=== PATIENT | female | born 1950 | race Caucasian/White ===

== ENCOUNTER → 2016-04-06 | Outpatient (CLI) | payer MEDICARE, OTHER ==
--- NOTE | 2016-04-06 11:31 | XR ---
EXAMINATION TYPE: XR chest 2V DATE OF EXAM: 04/06/2016 11:21 AM COMPARISON: NONE HISTORY: Shortness of breath TECHNIQUE: Frontal and lateral views of the chest are obtained. FINDINGS: Scattered senescent parenchymal changes noted. Hyperinflation compatible with COPD. There is a right suprahilar masslike density. CT of the chest is recommended. Right apical nodularity identified as well. Heart size is stable. Mediastinal structures are stable and grossly unremarkable. No evidence for hilar prominence. Degenerative changes dorsal spine. Probable bone infarct involving the left humerus. IMPRESSION: 1. There is a right suprahilar masslike density. CT of the chest is recommended. Right apical nodular ity identified as well.
== END | disposition home or self-care (01) ==
LOC: RADXRMAIN 10:52
PROVIDERS: ATTEND Family Medicine
DX: R91.8 Other nonspecific abnormal finding of lung field (principal); R91.1 Solitary pulmonary nodule
CPT/HCPCS: 71020

== ENCOUNTER → 2016-04-12 | Outpatient (CLI) | payer MEDICARE, OTHER ==
--- NOTE | 2016-04-12 11:03 | BD ---
EXAMINATION TYPE: MG DEXA axial skeleton. DATE OF EXAM: 04/12/2016 7:57 AM COMPARISON: NONE CLINICAL HISTORY: Height: 68 Weight: 137.4 FRAX RISK QUESTIONS: Alcohol (3 or more units per day): NO Family History (Parent hip fracture): YES Glucocorticoids (More than 3mos): NO (Ex: prednisone, prednisolone, methylprednisolone, dexamethasone, and hydrocortisone). History of Fracture in Adulthood: NO Secondary Osteoporosis: 1. Type 1 Diabetes: NO 2. Hyperthyroidism: NO 3. Menopause before 45: YES 4. Malnutrition: NO 5. Chronic liver disease: NO Rheumatoid Arthritis: NO Current Tobacco Use: YES RISK FACTORS HISTORY OF: Hip Fracture (Right/Left): NO Spine Fracture: NO History of Wrist Fracture: NO Surgery to Spine/Hip(right/left)/Wrist (right/left): NO Family History of Osteoporosis: NO Active: YES Diet low in dairy products/other sources of calcium: YES Postmenopausal woman: AROUND AGE 43 Lost more than 2 inches in height since high school: NO Frequent falls: NO Adrenal Insufficiency: NO MEDICATIONS: CHOLESTEROL MEDS, INHALER, GLAUCOMA MEDS Additional History: EXAM MEASUREMENTS: Bone mineral densitometry was performed using the [employer] System. Bone mineral density as measured about the Lumbar spine is: ----- L1-L4(G/cm2): 1.152 T Score Values are as follows: ----- L2: -0.3 ----- L3: 0.4 ----- L4: -0.5 ----- L1-L4: -0.2 Bone mineral density BASELINE Bone mineral density about the R hip (g/cm2): 0.794 Bone mineral density about the L hip (g/cm2): 0.804 T Score values are as follows: -----R Neck: -1.8 -----L Neck: -1.7 -----R Intertrochanter: -2.1 -----L Intertrochanter: -2.2 Bone mineral density BASELINE IMPRESSION: Osteopenia (T Score between -2.5 and -1 as noted by T score values There is slightly increased risk of fracture and the patient may be considered for treatment. Re-Screen 1-2 years. NOTE: T-SCORE=SD OF THE YOUNG ADULT MEAN.
--- NOTE | 2016-04-16 10:16 | MM ---
Reason for exam: screening (asymptomatic). Last mammogram was performed 3 years and 3 months ago. Physical Findings: A clinical breast exam by your physician is recommended on an annual basis and results should be correlated with mammographic findings. MG Screening Mammo w CAD Bilateral CC and MLO view(s) were taken. Prior study comparison: January 03, 2013, mammogram, performed at [facility]. The breast tissue is heterogeneously dense. This may lower the sensitivity of mammography. Technical repeat left CC view for motion. Focal asymmetry centrally in the left breast after repeat left CC view for motion. ASSESSMENT: Incomplete: need additional imaging evaluation, BI-RAD 0 RECOMMENDATION: Special view mammogram of the left breast. If lesion persists on supplemental views, image directed ultrasound is recommended. [facility] will attempt to contact patient to return for supplemental views and ultrasound if indicated.
== END | disposition home or self-care (01) ==
LOC: RADMAMWWP 07:16
PROVIDERS: ATTEND Family Medicine
DX: Z12.31 Encounter for screening mammogram for malignant neoplasm of breast (principal); M85.80 Other specified disorders of bone density and structure, unspecified site; Z78.0 Asymptomatic menopausal state
CPT/HCPCS: 77080; G0202

== ENCOUNTER → 2016-04-16 | Outpatient (CLI) | payer MEDICARE, OTHER ==
--- NOTE | 2016-04-16 10:09 | CT ---
EXAMINATION TYPE: CT chest wo con DATE OF EXAM: 04/16/2016 10:00 AM COMPARISON: Chest x-ray 04/06/2016 HISTORY: Abnormal finding in lung field CT DLP: 118.70 mGycm Automated exposure control for dose reduction was used. FINDINGS: There is a large bleb or bulla involving the right lung apex. There is a large area of consolidation extending from the right hilum with a large right hilar soft tissue mass measuring 5.2 cm. There is m ild anterior compression of the right mainstem bronchus. Within the left lower lobe there also is an area of consolidation. No pleural effusion or pneumothorax. Lack of IV contrast limits assessment for adenopathy shotty adenopathy in the axilla noted. Hypertrophic changes of the spine noted. Degenerative disc disease noted. IMPRESSION: 1. Large right hilar mass extending into the mediastinum measuring 5.2 cm with anterior compression o f the right mainstem bronchus. Right upper lobe area of consolidation noted may be postinflammatory o r related post infectious possibly related to anterior compression of the bronchus from the hilar mas s. 2. Apical cavitary lesion for which differential diagnosis includes a bulla or pneumatocele. 3. Left lower lobe area of consolidation may represent areas of infiltrate correlate clinically
--- NOTE | 2016-04-16 10:20 | MM ---
Reason for exam: additional evaluation requested from abnormal screening. Last mammogram was performed less than 1 month ago. History: Patient is postmenopausal. Family history of breast cancer in mother at age 50. Physical Findings: Nurse did not find any significant physical abnormalities on exam. MG Work Up Mamm w CAD LT CC and MLO view(s) were taken of the left breast. Prior study comparison: April 12, 2016, bilateral MG screening mammo w CAD. January 03, 2013, mammogram, performed at [facility]. The breast tissue is heterogeneously dense. This may lower the sensitivity of mammography. Questioned central asymmetry does not persist. No underlying mass or architectural distortion. These results were verbally communicated with the patient and result sheet given to the patient on 04/16/16. ASSESSMENT: Negative, BI-RAD 1 RECOMMENDATION: Return to routine screening mammogram schedule for both breasts.
== END | disposition home or self-care (01) ==
LOC: RADCTMAIN 08:38
PROVIDERS: ATTEND Family Medicine
DX: R92.8 Other abnormal and inconclusive findings on diagnostic imaging of breast (principal); R91.8 Other nonspecific abnormal finding of lung field
CPT/HCPCS: 71250; G0206

== ENCOUNTER → 2016-04-24 | Outpatient (CLI) | payer MEDICARE, OTHER ==
--- NOTE | 2016-04-26 16:09 | PE ---
EXAMINATION TYPE: PET CT fusion skull to thigh DATE OF EXAM: 04/24/2016 2:06 PM CLINICAL HISTORY: 65-year-old female initial staging lung cancer TECHNIQUE: Following the intravenous administration of 14.59 mCi of F-18 FDG, whole body images are performed from the skull base to the midthigh. Images are reviewed on the computer in the coronal, axial, and sagittal planes. Reconstructed rotating images are created on independent workstation and reviewed on the computer. A localization and attenuation correction CT is performed in conjunction with the PET scan. Glucose level: 101 mg/dL COMPARISON: CT chest 04/16/2016 FINDINGS: PET: Uptake at the larynx likely a product of phonation. Otherwise, physiologic FDG uptake within the neck . There is focal mild to moderate FDG uptake in the right supraclavicular region, maximal SUV 3.1 that seems to localize to a borderline-enlarged 8mm lymph node, axial image 60. Right paratracheal lymphadenopathy measures 1.2 cm and shows mild FDG uptake, maximum SUV 4.8, but is contiguous with additional right perihilar lymphadenopathy and right hilar mass which measures 4.8 c m wide by 2.9 cm AP and causes mild mass effect onto the anterior margin of the right mainstem bronch us. This has intense hypermetabolism, maximal SUV 10.7. However, there are additional foci of intense hypermetabolism interposed throughout the extensive hope undglass and consolidative opacity within the right upper lobe extending from the hilum, maximal SUV 6.6. There is also some mild to moderate increased hypermetabolism along the margins of the irregular 3.8 x 1.8 cm right apical cavity, maximal SUV 3.8. Scattered small nodules within the right upper lobe measure up to 9 mm and show no discrete FDG uptak e. There is a second area of consolidation along the left infrahilar region extending within the left lo wer lobe along the major fissure to the pleural surface. Portions of this opacity show moderate FDG u ptake, maximal SUV 4.1. There has been no significant change in this appearance from 04/16/2016. There are a couple focal areas of intense FDG uptake along the mid to distal sigmoid colon anterior t o the uterus, axial image 217 and 224, maximal SUV 7.6. Area of sclerosis within the intramedullary space of the proximal third left humerus shows only mild increased FDG uptake, maximal SUV 1.7 and probably represents a benign chondroid lesion. ATTENUATION CORRECTION CT: Visualized paranasal sinuses and mastoid air cells are well pneumatized. No cervical lymphadenopathy seen. Heart is normal size without pericardial effusion. Aorta is normal caliber with conventional arch ves seble branching anatomy. There is background of [id number] emphysema. No dilated small bowel, free fluid, or free air. Retroaortic left renal vein. Adrenal glands are shaheed r. No appreciable mesenteric or retroperitoneal lymphadenopathy. Bladder nondistended. Uterus and ovaries are visualized. No abnormal fluid collection in the pelvis o r pelvic lymphadenopathy seen. Bones: Osteitis pubis mild degenerative changes at the hips and lower lumbar spine. No osseous destru ctive process. IMPRESSION: 1. Intensely hypermetabolic right hilar neoplasm with mediastinal invasion. A 1.2 cm right paratrache al lymph node and 8 mm right supraclavicular node show moderate FDG uptake and may reflect metastatic disease. 2. There is extensive groundglass and consolidative opacity which extends from the right hilum throug hout the right upper lobe where a 3.8 cm irregular cavity is present. There are foci of intense hyper metabolism throughout this region and even some hypermetabolism along the cavity sterling. Uncertain if this relates to an infectious etiology such as fungal or mycobacterial infection or additional neopla sm. Consider bronchial washings to exclude infection. 3. Another area of consolidation in the left lower lobe along the major fissure shows moderate FDG up take and no change from 04/16/2016. Both infectious and neoplastic etiologies are in the differential such as a low-grade adenocarcinoma. This can be followed to assess for clearance. 4. 2 adjacent areas of intense hypermetabolism within the mid to distal sigmoid colon could represent physiologic muscular activity. However, given the isolated uptake, recommend direct visualization to exclude polyps or early neoplasm.
== END | disposition home or self-care (01) ==
LOC: RADPETMAIN 11:56
PROVIDERS: ATTEND Internal Medicine
DX: C34.90 Malignant neoplasm of unspecified part of unspecified bronchus or lung (principal)
CPT/HCPCS: 78815; A9552

== ENCOUNTER 2016-04-30 10:53 | Day surgery (SDC) | payer MEDICARE, OTHER ==
[2016-04-27 12:27] VITALS: BMI 21.2
[~2016-04-30 10:53] MED LIST: ALBUTEROL NEB (CONC) 2.5 MG/0.5 ML INHALATION ONE; LACTATED RINGERS 1,000 ML IV ONE; LACTATED RINGERS 1,000 ML IV SCH; LIDOCAINE 2% (PF) 20 MG/ML 10ML INHALATION ONE; Pre Op ABX Message 1 EACH MISC MISCELLANE ONE
[2016-04-30] MEDS ORDERED: LIDOCAINE 1% 20 ML VIAL (10MG/ML) FOR IV START INTRADERMA ONE (11:51)
[2016-04-30 12:02] VITALS: RESP 16; TEMP 97.5
[2016-04-30] MEDS ORDERED: PROPOFOL 10 MG/ML 20 ML VIAL IV ONE (12:13)
[2016-04-30] MEDS ORDERED: LIDOCAINE 1% INJ 10MG/ML (20 ML MDV) ONE (12:13)
[2016-04-30] MEDS ORDERED: fentaNYL (PF) 50 MCG/ML 2 ML AMP ONE (12:13)
[2016-04-30 13:22] VITALS: BP 112/66; PULSE 94
[2016-04-30 17:48] LABS: RBC, Body Fluid 20600 /uL
--- NOTE | 2016-04-30 19:42 | PCN ---
DATE OF PROCEDURE: OPERATIVE REPORT: Bronchoscopy with endobronchial biopsies of the right mainstem bronchus and right upper lobe bronchus, multiple brushings of the right upper lobe bronchus and lavage of the right upper lobe as well as lavage of the left lower lobe. PREOPERATIVE DIAGNOSIS: Right hilar mass consistent with bronchogenic carcinoma. POSTOPERATIVE DIAGNOSIS: Right hilar mass consistent with bronchogenic carcinoma. ANESTHESIA USED: Patient was given IV conscious sedation. DESCRIPTION OF PROCEDURE: Patient was prepared according to the bronchoscopy protocol. O2 was applied via a Ventimask, and patient was given IV conscious sedation. Prior to the procedure, patient was monitored, her O2 saturation was continuously monitored via pulse oximetry. Blood pressure was intermittently monitored. Cardiac rhythm was continuously monitored. After adequate IV conscious sedation, the bronchoscope was inserted through the left naris down to the area of the vocal cords. The vocal cords were patent. Pictures of the vocal cords were taken. Lidocaine was applied over the vocal cords, and the bronchoscope was advanced further down to the trachea. Thorough examination was done of the trachea, the tamica, right upper lobe, right middle lobe and left lower lobe, left upper lobe, lingula, and left lower lobe. The main findings noted where mostly obviously a hilar mass anterior to the right mainstem bronchus, narrowing of the right mainstem bronchus with compression from the anterior aspect. There is also narrowing of the right upper lobe bronchus mostly the anterior segment of the right upper lobe. The mucosa was noted to be quite fragile, swollen, edematous and significant inflammatory changes were noted in the area involving the anterior segment of the right upper lobe as well as anterior wall of the right mainstem bronchus. Multiple brushings, multiple endobronchial biopsies were done from these areas and bronchoalveolar lavage of the right upper lobe was done. These were sent for different diagnostic studies. Then in the left lower lobe, there was evidence of purulent secretions. Lavage and cleaning of the left lower lobe was performed, but no specimen was sent for any cytology from the left lower lobe. The specimen sent was mostly from the brushings and biopsies of the right upper lobe bronchus and right mainstem bronchus. There was also brushings and washings as well as biopsies from this area specifically. The procedure was well tolerated. There was no evidence of any immediate complications. Blood loss was minimal.
== END 2016-04-30 14:01 | disposition home or self-care (01) ==
LOC: ORWHC2ENDO 10:53
PROVIDERS: ATTEND Internal Medicine
DX: C34.11 Malignant neoplasm of upper lobe, right bronchus or lung (principal); J18.9 Pneumonia, unspecified organism; J44.9 Chronic obstructive pulmonary disease, unspecified; F17.200 Nicotine dependence, unspecified, uncomplicated; J30.2 Other seasonal allergic rhinitis; Z79.899 Other long term (current) drug therapy; Z88.2 Allergy status to sulfonamides
CPT/HCPCS: 94640; 88104; 88108; 88305; 89050; 88342; 88341; 87070; 87205; 87116; 87102; 87077; 87186; 87206; 31625; 31623; 31624; J2001 ×2; J3010; J2704; 99153

== ENCOUNTER → 2016-05-12 | Outpatient (CLI) | payer MEDICARE, OTHER ==
[2016-05-12 10:21] LABS: Non-African American GFR(MDRD) >60 (>60 ml/min/1.73 sqM)
[2016-05-12 11:55] LABS: Non-African American GFR(MDRD) >60 (>60 ml/min/1.73 sqM)
--- NOTE | 2016-05-12 11:55 | MR ---
MR brain with and without contrast HISTORY: Lung cancer Multiplanar multisequence and postcontrast images through the brain following 13 cc MultiHance IV, fa st brain protocol used for the exam due to patient's cough Correlation to nuclear medicine PET/CT 24 April 2016 There is no restricted diffusion. There is no hemorrhage or hydrocephalus. Pituitary, corpus callosum , cerebellopontine angles are normal. Cervical medullary junction is normal. There is no abnormal enh ancement to suggest metastatic disease. Periventricular and subcortical hyperintensities on inversion recovery and T2-weighted sequences are resident. There are approximately 20-30 lesions. The orbits s how symmetric appearance. Mild inflammatory change present within the maxillary sinus, ethmoid air ce lls. There is cortical atrophy. No mass effect or midline shift. IMPRESSION: Age-related atrophy and chronic small vessel ischemia. Follow-up as indicated.
[2016-05-12 12:32] LABS: ALT 52 U/L (9-52); AST 70 U/L (14-36); Alkaline Phosphatase 176 U/L (38-126); Anion Gap 14 mmol/L; Blood Urea Nitrogen 16 mg/dL (7-17); Calcium 9.8 mg/dL (8.4-10.2); Carbon Dioxide 22 mmol/L (22-30); Chloride 109 mmol/L (98-107); Glucose 197 mg/dL (74-99); Iron 59 ug/dL (37-170); Potassium 4.7 mmol/L (3.5-5.1); Sodium 145 mmol/L (137-145); Total Bilirubin 0.6 mg/dL (0.2-1.3); Total Protein 8.1 g/dL (6.3-8.2)
[2016-05-12 12:48] LABS: Total Iron Binding Capacity 311 ug/dL (265-497)
== END | disposition home or self-care (01) ==
LOC: RADMRIMAIN 09:51
PROVIDERS: ATTEND Internal Medicine Hematology & Oncology
DX: C34.90 Malignant neoplasm of unspecified part of unspecified bronchus or lung (principal); I67.82 Cerebral ischemia; G31.1 Senile degeneration of brain, not elsewhere classified
CPT/HCPCS: 80053; 82728; 82565; 83540; 83550; 70553; A9577

== ENCOUNTER 2016-07-12 17:46 | Inpatient (IN) | payer MEDICARE, OTHER ==
[2016-07-12] MEDS ORDERED: DILTIAZEM 5 MG/ML 5 ML VIAL IVP STA (17:58)
[2016-07-12] MEDS ORDERED: DILTIAZEM 125 MG in SODIUM CHLORIDE 0.9% 100 ML IV ONE (17:58)
[2016-07-12] MEDS ORDERED: SODIUM CHLORIDE 0.9% 1,000 ML IV ONE (18:06)
[2016-07-12] MEDS ORDERED: ACETAMINOPHEN TAB 325 MG TAB PO STA (18:06)
--- NOTE | 2016-07-12 18:17 | ED ---
Fever HPI - General Chief Complaint: Fever Stated Complaint: poss infection Time Seen by Provider: 07/12/16 17:58 Source: patient Mode of arrival: wheelchair Limitations: no limitations - History of Present Illness Initial Comments: Patient is 66-year-old woman who was sent here from her oncologist clinic. She had gone there to have a radiation therapy appointment. As they were checking the patient in the noted that she was having a fever and that she was tachycardic. The patient states that she did have some mild symptoms but was not feeling awful. She is denying chest pain. She has just mild shortness of breath. No cough. Patient denies other symptoms. MD Complaint: fever -: minutes(s) Context: on chemotherapy Associated Symptoms: denies other symptoms Treatments Prior to Arrival: none - Related Data Home Medications Medication Instructions Recorded Confirmed Latanoprost Ophth [Xalatan 0.005%] 1 drops LEFT EYE HS 04/27/16 07/12/16 Simvastatin [Zocor] 20 mg PO Q2D 04/27/16 07/12/16 Simvastatin [Zocor] 40 mg PO Q2D 04/27/16 07/12/16 Famotidine [Pepcid AC] 10 mg PO DAILY 07/12/16 07/12/16 HYDROcodone/APAP [Pawling Elixir 5 ml PO TID PRN 07/12/16 07/12/16 7.5-325Mg/15Ml] Loratadine-Pseudoeph 10-240 mg 1 tab PO DAILY 07/12/16 07/12/16 [Claritin-D 24 Hr] Allergies Allergy/AdvReac Type Severity Reaction Status Date / Time Sulfa (Sulfonamide Allergy Anaphylaxis Verified 07/12/16 19:04 Antibiotics) Review of Systems ROS Statement: Those systems with pertinent positive or pertinent negative responses have been documented in the HPI. ROS Other: All systems not noted in ROS Statement are negative. Constitutional: Reports: as per HPI, fever ENT: Reports: throat pain Respiratory: Reports: dyspnea. Denies: cough, wheezes Cardiovascular: Denies: chest pain, palpitations, edema, syncope Gastrointestinal: Denies: abdominal pain, vomiting, diarrhea Genitourinary: Denies: dysuria, frequency, hematuria Musculoskeletal: Denies: back pain Skin: Denies: rash Neurological: Denies: headache, weakness, numbness Past Medical History Past Medical History: Cancer, Eye Disorder Additional Past Medical History / Comment(s): cough pt states mass lt lower lung and other spots in the lung, lt eye glaucoma, ON CHEMO AND RADIATION FOR LUNG ca History of Any Multi-Drug Resistant Organisms: None Reported Past Surgical History: No Surgical Hx Reported Past Anesthesia/Blood Transfusion Reactions: No Reported Reaction Additional Past Anesthesia/Blood Transfusion Reaction / Comment(s): states has never received anesthesia Past Psychological History: No Psychological Hx Reported Smoking Status: Former smoker Past Alcohol Use History: None Reported Additional Past Alcohol Use History / Comment(s): smoker 40 years 1ppd Past Drug Use History: None Reported - Past Family History Mother Family Medical History: Cancer Additional Family Medical History / Comment(s): uterine,breast cancer Father Family Medical History: Cancer Additional Family Medical History / Comment(s): hodgkins Sister(s) Family Medical History: No Reported History General Exam Limitations: no limitations General appearance: alert, in no apparent distress Head exam: Present: atraumatic, normocephalic Eye exam: Present: normal appearance. Absent: scleral icterus, conjunctival injection ENT exam: Present: normal oropharynx Neck exam: Present: normal inspection Respiratory exam: Present: normal lung sounds bilaterally. Absent: respiratory distress, wheezes, rales, rhonchi, stridor Cardiovascular Exam: Present: tachycardia, irregular rhythm, normal heart sounds. Absent: systolic murmur, diastolic murmur, rubs, gallop GI/Abdominal exam: Present: soft. Absent: distended, tenderness, guarding, rebound, mass Extremities exam: Present: normal inspection, normal capillary refill. Absent: pedal edema, calf tenderness Back exam: Present: normal inspection. Absent: CVA tenderness (R), CVA tenderness (L) Neurological exam: Present: alert Skin exam: Present: warm, dry, intact, normal color. Absent: rash Course Vital Signs 07/12/16 07/12/16 07/12/16 17:46 18:35 19:41 Temperature 100.7 F H 99.3 F Pulse Rate 171 H 140 H 154 H Respiratory 16 16 16 Rate Blood Pressure 98/52 143/55 88/48 O2 Sat by Pulse 100 96 100 Oximetry 07/12/16 07/12/16 07/12/16 20:28 21:11 21:21 Temperature 100.2 F H 99.3 F Pulse Rate 138 H 133 H 93 Respiratory 18 18 16 Rate Blood Pressure 101/47 83/52 89/48 O2 Sat by Pulse 97 Oximetry Medical Decision Making - Medical Decision Making This patient is 66-year-old woman with lung cancer presenting from the radiation oncology clinic where she was found to have fever and tachycardia. The patient is in atrial fibrillation with rapid ventricular rate, fluids and Cardizem are started. Workup also reveals pancytopenia, patient will be transfused with red cells and as her platelets are below 10,000 have platelet transfusion. Patient also covered with antibiotics for febrile neutropenia. Case discussed with the oncologist, with the hydrometer tester, and with the admitting physicians. Cardiology also consulted area The patient's heart rate is responding to the fluids, medication, and the started a transfusion. - Lab Data Result diagrams: 07/13/16 11:56 07/13/16 06:23 Lab Results 07/12/16 07/12/16 07/12/16 Range/Units 18:15 18:15 18:15 WBC 0.4 L* (3.8-10.6) k/uL RBC 1.90 L (3.80-5.40) m/uL Hgb 5.6 L* (11.4-16.0) gm/dL Hct 15.9 L* (34.0-46.0) % MCV 83.8 (80.0-100.0) fL MCH 29.3 (25.0-35.0) pg MCHC 35.0 (31.0-37.0) g/dL RDW 23.6 H (11.5-15.5) % Plt Count 3 L* (150-450) k/uL Differential Comment Anisocytosis Moderate Microcytosis Slight PT (9.0-12.0) sec INR (<1.1) APTT (22.0-30.0) sec Sodium 133 L (137-145) mmol/L Potassium 4.0 (3.5-5.1) mmol/L Chloride 97 L (98-107) mmol/L Carbon Dioxide 24 (22-30) mmol/L Anion Gap 12 mmol/L BUN 40 H (7-17) mg/dL Creatinine 0.97 (0.52-1.04) mg/dL Est GFR (MDRD) Af Amer >60 (>60 ml/min/1.73 sqM) Est GFR (MDRD) Non-Af 57 (>60 ml/min/1.73 sqM) Glucose 233 H (74-99) mg/dL Calcium 9.2 (8.4-10.2) mg/dL Magnesium 1.4 L (1.6-2.3) mg/dL Total Bilirubin 1.0 (0.2-1.3) mg/dL AST 14 (14-36) U/L ALT 23 (9-52) U/L Alkaline Phosphatase 89 (38-126) U/L Total Creatine Kinase <20 L (30-135) U/L CK-MB (CK-2) <0.2 (0.0-2.4) ng/mL CK-MB (CK-2) Rel Index Troponin I 0.015 (0.000-0.034) ng/mL Total Protein 6.8 (6.3-8.2) g/dL Albumin 3.5 (3.5-5.0) g/dL TSH 1.200 (0.465-4.680) mIU/L Blood Type Blood Type Confirm Blood Type Recheck Antibody Screen Crossmatch Transfuse Platelets Spec Expiration Date 07/12/16 07/12/16 07/12/16 Range/Units 18:15 18:15 20:00 WBC (3.8-10.6) k/uL RBC (3.80-5.40) m/uL Hgb (11.4-16.0) gm/dL Hct (34.0-46.0) % MCV (80.0-100.0) fL MCH (25.0-35.0) pg MCHC (31.0-37.0) g/dL RDW (11.5-15.5) % Plt Count (150-450) k/uL Differential Comment Anisocytosis Microcytosis PT 11.5 (9.0-12.0) sec INR 1.2 (<1.1) APTT 25.6 (22.0-30.0) sec Sodium (137-145) mmol/L Potassium (3.5-5.1) mmol/L Chloride (98-107) mmol/L Carbon Dioxide (22-30) mmol/L Anion Gap mmol/L BUN (7-17) mg/dL Creatinine (0.52-1.04) mg/dL Est GFR (MDRD) Af Amer (>60 ml/min/1.73 sqM) Est GFR (MDRD) Non-Af (>60 ml/min/1.73 sqM) Glucose (74-99) mg/dL Calcium (8.4-10.2) mg/dL Magnesium (1.6-2.3) mg/dL Total Bilirubin (0.2-1.3) mg/dL AST (14-36) U/L ALT (9-52) U/L Alkaline Phosphatase (38-126) U/L Total Creatine Kinase (30-135) U/L CK-MB (CK-2) (0.0-2.4) ng/mL CK-MB (CK-2) Rel Index Troponin I (0.000-0.034) ng/mL Total Protein (6.3-8.2) g/dL Albumin (3.5-5.0) g/dL TSH (0.465-4.680) mIU/L Blood Type A Positive Blood Type Confirm Blood Type Recheck CABO Indicated Antibody Screen NEGATIVE Crossmatch See Detail Transfuse Platelets 07/12/2016 Spec Expiration Date 07/15/2016 - 231407/12/16 Range/Units 20:08 WBC (3.8-10.6) k/uL RBC (3.80-5.40) m/uL Hgb (11.4-16.0) gm/dL Hct (34.0-46.0) % MCV (80.0-100.0) fL MCH (25.0-35.0) pg MCHC (31.0-37.0) g/dL RDW (11.5-15.5) % Plt Count (150-450) k/uL Differential Comment Anisocytosis Microcytosis PT (9.0-12.0) sec INR (<1.1) APTT (22.0-30.0) sec Sodium (137-145) mmol/L Potassium (3.5-5.1) mmol/L Chloride (98-107) mmol/L Carbon Dioxide (22-30) mmol/L Anion Gap mmol/L BUN (7-17) mg/dL Creatinine (0.52-1.04) mg/dL Est GFR (MDRD) Af Amer (>60 ml/min/1.73 sqM) Est GFR (MDRD) Non-Af (>60 ml/min/1.73 sqM) Glucose (74-99) mg/dL Calcium (8.4-10.2) mg/dL Magnesium (1.6-2.3) mg/dL Total Bilirubin (0.2-1.3) mg/dL AST (14-36) U/L ALT (9-52) U/L Alkaline Phosphatase (38-126) U/L Total Creatine Kinase (30-135) U/L CK-MB (CK-2) (0.0-2.4) ng/mL CK-MB (CK-2) Rel Index Troponin I (0.000-0.034) ng/mL Total Protein (6.3-8.2) g/dL Albumin (3.5-5.0) g/dL TSH (0.465-4.680) mIU/L Blood Type Blood Type Confirm A Positive Blood Type Recheck Antibody Screen Crossmatch Transfuse Platelets Spec Expiration Date - EKG Data -: EKG Interpreted by [place] EKG shows normal: axis (Normal), intervals (Normal), QRS complexes (Right bundle -branch block) Rate: tachycardia Interpretation: other (The EKG shows atrial fibrillation with a rate approximately 189 bpm. There are lateral ST depressions.) Critical Care Time Critical Care Time: Yes (45 minutes) Disposition Clinical Impression: Febrile neutropenia, Pancytopenia, Atrial fibrillation with RVR, Hyperglycemia , Hypomagnesemia Disposition: ADMITTED IP TO THIS [facility] Condition: Critical
[2016-07-12] MEDS ORDERED: ACETAMINOPHEN ORAL SUSP 160 MG/5 ML CUP PO ONE (18:28)
--- NOTE | 2016-07-12 18:30 | XR ---
EXAMINATION TYPE: XR chest 1V portable DATE OF EXAM: 07/12/2016 6:24 PM COMPARISON: Chest CT April 16, 2016. Chest x-ray April 20, 2016. PET CT April 24, 2016. HISTORY: Fever and tachycardia. Dysrhythmia. TECHNIQUE: Single AP portable frontal upright view of the chest is obtained. FINDINGS: There is stable right internal jugular Mediport catheter. There is no new focal air space opacity, pleural effusion, or pneumothorax seen. Hypermetabolic right upper lung masslike infiltrate is redemonstrated. The cardiac silhouette size is within normal limits. The osseous structures are intact. IMPRESSION: No new acute infiltrate. Hypermetabolic right hilar mass or neoplasm with upper lobe ext ension redemonstrated.
[2016-07-12 18:34] LABS: Anisocytosis Moderate; Aty Lym Flag Slight; CH 29.4; CHCM 35.1; HDW 3.38; MCH 29.3 pg (25.0-35.0); MCV 83.8 fL (80.0-100.0); Mean Platelet Volume 7.2; Microcytosis Slight; RDW 23.6 % (11.5-15.5); WBC (Perox) 0.36
[2016-07-12 18:37] LABS: HCT 15.9 % (34.0-46.0); HGB 5.6 gm/dL (11.4-16.0); WBC 0.4 k/uL (3.8-10.6)
[2016-07-12 18:40] LABS: INR 1.2 (<1.1); Partial Thromboplastin Time 25.6 sec (22.0-30.0); Prothrombin Time 11.5 sec (9.0-12.0)
[2016-07-12 18:48] LABS: Add Differential Manual Differential
[2016-07-12 18:55] LABS: Creatine Kinase <20 U/L (30-135)
[2016-07-12] MEDS ORDERED: CEFEPIME 2 GM in SODIUM CHLORIDE 0.9% 50 ML IVPB STA (18:58)
[2016-07-12] MEDS ORDERED: IV VANCOMYCIN PER PHARMACY 1 EACH MISC MISCELLANE PRN (18:58)
[2016-07-12] MEDS ORDERED: VANCOMYCIN 1,250 MG in SODIUM CHLORIDE 0.9% 250 ML IVPB STA (19:06)
[2016-07-12 19:08] LABS: Creatine Kinase MB <0.2 ng/mL (0.0-2.4); Troponin I 0.015 ng/mL (0.000-0.034)
[2016-07-12 19:22] LABS: ALT 23 U/L (9-52); AST 14 U/L (14-36); Alkaline Phosphatase 89 U/L (38-126); Anion Gap 12 mmol/L; Blood Urea Nitrogen 40 mg/dL (7-17); Calcium 9.2 mg/dL (8.4-10.2); Carbon Dioxide 24 mmol/L (22-30); Chloride 97 mmol/L (98-107); Glucose 233 mg/dL (74-99); Magnesium 1.4 mg/dL (1.6-2.3); Non-African American GFR(MDRD) 57 (>60 ml/min/1.73 sqM); Sodium 133 mmol/L (137-145); Total Protein 6.8 g/dL (6.3-8.2)
[2016-07-12] MEDS ORDERED: ONDANSETRON 4 MG/2 ML VIAL IVP PRN (19:28)
[2016-07-12] MEDS ORDERED: NALOXONE 0.4 MG/ML 1 ML VIAL IV PRN (19:28)
[2016-07-12] MEDS ORDERED: ACETAMINOPHEN TAB 325 MG TAB PO PRN (19:28)
[2016-07-12] MEDS ORDERED: MAGNESIUM SULFATE-D5W PMX 1 GM in DEXTROSE/WATER 1 100ML.BAG IVPB ONE (19:46)
[2016-07-12] MEDS: SODIUM CHLORIDE 0.9% 1,000 ML IV SCH (20:17)
[2016-07-12 23:49] VITALS: BMI 20.9
[2016-07-13] MEDS: INSULIN LISPRO (humaLOG) 300 UNIT/3 ML VIAL SQ SCH ×5 (00:06→21:40)
[2016-07-13] MEDS: LATANOPROST 0.005% OPHTH DROPS 2.5 ML BTL LEFT EYE SCH ×2 (00:09→21:40)
[2016-07-13] MEDS: FAMOTIDINE 20 MG TAB PO SCH ×3 (00:10→21:42)
[2016-07-13 00:16] LABS: Glucose,Whole Blood 129 mg/dL (75-99)
[2016-07-13] MEDS: ATORVASTATIN 10 MG TAB PO SCH (00:24)
[2016-07-13 00:49] LABS: Appearance,Urine Clear (Clear); Bilirubin,Urine Negative (Negative); Glucose,Urine (UA) Negative (Negative); Ketones,Urine Trace (Negative); Leukocyte Esterase,Urine Negative (Negative); Nitrite,Urine Negative (Negative); PH, Urine 5.5 (5.0-8.0); Protein,Urine Trace (Negative); UA Billing (MACRO vs. MICRO) CHEM; Urobilinogen,Urine <2.0 mg/dL (<2.0)
[2016-07-13] MEDS: CEFEPIME 2 GM in SODIUM CHLORIDE 0.9% 50 ML IVPB SCH ×3 (03:11→17:03)
[2016-07-13 06:19] LABS: Glucose,Whole Blood 132 mg/dL (75-99)
[2016-07-13 06:59] LABS: Anisocytosis Moderate; CHCM 34.3; HDW 3.16; MCHC 35.5 g/dL (31.0-37.0); MCV 87.5 fL (80.0-100.0); Mean Platelet Volume 9.8; Microcytosis Slight; RBC 1.85 m/uL (3.80-5.40); RDW 21.9 % (11.5-15.5); WBC (Perox) 0.49
[2016-07-13 07:01] LABS: HCT 16.2 % (34.0-46.0); HGB 5.7 gm/dL (11.4-16.0); WBC 0.5 k/uL (3.8-10.6)
[2016-07-13 07:09] LABS: Anion Gap 9 mmol/L; Blood Urea Nitrogen 34 mg/dL (7-17); Calcium 8.3 mg/dL (8.4-10.2); Carbon Dioxide 22 mmol/L (22-30); Chloride 106 mmol/L (98-107); Glucose 124 mg/dL (74-99); Magnesium 1.6 mg/dL (1.6-2.3); Non-African American GFR(MDRD) >60 (>60 ml/min/1.73 sqM); Potassium 3.6 mmol/L (3.5-5.1); Sodium 137 mmol/L (137-145)
[2016-07-13 07:58] LABS: Add Differential Manual Differential
[2016-07-13] MEDS ORDERED: VANCOMYCIN 1,250 MG in SODIUM CHLORIDE 0.9% 250 ML IVPB SCH (08:00)
[2016-07-13] MEDS: HYDROcodone/APAP 15 ML SOLUTION PO PRN ×2 (08:57→12:22)
--- NOTE | 2016-07-13 10:12 | P.CRDCN ---
History of Present Illness Consult date: 07/13/16 Requesting physician: Richard Edwards Consult reason: atrial fibrillation Chief complaint: Weakness and shaking History of present illness: This is a pleasant 66-year-old female with history of hyperlipidemia, prior nicotine dependence, she quit smoking in April of this year at which time she was diagnosed with lung cancer and has been undergoing chemotherapy and radiation treatments. After receiving her radiation treatment yesterday, patient became extremely weak and felt shaky, she tried to walk to the bathroom and states that she felt her heart racing fast. For this reason she was referred to the emergency room for admission. EKG on admission here showed atrial fibrillation with a rapid ventricular response. Patient was given an IV Cardizem bolus and started on Cardizem drip. He converted to normal sinus rhythm and remains in normal sinus rhythm this morning. Laboratory data was reviewed, white blood cell count 0.5, hemoglobin 5.7, platelet count 3 on admission, 34 this morning. Potassium 3.6, magnesium level I.4 on admission, 1.6 this morning. TSH level I.2. Troponin 0.015. Blood pressure on admission 98/50 with a heart rate of 170. Patient also had a temperature of 100.7. Blood pressure went as high as 101 early this morning, blood pressure currently 104/80. At the time of my examination, patient feels well other than mildly weak. Much better than she did yesterday. Chest x-ray reveals no new acute infiltrate. Hypermetabolic right hilar mass or neoplasm within the upper lobe region demonstrated. Past Medical History Past Medical History: Cancer, Eye Disorder Additional Past Medical History / Comment(s): cough pt states mass lt lower lung and other spots in the lung, lt eye glaucoma, ON CHEMO AND RADIATION FOR LUNG ca History of Any Multi-Drug Resistant Organisms: None Reported Past Surgical History: No Surgical Hx Reported Past Anesthesia/Blood Transfusion Reactions: No Reported Reaction Additional Past Anesthesia/Blood Transfusion Reaction / Comment(s): states has never received anesthesia Past Psychological History: No Psychological Hx Reported Smoking Status: Former smoker Past Alcohol Use History: Occasional Additional Past Alcohol Use History / Comment(s): smoker 40 years 1ppd Past Drug Use History: None Reported - Past Family History Mother Family Medical History: Cancer Additional Family Medical History / Comment(s): uterine,breast cancer Father Family Medical History: Cancer Additional Family Medical History / Comment(s): hodgkins Sister(s) Family Medical History: No Reported History Medications and Allergies Home Medications Medication Instructions Recorded Confirmed Type Latanoprost Ophth [Xalatan 0.005%] 1 drops LEFT EYE HS 04/27/16 07/12/16 History Simvastatin [Zocor] 20 mg PO Q2D 04/27/16 07/12/16 History Simvastatin [Zocor] 40 mg PO Q2D 04/27/16 07/12/16 History Famotidine [Pepcid AC] 10 mg PO DAILY 07/12/16 07/12/16 History HYDROcodone/APAP [[place] Elixir 5 ml PO TID PRN 07/12/16 07/12/16 History 7.5-325Mg/15Ml] Loratadine-Pseudoeph 10-240 mg 1 tab PO DAILY 07/12/16 07/12/16 History [Claritin-D 24 Hr] Allergies Allergy/AdvReac Type Severity Reaction Status Date / Time Sulfa (Sulfonamide Allergy Anaphylaxis Verified 07/12/16 19:04 Antibiotics) Physical Exam Vitals: Vital Signs Temp Pulse Pulse Resp BP BP Pulse Ox 07/13/16 09:37 100 07/13/16 08:00 98.7 F 85 103/49 100 07/13/16 06:06 98.2 F 07/13/16 03:15 101.4 F H 93 16 99/49 100 07/13/16 01:02 97.1 F L 85 16 100/49 100 07/12/16 23:15 97.6 F 53 L 16 121/58 07/12/16 22:45 99 F 94 16 100/47 100 07/12/16 22:35 98.6 F 98 18 91/42 99 07/12/16 21:48 99.3 F 94 16 90/52 07/12/16 21:45 97 Intake and Output 07/12/16 07/13/16 07/13/16 22:59 06:59 14:59 Intake Total 312 760 120 Output Total 300 400 Balance 312 460 -280 Intake: IV 450 Diltiazem 125 mg In 45 Sodium Chloride 0.9% 100 ml @ 5 MG/HR 5 mls/hr IV .Q24H ONE Rx#:[id number] Magnesium Sulfate-D5w Pmx 100 1 gm In Dextrose/Water 1 100ml.bag @ 100 mls/hr IVPB ONCE ONE Rx#: [id number] Sodium Chloride 0.9% 1, 180 000 ml @ 20 mls/hr IV . Q24H [facility] Rx#:[id number] Vancomycin 1,250 mg In 125 Sodium Chloride 0.9% 250 ml @ 125 mls/hr IVPB ONCE STA Rx#:[id number] Oral 50 120 Blood Product 262 310 Platelet Pheresis Acda1 262 Unit [id number] Rc As-1 Unit 0 310 [id number] Output: Urine 300 400 Other: Voiding Method Toilet # Voids 1 Weight 62.5 kg PHYSICAL EXAMINATION: HEENT: [Head is atraumatic, normocephalic. Pupils equal, round. Neck is supple. There is no elevated jugular venous pressure.] HEART EXAMINATION: [Heart S1, S2 normal. No murmur or gallop heard.] CHEST EXAMINATION:[ Lungs are clear to auscultation and precussion. No chest wall tenderness is noted on palpation or with deep breathing.] ABDOMEN: [ Soft, nontender. Bowel sounds are heard. No organomegaly noted]. EXTREMITIES:[ 2+ peripheral pulses with no evidence of peripheral edema and no calf tenderness noted]. NEUROLOGIC [patient is awake, alert and oriented -3.] . Results 07/13/16 06:23 07/13/16 06:23 CBC 07/13/16 Range/Units 06:23 WBC 0.5 L* (3.8-10.6) k/uL RBC 1.85 L (3.80-5.40) m/uL Hgb 5.7 L* (11.4-16.0) gm/dL Hct 16.2 L* (34.0-46.0) % Plt Count 34 L* D (150-450) k/uL Comprehensive Metabolic Panel 07/13/16 Range/Units 06:23 Sodium 137 (137-145) mmol/L Potassium 3.6 (3.5-5.1) mmol/L Chloride 106 (98-107) mmol/L Carbon Dioxide 22 (22-30) mmol/L BUN 34 H (7-17) mg/dL Creatinine 0.69 (0.52-1.04) mg/dL Glucose 124 H (74-99) mg/dL Calcium 8.3 L (8.4-10.2) mg/dL Current Medications Generic Name Dose Route Start Last Admin Trade Name Freq PRN Reason Stop Dose Admin Acetaminophen 650 mg 07/12/16 19:28 07/13/16 03:11 Tylenol Tab PO 650 mg Q6HR PRN Administration Mild Pain or Fever > 100.5 Hydrocodone Bitart/Acetaminophen 5 ml 07/12/16 19:43 07/13/16 08:57 [place] Elixir 7.5-325mg/15ml PO 5 ml TID PRN Administration Pain Atorvastatin Calcium 20 mg 07/13/16 21:00 Lipitor PO Q2D ELO Atorvastatin Calcium 10 mg 07/12/16 21:00 07/13/16 00:24 Lipitor PO 10 mg Q2D ELO Administration Famotidine 20 mg 07/12/16 21:00 07/13/16 08:54 Pepcid PO 20 mg BID ELO Administration Filgrastim 300 mcg 07/13/16 09:00 Zarxio SQ DAILY [facility] Diltiazem HCl 125 mg/ Sodium 125 mls @ 5 mls/hr 07/12/16 17:58 07/12/16 18:18 Chloride IV 07/13/16 17:57 5 mg/hr .Q24H ONE 5 mls/hr 5 MG/HR Administration Sodium Chloride 1,000 mls @ 20 mls/hr 07/12/16 19:30 07/12/16 20:17 Saline 0.9% IV 20 mls/hr .Q24H ELO Administration Cefepime HCl 2 gm/ Sodium 50 mls @ 100 mls/hr 07/13/16 02:00 07/13/16 08:53 Chloride IVPB 100 mls/hr Q8HR ELO Administration Vancomycin HCl 1,250 mg/ 250 mls @ 125 mls/hr 07/13/16 21:00 Sodium Chloride IVPB Q12HR [facility] Insulin Human Lispro 0 unit 07/12/16 21:00 07/13/16 06:20 Humalog SQ Not Given ACHS [facility] Protocol Latanoprost 1 drops 07/12/16 21:00 07/13/16 00:09 Xalatan 0.005% LEFT EYE 1 drops HS ELO Administration Magnesium Oxide 400 mg 07/13/16 12:00 Mag-Ox PO 1200 ELO Naloxone HCl 0.2 mg 07/12/16 19:28 Narcan IV Q2M PRN Opioid Reversal Ondansetron HCl 4 mg 07/12/16 19:28 Zofran IVP Q8HR PRN Nausea And Vomiting Sucralfate 1 gm 07/13/16 12:30 Carafate PO ACHS ELO Intake and Output 07/12/16 07/13/16 07/13/16 22:59 06:59 14:59 Intake Total 312 760 120 Output Total 300 400 Balance 312 460 -280 Intake: IV 450 Diltiazem 125 mg In 45 Sodium Chloride 0.9% 100 ml @ 5 MG/HR 5 mls/hr IV .Q24H ONE Rx#:[id number] Magnesium Sulfate-D5w Pmx 100 1 gm In Dextrose/Water 1 100ml.bag @ 100 mls/hr IVPB ONCE ONE Rx#: [id number] Sodium Chloride 0.9% 1, 180 000 ml @ 20 mls/hr IV . Q24H ELO Rx#:[id number] Vancomycin 1,250 mg In 125 Sodium Chloride 0.9% 250 ml @ 125 mls/hr IVPB ONCE STA Rx#:[id number] Oral 50 120 Blood Product 262 310 Platelet Pheresis Acda1 262 Unit [id number] Rc As-1 Unit 0 310 [id number] Output: Urine 300 400 Other: Voiding Method Toilet # Voids 1 Weight 62.5 kg 07/13/16 06:23 07/13/16 06:23 EKG Interpretations (text) Initial EKG showed atrial fibrillation with rapid ventricular response. Assessment and Plan Plan: Assessment and plan #1 atrial fibrillation with rapid ventricular response, paroxysmal, new onset. Patient currently in normal sinus rhythm. #2 bronchiogenic carcinoma, currently undergoing chemotherapy and radiation. #3 prior history of smoking, she quit smoking in April of this year #4 hyperlipidemia #5 anemia, hemoglobin 5.7. #6 hypokalemia, hypomagnesemia, replaced. #7 low platelet count, 3 on admission, 34 this morning. #8 low white blood cell count, 0.4 yesterday, 0.5 this morning. Plan Discontinue the IV Cardizem drip. Obtain echocardiogram with Doppler study. Replace magnesium and potassium. Check thyroid level. Start low-dose beta lia. Further recommendations to follow. DNP note has been reviewed, I agree with a documented findings and plan of care. Patient was seen and examined.
[2016-07-13 12:12] LABS: Anisocytosis Moderate; CH 29.6; CHCM 33.7; HDW 3.25; MCHC 35.2 g/dL (31.0-37.0); MCV 88.1 fL (80.0-100.0); Mean Platelet Volume 9.8; Microcytosis Slight; RBC 1.87 m/uL (3.80-5.40); RDW 22.1 % (11.5-15.5); WBC (Perox) 0.57
[2016-07-13] MEDS: FILGRASTIM-SNDZ 300 MCG/0.5 ML SYRINGE SQ SCH (12:16)
[2016-07-13] MEDS: SUCRALFATE 1 GM TAB PO SCH ×3 (12:17→21:40)
[2016-07-13] MEDS: POTASSIUM CHLORIDE ER 20 MEQ TAB.ER PO SCH (12:17)
[2016-07-13] MEDS: MAGNESIUM OXIDE 400 MG TAB PO SCH (12:17)
[2016-07-13 12:25] LABS: HGB 5.8 gm/dL (11.4-16.0); WBC 0.6 k/uL (3.8-10.6)
[2016-07-13 12:26] LABS: HCT 16.5 % (34.0-46.0)
[2016-07-13 12:26] LABS: Glucose,Whole Blood 136 mg/dL (75-99)
--- NOTE | 2016-07-13 12:44 | P.CONS ---
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 Henrandez is a very pleasant female pt of Dr. Church who presented to her PCP Dr. Guerra in Mar 2016 with c/o of persistent dry cough for the last month or so. CXR revealed a large right hilar mass, confirmed by CT. Dr. Mcelroy performed transbronchial Bx on 04/30/16, pathology positive for small cell carcinoma. Staging PET showed no distant mets, LLL changes were felt to not likely be neoplastic. She is currently s/p 3 cycles of carboplatin and [employer] with concurrent radiation which she has tolerated well, mild to moderate odynophagia and some fatigue, her cough resolved. She has not required any transfusions to this point in treatment, she has modified her diet. Pt was set to have radiation when she was found to be febrile, she was sent to hospital and found to be profoundly pancytopenic, Hgb 5.6, WBC 0.5, platelets 3,000. She was transfused with 1 unit of PRBCs without anticipated improvement in her Hgb, she received platelets with increase to 34,000. Pt did not even know she had a fever, she denies oral irritation, mild SOB on exertion and tires easily, muscles feel weak with minimal exertion but no chest pain, palpitations, nausea or vomiting, dysuria, hematuria, diarrhea or constipation, she denied bleeding, appetite is decent. Review of Systems All systems: negative Constitutional: Reports as per HPI Past Medical History Past Medical History: Cancer, Eye Disorder Additional Past Medical History / Comment(s): cough pt states mass lt lower lung and other spots in the lung, lt eye glaucoma, ON CHEMO AND RADIATION FOR LUNG ca History of Any Multi-Drug Resistant Organisms: None Reported Past Surgical History: No Surgical Hx Reported Past Anesthesia/Blood Transfusion Reactions: No Reported Reaction Additional Past Anesthesia/Blood Transfusion Reaction / Comm: states has never received anesthesia Past Psychological History: No Psychological Hx Reported Smoking Status: Former smoker Past Alcohol Use History: Occasional Additional Past Alcohol Use History / Comment(s): smoker 40 years 1ppd Past Drug Use History: None Reported - Past Family History Mother Family Medical History: Cancer Additional Family Medical History / Comment(s): uterine,breast cancer Father Family Medical History: Cancer Additional Family Medical History / Comment(s): hodgkins Sister(s) Family Medical History: No Reported History Medications and Allergies Home Medications Medication Instructions Recorded Confirmed Type Latanoprost Ophth [Xalatan 0.005%] 1 drops LEFT EYE HS 04/27/16 07/12/16 History Simvastatin [Zocor] 20 mg PO Q2D 04/27/16 07/12/16 History Simvastatin [Zocor] 40 mg PO Q2D 04/27/16 07/12/16 History Famotidine [Pepcid AC] 10 mg PO DAILY 07/12/16 07/12/16 History HYDROcodone/APAP [[place] Elixir 5 ml PO TID PRN 07/12/16 07/12/16 History 7.5-325Mg/15Ml] Loratadine-Pseudoeph 10-240 mg 1 tab PO DAILY 07/12/16 07/12/16 History [Claritin-D 24 Hr] Allergies Allergy/AdvReac Type Severity Reaction Status Date / Time Sulfa (Sulfonamide Allergy Anaphylaxis Verified 07/12/16 19:04 Antibiotics) Physical Exam Vitals: Vital Signs Temp Pulse Pulse Resp BP BP Pulse Ox 07/13/16 09:37 100 07/13/16 08:00 98.7 F 85 103/49 100 07/13/16 06:06 98.2 F 07/13/16 03:15 101.4 F H 93 16 99/49 100 07/13/16 01:02 97.1 F L 85 16 100/49 100 07/12/16 23:15 97.6 F 53 L 16 121/58 07/12/16 22:45 99 F 94 16 100/47 100 07/12/16 22:35 98.6 F 98 18 91/42 99 07/12/16 21:48 99.3 F 94 16 90/52 07/12/16 21:45 97 Intake and Output 07/12/16 07/13/16 07/13/16 22:59 06:59 14:59 Intake Total 312 760 120 Output Total 300 400 Balance 312 460 -280 Intake: IV 450 Diltiazem 125 mg In 45 Sodium Chloride 0.9% 100 ml @ 5 MG/HR 5 mls/hr IV .Q24H ONE Rx#:[id number] Magnesium Sulfate-D5w Pmx 100 1 gm In Dextrose/Water 1 100ml.bag @ 100 mls/hr IVPB ONCE ONE Rx#: [id number] Sodium Chloride 0.9% 1, 180 000 ml @ 20 mls/hr IV . Q24H E[facility] Rx#:[id number] Vancomycin 1,250 mg In 125 Sodium Chloride 0.9% 250 ml @ 125 mls/hr IVPB ONCE STA Rx#:[id number] Oral 50 120 Blood Product 262 310 Platelet Pheresis Acda1 262 Unit [id number] Rc As-1 Unit 0 310 [id number] Output: Urine 300 400 Other: Voiding Method Toilet # Voids 1 Weight 62.5 kg - Constitutional General appearance: average body habitus, cooperative, no acute distress - EENT Eyes: anicteric sclerae, normal appearance ENT: normal oropharynx - Neck Neck: no lymphadenopathy - Respiratory Respiratory: bilateral: CTA - Cardiovascular Rhythm: regular Heart sounds: normal: S1, S2 leg Peripheral Edema: bilateral: None - Gastrointestinal General gastrointestinal: no absent bowel sounds, no decreased bowel sounds, no distended, no hepatomegaly, no hyperactive bowel sounds, normal bowel sounds, no organomegaly, no rigid, no scaphoid, soft, no splenomegaly, no tenderness, no umbilical hernia, no ventral hernia - Integumentary Integumentary: pale - Neurologic Neurologic: CNII-XII intact - Musculoskeletal Musculoskeletal: strength equal bilaterally - Psychiatric Psychiatric: A&O x's 3, appropriate affect, intact judgment & insight Results CBC & Chem 7: 07/13/16 11:56 07/13/16 06:23 Labs: Abnormal Lab Results - Last 24 Hours (Table) 07/13/16 07/13/16 07/13/16 Range/Units 00:05 00:20 06:18 WBC (3.8-10.6) k/uL RBC (3.80-5.40) m/uL Hgb (11.4-16.0) gm/dL Hct (34.0-46.0) % RDW (11.5-15.5) % Plt Count (150-450) k/uL BUN (7-17) mg/dL Glucose (74-99) mg/dL POC Glucose (mg/dL) 129 H 132 H (75-99) mg/dL Calcium (8.4-10.2) mg/dL Urine Protein Trace H (Negative) Urine Ketones Trace H (Negative) 07/13/16 07/13/16 07/13/16 Range/Units 06:23 06:23 11:56 WBC 0.5 L* 0.6 L* (3.8-10.6) k/uL RBC 1.85 L 1.87 L (3.80-5.40) m/uL Hgb 5.7 L* 5.8 L* (11.4-16.0) gm/dL Hct 16.2 L* 16.5 L* (34.0-46.0) % RDW 21.9 H 22.1 H (11.5-15.5) % Plt Count 34 L* D 27 L* (150-450) k/uL BUN 34 H (7-17) mg/dL Glucose 124 H (74-99) mg/dL POC Glucose (mg/dL) (75-99) mg/dL Calcium 8.3 L (8.4-10.2) mg/dL Urine Protein (Negative) Urine Ketones (Negative) 07/13/16 Range/Units 12:24 WBC (3.8-10.6) k/uL RBC (3.80-5.40) m/uL Hgb (11.4-16.0) gm/dL Hct (34.0-46.0) % RDW (11.5-15.5) % Plt Count (150-450) k/uL BUN (7-17) mg/dL Glucose (74-99) mg/dL POC Glucose (mg/dL) 136 H (75-99) mg/dL Calcium (8.4-10.2) mg/dL Urine Protein (Negative) Urine Ketones (Negative) Microbiology - Last 24 Hours (Table) 07/13/16 00:20 Urine Culture - Preliminary Urine,Voided Chest x-ray: report reviewed Assessment and Plan (1) Small cell lung carcinoma Narrative/Plan: Pt has subjectively been doing overall well with chemo and radiation. She has 1 more chemo sched and about 3 weeks of XRT left. Disease will be reevaluated post treatment. Status: Chronic (2) Febrile neutropenia Narrative/Plan: Pancultures ordered and pending. CXR report reviewed. Empiric antibiotics ordered. Pt did receive GCSF post chemo about 12 days ago so frank ordered for persistent neutropenia. 1 unit PRBCs ordered with CBC requested about 4 hours post transfusion. Platelet count 34,000 post transfusion, no acute intervention, no ASA,NSAIDs or anticoagulants. CBC daily Status: Acute Plan: Pancytopenia due to chemotherapy: CBC daily, conservative transfusions.
[2016-07-13 12:51] LABS: Add Differential Manual Differential
[2016-07-13 12:54] LABS: Rouleaux Present
--- NOTE | 2016-07-13 13:06 | P.CONS ---
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 Patient apparently had an appointment yesterday for radiation and because she was tachycardic and had fever she was sent to [facility] where she was found to have atrial fibrillation with rapid ventricular response, fever 101.4, white count of 0.4, platelet count of 3. Chest x-ray showed no new infiltrate. Hypermetabolic right hilar mass or neoplasm with a prolonged extension redemonstrated. Patient was diagnosed with febrile neutropenia and pancytopenia as well as atrial fibrillation with rapid ventricular response and admitted to the selective care unit. Consults are in place with cardiology, oncology and pulmonary medicine. Patient does state that when she had her port placed at that time her heart rate was racing and she was told to follow up and have it checked but she did not do this. She denies having any symptoms when she presented she states she was in a wheelchair and was not ambulating. The only thing that she has noted different is that she is sleeping more and possibly some increased weakness. She does have a cough with sputum production which is been chronic. She has been started on Cefepime and vancomycin. She is status post transfusion of blood and platelets. Review of Systems All systems: negative Constitutional: Reports weakness, Denies chills, Denies fever Eyes: denies blurred vision, denies pain Ears, nose, mouth and throat: Denies headache, Denies sore throat Cardiovascular: Denies chest pain, Denies shortness of breath Respiratory: Denies cough Gastrointestinal: Denies abdominal pain, Denies diarrhea, Denies nausea, Denies vomiting Genitourinary: Denies dysuria, Denies hematuria Musculoskeletal: Denies myalgias Integumentary: Denies pruritus, Denies rash Neurological: Denies numbness, Denies weakness Psychiatric: Reports change in sleep habits, Denies anxiety, Denies depression Endocrine: Denies fatigue, Denies weight change Past Medical History Past Medical History: Cancer, Eye Disorder Additional Past Medical History / Comment(s): cough pt states mass lt lower lung and other spots in the lung, lt eye glaucoma, ON CHEMO AND RADIATION FOR LUNG ca History of Any Multi-Drug Resistant Organisms: None Reported Past Surgical History: No Surgical Hx Reported Past Anesthesia/Blood Transfusion Reactions: No Reported Reaction Additional Past Anesthesia/Blood Transfusion Reaction / Comm: states has never received anesthesia Past Psychological History: No Psychological Hx Reported Smoking Status: Former smoker Past Alcohol Use History: Occasional Additional Past Alcohol Use History / Comment(s): smoker 40 years 1ppd and quit April 2016. She lives at home with her and 2 cats. She is a retired shipping team leader. Past Drug Use History: None Reported - Past Family History Mother Family Medical History: Cancer Additional Family Medical History / Comment(s): uterine,breast cancer Father Family Medical History: Cancer Additional Family Medical History / Comment(s): hodgkins Sister(s) Family Medical History: No Reported History Medications and Allergies Home Medications Medication Instructions Recorded Confirmed Type Latanoprost Ophth [Xalatan 0.005%] 1 drops LEFT EYE HS 04/27/16 07/12/16 History Simvastatin [Zocor] 20 mg PO Q2D 04/27/16 07/12/16 History Simvastatin [Zocor] 40 mg PO Q2D 04/27/16 07/12/16 History Famotidine [Pepcid AC] 10 mg PO DAILY 07/12/16 07/12/16 History HYDROcodone/APAP [[place] Elixir 5 ml PO TID PRN 07/12/16 07/12/16 History 7.5-325Mg/15Ml] Loratadine-Pseudoeph 10-240 mg 1 tab PO DAILY 07/12/16 07/12/16 History [Claritin-D 24 Hr] Allergies Allergy/AdvReac Type Severity Reaction Status Date / Time Sulfa (Sulfonamide Allergy Anaphylaxis Verified 07/12/16 19:04 Antibiotics) Physical Exam Vitals: Vital Signs Temp Pulse Pulse Resp BP BP Pulse Ox 07/13/16 06:06 98.2 F 07/13/16 03:15 101.4 F H 93 16 99/49 100 07/13/16 01:02 97.1 F L 85 16 100/49 100 07/12/16 23:15 97.6 F 53 L 16 121/58 07/12/16 22:45 99 F 94 16 100/47 100 07/12/16 22:35 98.6 F 98 18 91/42 99 07/12/16 21:48 99.3 F 94 16 90/52 07/12/16 21:45 97 Intake and Output 07/12/16 07/13/16 07/13/16 22:59 06:59 14:59 Intake Total 312 760 120 Output Total 300 400 Balance 312 460 -280 Intake: IV 450 Diltiazem 125 mg In 45 Sodium Chloride 0.9% 100 ml @ 5 MG/HR 5 mls/hr IV .Q24H ONE Rx#:[id number] Magnesium Sulfate-D5w Pmx 100 1 gm In Dextrose/Water 1 100ml.bag @ 100 mls/hr IVPB ONCE ONE Rx#: [id number] Sodium Chloride 0.9% 1, 180 000 ml @ 20 mls/hr IV . Q24H ELO Rx#:[id number] Vancomycin 1,250 mg In 125 Sodium Chloride 0.9% 250 ml @ 125 mls/hr IVPB ONCE STA Rx#:[id number] Oral 50 120 Blood Product 262 310 Platelet Pheresis Acda1 262 Unit [id number] Rc As-1 Unit 0 310 [id number] Output: Urine 300 400 Other: Voiding Method Toilet # Voids 1 Weight 62.5 kg Gen: This is a 66-year-old female. She is found in bed and appears to be comfortable and in no acute distress. HEENT: Head is atraumatic, normocephalic. Generalized alopecia. Pupils equal, round. Sclerae is anicteric. NECK: Supple. No JVD. No lymphadenopathy. No thyromegaly. LUNGS: Scattered rhonchi most pronounced on the left. No intercostal retractions. HEART: Regular rate and rhythm. No murmur. ABDOMEN: Soft. Bowel sounds are present. No masses. No tenderness. EXTREMITIES: No pedal edema. No calf tenderness. Dorsalis pedis +2 bilaterally NEUROLOGICAL: Patient is awake, alert and oriented x3. Cranial nerves 2 through 12 are grossly intact. Results Results: Laboratory Results WBC 0.6 k/uL (3.8-10.6) L* 07/13/16 11:56 RBC 1.87 m/uL (3.80-5.40) L 07/13/16 11:56 Hgb 5.8 gm/dL (11.4-16.0) L* 07/13/16 11:56 Hct 16.5 % (34.0-46.0) L* 07/13/16 11:56 MCV 88.1 fL (80.0-100.0) 07/13/16 11:56 MCH 31.0 pg (25.0-35.0) 07/13/16 11:56 MCHC 35.2 g/dL (31.0-37.0) 07/13/16 11:56 RDW 22.1 % (11.5-15.5) H 07/13/16 11:56 Plt Count 27 k/uL (150-450) L* 07/13/16 11:56 Differential Comment 07/13/16 11:56 Poikilocytosis (manual Present 07/13/16 11:56 Anisocytosis Moderate 07/13/16 11:56 Microcytosis Slight 07/13/16 11:56 Rouleaux Present 07/13/16 11:56 PT 11.5 sec (9.0-12.0) 07/12/16 18:15 INR 1.2 (<1.1) 07/12/16 18:15 APTT 25.6 sec (22.0-30.0) 07/12/16 18:15 Sodium 137 mmol/L (137-145) 07/13/16 06:23 Potassium 3.6 mmol/L (3.5-5.1) 07/13/16 06:23 Chloride 106 mmol/L (98-107) 07/13/16 06:23 Carbon Dioxide 22 mmol/L (22-30) 07/13/16 06:23 Anion Gap 9 mmol/L 07/13/16 06:23 BUN 34 mg/dL (7-17) H 07/13/16 06:23 Creatinine 0.69 mg/dL (0.52-1.04) 07/13/16 06:23 Est GFR (MDRD) Af Amer >60 (>60 ml/min/1.73 sqM) 07/13/16 06:23 Est GFR (MDRD) Non-Af >60 (>60 ml/min/1.73 sqM) 07/13/16 06:23 Glucose 124 mg/dL (74-99) H 07/13/16 06:23 POC Glucose (mg/dL) 136 mg/dL (75-99) H 07/13/16 12:24 POC Glu Aeronautical Design Engineer ID Susie Hess 07/13/16 12:24 Calcium 8.3 mg/dL (8.4-10.2) L 07/13/16 06:23 Magnesium 1.6 mg/dL (1.6-2.3) 07/13/16 06:23 Total Bilirubin 1.0 mg/dL (0.2-1.3) 07/12/16 18:15 AST 14 U/L (14-36) 07/12/16 18:15 ALT 23 U/L (9-52) 07/12/16 18:15 Alkaline Phosphatase 89 U/L (38-126) 07/12/16 18:15 Total Creatine Kinase <20 U/L (30-135) L 07/12/16 18:15 CK-MB (CK-2) <0.2 ng/mL (0.0-2.4) 07/12/16 18:15 CK-MB (CK-2) Rel Index 07/12/16 18:15 Troponin I 0.015 ng/mL (0.000-0.034) 07/12/16 18:15 Total Protein 6.8 g/dL (6.3-8.2) 07/12/16 18:15 Albumin 3.5 g/dL (3.5-5.0) 07/12/16 18:15 TSH 1.200 mIU/L (0.465-4.680) 07/12/16 18:15 Urine Color Yellow 07/13/16 00:20 Urine Appearance Clear (Clear) 07/13/16 00:20 Urine pH 5.5 (5.0-8.0) 07/13/16 00:20 Ur Specific [place] 1.020 (1.001-1.035) 07/13/16 00:20 Urine Protein Trace (Negative) H 07/13/16 00:20 Urine Glucose (UA) Negative (Negative) 07/13/16 00:20 Urine Ketones Trace (Negative) H 07/13/16 00:20 Urine Blood Negative (Negative) 07/13/16 00:20 Urine Nitrite Negative (Negative) 07/13/16 00:20 Urine Bilirubin Negative (Negative) 07/13/16 00:20 Urine Urobilinogen <2.0 mg/dL (<2.0) 07/13/16 00:20 Ur Leukocyte Esterase Negative (Negative) 07/13/16 00:20 Blood Type A Positive 07/12/16 18:15 Blood Type Confirm A Positive 07/12/16 20:08 Blood Type Recheck CABO Indicated 07/12/16 18:15 Antibody Screen NEGATIVE 07/12/16 18:15 Crossmatch See Detail 07/12/16 18:15 Transfuse Platelets 07/12/2016 07/12/16 20:00 Spec Expiration Date 07/15/2016 - 231407/12/16 18:15 CBC & Chem 7: 07/13/16 11:56 07/13/16 06:23 Labs: Abnormal Lab Results - Last 24 Hours (Table) 07/13/16 07/13/16 07/13/16 Range/Units 00:05 00:20 06:18 WBC (3.8-10.6) k/uL RBC (3.80-5.40) m/uL Hgb (11.4-16.0) gm/dL Hct (34.0-46.0) % RDW (11.5-15.5) % Plt Count (150-450) k/uL BUN (7-17) mg/dL Glucose (74-99) mg/dL POC Glucose (mg/dL) 129 H 132 H (75-99) mg/dL Calcium (8.4-10.2) mg/dL Urine Protein Trace H (Negative) Urine Ketones Trace H (Negative) 07/13/16 07/13/16 Range/Units 06:23 06:23 WBC 0.5 L* (3.8-10.6) k/uL RBC 1.85 L (3.80-5.40) m/uL Hgb 5.7 L* (11.4-16.0) gm/dL Hct 16.2 L* (34.0-46.0) % RDW 21.9 H (11.5-15.5) % Plt Count 34 L* D (150-450) k/uL BUN 34 H (7-17) mg/dL Glucose 124 H (74-99) mg/dL POC Glucose (mg/dL) (75-99) mg/dL Calcium 8.3 L (8.4-10.2) mg/dL Urine Protein (Negative) Urine Ketones (Negative) Assessment and Plan Plan: This is a 66-year-old female with small cell carcinoma of the lung under care of oncology for radiation and chemotherapy. Patient presented with febrile neutropenia, pancytopenia, atrial fibrillation with rapid ventricular response. She is currently on cefepime and vancomycin which will be continued. Continue supportive care. Further recommendations as patient progresses. The above dictated assessment and findings were discussed with Dr. Felipe. The impression and plan of care have been directed as dictated. Geraldine Izquierdo nurse practitioner acting as scribe for Dr. Felipe. Time with Patient: Greater than 30
--- NOTE | 2016-07-13 13:08 | P.CNPUL ---
History of Present Illness Consult date: 07/13/16 Chief complaint: Lung cancer History of present illness: This is a 66-year-old female patient, who was recently diagnosed having small cell lung cancer. The patient underwent a bronchoscopy for right hilar mass and she was found to have and the bronchial extension of the tumor and biopsies showed small cell lung cancer. The patient is currently under the care of Dr. Lynnette Montana regarding the small cell lung cancer. The patient was started on systemic chemotherapy and she has already completed 3 sessions of chemo and she is also receiving concurrent radiation therapy. Yesterday, after receiving her radiation treatment, the patient felt extremely weak and felt shaky. She was having difficulties walking and in same time her heart was racing and she was having palpitations. Anion having any chest pain. No focal neurological deficits. She came in to the burst department and she was found to have significant hematologic abnormalities were the patient's hemoglobin was at 5.7, white cell count was at 0.5 and her platelet count was at 3. At the same time, the patient was found to be in atrial fibrillation with rapid ventricular response and this was a new onset atrial fibrillation with a heart rate was in the 170-180 range. The patient was febrile with a temperature 11.1 and the patient was treated for febrile neutropenia. I discussed the case with emergency department. I advised administering IV fluids. The patient was also started on Cardizem drip for rate control and she still on Cardizem drip at 5 mg an hour. She got platelet transfusion has subsequent platelet count is up to 39,000. The patient also got 2 units of packed RBC and hemoglobin did not improve much and this needs to be repeated and further transfusion is to follow depending on her follow-up hemoglobin level. Clinically however she is doing much better. She got covered with broad-spectrum antibiotics and the patient is on a combination of cefepime and vancomycin. Her temperature is nonelevated at this point. No cough or sputum production. No chest pain. No nausea vomiting or diarrhea. The Mediport site is clean and intact. The chest x-ray had shown no acute abnormalities and she is responding nicely to the concurrent chemoradiation therapy. Review of Systems A full review of system was done. Positive findings are almost above history of present illness. A 12 point review of system was done. No known to have any previous history of cardiac disease. No congestion heart failure. No angina. No focal neurological deficit. No headache. No nausea or vomiting. No diarrhea. No abdominal pain. No seizure. No dysuria frequency or urgency. No fall. No open wounds or sores. No other complaints otherwise. Past Medical History Past Medical History: Cancer, Eye Disorder Additional Past Medical History / Comment(s): Small cell lung cancer currently receiving concurrent chemoradiation therapy, left eye glucoma, hyperlipidemia History of Any Multi-Drug Resistant Organisms: None Reported Past Surgical History: No Surgical Hx Reported Additional Past Surgical History / Comment(s): Bronchoscopy, insertion of a Mediport Past Anesthesia/Blood Transfusion Reactions: No Reported Reaction Additional Past Anesthesia/Blood Transfusion Reaction / Comment(s): states has never received anesthesia Past Psychological History: No Psychological Hx Reported Smoking Status: Former smoker Past Alcohol Use History: Occasional Additional Past Alcohol Use History / Comment(s): smoker 40 years 1ppd Past Drug Use History: None Reported - Past Family History Mother Family Medical History: Cancer Additional Family Medical History / Comment(s): uterine,breast cancer Father Family Medical History: Cancer Additional Family Medical History / Comment(s): hodgkins Sister(s) Family Medical History: No Reported History Medications and Allergies Home Medications Medication Instructions Recorded Confirmed Type Latanoprost Ophth [Xalatan 0.005%] 1 drops LEFT EYE HS 04/27/16 07/12/16 History Simvastatin [Zocor] 20 mg PO Q2D 04/27/16 07/12/16 History Simvastatin [Zocor] 40 mg PO Q2D 04/27/16 07/12/16 History Famotidine [Pepcid AC] 10 mg PO DAILY 07/12/16 07/12/16 History HYDROcodone/APAP [[place] Elixir 5 ml PO TID PRN 07/12/16 07/12/16 History 7.5-325Mg/15Ml] Loratadine-Pseudoeph 10-240 mg 1 tab PO DAILY 07/12/16 07/12/16 History [Claritin-D 24 Hr] Allergies Allergy/AdvReac Type Severity Reaction Status Date / Time Sulfa (Sulfonamide Allergy Anaphylaxis Verified 07/12/16 19:04 Antibiotics) Physical Exam Vitals: Vital Signs Temp Pulse Pulse Resp BP BP Pulse Ox 07/13/16 09:37 100 07/13/16 08:00 98.7 F 85 103/49 100 07/13/16 06:06 98.2 F 07/13/16 03:15 101.4 F H 93 16 99/49 100 07/13/16 01:02 97.1 F L 85 16 100/49 100 07/12/16 23:15 97.6 F 53 L 16 121/58 07/12/16 22:45 99 F 94 16 100/47 100 07/12/16 22:35 98.6 F 98 18 91/42 99 07/12/16 21:48 99.3 F 94 16 90/52 07/12/16 21:45 97 Intake and Output 07/12/16 07/13/16 07/13/16 22:59 06:59 14:59 Intake Total 312 760 360 Output Total 300 700 Balance 312 460 -340 Intake: IV 450 Diltiazem 125 mg In 45 Sodium Chloride 0.9% 100 ml @ 5 MG/HR 5 mls/hr IV .Q24H ONE Rx#:[id number] Magnesium Sulfate-D5w Pmx 100 1 gm In Dextrose/Water 1 100ml.bag @ 100 mls/hr IVPB ONCE ONE Rx#: [id number] Sodium Chloride 0.9% 1, 180 000 ml @ 20 mls/hr IV . Q24H ELO Rx#:[id number] Vancomycin 1,250 mg In 125 Sodium Chloride 0.9% 250 ml @ 125 mls/hr IVPB ONCE STA Rx#:[id number] Oral 50 360 Blood Product 262 310 Platelet Pheresis Acda1 262 Unit [id number] Rc As-1 Unit 0 310 [id number] Output: Urine 300 700 Other: Voiding Method Toilet # Voids 1 Weight 62.5 kg Examination of the head shows that the patient has lost her hair secondary to systemic chemotherapy.Head exam was generally normal. There was no scleral icterus or corneal arcus. Mucous membranes were moist.Neck was supple and without jugular venous distension, thyromegaly, or carotid bruits. Carotids were easily palpable bilaterally. There was no adenopathy.Lungs were clear to auscultation and percussion, and with normal diaphragmatic excursion. No wheezes or rales were noted. Heart sounds are irregular, possible sinus to and there is no significant murmurs appreciated the patient's cardiac rhythm is back to sinus.Abdominal exam revealed normal bowel sounds. The abdomen was soft , non-tender, and without masses, organomegaly, or appreciable enlargement of the abdominal aorta. Examination of the extremities revealed easily palpable radial, femoral and pedal pulses. There was no cyanosis, clubbing or edema. Results - Laboratory Findings CBC and BMP: 07/13/16 11:56 07/13/16 06:23 PT/INR, D-dimer PT 11.5 sec (9.0-12.0) 07/12/16 18:15 INR 1.2 (<1.1) 07/12/16 18:15 Abnormal lab findings: Abnormal Labs 07/13/16 07/13/16 07/13/16 00:05 00:20 06:18 WBC RBC Hgb Hct RDW Plt Count BUN Glucose POC Glucose (mg/dL) 129 H 132 H Calcium Urine Protein Trace H Urine Ketones Trace H 07/13/16 07/13/16 07/13/16 06:23 06:23 11:56 WBC 0.5 L* 0.6 L* RBC 1.85 L 1.87 L Hgb 5.7 L* 5.8 L* Hct 16.2 L* 16.5 L* RDW 21.9 H 22.1 H Plt Count 34 L* D 27 L* BUN 34 H Glucose 124 H POC Glucose (mg/dL) Calcium 8.3 L Urine Protein Urine Ketones 07/13/16 12:24 WBC RBC Hgb Hct RDW Plt Count BUN Glucose POC Glucose (mg/dL) 136 H Calcium Urine Protein Urine Ketones - Diagnostic Findings Chest x-ray: image reviewed Assessment and Plan Plan: Assessment 1 small cell lung cancer, currently on concurrent chemoradiation therapy. 2 new onset atrial fibrillation with rapid ventricular response, treated with a Cardizem drip and currently her rhythm is back to sinus 3 chemotherapy-induced pancytopenia 4 febrile neutropenia, no obvious source of infection at this point and cultures of been sent and the patient was covered with a combination of cefepime and vancomycin 5 profound anemia status post transfusion with 2 units of packed RBC and follow- up hemoglobin is pending. Will need another 2 units if the hemoglobin comes back under 7 6 thrombocytopenia status post platelet transfusion 7 neutropenia treated 8 hyperlipidemia 9 fever, under investigation Plan Echocardiogram. IV fluids. IV antibiotics utilizing a combination of cefepime and vancomycin until the patient's white cell count improved and order blood cultures of been confirmed to be negative. Chest x-ray was reviewed and is essentially within normal limits. Cardiology evaluation. Blood products as needed as mentioned above. Zarxio for neutropenia. Oncology evaluation. We' ll follow.
[2016-07-13 16:29] LABS: Glucose,Whole Blood 125 mg/dL (75-99)
--- NOTE | 2016-07-13 17:14 | P.HPIM ---
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 Pulmonary consultation, cardiology consultation and oncology consultation were initiated Blood culture and urine culture and sputum culture were ordered Past Medical History Past Medical History: Cancer, Eye Disorder Additional Past Medical History / Comment(s): cough pt states mass lt lower lung and other spots in the lung, lt eye glaucoma, ON CHEMO AND RADIATION FOR LUNG ca History of Any Multi-Drug Resistant Organisms: None Reported Past Surgical History: No Surgical Hx Reported Additional Past Surgical History / Comment(s): Bronchoscopy, insertion of a Mediport Past Anesthesia/Blood Transfusion Reactions: No Reported Reaction Additional Past Anesthesia/Blood Transfusion Reaction / Comment(s): states has never received anesthesia Past Psychological History: No Psychological Hx Reported Smoking Status: Former smoker Past Alcohol Use History: None Reported Additional Past Alcohol Use History / Comment(s): smoker 40 years 1ppd Past Drug Use History: None Reported - Past Family History Mother Family Medical History: Cancer Additional Family Medical History / Comment(s): uterine,breast cancer Father Family Medical History: Cancer Additional Family Medical History / Comment(s): hodgkins Sister(s) Family Medical History: No Reported History Medications and Allergies Home Medications Medication Instructions Recorded Confirmed Type Latanoprost Ophth [Xalatan 0.005%] 1 drops LEFT EYE HS 04/27/16 07/12/16 History Simvastatin [Zocor] 20 mg PO Q2D 04/27/16 07/12/16 History Simvastatin [Zocor] 40 mg PO Q2D 04/27/16 07/12/16 History Famotidine [Pepcid AC] 10 mg PO DAILY 07/12/16 07/12/16 History HYDROcodone/APAP [[place] Elixir 5 ml PO TID PRN 07/12/16 07/12/16 History 7.5-325Mg/15Ml] Loratadine-Pseudoeph 10-240 mg 1 tab PO DAILY 07/12/16 07/12/16 History [Claritin-D 24 Hr] Allergies Allergy/AdvReac Type Severity Reaction Status Date / Time Sulfa (Sulfonamide Allergy Anaphylaxis Verified 07/12/16 19:04 Antibiotics) Physical Exam Vitals: Vital Signs Temp Pulse Pulse Resp BP BP Pulse Ox 07/13/16 16:54 98.2 F 83 16 116/56 99 07/13/16 14:41 98.6 F 81 108/53 97 07/13/16 14:11 98.1 F 81 107/51 99 07/13/16 14:01 98.4 F 83 98/51 99 07/13/16 12:00 82 103/53 99 07/13/16 09:37 100 07/13/16 08:00 98.7 F 85 103/49 100 07/13/16 06:06 98.2 F 07/13/16 03:15 101.4 F H 93 16 99/49 100 07/13/16 01:02 97.1 F L 85 16 100/49 100 07/12/16 23:15 97.6 F 53 L 16 121/58 07/12/16 22:45 99 F 94 16 100/47 100 07/12/16 22:35 98.6 F 98 18 91/42 99 07/12/16 21:48 99.3 F 94 16 90/52 07/12/16 21:45 97 Intake and Output 07/13/16 07/13/16 07/13/16 06:59 14:59 22:59 Intake Total 760 890 310 Output Total 300 700 Balance 460 190 310 Intake: IV 450 180 Diltiazem 125 mg In 45 20 Sodium Chloride 0.9% 100 ml @ 5 MG/HR 5 mls/hr IV .Q24H [facility] Rx#:[id number] Magnesium Sulfate-D5w Pmx 100 1 gm In Dextrose/Water 1 100ml.bag @ 100 mls/hr IVPB ONCE ONE Rx#: [id number] Sodium Chloride 0.9% 1, 180 160 000 ml @ 20 mls/hr IV . Q24H [facility] Rx#:[id number] Vancomycin 1,250 mg In 125 Sodium Chloride 0.9% 250 ml @ 125 mls/hr IVPB ONCE [facility] Rx#:[id number] Intake, IV Titration 350 Amount Cefepime 2 gm In Sodium 100 Chloride 0.9% 50 ml @ 100 mls/hr IVPB Q8HR [facility] Rx# :[id number] Vancomycin 1,250 mg In 250 Sodium Chloride 0.9% 250 ml @ 125 mls/hr IVPB Q12HR [facility] Rx#:[id number] Oral 360 Blood Product 310 0 310 Rc As-1 Unit 310 [id number] Rc As-1 Unit 0 310 [id number] Output: Urine 300 700 Other: Voiding Method Toilet Toilet # Voids 1 Weight 62.5 kg In general patient is alert and oriented 3 in no apparent distress HEENT head normocephalic and atraumatic Neck is supple no JVD no goiter no lymphadenopathy Chest exam reveals a few scattered rhonchi no wheezing Cardiac exam reveals irregular heart sounds no gallops no murmurs Abdomen is soft nontender no organomegaly with normal bowel sounds Extremity exam reveals no edema no cyanosis or clubbing Results CBC & Chem 7: 07/13/16 11:56 07/13/16 06:23 Labs: Abnormal Lab Results - Last 24 Hours (Table) 07/13/16 07/13/16 07/13/16 Range/Units 00:05 00:20 06:18 WBC (3.8-10.6) k/uL RBC (3.80-5.40) m/uL Hgb (11.4-16.0) gm/dL Hct (34.0-46.0) % RDW (11.5-15.5) % Plt Count (150-450) k/uL BUN (7-17) mg/dL Glucose (74-99) mg/dL POC Glucose (mg/dL) 129 H 132 H (75-99) mg/dL Calcium (8.4-10.2) mg/dL Urine Protein Trace H (Negative) Urine Ketones Trace H (Negative) 07/13/16 07/13/16 07/13/16 Range/Units 06:23 06:23 11:56 WBC 0.5 L* 0.6 L* (3.8-10.6) k/uL RBC 1.85 L 1.87 L (3.80-5.40) m/uL Hgb 5.7 L* 5.8 L* (11.4-16.0) gm/dL Hct 16.2 L* 16.5 L* (34.0-46.0) % RDW 21.9 H 22.1 H (11.5-15.5) % Plt Count 34 L* D 27 L* (150-450) k/uL BUN 34 H (7-17) mg/dL Glucose 124 H (74-99) mg/dL POC Glucose (mg/dL) (75-99) mg/dL Calcium 8.3 L (8.4-10.2) mg/dL Urine Protein (Negative) Urine Ketones (Negative) 07/13/16 07/13/16 Range/Units 12:24 16:27 WBC (3.8-10.6) k/uL RBC (3.80-5.40) m/uL Hgb (11.4-16.0) gm/dL Hct (34.0-46.0) % RDW (11.5-15.5) % Plt Count (150-450) k/uL BUN (7-17) mg/dL Glucose (74-99) mg/dL POC Glucose (mg/dL) 136 H 125 H (75-99) mg/dL Calcium (8.4-10.2) mg/dL Urine Protein (Negative) Urine Ketones (Negative) Microbiology - Last 24 Hours (Table) 07/13/16 00:20 Urine Culture - Preliminary Urine,Voided Thrombosis Risk Factor Assmnt - Choose All That Apply Any of the Below Risk Factors Present?: No Other Risk Factors: Yes Each Risk Factor Represents 2 Points: Age 61-74 years Thrombosis Risk Factor Assessment Total Risk Factor Score: 2 Thrombosis Risk Factor Assessment Level: Low Risk Assessment and Plan Plan: 1 small cell lung cancer, currently on concurrent chemoradiation therapy. 2 new onset atrial fibrillation with rapid ventricular response, treated with a Cardizem drip and currently her rhythm is back to sinus 3 chemotherapy-induced pancytopenia 4 febrile neutropenia, no obvious source of infection at this point and cultures of been sent and the patient was covered with a combination of cefepime and vancomycin 5 profound anemia status post transfusion with 2 units of packed RBC and follow- up hemoglobin is pending. Will need another 2 units if the hemoglobin comes back under 7 6 thrombocytopenia status post platelet transfusion Continue with current antibiotic patient is maintained on cefepime 2 g IV every 8 hours, and IV vancomycin Continue with Cardizem drip for rate control Patient received 3 units of red blood cells so far will recheck CBC and ordered transfusions as necessary
[2016-07-13 17:57] LABS: Anisocytosis Moderate; CH 29.9; CHCM 34.1; HCT 21.4 % (34.0-46.0); HDW 3.24; HGB 7.2 gm/dL (11.4-16.0); MCH 29.7 pg (25.0-35.0); MCHC 33.8 g/dL (31.0-37.0); MCV 88.1 fL (80.0-100.0); Mean Platelet Volume 9.7; RBC 2.43 m/uL (3.80-5.40); RDW 20.5 % (11.5-15.5); WBC (Perox) 0.95
[2016-07-13 18:08] LABS: WBC 0.9 k/uL (3.8-10.6)
[2016-07-13 18:31] LABS: Add Differential Manual Differential
[2016-07-13 18:35] LABS: Rouleaux Present
[2016-07-13 20:57] LABS: Glucose,Whole Blood 133 mg/dL (75-99)
[2016-07-13] MEDS: SODIUM CHLORIDE 0.9% 1,000 ML IV SCH (21:40)
[2016-07-13] MEDS: ATORVASTATIN 20 MG TAB PO SCH (21:40)
[2016-07-13] MEDS: VANCOMYCIN 1,250 MG in SODIUM CHLORIDE 0.9% 250 ML IVPB SCH (21:42)
--- NOTE | 2016-07-13 22:00 | P.CON ---
Consult Note - . Consult date: 07/13/16 Assessment/Plan:: This is a 66-year-old female with past medical history significant for small cell carcinoma on chemotherapy and radiation therapy since April of this year. Patient apparently had an appointment yesterday for radiation and because she was tachycardic and had fever she was sent to [facility] where she was found to have atrial fibrillation with rapid ventricular response, fever 101.4, white count of 0.4, platelet count of 3. Chest x-ray showed no new infiltrate. Hypermetabolic right hilar mass or neoplasm with a prolonged extension redemonstrated. Patient was diagnosed with febrile neutropenia and pancytopenia as well as atrial fibrillation with rapid ventricular response and admitted to the selective care unit. Consults are in place with cardiology, oncology and pulmonary medicine. Patient does state that when she had her port placed at that time her heart rate was racing and she was told to follow up and have it checked but she did not do this. She denies having any symptoms when she presented she states she was in a wheelchair and was not ambulating. The only thing that she has noted different is that she is sleeping more and possibly some increased weakness. She does have a cough with sputum production which is been chronic. She has been started on Cefepime and vancomycin. She is status post transfusion of blood and platelets. Please see the consult note is dictated by nurse practitioner Mrs. Geraldine Izquierdo Exam reveals evidence of this pleasant 66-year-old woman who has alopecia from her chemotherapy. She is tearful but relates that she's feeling better the last several hours. Continues to have cough without hemoptysis minimal sputum production. The patient has been found evidence of new onset atrial fibrillation with rapid ventricular response if no improvement with Cardizem Febrile neutropenia is noted and she is being treated with cefepime and vancomycin, with vancomycin being added because her history of Streptococcus pneumoniae and concern for other gram-positive sepsis. Cultures are process and will help further direct antibiotic therapy if she starts to recover her neutropenia. I agree with evaluation, assessment and plan is dictated by nurse practitioner Mrs. Geraldine Izquierdo.
[2016-07-14] MEDS: CEFEPIME 2 GM in SODIUM CHLORIDE 0.9% 50 ML IVPB SCH ×5 (00:55→23:14)
[2016-07-14 06:13] LABS: Glucose,Whole Blood 124 mg/dL (75-99)
[2016-07-14] MEDS: INSULIN LISPRO (humaLOG) 300 UNIT/3 ML VIAL SQ SCH ×4 (06:14→20:53)
[2016-07-14] MEDS: HYDROcodone/APAP 15 ML SOLUTION PO PRN ×3 (06:54→17:04)
[2016-07-14] MEDS: SUCRALFATE 1 GM TAB PO SCH ×4 (06:54→20:41)
[2016-07-14 07:30] LABS: Anisocytosis Slight; Basophils % (A) 0 %; CH 30.5; CHCM 35.7; Eosinophils % (A) 2 %; HCT 26.4 % (34.0-46.0); HDW 3.42; Luc # (Auto) 0.04; Luc % (Auto) 3; Lymphocytes # (A) 0.2 k/uL (1.0-4.8); Lymphocytes % (A) 15 %; MCH 29.1 pg (25.0-35.0); MCV 85.7 fL (80.0-100.0); Mean Platelet Volume 7.8; Monocytes % (A) 3 %; Neutrophils # (A) 1.1 k/uL (1.3-7.7); Neutrophils % (A) 77 %; Poikilocytosis Slight; RBC 3.08 m/uL (3.80-5.40); RDW 18.8 % (11.5-15.5)
[2016-07-14 07:35] LABS: WBC 1.5 k/uL (3.8-10.6)
[2016-07-14 07:46] LABS: ALT 25 U/L (9-52); AST 14 U/L (14-36); Alkaline Phosphatase 80 U/L (38-126); Anion Gap 7 mmol/L; Blood Urea Nitrogen 20 mg/dL (7-17); Calcium 8.4 mg/dL (8.4-10.2); Carbon Dioxide 24 mmol/L (22-30); Chloride 107 mmol/L (98-107); Glucose 104 mg/dL (74-99); Non-African American GFR(MDRD) >60 (>60 ml/min/1.73 sqM); Potassium 3.8 mmol/L (3.5-5.1); Sodium 138 mmol/L (137-145); Total Bilirubin 2.4 mg/dL (0.2-1.3); Total Protein 5.7 g/dL (6.3-8.2)
[2016-07-14] MEDS: FAMOTIDINE 20 MG TAB PO SCH ×2 (08:43→20:41)
[2016-07-14] MEDS: POTASSIUM CHLORIDE ER 20 MEQ TAB.ER PO SCH (08:43)
[2016-07-14] MEDS: FILGRASTIM-SNDZ 300 MCG/0.5 ML SYRINGE SQ SCH (09:27)
--- NOTE | 2016-07-14 10:05 | ECHOF ---
Referral Reason:afib MEASUREMENTS -------- HEIGHT: 172.7 cm WEIGHT: 62.1 kg BP: 140/40 IVSd: 0.8 cm (0.6 - 1.1) LVIDd: 4.3 cm (3.9 - 5.3) LVPWd: 1.1 cm (0.6 - 1.1) IVSs: 1.3 cm LVIDs: 2.9 cm LVPWs: 1.1 cm LA Diam: 3.0 cm (2.7 - 3.8) Ao Diam: 2.8 cm (2.0 - 3.7) AV Cusp: 1.7 cm (1.5 - 2.6) LA Diam: 2.7 cm (2.7 - 3.8) MV EXCURSION: 20.824 mm (> 18.000) MV EF SLOPE: 94 mm/s (70 - 150) EPSS: 0.7 cm MV E Rajiv: 0.95 m/s MV A Rajiv: 0.90 m/s MV E/A Ratio: 1.05 RAP: 5.00 mmHg RVSP: 16.22 mmHg FINDINGS -------- Sinus rhythm. This was a technically good study. LV size, wall thickness and systolic function are normal, with an EF greater than 55%. The right ventricle is normal in size. The left atrial size is normal. The right atrial size is normal. There is mild aortic valve sclerosis. There is no evidence of aortic regurgitation. Mild mitral annular calcification present. Mild mitral regurgitation is present. Mild tricuspid regurgitation present. There is no evidence of pulmonary hypertension. The right ventricular systolic pressure, as measured by Doppler, is 16.22mmHg. There is no pulmonic regurgitation present. The aortic root size is normal. Echo free space may represent effusion or a pericardial fat pad. CONCLUSIONS -------- 1. LV size, wall thickness and systolic function are normal, with an EF greater than 55%. 2. There is mild aortic valve sclerosis. 3. Mild mitral annular calcification present. 4. Mild mitral regurgitation is present. 5. Mild tricuspid regurgitation present. 6. There is no evidence of pulmonary hypertension. 7. The right ventricular systolic pressure, as measured by Doppler, is 16.22mmHg. 8. Echo free space may represent effusion or a pericardial fat pad. PASTEURIZING SUPERVISOR: Maggie Hassan RD
[2016-07-14] MEDS: VANCOMYCIN 1,250 MG in SODIUM CHLORIDE 0.9% 250 ML IVPB SCH ×2 (10:45→20:52)
[2016-07-14 11:36] LABS: Glucose,Whole Blood 111 mg/dL (75-99)
[2016-07-14] MEDS: MAGNESIUM OXIDE 400 MG TAB PO SCH (12:11)
[2016-07-14 13:44] LABS: Hemoglobin A1C 6.2 % (4.2-6.1)
--- NOTE | 2016-07-14 14:03 | P.PN ---
Subjective Principal diagnosis: pancytopenia and sepsis Patient is a 66-year-old female who was recently diagnosed with small cell lung cancer he is receiving combination of chemotherapy and radiation therapy she started having elevated temperature and feeling sick she came to emergency room she had evidence of neutropenia and fever, she also had severe anemia was hemoglobin down to 5.7, she also had evidence of atrial fibrillation was rapid ventricular response, she was started on IV fluid, IV antibiotics, and on IV Cardizem drip she was admitted to telemetry floor for further evaluation and treatment chest x-ray did not reveal any acute abnormality. Pulmonary consultation, cardiology consultation and oncology consultation were initiated Blood culture and urine culture and sputum culture were ordered today patient is feeling better she denies any fever or chills she has occasional cough She denies any pain or discomfort at this time Objective - Vital Signs Vital signs: Vital Signs Temp 98.1 F 07/14/16 11:38 Pulse 91 07/14/16 11:38 Resp 20 07/14/16 11:38 BP 144/65 07/14/16 11:38 Pulse Ox 98 07/14/16 11:38 Intake & Output 07/13/16 07/14/16 07/14/16 18:59 06:59 18:59 Intake Total 1440 1230 530 Output Total 700 300 Balance 740 1230 230 Weight 63.8 kg Intake: IV 180 370 170 Cefepime 2 gm In Sodium 50 Chloride 0.9% 50 ml @ 100 mls/hr IVPB Q8HR [facility] Rx# :[id number] Diltiazem 125 mg In 20 Sodium Chloride 0.9% 100 ml @ 5 MG/HR 5 mls/hr IV .Q24H [facility] Rx#:[id number] Sodium Chloride 0.9% 1, 160 120 120 000 ml @ 20 mls/hr IV . Q24H [facility] Rx#:[id number] Vancomycin 1,250 mg In 250 Sodium Chloride 0.9% 250 ml @ 125 mls/hr IVPB ONCE STA Rx#:[id number] Intake, IV Titration 350 Amount Cefepime 2 gm In Sodium 100 Chloride 0.9% 50 ml @ 100 mls/hr IVPB Q8HR [facility] Rx# :[id number] Vancomycin 1,250 mg In 250 Sodium Chloride 0.9% 250 ml @ 125 mls/hr IVPB Q12HR [facility] Rx#:[id number] Oral 600 240 360 Blood Product 310 620 Rc As-1 Unit 310 [id number] Rc As-1 Unit 310 [id number] Rc As-1 Unit 310 [id number] Output: Urine 700 300 Other: Voiding Method Toilet Toilet # Voids 1 1 - Exam In general patient is alert and oriented 3 in no apparent distress HEENT head normocephalic and atraumatic Neck is supple no JVD no goiter no lymphadenopathy Chest exam reveals a few scattered rhonchi no wheezing Cardiac exam reveals irregular heart sounds no gallops no murmurs Abdomen is soft nontender no organomegaly with normal bowel sounds Extremity exam reveals no edema no cyanosis or clubbing - Labs CBC & Chem 7: 07/14/16 06:44 07/14/16 06:44 Labs: Abnormal Lab Results - Last 24 Hours (Table) 07/13/16 07/13/16 07/13/16 Range/Units 16:27 17:46 20:47 WBC 0.9 L* (3.8-10.6) k/uL RBC 2.43 L (3.80-5.40) m/uL Hgb 7.2 L (11.4-16.0) gm/dL Hct 21.4 L (34.0-46.0) % RDW 20.5 H (11.5-15.5) % Plt Count 25 L* (150-450) k/uL Neutrophils # (1.3-7.7) k/uL Lymphocytes # (1.0-4.8) k/uL BUN (7-17) mg/dL Glucose (74-99) mg/dL POC Glucose (mg/dL) 125 H 133 H (75-99) mg/dL Total Bilirubin (0.2-1.3) mg/dL Total Protein (6.3-8.2) g/dL Albumin (3.5-5.0) g/dL 07/14/16 07/14/16 07/14/16 Range/Units 06:11 06:44 06:44 WBC 1.5 L* (3.8-10.6) k/uL RBC 3.08 L (3.80-5.40) m/uL Hgb 9.0 L D (11.4-16.0) gm/dL Hct 26.4 L (34.0-46.0) % RDW 18.8 H (11.5-15.5) % Plt Count 20 L* (150-450) k/uL Neutrophils # 1.1 L (1.3-7.7) k/uL Lymphocytes # 0.2 L (1.0-4.8) k/uL BUN 20 H (7-17) mg/dL Glucose 104 H (74-99) mg/dL POC Glucose (mg/dL) 124 H (75-99) mg/dL Total Bilirubin 2.4 H (0.2-1.3) mg/dL Total Protein 5.7 L (6.3-8.2) g/dL Albumin 2.7 L (3.5-5.0) g/dL 07/14/16 Range/Units 11:21 WBC (3.8-10.6) k/uL RBC (3.80-5.40) m/uL Hgb (11.4-16.0) gm/dL Hct (34.0-46.0) % RDW (11.5-15.5) % Plt Count (150-450) k/uL Neutrophils # (1.3-7.7) k/uL Lymphocytes # (1.0-4.8) k/uL BUN (7-17) mg/dL Glucose (74-99) mg/dL POC Glucose (mg/dL) 111 H (75-99) mg/dL Total Bilirubin (0.2-1.3) mg/dL Total Protein (6.3-8.2) g/dL Albumin (3.5-5.0) g/dL Microbiology - Last 24 Hours (Table) 07/13/16 00:20 Urine Culture - Final Urine,Voided Assessment and Plan Plan: 1 small cell lung cancer, currently on concurrent chemoradiation therapy. 2 new onset atrial fibrillation with rapid ventricular response, treated with a Cardizem drip and currently her rhythm is back to sinus 3 chemotherapy-induced pancytopenia 4 febrile neutropenia, no obvious source of infection at this point and cultures of been sent and the patient was covered with a combination of cefepime and vancomycin 5 profound anemia status post transfusion with 2 units of packed RBC and follow- up hemoglobin is pending. Will need another 2 units if the hemoglobin comes back under 7 6 thrombocytopenia status post platelet transfusion Continue with current antibiotic patient is maintained on cefepime 2 g IV every 8 hours, and IV vancomycin Patient received 3 units of red blood cells so far will recheck CBC and ordered transfusions as necessary
[2016-07-14] MEDS: VERAPAMIL 40 MG TAB PO SCH ×2 (15:38→20:41)
--- NOTE | 2016-07-14 15:46 | P.PN ---
Subjective History of present illness: This is a pleasant 66-year-old female with history of hyperlipidemia, prior nicotine dependence, she quit smoking in April of this year at which time she was diagnosed with lung cancer and has been undergoing chemotherapy and radiation treatments. After receiving her radiation treatment yesterday, patient became extremely weak and felt shaky, she tried to walk to the bathroom and states that she felt her heart racing fast. For this reason she was referred to the emergency room for admission. EKG on admission here showed atrial fibrillation with a rapid ventricular response. Patient was given an IV Cardizem bolus and started on Cardizem drip. She converted to normal sinus rhythm and remained in normal sinus rhythm this morning. At the time of our rounds, patient was still in normal sinus rhythm, however around 345 converted back to atrial fibrillation. She had not yet been given a dose of verapamil. Objective - Vital Signs Vital signs: Vital Signs Temp 97.6 F 07/14/16 15:30 Pulse 124 H 07/14/16 15:30 Resp 20 07/14/16 15:30 BP 118/77 07/14/16 15:30 Pulse Ox 98 07/14/16 15:30 Intake & Output 07/13/16 07/14/16 07/14/16 18:59 06:59 18:59 Intake Total 1440 1230 1120 Output Total 700 300 Balance 740 1230 820 Weight 63.8 kg Intake: IV 180 370 510 Cefepime 2 gm In Sodium 150 Chloride 0.9% 50 ml @ 100 mls/hr IVPB Q8HR [facility] Rx# :[id number] Diltiazem 125 mg In 20 Sodium Chloride 0.9% 100 ml @ 5 MG/HR 5 mls/hr IV .Q24H [facility] Rx#:[id number] Sodium Chloride 0.9% 1, 160 120 360 000 ml @ 20 mls/hr IV . Q24H [facility] Rx#:[id number] Vancomycin 1,250 mg In 250 Sodium Chloride 0.9% 250 ml @ 125 mls/hr IVPB ONCE ST[facility] Rx#:[id number] Intake, IV Titration 350 250 Amount Cefepime 2 gm In Sodium 100 Chloride 0.9% 50 ml @ 100 mls/hr IVPB Q8HR [facility] Rx# :[id number] Vancomycin 1,250 mg In 250 250 Sodium Chloride 0.9% 250 ml @ 125 mls/hr IVPB Q12HR [facility] Rx#:[id number] Oral 600 240 360 Blood Product 310 620 Rc As-1 Unit 310 [id number] Rc As-1 Unit 310 [id number] Rc As-1 Unit 310 [id number] Output: Urine 700 300 Other: Voiding Method Toilet Toilet # Voids 1 1 - Exam PHYSICAL EXAMINATION: HEENT: [Head is atraumatic, normocephalic. Pupils equal, round. Neck is supple. There is no elevated jugular venous pressure.] HEART EXAMINATION: [Heart S1, S2 irregularly irregular . No murmur or gallop heard.] CHEST EXAMINATION:[ Lungs are clear to auscultation and precussion. No chest wall tenderness is noted on palpation or with deep breathing.] ABDOMEN: [ Soft, nontender. Bowel sounds are heard. No organomegaly noted]. EXTREMITIES:[ 2+ peripheral pulses with no evidence of peripheral edema and no calf tenderness noted]. NEUROLOGIC [patient is awake, alert and oriented -3.] . - Labs CBC & Chem 7: 07/14/16 06:44 07/14/16 06:44 Labs: Abnormal Lab Results - Last 24 Hours (Table) 07/13/16 07/13/16 07/13/16 Range/Units 16:27 17:46 20:47 WBC 0.9 L* (3.8-10.6) k/uL RBC 2.43 L (3.80-5.40) m/uL Hgb 7.2 L (11.4-16.0) gm/dL Hct 21.4 L (34.0-46.0) % RDW 20.5 H (11.5-15.5) % Plt Count 25 L* (150-450) k/uL Neutrophils # (1.3-7.7) k/uL Lymphocytes # (1.0-4.8) k/uL BUN (7-17) mg/dL Glucose (74-99) mg/dL POC Glucose (mg/dL) 125 H 133 H (75-99) mg/dL Total Bilirubin (0.2-1.3) mg/dL Total Protein (6.3-8.2) g/dL Albumin (3.5-5.0) g/dL 04/07/14/16 07/14/16 Range/Units 06:11 06:44 06:44 WBC 1.5 L* (3.8-10.6) k/uL RBC 3.08 L (3.80-5.40) m/uL Hgb 9.0 L D (11.4-16.0) gm/dL Hct 26.4 L (34.0-46.0) % RDW 18.8 H (11.5-15.5) % Plt Count 20 L* (150-450) k/uL Neutrophils # 1.1 L (1.3-7.7) k/uL Lymphocytes # 0.2 L (1.0-4.8) k/uL BUN 20 H (7-17) mg/dL Glucose 104 H (74-99) mg/dL POC Glucose (mg/dL) 124 H (75-99) mg/dL Total Bilirubin 2.4 H (0.2-1.3) mg/dL Total Protein 5.7 L (6.3-8.2) g/dL Albumin 2.7 L (3.5-5.0) g/dL 07/14/16 Range/Units 11:21 WBC (3.8-10.6) k/uL RBC (3.80-5.40) m/uL Hgb (11.4-16.0) gm/dL Hct (34.0-46.0) % RDW (11.5-15.5) % Plt Count (150-450) k/uL Neutrophils # (1.3-7.7) k/uL Lymphocytes # (1.0-4.8) k/uL BUN (7-17) mg/dL Glucose (74-99) mg/dL POC Glucose (mg/dL) 111 H (75-99) mg/dL Total Bilirubin (0.2-1.3) mg/dL Total Protein (6.3-8.2) g/dL Albumin (3.5-5.0) g/dL Microbiology - Last 24 Hours (Table) 07/13/16 00:20 Urine Culture - Final Urine,Voided Assessment and Plan Plan: Assessment and plan #1 atrial fibrillation with rapid ventricular response, paroxysmal, new onset. #2 bronchiogenic carcinoma, currently undergoing chemotherapy and radiation. #3 prior history of smoking, she quit smoking in February of this year #4 hyperlipidemia #5 anemia, . #6 hypokalemia, hypomagnesemia, replaced. #7 low platelet count, #8 low white blood cell count, Plan Will give the patient verapamil, we will also give a one time dose of IV Lopressor. Patient is not a candidate for anticoagulation we will optimize rate control For the patient to spontaneously again convert to normal sinus. DNP note has been reviewed, I agree with a documented findings and plan of care. Patient was seen and examined.
[2016-07-14] MEDS ORDERED: METOPROLOL TARTRATE 5 MG/5 ML VIAL IVP ONE (15:47)
[2016-07-14 16:31] LABS: Glucose,Whole Blood 107 mg/dL (75-99)
--- NOTE | 2016-07-14 18:12 | P.PN ---
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 The patient underwent a bronchoscopy for right hilar mass and she was found to have and the bronchial extension of the tumor and biopsies showed small cell lung cancer. The patient is currently under the care of Dr. Lynnette Montana regarding the small cell lung cancer. The patient was started on systemic chemotherapy and she has already completed 3 sessions of chemo and she is also receiving concurrent radiation therapy. Yesterday, after receiving her radiation treatment, the patient felt extremely weak and felt shaky. She was having difficulties walking and in same time her heart was racing and she was having palpitations. Anion having any chest pain. No focal neurological deficits. She came in to the burst department and she was found to have significant hematologic abnormalities were the patient's hemoglobin was at 5.7, white cell count was at 0.5 and her platelet count was at 3. At the same time, the patient was found to be in atrial fibrillation with rapid ventricular response and this was a new onset atrial fibrillation with a heart rate was in the 170-180 range. The patient was febrile with a temperature 11.1 and the patient was treated for febrile neutropenia. I discussed the case with emergency department. I advised administering IV fluids. The patient was also started on Cardizem drip for rate control and she still on Cardizem drip at 5 mg an hour. She got platelet transfusion has subsequent platelet count is up to 39,000. The patient also got 2 units of packed RBC and hemoglobin did not improve much and this needs to be repeated and further transfusion is to follow depending on her follow-up hemoglobin level. Clinically however she is doing much better. She got covered with broad-spectrum antibiotics and the patient is on a combination of cefepime and vancomycin. Her temperature is nonelevated at this point. No cough or sputum production. No chest pain. No nausea vomiting or diarrhea. The Mediport site is clean and intact. The chest x-ray had shown no acute abnormalities and she is responding nicely to the concurrent chemoradiation therapy. The patient is seen again today 07/14/2016 in follow-up on the selective care unit. She is awake and alert in no acute distress. She is doing quite a bit better today as compared to yesterday. Feeling stronger. He did receive a total of 4 units of packed red blood cells and 1 unit of platelets. Her current hemoglobin is 9.0. Platelet count 20,000 and white count 1.5. She is being treated with Zarxio. Blood and urine cultures revealed no growth. Echocardiogram revealed preserved left ventricular systolic function with estimated ejection fraction greater than 55%. There is no evidence of pulmonary hypertension. Objective - Vital Signs Vital signs: Vital Signs Temp 97.6 F 07/14/16 15:30 Pulse 124 H 07/14/16 15:30 Resp 20 07/14/16 15:30 BP 118/77 07/14/16 15:30 Pulse Ox 98 07/14/16 15:30 Intake & Output 07/13/16 07/14/16 07/14/16 18:59 06:59 18:59 Intake Total 1440 1230 1120 Output Total 700 300 Balance 740 1230 820 Weight 63.8 kg Intake: IV 180 370 510 Cefepime 2 gm In Sodium 150 Chloride 0.9% 50 ml @ 100 mls/hr IVPB Q8HR [facility] Rx# :[id number] Diltiazem 125 mg In 20 Sodium Chloride 0.9% 100 ml @ 5 MG/HR 5 mls/hr IV .Q24H [facility] Rx#:[id number] Sodium Chloride 0.9% 1, 160 120 360 000 ml @ 20 mls/hr IV . Q24H [facility] Rx#:[id number] Vancomycin 1,250 mg In 250 Sodium Chloride 0.9% 250 ml @ 125 mls/hr IVPB ONCE [facility] Rx#:[id number] Intake, IV Titration 350 250 Amount Cefepime 2 gm In Sodium 100 Chloride 0.9% 50 ml @ 100 mls/hr IVPB Q8HR [facility] Rx# :[id number] Vancomycin 1,250 mg In 250 250 Sodium Chloride 0.9% 250 ml @ 125 mls/hr IVPB Q12HR [facility] Rx#:[id number] Oral 600 240 360 Blood Product 310 620 Rc As-1 Unit 310 [id number] Rc As-1 Unit 310 [id number] Rc As-1 Unit 310 [id number] Output: Urine 700 300 Other: Voiding Method Toilet Toilet # Voids 1 1 - Exam Examination of the head shows that the patient has lost her hair secondary to systemic chemotherapy.Head exam was generally normal. There was no scleral icterus or corneal arcus. Mucous membranes were moist.Neck was supple and without jugular venous distension, thyromegaly, or carotid bruits. Carotids were easily palpable bilaterally. There was no adenopathy.Lungs were clear to auscultation and percussion, and with normal diaphragmatic excursion. No wheezes or rales were noted. Heart sounds are irregular, possible sinus to and there is no significant murmurs appreciated the patient's cardiac rhythm is back to sinus.Abdominal exam revealed normal bowel sounds. The abdomen was soft , non-tender, and without masses, organomegaly, or appreciable enlargement of the abdominal aorta. Examination of the extremities revealed easily palpable radial, femoral and pedal pulses. There was no cyanosis, clubbing or edema. - Labs CBC & Chem 7: 07/14/16 06:44 07/14/16 06:44 Labs: Abnormal Lab Results - Last 24 Hours (Table) 07/13/16 07/13/16 07/14/16 Range/Units 17:46 20:47 06:11 WBC 0.9 L* (3.8-10.6) k/uL RBC 2.43 L (3.80-5.40) m/uL Hgb 7.2 L (11.4-16.0) gm/dL Hct 21.4 L (34.0-46.0) % RDW 20.5 H (11.5-15.5) % Plt Count 25 L* (150-450) k/uL Neutrophils # (1.3-7.7) k/uL Lymphocytes # (1.0-4.8) k/uL BUN (7-17) mg/dL Glucose (74-99) mg/dL POC Glucose (mg/dL) 133 H 124 H (75-99) mg/dL Total Bilirubin (0.2-1.3) mg/dL Total Protein (6.3-8.2) g/dL Albumin (3.5-5.0) g/dL 07/14/16 07/14/16 07/14/16 Range/Units 06:44 06:44 11:21 WBC 1.5 L* (3.8-10.6) k/uL RBC 3.08 L (3.80-5.40) m/uL Hgb 9.0 L D (11.4-16.0) gm/dL Hct 26.4 L (34.0-46.0) % RDW 18.8 H (11.5-15.5) % Plt Count 20 L* (150-450) k/uL Neutrophils # 1.1 L (1.3-7.7) k/uL Lymphocytes # 0.2 L (1.0-4.8) k/uL BUN 20 H (7-17) mg/dL Glucose 104 H (74-99) mg/dL POC Glucose (mg/dL) 111 H (75-99) mg/dL Total Bilirubin 2.4 H (0.2-1.3) mg/dL Total Protein 5.7 L (6.3-8.2) g/dL Albumin 2.7 L (3.5-5.0) g/dL 07/14/16 Range/Units 16:26 WBC (3.8-10.6) k/uL RBC (3.80-5.40) m/uL Hgb (11.4-16.0) gm/dL Hct (34.0-46.0) % RDW (11.5-15.5) % Plt Count (150-450) k/uL Neutrophils # (1.3-7.7) k/uL Lymphocytes # (1.0-4.8) k/uL BUN (7-17) mg/dL Glucose (74-99) mg/dL POC Glucose (mg/dL) 107 H (75-99) mg/dL Total Bilirubin (0.2-1.3) mg/dL Total Protein (6.3-8.2) g/dL Albumin (3.5-5.0) g/dL Microbiology - Last 24 Hours (Table) 07/13/16 00:20 Urine Culture - Final Urine,Voided Assessment and Plan Plan: Assessment 1 small cell lung cancer, currently on concurrent chemoradiation therapy. 2 new onset atrial fibrillation with rapid ventricular response, treated with a Cardizem drip and currently her rhythm is back to sinus 3 chemotherapy-induced pancytopenia 4 febrile neutropenia, no obvious source of infection at this point and cultures of been sent and the patient was covered with a combination of cefepime and vancomycin 5 profound anemia status post transfusion with 4 units of packed RBC. 6 thrombocytopenia status post platelet transfusion 7 neutropenia treated 8 hyperlipidemia 9 fever, resolved. Blood and urine cultures negative. Plan The patient was seen and evaluated by Dr. Leahy. She is doing quite a bit better today as compared to yesterday. She remains hemodynamically stable. Her numbers have improved. She remains on cefepime and vancomycin. She's been up ambulating in the room. We will repeat her labs in the a.m. Possible discharge in the next 24-48 hours.
[2016-07-14] MEDS ORDERED: VANCOMYCIN TROUGH DUE 1 EACH MISC MISCELLANE ONE (20:00)
[2016-07-14] MEDS: SODIUM CHLORIDE 0.9% 1,000 ML IV SCH (20:36)
[2016-07-14] MEDS: LATANOPROST 0.005% OPHTH DROPS 2.5 ML BTL LEFT EYE SCH (20:41)
[2016-07-14] MEDS: ATORVASTATIN 10 MG TAB PO SCH (20:41)
[2016-07-14 21:12] LABS: Glucose,Whole Blood 153 mg/dL (75-99)
--- NOTE | 2016-07-14 22:22 | P.PN ---
Subjective Principal diagnosis: Febrile neutropenia This is a 66-year-old female with past medical history significant for small cell carcinoma on chemotherapy and radiation therapy since April of this year. Patient apparently had an appointment yesterday for radiation and because she was tachycardic and had fever she was sent to [facility] where she was found to have atrial fibrillation with rapid ventricular response, fever 101.4, white count of 0.4, platelet count of 3. Chest x-ray showed no new infiltrate. Hypermetabolic right hilar mass or neoplasm with a prolonged extension redemonstrated. Patient was diagnosed with febrile neutropenia and pancytopenia as well as atrial fibrillation with rapid ventricular response and admitted to the selective care unit. Consults are in place with cardiology, oncology and pulmonary medicine. Patient does state that when she had her port placed at that time her heart rate was racing and she was told to follow up and have it checked but she did not do this. She denies having any symptoms when she presented she states she was in a wheelchair and was not ambulating. The only thing that she has noted different is that she is sleeping more and possibly some increased weakness. She does have a cough with sputum production which is been chronic. She has been started on Cefepime and vancomycin. She is status post transfusion of blood and platelets. Feeling considerably better today after blood no further fever Objective - Vital Signs Vital signs: Vital Signs Temp 98.7 F 07/14/16 20:00 Pulse 84 07/14/16 20:00 Resp 20 07/14/16 20:00 BP 107/56 07/14/16 20:00 Pulse Ox 98 07/14/16 20:00 Intake & Output 07/14/16 07/14/16 07/15/16 06:59 18:59 06:59 Intake Total 1230 1120 360 Output Total 300 Balance 1230 820 360 Weight 63.8 kg Intake: IV 370 510 Cefepime 2 gm In Sodium 150 Chloride 0.9% 50 ml @ 100 mls/hr IVPB Q8HR [facility] Rx# :[id number] Sodium Chloride 0.9% 1, 120 360 000 ml @ 20 mls/hr IV . Q24H [facility] Rx#:[id number] Vancomycin 1,250 mg In 250 Sodium Chloride 0.9% 250 ml @ 125 mls/hr IVPB ONCE [facility] Rx#:[id number] Intake, IV Titration 250 Amount Vancomycin 1,250 mg In 250 Sodium Chloride 0.9% 250 ml @ 125 mls/hr IVPB Q12HR [facility] Rx#:[id number] Oral 240 360 360 Blood Product 620 Rc As-1 Unit 310 [id number] Rc As-1 Unit 310 [id number] Output: Urine 300 Other: Voiding Method Toilet Toilet # Voids 1 - Exam Gen: This is a 66-year-old female. She is found in bed and appears to be comfortable and in no acute distress. HEENT: Head is atraumatic, normocephalic. Generalized alopecia. Pupils equal, round. Sclerae is anicteric. NECK: Supple. No JVD. No lymphadenopathy. No thyromegaly. LUNGS: Scattered rhonchi most pronounced on the left. No intercostal retractions. HEART: Regular rate and rhythm. No murmur. ABDOMEN: Soft. Bowel sounds are present. No masses. No tenderness. EXTREMITIES: No pedal edema. No calf tenderness. Dorsalis pedis +2 bilaterally NEUROLOGICAL: Patient is awake, alert and oriented x3. - Labs CBC & Chem 7: 07/14/16 06:44 07/14/16 06:44 Labs: Abnormal Lab Results - Last 24 Hours (Table) 07/14/16 07/14/16 07/14/16 Range/Units 06:11 06:44 06:44 WBC 1.5 L* (3.8-10.6) k/uL RBC 3.08 L (3.80-5.40) m/uL Hgb 9.0 L D (11.4-16.0) gm/dL Hct 26.4 L (34.0-46.0) % RDW 18.8 H (11.5-15.5) % Plt Count 20 L* (150-450) k/uL Neutrophils # 1.1 L (1.3-7.7) k/uL Lymphocytes # 0.2 L (1.0-4.8) k/uL BUN 20 H (7-17) mg/dL Glucose 104 H (74-99) mg/dL POC Glucose (mg/dL) 124 H (75-99) mg/dL Total Bilirubin 2.4 H (0.2-1.3) mg/dL Total Protein 5.7 L (6.3-8.2) g/dL Albumin 2.7 L (3.5-5.0) g/dL 07/14/16 07/14/16 07/14/16 Range/Units 11:21 16:26 20:51 WBC (3.8-10.6) k/uL RBC (3.80-5.40) m/uL Hgb (11.4-16.0) gm/dL Hct (34.0-46.0) % RDW (11.5-15.5) % Plt Count (150-450) k/uL Neutrophils # (1.3-7.7) k/uL Lymphocytes # (1.0-4.8) k/uL BUN (7-17) mg/dL Glucose (74-99) mg/dL POC Glucose (mg/dL) 111 H 107 H 153 H (75-99) mg/dL Total Bilirubin (0.2-1.3) mg/dL Total Protein (6.3-8.2) g/dL Albumin (3.5-5.0) g/dL Microbiology - Last 24 Hours (Table) 07/13/16 00:20 Urine Culture - Final Urine,Voided Laboratory Results WBC 1.5 k/uL (3.8-10.6) L* 07/14/16 06:44 RBC 3.08 m/uL (3.80-5.40) L 07/14/16 06:44 Hgb 9.0 gm/dL (11.4-16.0) L D 07/14/16 06:44 Hct 26.4 % (34.0-46.0) L 07/14/16 06:44 MCV 85.7 fL (80.0-100.0) 07/14/16 06:44 MCH 29.1 pg (25.0-35.0) 07/14/16 06:44 MCHC 34.0 g/dL (31.0-37.0) 07/14/16 06:44 RDW 18.8 % (11.5-15.5) H 07/14/16 06:44 Plt Count 20 k/uL (150-450) L* 07/14/16 06:44 Neutrophils % 77 % 07/14/16 06:44 Lymphocytes % 15 % 07/14/16 06:44 Monocytes % 3 % 07/14/16 06:44 Eosinophils % 2 % 07/14/16 06:44 Basophils % 0 % 07/14/16 06:44 Neutrophils # 1.1 k/uL (1.3-7.7) L 07/14/16 06:44 Lymphocytes # 0.2 k/uL (1.0-4.8) L 07/14/16 06:44 Monocytes # 0.0 k/uL (0-1.0) 07/14/16 06:44 Eosinophils # 0.0 k/uL (0-0.7) 07/14/16 06:44 Basophils # 0.0 k/uL (0-0.2) 07/14/16 06:44 Differential Comment 07/13/16 17:46 Poikilocytosis Slight 07/14/16 06:44 Poikilocytosis (manual Present 07/13/16 11:56 Anisocytosis Slight 07/14/16 06:44 Microcytosis Slight 07/13/16 11:56 Rouleaux Present 07/13/16 17:46 PT 11.5 sec (9.0-12.0) 07/12/16 18:15 INR 1.2 (<1.1) 07/12/16 18:15 APTT 25.6 sec (22.0-30.0) 07/12/16 18:15 Sodium 138 mmol/L (137-145) 07/14/16 06:44 Potassium 3.8 mmol/L (3.5-5.1) 07/14/16 06:44 Chloride 107 mmol/L (98-107) 07/14/16 06:44 Carbon Dioxide 24 mmol/L (22-30) 07/14/16 06:44 Anion Gap 7 mmol/L 07/14/16 06:44 BUN 20 mg/dL (7-17) H 07/14/16 06:44 Creatinine 0.60 mg/dL (0.52-1.04) 07/14/16 06:44 Est GFR (MDRD) Af Amer >60 (>60 ml/min/1.73 sqM) 07/14/16 06:44 Est GFR (MDRD) Non-Af >60 (>60 ml/min/1.73 sqM) 07/14/16 06:44 Glucose 104 mg/dL (74-99) H 07/14/16 06:44 POC Glucose (mg/dL) 153 mg/dL (75-99) H 07/14/16 20:51 POC Glu Fire Safety Manager ID Cesilia Haynes 07/14/16 20:[address] Glu mg/dL 131 mg/dL 07/12/16 18:15 Hemoglobin A1c 6.2 % (4.2-6.1) H 07/12/16 18:15 Calcium 8.4 mg/dL (8.4-10.2) 07/14/16 06:44 Magnesium 1.6 mg/dL (1.6-2.3) 07/13/16 06:23 Total Bilirubin 2.4 mg/dL (0.2-1.3) H 07/14/16 06:44 AST 14 U/L (14-36) 07/14/16 06:44 ALT 25 U/L (9-52) 07/14/16 06:44 Alkaline Phosphatase 80 U/L (38-126) 07/14/16 06:44 Total Creatine Kinase <20 U/L (30-135) L 07/12/16 18:15 CK-MB (CK-2) <0.2 ng/mL (0.0-2.4) 07/12/16 18:15 CK-MB (CK-2) Rel Index 07/12/16 18:15 Troponin I 0.015 ng/mL (0.000-0.034) 07/12/16 18:15 Total Protein 5.7 g/dL (6.3-8.2) L 07/14/16 06:44 Albumin 2.7 g/dL (3.5-5.0) L 07/14/16 06:44 TSH 1.200 mIU/L (0.465-4.680) 07/12/16 18:15 Urine Color Yellow 07/13/16 00:20 Urine Appearance Clear (Clear) 07/13/16 00:20 Urine pH 5.5 (5.0-8.0) 07/13/16 00:20 Ur Specific [place] 1.020 (1.001-1.035) 07/13/16 00:20 Urine Protein Trace (Negative) H 07/13/16 00:20 Urine Glucose (UA) Negative (Negative) 07/13/16 00:20 Urine Ketones Trace (Negative) H 07/13/16 00:20 Urine Blood Negative (Negative) 07/13/16 00:20 Urine Nitrite Negative (Negative) 07/13/16 00:20 Urine Bilirubin Negative (Negative) 07/13/16 00:20 Urine Urobilinogen <2.0 mg/dL (<2.0) 07/13/16 00:20 Ur Leukocyte Esterase Negative (Negative) 07/13/16 00:20 Vancomycin Trough 14.8 ug/mL 07/14/16 19:52 Blood Type A Positive 07/12/16 18:15 Blood Type Confirm A Positive 07/12/16 20:08 Blood Type Recheck CABO Indicated 07/12/16 18:15 Antibody Screen NEGATIVE 07/12/16 18:15 Crossmatch See Detail 07/12/16 18:15 Transfuse Platelets 07/12/2016 07/12/16 20:00 Spec Expiration Date 07/15/2016 - 2315 07/12/16 18:15 Microbiology 07/13/16 00:20 Urine,Voided Urine Culture - Final 07/12/16 20:08 Blood Blood Culture - Preliminary No Growth after 24 hours Assessment and Plan (1) Febrile neutropenia Narrative/Plan: 66-year-old woman who has a history of small cell lung carcinoma with concurrent chemoradiation therapy since April 2016. Presented to Hospital febrile neutropenia and new onset atrial fibrillation with a rapid ventricular response. Feeling considerably better today. Her significant fatigue and malaise resolved. Her breathing is better. She is not having much cough. No hemoptysis. She minimal bleeding from the nose which is improved. Her white count is increased today. In his own is feeling somewhat better. If she resolves her neutropenia symptoms would then be a candidate to complete a seven-day course of levofloxacin at home since her cultures are negative at this point in time. Status: Acute
[2016-07-15] MEDS: SUCRALFATE 1 GM TAB PO SCH ×4 (06:21→21:56)
[2016-07-15] MEDS: HYDROcodone/APAP 15 ML SOLUTION PO PRN ×3 (06:24→17:04)
[2016-07-15 06:34] LABS: ALT 28 U/L (9-52); AST 15 U/L (14-36); Alkaline Phosphatase 81 U/L (38-126); Anion Gap 8 mmol/L; Blood Urea Nitrogen 20 mg/dL (7-17); Calcium 8.8 mg/dL (8.4-10.2); Carbon Dioxide 24 mmol/L (22-30); Chloride 109 mmol/L (98-107); Glucose 90 mg/dL (74-99); Non-African American GFR(MDRD) >60 (>60 ml/min/1.73 sqM); Sodium 141 mmol/L (137-145); Total Bilirubin 1.1 mg/dL (0.2-1.3); Total Protein 5.6 g/dL (6.3-8.2)
[2016-07-15 06:35] LABS: Glucose,Whole Blood 83 mg/dL (75-99)
[2016-07-15] MEDS: INSULIN LISPRO (humaLOG) 300 UNIT/3 ML VIAL SQ SCH ×4 (06:35→21:49)
[2016-07-15 07:16] LABS: Anisocytosis Slight; Basophils % (A) 0 %; CH 30.6; CHCM 35.2; Eosinophils # (A) 0.1 k/uL (0-0.7); Eosinophils % (A) 3 %; HCT 25.9 % (34.0-46.0); HDW 3.32; HGB 9.1 gm/dL (11.4-16.0); Large Platelets Flag Marked; Luc # (Auto) 0.08; Luc % (Auto) 3; Lymphocytes # (A) 0.4 k/uL (1.0-4.8); Lymphocytes % (A) 15 %; MCH 30.8 pg (25.0-35.0); MCHC 35.3 g/dL (31.0-37.0); MCV 87.4 fL (80.0-100.0); Mean Platelet Volume 10.7; Monocytes # (A) 0.1 k/uL (0-1.0); Monocytes % (A) 5 %; Neutrophils # (A) 1.8 k/uL (1.3-7.7); Neutrophils % (A) 74 %; RBC 2.96 m/uL (3.80-5.40); WBC 2.4 k/uL (3.8-10.6); WBC (Perox) 2.48
[2016-07-15] MEDS: FAMOTIDINE 20 MG TAB PO SCH ×2 (08:32→21:56)
[2016-07-15] MEDS: VERAPAMIL 40 MG TAB PO SCH ×3 (08:32→21:57)
[2016-07-15] MEDS: POTASSIUM CHLORIDE ER 20 MEQ TAB.ER PO SCH (08:32)
[2016-07-15] MEDS: CEFEPIME 2 GM in SODIUM CHLORIDE 0.9% 50 ML IVPB SCH ×2 (08:33→16:02)
[2016-07-15] MEDS: VANCOMYCIN 1,250 MG in SODIUM CHLORIDE 0.9% 250 ML IVPB SCH ×2 (09:48→21:56)
[2016-07-15] MEDS: FILGRASTIM-SNDZ 300 MCG/0.5 ML SYRINGE SQ SCH (09:48)
--- NOTE | 2016-07-15 11:25 | P.PN ---
Subjective Patient is a 66-year-old female who was recently diagnosed with small cell lung cancer he is receiving combination of chemotherapy and radiation therapy she started having elevated temperature and feeling sick she came to emergency room she had evidence of neutropenia and fever, she also had severe anemia was hemoglobin down to 5.7, she also had evidence of atrial fibrillation was rapid ventricular response, she was started on IV fluid, IV antibiotics, and on IV Cardizem drip she was admitted to telemetry floor for further evaluation and treatment chest x-ray did not reveal any acute abnormality. Patient is feeling better. She's currently normal sinus rhythm. Patient reports feeling palpitations last night and was told she had elevated heart rate. Cardiology did adjust medications. She is given 1 dose of metoprolol IV and placed on verapamil 40 mg 3 times a day. Patient denies any chest pain or shortness of breath. Denies any nausea or vomiting. Denies any bowel movement changes or urinary symptoms. Objective - Vital Signs Vital signs: Vital Signs Temp 98.5 F 07/15/16 08:00 Pulse 73 07/15/16 08:00 Resp 18 07/15/16 08:00 BP 139/65 07/15/16 08:00 Pulse Ox 98 07/15/16 08:00 Intake & Output 07/14/16 07/15/16 07/15/16 18:59 06:59 18:59 Intake Total 1120 840 180 Output Total 300 Balance 820 840 180 Weight 63.1 kg Intake: IV 510 230 Cefepime 2 gm In Sodium 150 50 Chloride 0.9% 50 ml @ 100 mls/hr IVPB Q8HR [facility] Rx# :[id number] Sodium Chloride 0.9% 1, 360 180 000 ml @ 20 mls/hr IV . Q24H [facility] Rx#:[id number] Intake, IV Titration 250 250 Amount Vancomycin 1,250 mg In 250 250 Sodium Chloride 0.9% 250 ml @ 125 mls/hr IVPB Q12HR [facility] Rx#:[id number] Oral 360 360 180 Output: Urine 300 Other: Voiding Method Toilet # Voids 1 1 - Exam Head normocephalic Neck supple Lungs clear to auscultation bilaterally no wheezing or crackles Heart regular rate and rhythm S1-S2, no rub or gallop Abdomen is soft nontender nondistended positive bowel sounds no hepatosplenomegaly Extremities no edema Neuro alert and orientated to 3 - Labs CBC & Chem 7: 07/15/16 06:03 07/15/16 06:03 Labs: Abnormal Lab Results - Last 24 Hours (Table) 07/14/16 07/14/16 07/14/16 Range/Units 11:21 16:26 20:51 WBC (3.8-10.6) k/uL RBC (3.80-5.40) m/uL Hgb (11.4-16.0) gm/dL Hct (34.0-46.0) % RDW (11.5-15.5) % Plt Count (150-450) k/uL Lymphocytes # (1.0-4.8) k/uL Chloride (98-107) mmol/L BUN (7-17) mg/dL POC Glucose (mg/dL) 111 H 107 H 153 H (75-99) mg/dL Total Protein (6.3-8.2) g/dL Albumin (3.5-5.0) g/dL 07/15/16 07/15/16 Range/Units 06:03 06:03 WBC 2.4 L (3.8-10.6) k/uL RBC 2.96 L (3.80-5.40) m/uL Hgb 9.1 L (11.4-16.0) gm/dL Hct 25.9 L (34.0-46.0) % RDW 19.0 H (11.5-15.5) % Plt Count 14 L* (150-450) k/uL Lymphocytes # 0.4 L (1.0-4.8) k/uL Chloride 109 H (98-107) mmol/L BUN 20 H (7-17) mg/dL POC Glucose (mg/dL) (75-99) mg/dL Total Protein 5.6 L (6.3-8.2) g/dL Albumin 2.7 L (3.5-5.0) g/dL Microbiology - Last 24 Hours (Table) 07/13/16 00:20 Urine Culture - Final Urine,Voided Assessment and Plan Plan: 1 small cell lung cancer: She is scheduled to restart treatment on Tuesday. She has received both chemo and radiation 2 new onset atrial fibrillation with rapid ventricular response: Currently normal sinus rhythm. Did require 1 dose of IV metoprolol yesterday. And is currently on verapamil 40 mg 3 times a day. Cardiology following. Not candidate for anticoagulation 3 chemotherapy-induced pancytopenia 4 febrile neutropenia, no obvious source of infection at this point and cultures of been sent and the patient was covered with a combination of cefepime and vancomycin. Blood culture, urine culture negative. Chest x-ray negative. Evaluated by infectious disease. The recommending Levaquin for 7 more days. White count has shown improvement up to 2.7 5 acute on chronic anemia secondary to chemo treatment and her cancer. Patient received 4 units of blood during this admission. Hemoglobin today is 9.1 6 thrombocytopenia status post platelet transfusion. Platelets are 14 continue to monitor Anticipate discharge possibly tomorrow Consult physical therapy I performed an examination of the patient and discussed their management with the physician Retail Sales Associate. I have reviewed the Physician Retail Sales Associate's notes and agree with the documented findings and plan of care
[2016-07-15 11:38] LABS: Glucose,Whole Blood 102 mg/dL (75-99)
[2016-07-15] MEDS: MAGNESIUM OXIDE 400 MG TAB PO SCH (11:50)
[2016-07-15] MEDS: BENZOCAINE/MENTHOL LOZENG 1 EACH LOZENGE MUCOUS MEM PRN (12:07)
--- NOTE | 2016-07-15 13:51 | P.PN ---
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 The patient underwent a bronchoscopy for right hilar mass and she was found to have and the bronchial extension of the tumor and biopsies showed small cell lung cancer. The patient is currently under the care of Dr. Lynnette Montana regarding the small cell lung cancer. The patient was started on systemic chemotherapy and she has already completed 3 sessions of chemo and she is also receiving concurrent radiation therapy. Yesterday, after receiving her radiation treatment, the patient felt extremely weak and felt shaky. She was having difficulties walking and in same time her heart was racing and she was having palpitations. Anion having any chest pain. No focal neurological deficits. She came in to the burst department and she was found to have significant hematologic abnormalities were the patient's hemoglobin was at 5.7, white cell count was at 0.5 and her platelet count was at 3. At the same time, the patient was found to be in atrial fibrillation with rapid ventricular response and this was a new onset atrial fibrillation with a heart rate was in the 170-180 range. The patient was febrile with a temperature 11.1 and the patient was treated for febrile neutropenia. I discussed the case with emergency department. I advised administering IV fluids. The patient was also started on Cardizem drip for rate control and she still on Cardizem drip at 5 mg an hour. She got platelet transfusion has subsequent platelet count is up to 39,000. The patient also got 2 units of packed RBC and hemoglobin did not improve much and this needs to be repeated and further transfusion is to follow depending on her follow-up hemoglobin level. Clinically however she is doing much better. She got covered with broad-spectrum antibiotics and the patient is on a combination of cefepime and vancomycin. Her temperature is nonelevated at this point. No cough or sputum production. No chest pain. No nausea vomiting or diarrhea. The Mediport site is clean and intact. The chest x-ray had shown no acute abnormalities and she is responding nicely to the concurrent chemoradiation therapy. The patient is seen again today 07/14/2016 in follow-up on the selective care unit. She is awake and alert in no acute distress. She is doing quite a bit better today as compared to yesterday. Feeling stronger. He did receive a total of 4 units of packed red blood cells and 1 unit of platelets. Her current hemoglobin is 9.0. Platelet count 20,000 and white count 1.5. She is being treated with Zarxio. Blood and urine cultures revealed no growth. Echocardiogram revealed preserved left ventricular systolic function with estimated ejection fraction greater than 55%. There is no evidence of pulmonary hypertension. Patient is seen again today 07/15/2016 in follow-up. She is awake and alert in no acute distress. She is feeling a bit stronger today as compared to yesterday. Urine and blood cultures revealed no growth. He count is up to 2.4. Hemoglobin 9.1 platelets at 14,000. She is receiving Zarxio. She remains on cefepime and vancomycin. Objective - Vital Signs Vital signs: Vital Signs Temp 98.5 F 07/15/16 08:00 Pulse 83 07/15/16 11:39 Resp 18 07/15/16 11:39 BP 141/65 07/15/16 11:39 Pulse Ox 98 07/15/16 11:39 Intake & Output 07/14/16 07/15/16 07/15/16 18:59 06:59 18:59 Intake Total 1120 840 576 Output Total 300 Balance 820 840 576 Weight 63.1 kg Intake: IV 510 230 Cefepime 2 gm In Sodium 150 50 Chloride 0.9% 50 ml @ 100 mls/hr IVPB Q8HR ELO Rx# :[id number] Sodium Chloride 0.9% 1, 360 180 000 ml @ 20 mls/hr IV . Q24H ELO Rx#:[id number] Intake, IV Titration 250 250 160 Amount Sodium Chloride 0.9% 1, 160 000 ml @ 20 mls/hr IV . Q24H ELO Rx#:[id number] Vancomycin 1,250 mg In 250 250 Sodium Chloride 0.9% 250 ml @ 125 mls/hr IVPB Q12HR ELO Rx#:[id number] Oral 360 360 416 Output: Urine 300 Other: Voiding Method Toilet # Voids 1 1 1 - Exam Examination of the head shows that the patient has lost her hair secondary to systemic chemotherapy.Head exam was generally normal. There was no scleral icterus or corneal arcus. Mucous membranes were moist.Neck was supple and without jugular venous distension, thyromegaly, or carotid bruits. Carotids were easily palpable bilaterally. There was no adenopathy.Lungs were clear to auscultation and percussion, and with normal diaphragmatic excursion. No wheezes or rales were noted. Heart sounds are irregular, possible sinus to and there is no significant murmurs appreciated the patient's cardiac rhythm is back to sinus.Abdominal exam revealed normal bowel sounds. The abdomen was soft , non-tender, and without masses, organomegaly, or appreciable enlargement of the abdominal aorta. Examination of the extremities revealed easily palpable radial, femoral and pedal pulses. There was no cyanosis, clubbing or edema. - Labs CBC & Chem 7: 07/15/16 06:03 07/15/16 06:03 Labs: Abnormal Lab Results - Last 24 Hours (Table) 07/14/16 07/14/16 07/15/16 Range/Units 16:26 20:51 06:03 WBC 2.4 L (3.8-10.6) k/uL RBC 2.96 L (3.80-5.40) m/uL Hgb 9.1 L (11.4-16.0) gm/dL Hct 25.9 L (34.0-46.0) % RDW 19.0 H (11.5-15.5) % Plt Count 14 L* (150-450) k/uL Lymphocytes # 0.4 L (1.0-4.8) k/uL Chloride (98-107) mmol/L BUN (7-17) mg/dL POC Glucose (mg/dL) 107 H 153 H (75-99) mg/dL Total Protein (6.3-8.2) g/dL Albumin (3.5-5.0) g/dL 07/15/16 07/15/16 Range/Units 06:03 11:36 WBC (3.8-10.6) k/uL RBC (3.80-5.40) m/uL Hgb (11.4-16.0) gm/dL Hct (34.0-46.0) % RDW (11.5-15.5) % Plt Count (150-450) k/uL Lymphocytes # (1.0-4.8) k/uL Chloride 109 H (98-107) mmol/L BUN 20 H (7-17) mg/dL POC Glucose (mg/dL) 102 H (75-99) mg/dL Total Protein 5.6 L (6.3-8.2) g/dL Albumin 2.7 L (3.5-5.0) g/dL Microbiology - Last 24 Hours (Table) 07/13/16 00:20 Urine Culture - Final Urine,Voided Assessment and Plan Plan: Assessment 1 small cell lung cancer, currently on concurrent chemoradiation therapy. 2 new onset atrial fibrillation with rapid ventricular response, treated with a Cardizem drip and currently her rhythm is back to sinus 3 chemotherapy-induced pancytopenia 4 febrile neutropenia, no obvious source of infection at this point and cultures of been sent and the patient was covered with a combination of cefepime and vancomycin 5 profound anemia status post transfusion with 4 units of packed RBC. 6 thrombocytopenia status post platelet transfusion 7 neutropenia treated 8 hyperlipidemia 9 fever, resolved. Blood and urine cultures negative. Plan The patient was seen and evaluated by Dr. Leahy. She is doing quite a bit better today as compared to yesterday. She remains hemodynamically stable. Her numbers have improved. She remains on cefepime and vancomycin. She's been up ambulating in the room. We'll continue to follow.
[2016-07-15 16:30] LABS: Glucose,Whole Blood 97 mg/dL (75-99)
[2016-07-15 20:50] LABS: Glucose,Whole Blood 146 mg/dL (75-99)
[2016-07-15] MEDS: SODIUM CHLORIDE 0.9% 1,000 ML IV SCH (21:55)
[2016-07-15] MEDS: LATANOPROST 0.005% OPHTH DROPS 2.5 ML BTL LEFT EYE SCH (21:56)
[2016-07-15] MEDS: ATORVASTATIN 20 MG TAB PO SCH (21:56)
--- NOTE | 2016-07-15 23:07 | P.PN ---
Subjective Principal diagnosis: Febrile neutropenia This is a 66-year-old female with past medical history significant for small cell carcinoma on chemotherapy and radiation therapy since April of this year. Patient apparently had an appointment yesterday for radiation and because she was tachycardic and had fever she was sent to [facility] where she was found to have atrial fibrillation with rapid ventricular response, fever 101.4, white count of 0.4, platelet count of 3. Chest x-ray showed no new infiltrate. Hypermetabolic right hilar mass or neoplasm with a prolonged extension redemonstrated. Patient was diagnosed with febrile neutropenia and pancytopenia as well as atrial fibrillation with rapid ventricular response and admitted to the selective care unit. Consults are in place with cardiology, oncology and pulmonary medicine. Patient does state that when she had her port placed at that time her heart rate was racing and she was told to follow up and have it checked but she did not do this. She denies having any symptoms when she presented she states she was in a wheelchair and was not ambulating. The only thing that she has noted different is that she is sleeping more and possibly some increased weakness. She does have a cough with sputum production which is been chronic. She has been started on Cefepime and vancomycin. She is status post transfusion of blood and platelets. Feeling considerably better today no further fevers or chills. Eating well. White count is increased to 2.4 No further cardiac symptoms Objective - Vital Signs Vital signs: Vital Signs Temp 98.5 F 07/15/16 08:00 Pulse 82 07/15/16 16:00 Resp 18 07/15/16 16:00 BP 114/55 07/15/16 16:00 Pulse Ox 98 07/15/16 16:00 Intake & Output 07/15/16 07/15/16 07/16/16 06:59 18:59 06:59 Intake Total 840 676 Balance 840 676 Weight 63.1 kg Intake: IV 230 Cefepime 2 gm In Sodium 50 Chloride 0.9% 50 ml @ 100 mls/hr IVPB Q8HR ELO Rx# :[id number] Sodium Chloride 0.9% 1, 180 000 ml @ 20 mls/hr IV . Q24H ELO Rx#:[id number] Intake, IV Titration 250 160 Amount Sodium Chloride 0.9% 1, 160 000 ml @ 20 mls/hr IV . Q24H ELO Rx#:[id number] Vancomycin 1,250 mg In 250 Sodium Chloride 0.9% 250 ml @ 125 mls/hr IVPB Q12HR ELO Rx#:[id number] Oral 360 516 Other: Voiding Method Toilet # Voids 1 1 - Exam Gen: This is a 66-year-old female. She is found in bed and appears to be comfortable and in no acute distress. HEENT: Head is atraumatic, normocephalic. Generalized alopecia. Pupils equal, round. Sclerae is anicteric. NECK: Supple. No JVD. No lymphadenopathy. No thyromegaly. LUNGS: Scattered rhonchi most pronounced on the left. No intercostal retractions. HEART: Regular rate and rhythm. No murmur. ABDOMEN: Soft. Bowel sounds are present. No masses. No tenderness. EXTREMITIES: No pedal edema. No calf tenderness. Dorsalis pedis +2 bilaterally NEUROLOGICAL: Patient is awake, alert and oriented x3. - Labs CBC & Chem 7: 07/15/16 06:03 07/15/16 06:03 Labs: Abnormal Lab Results - Last 24 Hours (Table) 07/15/16 07/15/16 07/15/16 Range/Units 06:03 06:03 11:36 WBC 2.4 L (3.8-10.6) k/uL RBC 2.96 L (3.80-5.40) m/uL Hgb 9.1 L (11.4-16.0) gm/dL Hct 25.9 L (34.0-46.0) % RDW 19.0 H (11.5-15.5) % Plt Count 14 L* (150-450) k/uL Lymphocytes # 0.4 L (1.0-4.8) k/uL Chloride 109 H (98-107) mmol/L BUN 20 H (7-17) mg/dL POC Glucose (mg/dL) 102 H (75-99) mg/dL Total Protein 5.6 L (6.3-8.2) g/dL Albumin 2.7 L (3.5-5.0) g/dL 07/15/16 Range/Units 20:48 WBC (3.8-10.6) k/uL RBC (3.80-5.40) m/uL Hgb (11.4-16.0) gm/dL Hct (34.0-46.0) % RDW (11.5-15.5) % Plt Count (150-450) k/uL Lymphocytes # (1.0-4.8) k/uL Chloride (98-107) mmol/L BUN (7-17) mg/dL POC Glucose (mg/dL) 146 H (75-99) mg/dL Total Protein (6.3-8.2) g/dL Albumin (3.5-5.0) g/dL Laboratory Results WBC 2.4 k/uL (3.8-10.6) L 07/15/16 06:03 RBC 2.96 m/uL (3.80-5.40) L 07/15/16 06:03 Hgb 9.1 gm/dL (11.4-16.0) L 07/15/16 06:03 Hct 25.9 % (34.0-46.0) L 07/15/16 06:03 MCV 87.4 fL (80.0-100.0) 07/15/16 06:03 MCH 30.8 pg (25.0-35.0) 07/15/16 06:03 MCHC 35.3 g/dL (31.0-37.0) 07/15/16 06:03 RDW 19.0 % (11.5-15.5) H 07/15/16 06:03 Plt Count 14 k/uL (150-450) L* 07/15/16 06:03 Neutrophils % 74 % 07/15/16 06:03 Lymphocytes % 15 % 07/15/16 06:03 Monocytes % 5 % 07/15/16 06:03 Eosinophils % 3 % 07/15/16 06:03 Basophils % 0 % 07/15/16 06:03 Neutrophils # 1.8 k/uL (1.3-7.7) 07/15/16 06:03 Lymphocytes # 0.4 k/uL (1.0-4.8) L 07/15/16 06:03 Monocytes # 0.1 k/uL (0-1.0) 07/15/16 06:03 Eosinophils # 0.1 k/uL (0-0.7) 07/15/16 06:03 Basophils # 0.0 k/uL (0-0.2) 07/15/16 06:03 Differential Comment 07/13/16 17:46 Poikilocytosis Slight 07/14/16 06:44 Poikilocytosis (manual Present 07/13/16 11:56 Anisocytosis Slight 07/15/16 06:03 Microcytosis Slight 07/13/16 11:56 Rouleaux Present 07/13/16 17:46 PT 11.5 sec (9.0-12.0) 07/12/16 18:15 INR 1.2 (<1.1) 07/12/16 18:15 APTT 25.6 sec (22.0-30.0) 07/12/16 18:15 Sodium 141 mmol/L (137-145) 07/15/16 06:03 Potassium 4.0 mmol/L (3.5-5.1) 07/15/16 06:03 Chloride 109 mmol/L (98-107) H 07/15/16 06:03 Carbon Dioxide 24 mmol/L (22-30) 07/15/16 06:03 Anion Gap 8 mmol/L 07/15/16 06:03 BUN 20 mg/dL (7-17) H 07/15/16 06:03 Creatinine 0.64 mg/dL (0.52-1.04) 07/15/16 06:03 Est GFR (MDRD) Af Amer >60 (>60 ml/min/1.73 sqM) 07/15/16 06:03 Est GFR (MDRD) Non-Af >60 (>60 ml/min/1.73 sqM) 07/15/16 06:03 Glucose 90 mg/dL (74-99) 07/15/16 06:03 POC Glucose (mg/dL) 146 mg/dL (75-99) H 07/15/16 20:48 POC Glu [employer] FRANCESCO Kaylee Gaspar 07/15/16 20:[address] Glu mg/dL 131 mg/dL 07/12/16 18:15 Hemoglobin A1c 6.2 % (4.2-6.1) H 07/12/16 18:15 Calcium 8.8 mg/dL (8.4-10.2) 07/15/16 06:03 Magnesium 1.6 mg/dL (1.6-2.3) 07/13/16 06:23 Total Bilirubin 1.1 mg/dL (0.2-1.3) 07/15/16 06:03 AST 15 U/L (14-36) 07/15/16 06:03 ALT 28 U/L (9-52) 07/15/16 06:03 Alkaline Phosphatase 81 U/L (38-126) 07/15/16 06:03 Total Creatine Kinase <20 U/L (30-135) L 07/12/16 18:15 CK-MB (CK-2) <0.2 ng/mL (0.0-2.4) 07/12/16 18:15 CK-MB (CK-2) Rel Index 07/12/16 18:15 Troponin I 0.015 ng/mL (0.000-0.034) 07/12/16 18:15 Total Protein 5.6 g/dL (6.3-8.2) L 07/15/16 06:03 Albumin 2.7 g/dL (3.5-5.0) L 07/15/16 06:03 TSH 1.200 mIU/L (0.465-4.680) 07/12/16 18:15 Urine Color Yellow 07/13/16 00:20 Urine Appearance Clear (Clear) 07/13/16 00:20 Urine pH 5.5 (5.0-8.0) 07/13/16 00:20 Ur Specific [facility] 1.020 (1.001-1.035) 07/13/16 00:20 Urine Protein Trace (Negative) H 07/13/16 00:20 Urine Glucose (UA) Negative (Negative) 07/13/16 00:20 Urine Ketones Trace (Negative) H 07/13/16 00:20 Urine Blood Negative (Negative) 07/13/16 00:20 Urine Nitrite Negative (Negative) 07/13/16 00:20 Urine Bilirubin Negative (Negative) 07/13/16 00:20 Urine Urobilinogen <2.0 mg/dL (<2.0) 07/13/16 00:20 Ur Leukocyte Esterase Negative (Negative) 07/13/16 00:20 Vancomycin Trough 14.8 ug/mL 07/14/16 19:52 Blood Type A Positive 04/24/17 18:15 Blood Type Confirm A Positive 07/12/16 20:08 Blood Type Recheck CABO Indicated 07/12/16 18:15 Antibody Screen NEGATIVE 07/12/16 18:15 Crossmatch See Detail 07/12/16 18:15 Transfuse Platelets 07/12/2016 07/12/16 20:00 Spec Expiration Date 07/15/2016 - 2315 07/12/16 18:15 Microbiology 07/12/16 20:08 Blood Blood Culture - Preliminary No Growth after 72 hours 07/13/16 00:20 Urine,Voided Urine Culture - Final Assessment and Plan (1) Febrile neutropenia Narrative/Plan: 66-year-old woman who has a history of small cell lung carcinoma with concurrent chemoradiation therapy since April 2016. Presented to Hospital febrile neutropenia and new onset atrial fibrillation with a rapid ventricular response. Feeling considerably better today. Her significant fatigue and malaise resolved. Her breathing is better. She is not having much cough. No hemoptysis. She minimal bleeding from the nose which is improved. Her white count is increased today. Is own is feeling somewhat better. If she resolves her neutropenia symptoms would then be a candidate to complete a seven-day course of levofloxacin at home since her cultures are negative at this point in time. Status: Acute
[2016-07-16] MEDS: CEFEPIME 2 GM in SODIUM CHLORIDE 0.9% 50 ML IVPB SCH ×3 (00:21→16:49)
[2016-07-16] MEDS ORDERED: ATENOLOL 25 MG TAB PO STA (03:42)
[2016-07-16 05:54] LABS: Glucose,Whole Blood 98 mg/dL (75-99)
[2016-07-16] MEDS: INSULIN LISPRO (humaLOG) 300 UNIT/3 ML VIAL SQ SCH ×4 (06:01→21:14)
[2016-07-16 06:34] LABS: ALT 31 U/L (9-52); AST 13 U/L (14-36); Alkaline Phosphatase 83 U/L (38-126); Anion Gap 5 mmol/L; Blood Urea Nitrogen 15 mg/dL (7-17); Calcium 9.1 mg/dL (8.4-10.2); Carbon Dioxide 29 mmol/L (22-30); Chloride 106 mmol/L (98-107); Glucose 104 mg/dL (74-99); Non-African American GFR(MDRD) >60 (>60 ml/min/1.73 sqM); Potassium 3.5 mmol/L (3.5-5.1); Sodium 140 mmol/L (137-145)
[2016-07-16 06:39] LABS: Anisocytosis Slight; Basophils % (A) 0 %; CH 30.7; CHCM 35.2; Eosinophils % (A) 1 %; HCT 27.1 % (34.0-46.0); HDW 3.14; HGB 9.5 gm/dL (11.4-16.0); Luc # (Auto) 0.12; Luc % (Auto) 4; Lymphocytes # (A) 0.3 k/uL (1.0-4.8); Lymphocytes % (A) 12 %; MCH 30.8 pg (25.0-35.0); MCHC 35.2 g/dL (31.0-37.0); MCV 87.6 fL (80.0-100.0); Monocytes # (A) 0.1 k/uL (0-1.0); Monocytes % (A) 4 %; Neutrophils # (A) 2.1 k/uL (1.3-7.7); Neutrophils % (A) 78 %; RBC 3.09 m/uL (3.80-5.40); RDW 18.8 % (11.5-15.5); WBC 2.7 k/uL (3.8-10.6); WBC (Perox) 2.93
[2016-07-16] MEDS: SUCRALFATE 1 GM TAB PO SCH ×4 (06:55→21:17)
[2016-07-16] MEDS: HYDROcodone/APAP 15 ML SOLUTION PO PRN (06:56)
[2016-07-16] MEDS ORDERED: POTASSIUM CHLORIDE ER 20 MEQ TAB.ER PO STA (08:16)
[2016-07-16] MEDS: POTASSIUM CHLORIDE ER 20 MEQ TAB.ER PO SCH (09:23)
[2016-07-16] MEDS: FAMOTIDINE 20 MG TAB PO SCH ×2 (09:23→21:17)
[2016-07-16] MEDS: VERAPAMIL 40 MG TAB PO SCH ×3 (09:23→21:17)
[2016-07-16] MEDS: FILGRASTIM-SNDZ 300 MCG/0.5 ML SYRINGE SQ SCH (09:24)
[2016-07-16] MEDS: BENZOCAINE/MENTHOL LOZENG 1 EACH LOZENGE MUCOUS MEM PRN (09:34)
--- NOTE | 2016-07-16 11:03 | P.PN ---
Subjective Patient is a 66-year-old female who was recently diagnosed with small cell lung cancer he is receiving combination of chemotherapy and radiation therapy she started having elevated temperature and feeling sick she came to emergency room she had evidence of neutropenia and fever, she also had severe anemia was hemoglobin down to 5.7, she also had evidence of atrial fibrillation was rapid ventricular response, she was started on IV fluid, IV antibiotics, and on IV Cardizem drip she was admitted to telemetry floor for further evaluation and treatment chest x-ray did not reveal any acute abnormality. 07/15/2016 Patient is feeling better. She's currently normal sinus rhythm. Patient reports feeling palpitations last night and was told she had elevated heart rate. Cardiology did adjust medications. She is given 1 dose of metoprolol IV and placed on verapamil 40 mg 3 times a day. Patient denies any chest pain or shortness of breath. Denies any nausea or vomiting. Denies any bowel movement changes or urinary symptoms. 07/16/2016 Patient had an episode of atrial fibrillation with rapid ventricular response last night required a dose of atenolol 25 mg by mouth 1. Converted back to sinus rhythm. Patient denies any chest pain shortness of breath or heart palpitations at the time. Denies any nausea or vomiting. Has been having regular bowel movements. Denies any difficulty urinating. Objective - Vital Signs Vital signs: Vital Signs Temp 97.1 F L 07/16/16 08:00 Pulse 68 07/16/16 08:00 Resp 18 07/16/16 08:00 BP 116/57 07/16/16 08:00 Pulse Ox 98 07/16/16 08:00 Intake & Output 07/15/16 07/16/16 07/16/16 18:59 06:59 18:59 Intake Total 676 370 240 Balance 676 370 240 Weight 62.4 kg Intake: IV 320 Sodium Chloride 0.9% 1, 320 000 ml @ 20 mls/hr IV . Q24H ELO Rx#:[id number] Intake, IV Titration 160 50 Amount Cefepime 2 gm In Sodium 50 Chloride 0.9% 50 ml @ 100 mls/hr IVPB Q8HR ELO Rx# :[id number] Sodium Chloride 0.9% 1, 160 000 ml @ 20 mls/hr IV . Q24H ELO Rx#:[id number] Oral 516 240 Other: Voiding Method Toilet # Voids 1 - Exam Head normocephalic Neck supple Lungs clear to auscultation bilaterally no wheezing or crackles Heart regular rate and rhythm S1-S2, no rub or gallop Abdomen is soft nontender nondistended positive bowel sounds no hepatosplenomegaly Extremities no edema Neuro alert and orientated to 3 - Labs CBC & Chem 7: 07/16/16 06:11 07/16/16 06:11 Labs: Abnormal Lab Results - Last 24 Hours (Table) 07/15/16 07/15/16 07/16/16 Range/Units 11:36 20:48 06:11 WBC 2.7 L (3.8-10.6) k/uL RBC 3.09 L (3.80-5.40) m/uL Hgb 9.5 L (11.4-16.0) gm/dL Hct 27.1 L (34.0-46.0) % RDW 18.8 H (11.5-15.5) % Plt Count 10 L* (150-450) k/uL Lymphocytes # 0.3 L (1.0-4.8) k/uL Glucose (74-99) mg/dL POC Glucose (mg/dL) 102 H 146 H (75-99) mg/dL AST (14-36) U/L Total Protein (6.3-8.2) g/dL Albumin (3.5-5.0) g/dL 07/16/16 Range/Units 06:11 WBC (3.8-10.6) k/uL RBC (3.80-5.40) m/uL Hgb (11.4-16.0) gm/dL Hct (34.0-46.0) % RDW (11.5-15.5) % Plt Count (150-450) k/uL Lymphocytes # (1.0-4.8) k/uL Glucose 104 H (74-99) mg/dL POC Glucose (mg/dL) (75-99) mg/dL AST 13 L (14-36) U/L Total Protein 6.0 L (6.3-8.2) g/dL Albumin 2.9 L (3.5-5.0) g/dL Assessment and Plan Plan: 1 new onset atrial fibrillation with rapid ventricular response: Currently normal sinus rhythm. She had another episode of atrial fibrillation with rapid ventricular response last night requiring atenolol. Converted to sinus rhythm. She is currently on verapamil 40 mg 3 times a day. Cardiology following. Not a candidate for anticoagulation due to her anemia. TSH within normal range 2. small cell lung cancer: She is scheduled to restart treatment on Tuesday. She has received both chemo and radiation 3 chemotherapy-induced pancytopenia 4 febrile neutropenia, no obvious source of infection at this point and cultures of been sent and the patient was covered with a combination of cefepime and vancomycin. Blood culture, urine culture negative. Chest x-ray negative. Evaluated by infectious disease. The recommending Levaquin for 7 more days. White count has shown improvement up to 2.7 5 acute on chronic anemia secondary to chemo treatment and her cancer. Patient received 4 units of blood during this admission. Hemoglobin today is 9.5 6 thrombocytopenia status post platelet transfusion. Platelet count of 10 this morning. Patient received 1 unit of platelets. Repeat CBC in a.m. 7. Hypokalemia. Patient will be given K-Dur 20 milliequivalents by mouth 1 I performed an examination of the patient and discussed their management with the physician Dean Of Instruction. I have reviewed the Physician Dean Of Instruction's notes and agree with the documented findings and plan of care
[2016-07-16 12:13] LABS: Glucose,Whole Blood 107 mg/dL (75-99)
[2016-07-16] MEDS: MAGNESIUM OXIDE 400 MG TAB PO SCH (12:22)
--- NOTE | 2016-07-16 16:23 | P.PN ---
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 The patient underwent a bronchoscopy for right hilar mass and she was found to have and the bronchial extension of the tumor and biopsies showed small cell lung cancer. The patient is currently under the care of Dr. Lynnette Montana regarding the small cell lung cancer. The patient was started on systemic chemotherapy and she has already completed 3 sessions of chemo and she is also receiving concurrent radiation therapy. Yesterday, after receiving her radiation treatment, the patient felt extremely weak and felt shaky. She was having difficulties walking and in same time her heart was racing and she was having palpitations. Anion having any chest pain. No focal neurological deficits. She came in to the burst department and she was found to have significant hematologic abnormalities were the patient's hemoglobin was at 5.7, white cell count was at 0.5 and her platelet count was at 3. At the same time, the patient was found to be in atrial fibrillation with rapid ventricular response and this was a new onset atrial fibrillation with a heart rate was in the 170-180 range. The patient was febrile with a temperature 11.1 and the patient was treated for febrile neutropenia. I discussed the case with emergency department. I advised administering IV fluids. The patient was also started on Cardizem drip for rate control and she still on Cardizem drip at 5 mg an hour. She got platelet transfusion has subsequent platelet count is up to 39,000. The patient also got 2 units of packed RBC and hemoglobin did not improve much and this needs to be repeated and further transfusion is to follow depending on her follow-up hemoglobin level. Clinically however she is doing much better. She got covered with broad-spectrum antibiotics and the patient is on a combination of cefepime and vancomycin. Her temperature is nonelevated at this point. No cough or sputum production. No chest pain. No nausea vomiting or diarrhea. The Mediport site is clean and intact. The chest x-ray had shown no acute abnormalities and she is responding nicely to the concurrent chemoradiation therapy. The patient is seen again today 07/14/2016 in follow-up on the selective care unit. She is awake and alert in no acute distress. She is doing quite a bit better today as compared to yesterday. Feeling stronger. He did receive a total of 4 units of packed red blood cells and 1 unit of platelets. Her current hemoglobin is 9.0. Platelet count 20,000 and white count 1.5. She is being treated with Zarxio. Blood and urine cultures revealed no growth. Echocardiogram revealed preserved left ventricular systolic function with estimated ejection fraction greater than 55%. There is no evidence of pulmonary hypertension. Patient is seen again today 07/15/2016 in follow-up. She is awake and alert in no acute distress. She is feeling a bit stronger today as compared to yesterday. Urine and blood cultures revealed no growth. He count is up to 2.4. Hemoglobin 9.1 platelets at 14,000. She is receiving Zarxio. She remains on cefepime and vancomycin. On 07/16/2016, the patient is being seen in follow-up. White cell count is improving gradually and it's up to 2.7. All of the blood cultures of been negative. The patient is afebrile and the patient is hemodynamically stable at this point. The platelet count is down to 10,000. No evidence of any bleeding. The patient remains on a combination of cefepime and vancomycin. She did have a run of 80 fibrillation with rapid ventricular response for which the patient was given atenolol and currently she'll verapamil 50 mg 3 times a day. No shortness of breath. Minimal congested cough. No significant sputum production. No change in mental status. Echo cardiac exam showed a preserved LV function. Status is within normal limits. Objective - Vital Signs Vital signs: Vital Signs Temp 97.1 F L 07/16/16 08:00 Pulse 68 07/16/16 08:00 Resp 18 07/16/16 08:00 BP 116/57 07/16/16 08:00 Pulse Ox 98 07/16/16 08:00 Intake & Output 07/15/16 07/16/16 07/16/16 18:59 06:59 18:59 Intake Total 676 370 600 Output Total 600 Balance 676 370 0 Weight 62.4 kg Intake: IV 320 Sodium Chloride 0.9% 1, 320 000 ml @ 20 mls/hr IV . Q24H [facility] Rx#:[id number] Intake, IV Titration 160 50 Amount Cefepime 2 gm In Sodium 50 Chloride 0.9% 50 ml @ 100 mls/hr IVPB Q8HR [facility] Rx# :[id number] Sodium Chloride 0.9% 1, 160 000 ml @ 20 mls/hr IV . Q24H [facility] Rx#:[id number] Oral 516 600 Output: Urine 600 Other: Voiding Method Toilet # Voids 1 1 - Exam Examination of the head shows that the patient has lost her hair secondary to systemic chemotherapy.Head exam was generally normal. There was no scleral icterus or corneal arcus. Mucous membranes were moist.Neck was supple and without jugular venous distension, thyromegaly, or carotid bruits. Carotids were easily palpable bilaterally. There was no adenopathy.Lungs were clear to auscultation and percussion, and with normal diaphragmatic excursion. No wheezes or rales were noted. Heart sounds are irregular, possible sinus to and there is no significant murmurs appreciated the patient's cardiac rhythm is back to sinus.Abdominal exam revealed normal bowel sounds. The abdomen was soft , non-tender, and without masses, organomegaly, or appreciable enlargement of the abdominal aorta. Examination of the extremities revealed easily palpable radial, femoral and pedal pulses. There was no cyanosis, clubbing or edema. - Labs CBC & Chem 7: 07/16/16 06:11 07/16/16 06:11 Labs: Abnormal Lab Results - Last 24 Hours (Table) 07/15/16 07/16/16 07/16/16 Range/Units 20:48 06:11 06:11 WBC 2.7 L (3.8-10.6) k/uL RBC 3.09 L (3.80-5.40) m/uL Hgb 9.5 L (11.4-16.0) gm/dL Hct 27.1 L (34.0-46.0) % RDW 18.8 H (11.5-15.5) % Plt Count 10 L* (150-450) k/uL Lymphocytes # 0.3 L (1.0-4.8) k/uL Glucose 104 H (74-99) mg/dL POC Glucose (mg/dL) 146 H (75-99) mg/dL AST 13 L (14-36) U/L Total Protein 6.0 L (6.3-8.2) g/dL Albumin 2.9 L (3.5-5.0) g/dL 07/16/16 Range/Units 12:00 WBC (3.8-10.6) k/uL RBC (3.80-5.40) m/uL Hgb (11.4-16.0) gm/dL Hct (34.0-46.0) % RDW (11.5-15.5) % Plt Count (150-450) k/uL Lymphocytes # (1.0-4.8) k/uL Glucose (74-99) mg/dL POC Glucose (mg/dL) 107 H (75-99) mg/dL AST (14-36) U/L Total Protein (6.3-8.2) g/dL Albumin (3.5-5.0) g/dL Assessment and Plan Plan: Assessment 1 small cell lung cancer, currently on concurrent chemoradiation therapy. 2 new onset atrial fibrillation with rapid ventricular response, treated and the patient is still having paroxysmal atrial fibrillation. Currently on oral verapamil and the rate is controlled and back to sinus. She is on a candidate for long-term and to coagulation. 3 chemotherapy-induced pancytopenia. The leukopenia is improving and the white cell count is up to 2.7. Still having thrombocytopenia. 4 febrile neutropenia, no obvious source of infection at this point and cultures of been sent and the patient was covered with a combination of cefepime and vancomycin, all of the cultures of been negative. 5 profound anemia status post transfusion and hemoglobin is up to 9.5 6 thrombocytopenia status post platelet transfusion, most recent platelet count is at 10,000 7 neutropenia treated my improving 8 hyperlipidemia 9 fever, under investigation all of the cultures of been negative. Plan Monitor the hematologic profile. Monitor the cardiac rhythm. No signs of septicemia. Keep IV cefepime and discontinue the vancomycin. Verapamil for rate control. Patient is not a candidate for anticoagulation. We'll continue to follow.
[2016-07-16 16:25] LABS: Glucose,Whole Blood 100 mg/dL (75-99)
--- NOTE | 2016-07-16 18:35 | P.PN ---
Subjective Principal diagnosis: Febrile neutropenia Patient seen today in follow-up. Patient is sitting at the bedside, she has increased her oral intake, no nausea or vomiting, oral irritation and sore throat are significantly improved, no chest pain, cough, shortness of breath, patient has been ambulatory to the bathroom independently. Objective - Vital Signs Vital signs: Vital Signs Temp 97.1 F L 07/16/16 08:00 Pulse 80 07/16/16 16:00 Resp 18 07/16/16 16:00 BP 131/59 07/16/16 16:00 Pulse Ox 100 07/16/16 16:00 Intake & Output 07/15/16 07/16/16 07/16/16 18:59 06:59 18:59 Intake Total 392 581 2114 Output Total 600 Balance 676 370 450 Weight 62.4 kg Intake: IV 320 Sodium Chloride 0.9% 1, 320 000 ml @ 20 mls/hr IV . Q24H [facility] Rx#:[id number] Intake, IV Titration 160 50 210 Amount Cefepime 2 gm In Sodium 50 50 Chloride 0.9% 50 ml @ 100 mls/hr IVPB Q8HR [facility] Rx# :[id number] Sodium Chloride 0.9% 1, 160 160 000 ml @ 20 mls/hr IV . Q24H [facility] Rx#:[id number] Oral 516 840 Output: Urine 600 Other: Voiding Method Toilet # Voids 1 2 - Constitutional General appearance: Present: average body habitus, cooperative, no acute distress - EENT Eyes: Present: normal appearance ENT: Present: normal oropharynx - Respiratory Respiratory: bilateral: CTA - Cardiovascular Heart sounds: normal: S1, S2 - Gastrointestinal General gastrointestinal: Present: normal bowel sounds - Neurologic Neurologic: Present: CNII-XII intact - Musculoskeletal Musculoskeletal: Present: strength equal bilaterally - Psychiatric Psychiatric: Present: A&O x's 3, appropriate affect, intact judgment & insight - Labs CBC & Chem 7: 07/16/16 06:11 07/16/16 06:11 Labs: Abnormal Lab Results - Last 24 Hours (Table) 07/15/16 07/16/16 07/16/16 Range/Units 20:48 06:11 06:11 WBC 2.7 L (3.8-10.6) k/uL RBC 3.09 L (3.80-5.40) m/uL Hgb 9.5 L (11.4-16.0) gm/dL Hct 27.1 L (34.0-46.0) % RDW 18.8 H (11.5-15.5) % Plt Count 10 L* (150-450) k/uL Lymphocytes # 0.3 L (1.0-4.8) k/uL Glucose 104 H (74-99) mg/dL POC Glucose (mg/dL) 146 H (75-99) mg/dL AST 13 L (14-36) U/L Total Protein 6.0 L (6.3-8.2) g/dL Albumin 2.9 L (3.5-5.0) g/dL 07/16/16 07/16/16 Range/Units 12:00 16:23 WBC (3.8-10.6) k/uL RBC (3.80-5.40) m/uL Hgb (11.4-16.0) gm/dL Hct (34.0-46.0) % RDW (11.5-15.5) % Plt Count (150-450) k/uL Lymphocytes # (1.0-4.8) k/uL Glucose (74-99) mg/dL POC Glucose (mg/dL) 107 H 100 H (75-99) mg/dL AST (14-36) U/L Total Protein (6.3-8.2) g/dL Albumin (3.5-5.0) g/dL Assessment and Plan (1) Small cell lung carcinoma Narrative/Plan: Patient is due for chemotherapy next week and she is receiving radiation. Both held at this time. Recommendation is for patient to continue to hold chemotherapy for the next week until she finishes her CBC has recovered, patient will likely also be discharged on antibiotics. Her labs will be reported to radiation oncology on Tuesday to see if they want to continue radiation or postpone that as well. Status: Chronic (2) Febrile neutropenia Narrative/Plan: Patient's absolute neutrophil count today is 2.1. We will continue zarxio until discharge. No fevers for greater than 24 hours. Cultures are negative Status: Acute Plan: Pancytopenia due to chemotherapy: Patient's hemoglobin is stable at this time, no need for transfusion. Patient's platelet counts were noted at 10,000, platelets were ordered for her this a.m. If patient's hemoglobin is stable and platelet count greater than 10,000 patient is okay from a hematology/oncology standpoint to be discharged in the a.m. E-prescribed to [facility] for Carafate done Patient will be contacted Tuesday in regards to chemo/follow-up appointments.
[2016-07-16 20:44] LABS: Glucose,Whole Blood 111 mg/dL (75-99)
--- NOTE | 2016-07-16 20:44 | P.PN ---
Subjective Principal diagnosis: Febrile neutropenia This is a 66-year-old female with past medical history significant for small cell carcinoma on chemotherapy and radiation therapy since April of this year. Patient apparently had an appointment yesterday for radiation and because she was tachycardic and had fever she was sent to [facility] where she was found to have atrial fibrillation with rapid ventricular response, fever 101.4, white count of 0.4, platelet count of 3. Chest x-ray showed no new infiltrate. Hypermetabolic right hilar mass or neoplasm with a prolonged extension redemonstrated. Patient was diagnosed with febrile neutropenia and pancytopenia as well as atrial fibrillation with rapid ventricular response and admitted to the selective care unit. Consults are in place with cardiology, oncology and pulmonary medicine. Patient does state that when she had her port placed at that time her heart rate was racing and she was told to follow up and have it checked but she did not do this. She denies having any symptoms when she presented she states she was in a wheelchair and was not ambulating. The only thing that she has noted different is that she is sleeping more and possibly some increased weakness. She does have a cough with sputum production which is been chronic. She has been started on Cefepime and vancomycin. She is status post transfusion of blood and platelets. Feeling considerably better today no further fevers or chills. Eating well. White count is increased to 2.7 No further cardiac symptoms Objective - Vital Signs Vital signs: Vital Signs Temp 97.1 F L 07/16/16 08:00 Pulse 80 07/16/16 16:00 Resp 18 07/16/16 16:00 BP 131/59 07/16/16 16:00 Pulse Ox 100 07/16/16 16:00 Intake & Output 07/16/16 07/16/16 07/17/16 06:59 18:59 06:59 Intake Total 370 1050 Output Total 600 Balance 370 450 Weight 62.4 kg Intake: IV 320 Sodium Chloride 0.9% 1, 320 000 ml @ 20 mls/hr IV . Q24H [facility] Rx#:[id number] Intake, IV Titration 50 210 Amount Cefepime 2 gm In Sodium 50 50 Chloride 0.9% 50 ml @ 100 mls/hr IVPB Q8HR [facility] Rx# :[id number] Sodium Chloride 0.9% 1, 160 000 ml @ 20 mls/hr IV . Q24H [facility] Rx#:[id number] Oral 840 Output: Urine 600 Other: Voiding Method Toilet # Voids 2 - Exam Gen: This is a 66-year-old female. She is found in bed and appears to be comfortable and in no acute distress. HEENT: Head is atraumatic, normocephalic. Generalized alopecia. Pupils equal, round. Sclerae is anicteric. NECK: Supple. No JVD. No lymphadenopathy. No thyromegaly. LUNGS: Scattered rhonchi most pronounced on the left. No intercostal retractions. HEART: Regular rate and rhythm. No murmur. ABDOMEN: Soft. Bowel sounds are present. No masses. No tenderness. EXTREMITIES: No pedal edema. No calf tenderness. Dorsalis pedis +2 bilaterally NEUROLOGICAL: Patient is awake, alert and oriented x3. - Labs CBC & Chem 7: 07/16/16 06:11 07/16/16 06:11 Labs: Abnormal Lab Results - Last 24 Hours (Table) 07/15/16 07/16/16 07/16/16 Range/Units 20:48 06:11 06:11 WBC 2.7 L (3.8-10.6) k/uL RBC 3.09 L (3.80-5.40) m/uL Hgb 9.5 L (11.4-16.0) gm/dL Hct 27.1 L (34.0-46.0) % RDW 18.8 H (11.5-15.5) % Plt Count 10 L* (150-450) k/uL Lymphocytes # 0.3 L (1.0-4.8) k/uL Glucose 104 H (74-99) mg/dL POC Glucose (mg/dL) 146 H (75-99) mg/dL AST 13 L (14-36) U/L Total Protein 6.0 L (6.3-8.2) g/dL Albumin 2.9 L (3.5-5.0) g/dL 07/16/16 07/16/16 Range/Units 12:00 16:23 WBC (3.8-10.6) k/uL RBC (3.80-5.40) m/uL Hgb (11.4-16.0) gm/dL Hct (34.0-46.0) % RDW (11.5-15.5) % Plt Count (150-450) k/uL Lymphocytes # (1.0-4.8) k/uL Glucose (74-99) mg/dL POC Glucose (mg/dL) 107 H 100 H (75-99) mg/dL AST (14-36) U/L Total Protein (6.3-8.2) g/dL Albumin (3.5-5.0) g/dL Laboratory Results WBC 2.7 k/uL (3.8-10.6) L 07/16/16 06:11 RBC 3.09 m/uL (3.80-5.40) L 07/16/16 06:11 Hgb 9.5 gm/dL (11.4-16.0) L 07/16/16 06:11 Hct 27.1 % (34.0-46.0) L 07/16/16 06:11 MCV 87.6 fL (80.0-100.0) 07/16/16 06:11 MCH 30.8 pg (25.0-35.0) 07/16/16 06:11 MCHC 35.2 g/dL (31.0-37.0) 07/16/16 06:11 RDW 18.8 % (11.5-15.5) H 07/16/16 06:11 Plt Count 10 k/uL (150-450) L* 07/16/16 06:11 Neutrophils % 78 % 07/16/16 06:11 Lymphocytes % 12 % 07/16/16 06:11 Monocytes % 4 % 07/16/16 06:11 Eosinophils % 1 % 07/16/16 06:11 Basophils % 0 % 07/16/16 06:11 Neutrophils # 2.1 k/uL (1.3-7.7) 07/16/16 06:11 Lymphocytes # 0.3 k/uL (1.0-4.8) L 07/16/16 06:11 Monocytes # 0.1 k/uL (0-1.0) 07/16/16 06:11 Eosinophils # 0.0 k/uL (0-0.7) 07/16/16 06:11 Basophils # 0.0 k/uL (0-0.2) 07/16/16 06:11 Differential Comment 07/13/16 17:46 Poikilocytosis Slight 07/14/16 06:44 Poikilocytosis (manual Present 07/13/16 11:56 Anisocytosis Slight 07/16/16 06:11 Microcytosis Slight 07/13/16 11:56 Rouleaux Present 07/13/16 17:46 PT 11.5 sec (9.0-12.0) 07/12/16 18:15 INR 1.2 (<1.1) 07/12/16 18:15 APTT 25.6 sec (22.0-30.0) 07/12/16 18:15 Sodium 140 mmol/L (137-145) 07/16/16 06:11 Potassium 3.5 mmol/L (3.5-5.1) 07/16/16 06:11 Chloride 106 mmol/L (98-107) 07/16/16 06:11 Carbon Dioxide 29 mmol/L (22-30) 07/16/16 06:11 Anion Gap 5 mmol/L 07/16/16 06:11 BUN 15 mg/dL (7-17) 07/16/16 06:11 Creatinine 0.62 mg/dL (0.52-1.04) 07/16/16 06:11 Est GFR (MDRD) Af Amer >60 (>60 ml/min/1.73 sqM) 07/16/16 06:11 Est GFR (MDRD) Non-Af >60 (>60 ml/min/1.73 sqM) 07/16/16 06:11 Glucose 104 mg/dL (74-99) H 07/16/16 06:11 POC Glucose (mg/dL) 100 mg/dL (75-99) H 07/16/16 16:23 POC Glu [employer] Support Specialist ID Susie Hess 07/16/16 16:[address] Glu mg/dL 131 mg/dL 07/12/16 18:15 Hemoglobin A1c 6.2 % (4.2-6.1) H 07/12/16 18:15 Calcium 9.1 mg/dL (8.4-10.2) 07/16/16 06:11 Magnesium 1.6 mg/dL (1.6-2.3) 07/13/16 06:23 Total Bilirubin 1.0 mg/dL (0.2-1.3) 07/16/16 06:11 AST 13 U/L (14-36) L 07/16/16 06:11 ALT 31 U/L (9-52) 07/16/16 06:11 Alkaline Phosphatase 83 U/L (38-126) 07/16/16 06:11 Total Creatine Kinase <20 U/L (30-135) L 07/12/16 18:15 CK-MB (CK-2) <0.2 ng/mL (0.0-2.4) 07/12/16 18:15 CK-MB (CK-2) Rel Index 07/12/16 18:15 Troponin I 0.015 ng/mL (0.000-0.034) 07/12/16 18:15 Total Protein 6.0 g/dL (6.3-8.2) L 07/16/16 06:11 Albumin 2.9 g/dL (3.5-5.0) L 07/16/16 06:11 TSH 1.200 mIU/L (0.465-4.680) 07/12/16 18:15 Urine Color Yellow 07/13/16 00:20 Urine Appearance Clear (Clear) 07/13/16 00:20 Urine pH 5.5 (5.0-8.0) 07/13/16 00:20 Ur Specific [place] 1.020 (1.001-1.035) 07/13/16 00:20 Urine Protein Trace (Negative) H 07/13/16 00:20 Urine Glucose (UA) Negative (Negative) 07/13/16 00:20 Urine Ketones Trace (Negative) H 07/13/16 00:20 Urine Blood Negative (Negative) 07/13/16 00:20 Urine Nitrite Negative (Negative) 07/13/16 00:20 Urine Bilirubin Negative (Negative) 07/13/16 00:20 Urine Urobilinogen <2.0 mg/dL (<2.0) 07/13/16 00:20 Ur Leukocyte Esterase Negative (Negative) 07/13/16 00:20 Vancomycin Trough 14.8 ug/mL 07/14/16 19:52 Blood Type A Positive 07/16/16 11:25 Blood Type Confirm A Positive 07/12/16 20:08 Blood Type Recheck No 07/16/16 11:25 Antibody Screen NEGATIVE 07/16/16 11:25 Crossmatch See Detail 07/12/16 18:15 Transfuse Platelets 07/16/2016 07/16/16 11:25 Spec Expiration Date 07/19/2016 - 2325 07/16/16 11:25 Microbiology 07/12/16 20:08 Blood Blood Culture - Preliminary No Growth after 72 hours 07/13/16 00:20 Urine,Voided Urine Culture - Final Assessment and Plan (1) Febrile neutropenia Narrative/Plan: 66-year-old woman who has a history of small cell lung carcinoma with concurrent chemoradiation therapy since April 2016. Presented to Hospital febrile neutropenia and new onset atrial fibrillation with a rapid ventricular response. Feeling considerably better today. Her significant fatigue and malaise resolved. Her breathing is better. She is not having much cough. No hemoptysis. She minimal bleeding from the nose which is improved. Her white count is increased today. Is own is feeling somewhat better. If she resolves her neutropenia symptoms would then be a candidate to complete a seven-day course of levofloxacin at home since her cultures are negative at this point in time. Receiving blood products as per hematology ready for discharge when they believe she is ready. Status: Acute
[2016-07-16] MEDS: ATORVASTATIN 10 MG TAB PO SCH (21:16)
[2016-07-16] MEDS: SODIUM CHLORIDE 0.9% 1,000 ML IV SCH (21:17)
[2016-07-16] MEDS: LATANOPROST 0.005% OPHTH DROPS 2.5 ML BTL LEFT EYE SCH (21:17)
[2016-07-16 22:27] VITALS: RESP 16
[2016-07-17] MEDS: CEFEPIME 2 GM in SODIUM CHLORIDE 0.9% 50 ML IVPB SCH ×2 (01:26→08:57)
[2016-07-17 06:02] LABS: Glucose,Whole Blood 92 mg/dL (75-99)
[2016-07-17] MEDS: INSULIN LISPRO (humaLOG) 300 UNIT/3 ML VIAL SQ SCH ×2 (06:10→14:23)
[2016-07-17] MEDS: SUCRALFATE 1 GM TAB PO SCH ×2 (06:32→14:23)
[2016-07-17 06:53] LABS: ALT 32 U/L (9-52); AST 11 U/L (14-36); Alkaline Phosphatase 84 U/L (38-126); Anion Gap 7 mmol/L; Blood Urea Nitrogen 12 mg/dL (7-17); Calcium 9.3 mg/dL (8.4-10.2); Carbon Dioxide 30 mmol/L (22-30); Chloride 105 mmol/L (98-107); Glucose 95 mg/dL (74-99); Non-African American GFR(MDRD) >60 (>60 ml/min/1.73 sqM); Potassium 3.4 mmol/L (3.5-5.1); Sodium 142 mmol/L (137-145); Total Bilirubin 0.8 mg/dL (0.2-1.3); Total Protein 6.1 g/dL (6.3-8.2)
[2016-07-17 06:57] LABS: Anisocytosis Slight; Aty Lym Flag Slight; CH 30.6; CHCM 34.7; HCT 27.3 % (34.0-46.0); HDW 3.03; HGB 9.5 gm/dL (11.4-16.0); MCH 30.7 pg (25.0-35.0); MCHC 34.7 g/dL (31.0-37.0); MCV 88.5 fL (80.0-100.0); Mean Platelet Volume 8.1; RBC 3.08 m/uL (3.80-5.40); RDW 18.8 % (11.5-15.5); WBC 3.9 k/uL (3.8-10.6); WBC (Perox) 3.79
[2016-07-17 07:22] LABS: Add Differential Manual Differential
[2016-07-17 07:25] LABS: Nucleated Red Blood Cells 0 /100 WBC (0-0); Total Cells Counted 100
[2016-07-17 08:13] VITALS: BP 137/64; PULSE 75; TEMP 97.4
--- NOTE | 2016-07-17 08:52 | P.PN ---
Progress Note - Text Labs reviewed. Ok to d/c from Heme standpoint
[2016-07-17] MEDS: POTASSIUM CHLORIDE ER 20 MEQ TAB.ER PO SCH (08:57)
[2016-07-17] MEDS: FAMOTIDINE 20 MG TAB PO SCH (08:57)
[2016-07-17] MEDS: VERAPAMIL 40 MG TAB PO SCH (08:57)
[2016-07-17] MEDS: FILGRASTIM-SNDZ 300 MCG/0.5 ML SYRINGE SQ SCH (10:53)
[2016-07-17 11:47] LABS: Glucose,Whole Blood 99 mg/dL (75-99)
--- NOTE | 2016-07-17 12:19 | P.DS ---
Providers Date of admission: 07/12/16 21:22 Expected date of discharge: 07/17/16 Attending physician: Richard Edwards Primary care physician: Hermila Guerra [facility] Course: Patient is being seen by me today on weekend coverage. Please refer to the electronic chart for further details about her hospital stay. She was cleared by multiple specialists for discharge home. We will revisit his of her medical problems addressed during this hospitalization. 1 new onset atrial fibrillation with rapid ventricular response: Currently normal sinus rhythm. Converted to sinus rhythm. She is currently on verapamil 40 mg 3 times a day. Not a candidate for anticoagulation due to her anemia. TSH within normal range 2. small cell lung cancer: She is scheduled to restart treatment on Tuesday. She has received both chemo and radiation in the past 3 chemotherapy-induced pancytopenia 4 febrile neutropenia, no obvious source of infection at this point and cultures of been sent and the patient was covered with a combination of cefepime and vancomycin. Blood culture, urine culture negative. Chest x-ray negative. Evaluated by infectious disease. The recommending Levaquin for 7 more days. White count has shown improvement 5 acute on chronic anemia secondary to chemo treatment and her cancer. Patient received 4 units of blood during this admission. 6 thrombocytopenia status post platelet transfusion. Patient Condition at Discharge: Critical Plan - Discharge Summary New Discharge Prescriptions: Levofloxacin [Levaquin] 500 mg PO DAILY #5 tab Sucralfate [Carafate] 1 gm PO ACHS #600 ml Verapamil [Isoptin] 40 mg PO TID #60 tab Discharge Medication List Latanoprost Ophth [Xalatan 0.005%] 1 drops LEFT EYE HS 04/27/16 [History] Simvastatin [Zocor] 20 mg PO Q2D 04/27/16 [History] Famotidine [Pepcid AC] 10 mg PO DAILY 07/12/16 [History] HYDROcodone/APAP [[place] Elixir 7.5-325Mg/15Ml] 5 ml PO TID PRN 07/12/16 [History ] Loratadine-Pseudoeph 10-240 mg [Claritin-D 24 Hour] 1 tab PO DAILY 07/12/16 [ History] Sucralfate [Carafate] 1 gm PO ACHS #600 ml 07/16/16 [Rx] Levofloxacin [Levaquin] 500 mg PO DAILY #5 tab 07/17/16 [Rx] Verapamil [Isoptin] 40 mg PO TID #60 tab 07/17/16 [Rx] Follow up Appointment(s)/Referral(s): Jean Church MD [STAFF PHYSICIAN] - 1 Week Hermila Guerra MD [Primary Care Provider] - 1-2 days Discharge Disposition: HOME SELF-CARE
--- NOTE | 2016-07-17 12:37 | P.PN ---
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 The patient underwent a bronchoscopy for right hilar mass and she was found to have and the bronchial extension of the tumor and biopsies showed small cell lung cancer. The patient is currently under the care of Dr. Lynnette Montana regarding the small cell lung cancer. The patient was started on systemic chemotherapy and she has already completed 3 sessions of chemo and she is also receiving concurrent radiation therapy. Yesterday, after receiving her radiation treatment, the patient felt extremely weak and felt shaky. She was having difficulties walking and in same time her heart was racing and she was having palpitations. Anion having any chest pain. No focal neurological deficits. She came in to the burst department and she was found to have significant hematologic abnormalities were the patient's hemoglobin was at 5.7, white cell count was at 0.5 and her platelet count was at 3. At the same time, the patient was found to be in atrial fibrillation with rapid ventricular response and this was a new onset atrial fibrillation with a heart rate was in the 170-180 range. The patient was febrile with a temperature 11.1 and the patient was treated for febrile neutropenia. I discussed the case with emergency department. I advised administering IV fluids. The patient was also started on Cardizem drip for rate control and she still on Cardizem drip at 5 mg an hour. She got platelet transfusion has subsequent platelet count is up to 39,000. The patient also got 2 units of packed RBC and hemoglobin did not improve much and this needs to be repeated and further transfusion is to follow depending on her follow-up hemoglobin level. Clinically however she is doing much better. She got covered with broad-spectrum antibiotics and the patient is on a combination of cefepime and vancomycin. Her temperature is nonelevated at this point. No cough or sputum production. No chest pain. No nausea vomiting or diarrhea. The Mediport site is clean and intact. The chest x-ray had shown no acute abnormalities and she is responding nicely to the concurrent chemoradiation therapy. The patient is seen again today 07/14/2016 in follow-up on the selective care unit. She is awake and alert in no acute distress. She is doing quite a bit better today as compared to yesterday. Feeling stronger. He did receive a total of 4 units of packed red blood cells and 1 unit of platelets. Her current hemoglobin is 9.0. Platelet count 20,000 and white count 1.5. She is being treated with Zarxio. Blood and urine cultures revealed no growth. Echocardiogram revealed preserved left ventricular systolic function with estimated ejection fraction greater than 55%. There is no evidence of pulmonary hypertension. Patient is seen again today 07/15/2016 in follow-up. She is awake and alert in no acute distress. She is feeling a bit stronger today as compared to yesterday. Urine and blood cultures revealed no growth. He count is up to 2.4. Hemoglobin 9.1 platelets at 14,000. She is receiving Zarxio. She remains on cefepime and vancomycin. On 07/16/2016, the patient is being seen in follow-up. White cell count is improving gradually and it's up to 2.7. All of the blood cultures of been negative. The patient is afebrile and the patient is hemodynamically stable at this point. The platelet count is down to 10,000. No evidence of any bleeding. The patient remains on a combination of cefepime and vancomycin. She did have a run of 80 fibrillation with rapid ventricular response for which the patient was given atenolol and currently she'll verapamil 50 mg 3 times a day. No shortness of breath. Minimal congested cough. No significant sputum production. No change in mental status. Echo cardiac exam showed a preserved LV function. Status is within normal limits. On 07/17/2016 the patient remains stable. White blood count is up to 3.7. The patient is afebrile. The patient is hemodynamically stable. The patient has no respiratory difficulties. The patient has no cardiac arrhythmias noted. She was having paroxysmal atrial fibrillation. She has a controlled rate and she is not a candidate for anticoagulation. Echocardiogram is within normal. Discharge planning is in progress. Objective - Vital Signs Vital signs: Vital Signs Temp 97.4 F L 07/17/16 08:00 Pulse 75 07/17/16 08:00 Resp 16 07/17/16 08:00 BP 137/64 07/17/16 08:00 Pulse Ox 98 07/17/16 08:00 Intake & Output 07/16/16 07/17/16 07/17/16 18:59 06:59 18:59 Intake Total 1050 1422 240 Output Total 600 Balance 450 1422 240 Weight 61.5 kg Intake: IV 210 Cefepime 2 gm In Sodium 50 Chloride 0.9% 50 ml @ 100 mls/hr IVPB Q8HR ELO Rx# :[id number] Sodium Chloride 0.9% 1, 160 000 ml @ 20 mls/hr IV . Q24H ELO Rx#:[id number] Intake, IV Titration 210 Amount Cefepime 2 gm In Sodium 50 Chloride 0.9% 50 ml @ 100 mls/hr IVPB Q8HR ELO Rx# :[id number] Sodium Chloride 0.9% 1, 160 000 ml @ 20 mls/hr IV . Q24H ELO Rx#:[id number] Oral 840 600 240 Blood Product 612 Platelet Pheresis Acda2 306 Unit [id number] Output: Urine 600 Other: Voiding Method Toilet Toilet # Voids 2 1 1 - Exam Examination of the head shows that the patient has lost her hair secondary to systemic chemotherapy.Head exam was generally normal. There was no scleral icterus or corneal arcus. Mucous membranes were moist.Neck was supple and without jugular venous distension, thyromegaly, or carotid bruits. Carotids were easily palpable bilaterally. There was no adenopathy.Lungs were clear to auscultation and percussion, and with normal diaphragmatic excursion. No wheezes or rales were noted. Heart sounds are irregular, possible sinus to and there is no significant murmurs appreciated the patient's cardiac rhythm is back to sinus.Abdominal exam revealed normal bowel sounds. The abdomen was soft , non-tender, and without masses, organomegaly, or appreciable enlargement of the abdominal aorta. Examination of the extremities revealed easily palpable radial, femoral and pedal pulses. There was no cyanosis, clubbing or edema. - Labs CBC & Chem 7: 07/17/16 06:19 07/17/16 06:19 Labs: Abnormal Lab Results - Last 24 Hours (Table) 07/16/16 07/16/16 07/17/16 Range/Units 16:23 20:43 06:19 RBC 3.08 L (3.80-5.40) m/uL Hgb 9.5 L (11.4-16.0) gm/dL Hct 27.3 L (34.0-46.0) % RDW 18.8 H (11.5-15.5) % Plt Count 53 L D (150-450) k/uL Lymphocytes # (Manual) 0.5 L (1.0-4.8) k/uL Potassium (3.5-5.1) mmol/L POC Glucose (mg/dL) 100 H 111 H (75-99) mg/dL AST (14-36) U/L Total Protein (6.3-8.2) g/dL Albumin (3.5-5.0) g/dL 07/17/16 Range/Units 06:19 RBC (3.80-5.40) m/uL Hgb (11.4-16.0) gm/dL Hct (34.0-46.0) % RDW (11.5-15.5) % Plt Count (150-450) k/uL Lymphocytes # (Manual) (1.0-4.8) k/uL Potassium 3.4 L (3.5-5.1) mmol/L POC Glucose (mg/dL) (75-99) mg/dL AST 11 L (14-36) U/L Total Protein 6.1 L (6.3-8.2) g/dL Albumin 3.1 L (3.5-5.0) g/dL Assessment and Plan Plan: Assessment 1 small cell lung cancer, currently on concurrent chemoradiation therapy. 2 new onset atrial fibrillation with rapid ventricular response, treated and the patient is still having paroxysmal atrial fibrillation. Currently on oral verapamil and the rate is controlled and back to sinus. She is not a candidate for long-term anticoagulation 3 chemotherapy-induced pancytopenia. Improvement in the right-sided count is up to 3.9 4 febrile neutropenia, no obvious source of infection at this point and cultures of been sent and the patient was covered with a combination of cefepime and vancomycin, all of the cultures of been negative. 5 profound anemia status post transfusion and hemoglobin is up to 9.5 6 thrombocytopenia status post platelet transfusion, and the platelet counts improved and it's up to 53,000 7 neutropenia treated my improving 8 hyperlipidemia 9 fever, under investigation all of the cultures of been negative. Plan The patient can be discharged home on a seven-day course of Levaquin. Follow- up with pulmonary. Follow-up with oncology.
[2016-07-17] MEDS: MAGNESIUM OXIDE 400 MG TAB PO SCH (14:23)
== END 2016-07-17 14:48 | disposition home or self-care (01) | DRG 809 ==
LOC: EC 17:46 → 6SEL 21:22
PROVIDERS: ADMIT Internal Medicine; ATTEND Internal Medicine
PROC: 30233R1 Transfusion of Nonautologous Platelets into Peripheral Vein, Percutaneous Approach (ICD-10-PCS; principal; 2016-07-12)
PROC: 30233N1 Transfusion of Nonautologous Red Blood Cells into Peripheral Vein, Percutaneous Approach (ICD-10-PCS; 2016-07-12)
DX: D70.9 Neutropenia, unspecified (principal); C34.90 Malignant neoplasm of unspecified part of unspecified bronchus or lung; E83.42 Hypomagnesemia; I48.0 Paroxysmal atrial fibrillation; E78.5 Hyperlipidemia, unspecified; R50.81 Fever presenting with conditions classified elsewhere; D61.810 Antineoplastic chemotherapy induced pancytopenia; E87.6 Hypokalemia; H40.9 Unspecified glaucoma; T45.1X5A Adverse effect of antineoplastic and immunosuppressive drugs, initial encounter; R73.9 Hyperglycemia, unspecified; R05 Cough; Z79.899 Other long term (current) drug therapy; Z87.891 Personal history of nicotine dependence; Z88.2 Allergy status to sulfonamides; Z80.3 Family history of malignant neoplasm of breast; Z80.7 Family history of other malignant neoplasms of lymphoid, hematopoietic and related tissues; Z80.49 Family history of malignant neoplasm of other genital organs
CPT/HCPCS: 36415; 71010; 80048; 80053; 80202; 81003; 82550; 82553; 83036; 83735; 84443; 84484; 85025; 85610; 85730; 86850; 86900; 86901; 86920; 87040; 87086; 93005; 93306; 94760; 96365; 96366; 96368; 96376; 99285

== ENCOUNTER → 2016-08-19 | Outpatient (CLI) | payer MEDICARE, OTHER ==
[2016-08-19 18:02] LABS: Blood Urea Nitrogen 19 mg/dL (7-17); Non-African American GFR(MDRD) >60 (>60 ml/min/1.73 sqM)
--- NOTE | 2016-08-19 19:44 | CT ---
EXAMINATION TYPE: CT chest w con DATE OF EXAM: 08/19/2016 COMPARISON: NONE HISTORY: History of lung cancer. Observe for suspected mets. CT DLP: 157.40 mGycm Automated exposure control for dose reduction was used. CONTRAST: CT scan of the chest is performed with IV Contrast, patient injected with 100 mL of Omnipaque 300. FINDINGS: LUNGS: Thick-walled bulla within the right lung apex persists although slightly smaller in size. Ther e is associated apical pleural thickening. There is persistent but much improved adjacent coarse infi ltrate. There is also marked improvement in right hilar mass with small residual soft tissue remainin g at 1.8 cm. There is also resolution of left lower lobe infiltrate. There is a mucus plugging of the multiple right lower lobe bronchi. No new masses are identified. MEDIASTINUM: Significant improvement in the paratracheal and precarinal adenopathy with several subce ntimeter lymph nodes remaining. There is thickening of the esophagus. No pericardial effusion is seen . Thoracic aorta is of normal caliber. The heart is not enlarged. UPPER ABDOMEN: No significant abnormality appreciated. OTHER: No additional significant abnormality is seen. IMPRESSION: 1. Significant diminution in size of right hilar mass small area of soft tissue remaining. Significan t improvement in right upper lobe infiltrate as well as resolution of left lower lobe interval trait. 2. Thick walled bulla right lung apex with right apical pleural thickening persists although is somew hat smaller in size. 3 improvement in mediastinal adenopathy. 4. Esophageal wall thickening.
== END | disposition home or self-care (01) ==
LOC: RADPROMAIN 17:19
PROVIDERS: ATTEND Internal Medicine Hematology & Oncology
DX: C34.90 Malignant neoplasm of unspecified part of unspecified bronchus or lung (principal); J94.8 Other specified pleural conditions; R59.0 Localized enlarged lymph nodes
CPT/HCPCS: 82565; 84520; 71260; 36415; Q9967

== ENCOUNTER 2016-09-09 14:42 | Inpatient (IN) | payer MEDICARE, OTHER ==
[2016-09-09] MEDS ORDERED: ACETAMINOPHEN TAB 500 MG TAB PO STA (15:37)
[2016-09-09] MEDS ORDERED: IV VANCOMYCIN PER PHARMACY 1 EACH MISC MISCELLANE PRN (15:37)
[2016-09-09] MEDS ORDERED: IBUPROFEN 800 MG TAB PO STA (15:37)
[2016-09-09] MEDS ORDERED: PIPERACILLIN-TAZOBACTAM 3.375 GM in DEXTROSE/WATER 1 50ML.BAG IVPB STA (15:37)
--- NOTE | 2016-09-09 15:37 | ED ---
General Adult HPI - General Chief complaint: Fever Stated complaint: Sent by Dr Barrios Time Seen by Provider: 09/09/16 14:59 Source: patient, RN notes reviewed, old records reviewed Mode of arrival: wheelchair Limitations: no limitations - History of Present Illness Initial comments: This is a 66-year-old female to the ER for evaluation. This patient presents for evaluation of fever. Patient is an by Dr. barrios or evaluation. Patient has history of CAD with chemotherapy, patient with left eye abrasion. 2 days ago significant redness and swelling around left eye for the last 2 days getting worse. Left eye drainage. Also admits to fever. Patient sent in by Dr. barrios for further evaluation and management. - Related Data Home Medications Medication Instructions Recorded Confirmed Simvastatin [Zocor] 20 mg PO Q48H 04/27/16 09/09/16 Loratadine-Pseudoeph 10-240 mg 1 tab PO DAILY PRN 07/12/16 09/09/16 [Claritin-D 24 Hour] Omeprazole [Omeprazole] 20 mg PO DAILY 09/09/16 09/09/16 Simvastatin [Zocor] 40 mg PO Q48H 09/09/16 09/09/16 predniSONE [predniSONE] See Taper PO DIRECTED 09/09/16 09/09/16 Allergies Allergy/AdvReac Type Severity Reaction Status Date / Time Sulfa (Sulfonamide Allergy Anaphylaxis Verified 09/09/16 15:09 Antibiotics) Review of Systems ROS Statement: Those systems with pertinent positive or pertinent negative responses have been documented in the HPI. ROS Other: All systems not noted in ROS Statement are negative. Past Medical History Past Medical History: Cancer, Eye Disorder Additional Past Medical History / Comment(s): cough pt states mass lt lower lung and other spots in the lung, lt eye glaucoma, ON CHEMO AND RADIATION FOR LUNG ca History of Any Multi-Drug Resistant Organisms: None Reported Past Surgical History: No Surgical Hx Reported Additional Past Surgical History / Comment(s): Bronchoscopy, insertion of a Mediport Past Anesthesia/Blood Transfusion Reactions: No Reported Reaction Additional Past Anesthesia/Blood Transfusion Reaction / Comment(s): states has never received anesthesia Past Psychological History: No Psychological Hx Reported Smoking Status: Former smoker Past Alcohol Use History: None Reported Past Drug Use History: None Reported - Past Family History Mother Family Medical History: Cancer Additional Family Medical History / Comment(s): uterine,breast cancer Father Family Medical History: Cancer Additional Family Medical History / Comment(s): hodgkins Sister(s) Family Medical History: No Reported History General Exam Limitations: no limitations General appearance: alert, in no apparent distress Head exam: Present: atraumatic, normocephalic, normal inspection Eye exam: Present: normal appearance, PERRL, EOMI, other (Left eye clear drainage, cellulitis around left eye, no proptosis, no chemosis). Absent: scleral icterus, conjunctival injection, periorbital swelling ENT exam: Present: normal exam, mucous membranes moist Neck exam: Present: normal inspection. Absent: tenderness, meningismus, lymphadenopathy Respiratory exam: Present: normal lung sounds bilaterally. Absent: respiratory distress, wheezes, rales, rhonchi, stridor Cardiovascular Exam: Present: normal rhythm, tachycardia, normal heart sounds. Absent: systolic murmur, diastolic murmur, rubs, gallop, clicks GI/Abdominal exam: Present: soft, normal bowel sounds. Absent: distended, tenderness, guarding, rebound, rigid Extremities exam: Present: normal inspection, full ROM, normal capillary refill. Absent: tenderness, pedal edema, joint swelling, calf tenderness Back exam: Present: normal inspection Neurological exam: Present: alert, oriented X3, CN II-XII intact Psychiatric exam: Present: normal affect, normal mood Skin exam: Present: warm, dry, intact, normal color. Absent: rash Course Vital Signs 09/09/16 09/09/16 15:06 15:32 Temperature 100.3 F H Pulse Rate 138 H Pulse Rate [ 125 H Pulse Oximetery ] Respiratory 22 18 Rate Blood Pressure 106/58 Blood Pressure 114/57 [Right Arm] O2 Sat by Pulse 97 98 Oximetry - Reevaluation(s) Reevaluation #1: 09/09/16 15:57 Patient does have some dramatic improvement with fever control, IV hydration, denies pain EKG Findings - EKG Comments: EKG Findings:: EKG shows sinus tachycardia rate 1:30, [place] 118, QRS 90, QTC 438 Medical Decision Making - Medical Decision Making 66 female in the ER for evaluation of fever patient to the ER today for evaluation of periorbital cellulitis. Patient admits to fever. Symptoms 3 days, originally a cut on her nose which has now spread to redness around her eye and tearing from her left eye. - Lab Data Lab Results 09/09/16 09/09/16 Range/Units 15:15 15:15 PT 12.3 H (9.0-12.0) sec INR 1.2 (<1.1) APTT 41.4 H (22.0-30.0) sec Plasma Lactic Acid Kel 2.8 H* (0.7-2.0) mmol/L Disposition Clinical Impression: Febrile neutropenia, Pancytopenia, Small cell lung carcinoma, Orbital cellulitis, left Disposition: ADMITTED IP TO THIS HOSP Condition: Fair Referrals: Hermila Guerra MD [Primary Care Provider] - 1-2 days
[2016-09-09] MEDS ORDERED: VANCOMYCIN 1,500 MG in SODIUM CHLORIDE 0.9% 250 ML IVPB STA (15:42)
[2016-09-09 15:43] LABS: INR 1.2 (<1.1); Partial Thromboplastin Time 41.4 sec (22.0-30.0); Prothrombin Time 12.3 sec (9.0-12.0)
[2016-09-09] MEDS: SODIUM CHLORIDE 0.9% 500 ML IV SCH ×3 (15:50→17:42)
--- NOTE | 2016-09-09 15:50 | XR ---
EXAMINATION TYPE: XR chest 2V DATE OF EXAM: 09/09/2016 HISTORY: Weakness. REFERENCE: Previous study dated 07/12/2016. FINDINGS: There is a MediPort in place on the right. Its tip is in the superior vena cava. Multiple rounded densities project over the right upper lobe. These are presumed to be outside the pa tient. The lungs are overinflated. The heart is not enlarged. There is some airspace disease in the right up per lobe. This is less well-defined than on the previous study. 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 IMPRESSION: 1. COPD. 2. HYPERMETABOLIC, RIGHT UPPER LOBE MASSLIKE INFILTRATE IS LESS WELL-DEFINED ON THIS EXAMINATION.
[2016-09-09 15:54] LABS: Creatine Kinase <20 U/L (30-135)
[2016-09-09 16:05] LABS: ALT 17 U/L (9-52); AST 13 U/L (14-36); Alkaline Phosphatase 89 U/L (38-126); Anisocytosis Slight; Aty Lym Flag Slight; Blood Urea Nitrogen 34 mg/dL (7-17); CH 33.9; CHCM 32.6; Calcium 9.2 mg/dL (8.4-10.2); Carbon Dioxide 23 mmol/L (22-30); Glucose 219 mg/dL (74-99); HCT 30.6 % (34.0-46.0); HGB 9.4 gm/dL (11.4-16.0); MCH 32.1 pg (25.0-35.0); MCHC 30.8 g/dL (31.0-37.0); Macrocytosis Moderate; Magnesium 1.4 mg/dL (1.6-2.3); Mean Platelet Volume 8.3; Non-African American GFR(MDRD) 55 (>60 ml/min/1.73 sqM); Phosphorous 3.3 mg/dL (2.5-4.5); Potassium 4.3 mmol/L (3.5-5.1); RBC 2.93 m/uL (3.80-5.40); RDW 17.6 % (11.5-15.5); Sodium 128 mmol/L (137-145); Total Bilirubin 1.4 mg/dL (0.2-1.3); Total Protein 7.1 g/dL (6.3-8.2)
[2016-09-09 16:06] LABS: Anion Gap 11 mmol/L; Chloride 94 mmol/L (98-107)
[2016-09-09 16:07] LABS: Creatine Kinase MB <0.2 ng/mL (0.0-2.4); Troponin I 0.017 ng/mL (0.000-0.034)
[2016-09-09 16:13] LABS: WBC 0.1 k/uL (3.8-10.6)
[2016-09-09 16:14] LABS: MCV 104.4 fL (80.0-100.0)
[2016-09-09 16:21] LABS: Add Differential Manual Differential; Manual Review Performed
--- NOTE | 2016-09-09 17:02 | CT ---
EXAMINATION TYPE: CT orbits wo con DATE OF EXAM: 09/09/2016 COMPARISON: NONE HISTORY: Left eye redness and swelling x 4 days with fever. Ended chemo [address] DLP: 333.00 mGycm Automated exposure control for dose reduction was used. FINDINGS: There is some mucosal thickening in the left maxillary sinus. There is mucosal thickening in the left side of the ethmoid sinus and to a small extent the left side of the sphenoid sinus. There is no dong dence of a blowout fracture. Orbital margins are intact. There is no sign of orbital mass. The zygoma tic arches appear normal. Nasal bone is intact. The maxilla is intact. There is mild soft tissue swel ling anterior to the left globe. There is occlusion of the left side ostiomeatal complex. IMPRESSION: LEFT-SIDED PRESEPTAL SOFT TISSUE SWELLING. THERE IS EVIDENCE OF LEFT-SIDED SINUSITIS ABOVE. NO DONG DENCE OF AN ABSCESS.
[2016-09-09] MEDS ORDERED: SODIUM CHLORIDE 0.9% 2,000 ML IV ONE (17:24)
[2016-09-09] MEDS ORDERED: SODIUM CHLORIDE 0.9% 500 ML IV ONE (17:24)
[2016-09-09 20:26] LABS: Glucose,Whole Blood 172 mg/dL (75-99)
[2016-09-09] MEDS: SODIUM CHLORIDE 0.9% 1,000 ML IV SCH ×2 (20:40→23:29)
[2016-09-09] MEDS ORDERED: NALOXONE 0.4 MG/ML 1 ML VIAL IV PRN (21:02)
[2016-09-09] MEDS ORDERED: DOPamine DRIP 250 ML IV SCH (21:02)
[2016-09-09] MEDS ORDERED: Magnesium Replacement Protocol 1 EACH MISC MISCELLANE PRN (21:14)
[2016-09-09] MEDS ORDERED: Potassium Replacement Protocol 1 EACH MISC MISCELLANE PRN (21:14)
[2016-09-09] MEDS: MAGNESIUM SULFATE-D5W PMX 1 GM in DEXTROSE/WATER 1 100ML.BAG IVPB SCH ×2 (21:39→22:45)
[2016-09-09] MEDS ORDERED: DOPamine DRIP 800 MG in DEXTROSE/WATER 1 500ML.BAG IV SCH (21:45)
[2016-09-09] MEDS: FILGRASTIM-SNDZ 480 MCG/0.8 ML SYRINGE SQ SCH (22:26)
[2016-09-09] MEDS ORDERED: LORATADINE-PSEUDOEPH 5-120 MG 1 EACH TAB.ER.12H PO PRN (22:28)
[2016-09-09] MEDS: ATORVASTATIN 40 MG TAB PO SCH (23:29)
[2016-09-09] MEDS: predniSONE 20 MG TAB PO SCH (23:29)
[2016-09-09] MEDS: LATANOPROST 0.005% OPHTH DROPS 2.5 ML BTL LEFT EYE SCH (23:29)
[2016-09-10] MEDS: MAGNESIUM SULFATE-D5W PMX 1 GM in DEXTROSE/WATER 1 100ML.BAG IVPB SCH (00:06)
[2016-09-10] MEDS: PIPERACILLIN-TAZOBACTAM 3.375 GM in DEXTROSE/WATER 1 50ML.BAG IVPB SCH ×4 (01:16→23:14)
[2016-09-10] MEDS: SODIUM CHLORIDE 0.9% 1,000 ML IV SCH ×2 (01:34→06:34)
[2016-09-10] MEDS ORDERED: NOREPINEPHRIN 16 MG-0.9%NS PMX 16 MG/250 ML ML IV SCH (02:30)
[2016-09-10 05:20] LABS: Appearance,Urine Clear (Clear); Bilirubin,Urine Negative (Negative); Glucose,Urine (UA) 1+ (Negative); Ketones,Urine Negative (Negative); Leukocyte Esterase,Urine Negative (Negative); Nitrite,Urine Negative (Negative); Protein,Urine Negative (Negative); Specific Gravity,Urine 1.002 (1.001-1.035); UA Billing (MACRO vs. MICRO) CHEM; Urobilinogen,Urine <2.0 mg/dL (<2.0)
[2016-09-10 05:20] LABS: Anisocytosis Slight; Aty Lym Flag Marked; CH 32.2; HCT 25.8 % (34.0-46.0); HDW 2.79; HGB 8.7 gm/dL (11.4-16.0); Hypochromasia Slight; MCH 34.1 pg (25.0-35.0); MCHC 33.8 g/dL (31.0-37.0); MCV 101.1 fL (80.0-100.0); Macrocytosis Slight; Mean Platelet Volume 8.5; RBC 2.55 m/uL (3.80-5.40); RDW 16.9 % (11.5-15.5); WBC (Perox) 0.06
[2016-09-10 05:21] LABS: Anion Gap 9 mmol/L; Blood Urea Nitrogen 24 mg/dL (7-17); Calcium 7.8 mg/dL (8.4-10.2); Carbon Dioxide 18 mmol/L (22-30); Chloride 110 mmol/L (98-107); Glucose 151 mg/dL (74-99); Magnesium 2.3 mg/dL (1.6-2.3); Non-African American GFR(MDRD) >60 (>60 ml/min/1.73 sqM); Phosphorous 3.1 mg/dL (2.5-4.5); Potassium 3.8 mmol/L (3.5-5.1); Sodium 137 mmol/L (137-145); WBC 0.1 k/uL (3.8-10.6)
[2016-09-10 05:55] LABS: Add Differential Manual Differential; Manual Review Performed
[2016-09-10] MEDS ORDERED: POTASSIUM CHLORIDE ER 20 MEQ TAB.ER PO SCH (06:00)
--- NOTE | 2016-09-10 07:10 | XR ---
EXAMINATION TYPE: XR chest 1V DATE OF EXAM: 09/10/2016 CLINICAL HISTORY: Difficulty breathing progress study. Cough. TECHNIQUE: Single AP portable upright view of the chest is obtained. COMPARISON: Chest x-ray from one day earlier. CT chest August 19, 2016 FINDINGS: There is stable right internal jugular Mediport catheter. There is underlying emphysematous change with right apical scarring with developing left lateral basilar opacity now present. Right feli ng remains clear. Cardiac silhouette size is stable and within normal limits. Sclerotic foci left hum erus favor bone infarcts. IMPRESSION: Chronic emphysematous change with developing left lateral basilar infiltrate and/or atele ctasis noted.
[2016-09-10 07:23] LABS: Glucose,Whole Blood 153 mg/dL (75-99)
[2016-09-10] MEDS: INSULIN LISPRO (humaLOG) 300 UNIT/3 ML VIAL SQ SCH ×5 (07:45→20:47)
[2016-09-10] MEDS ORDERED: VANCOMYCIN 1,000 MG in SODIUM CHLORIDE 0.9% 250 ML IVPB SCH (08:00)
[2016-09-10] MEDS ORDERED: PANTOPRAZOLE 40 MG/10 ML VIAL IV SCH (09:00)
[2016-09-10] MEDS ORDERED: ENOXAPARIN 40 MG/0.4 ML SYRINGE SQ SCH (09:00)
[2016-09-10] MEDS ORDERED: METOPROLOL TARTRATE 25 MG TAB PO SCH (09:45)
[2016-09-10] MEDS: DIGOXIN 125 MCG TAB PO SCH (09:56)
[2016-09-10] MEDS: FILGRASTIM-SNDZ 480 MCG/0.8 ML SYRINGE SQ SCH (09:56)
[2016-09-10] MEDS: predniSONE 20 MG TAB PO SCH (09:56)
[2016-09-10 12:11] LABS: Glucose,Whole Blood 230 mg/dL (75-99)
[2016-09-10] MEDS: NYSTATIN 100,000 UNIT/ML SUSP 500,000 UNIT/5 ML CUP PO SCH ×3 (12:59→21:22)
--- NOTE | 2016-09-10 13:27 | P.HPIM ---
History of Present Illness H&P Date: 09/10/16 Chief Complaint: Left orbital eye swelling and pain This is a 66-year-old female with a known past medical history of small cell lung cancer who has completed radiation treatment at the end of August. Her last chemotherapy was about a week ago. And she has 1 more round of chemo treatments in September. Patient also has a known history of atrial fibrillation, anemia, pancytopenia and history of a former smoker. Patient reports about a week ago she was having sinus infection symptoms with sinus congestion and runny nose. However symptoms began to worsen she started to notice swelling around the left eye. She's having tears draining from both eyes. She also has been feverish with sweats. She went to Dr. Barrios's office for follow-up visit and they recommended that she comes to the emergency room due to the periorbital cellulitis and fevers. Temp on admission was 102.7 she was tachycardic with a heart rate of 133. White count 0.1 hemoglobin 8.7 and platelets are 17. Patient was admitted to the ICU. Consults were placed for pulmonary for critical care, oncology, infectious disease and cardiology. Patient did go into atrial fibrillation with rapid ventricular response. Patient reports that she has not been taking the verapamil that she was discharged home with the last admission. She also was found to be hypotensive and required vasopressor support. She is currently off of the vasopressors she is awake and alert answering questions. Dr. Singh has started her on zarxio for her neutropenia. Also she was started on Zosyn and vancomycin for the periorbital cellulitis and bacteremia. She does have one positive blood culture with gram-positive cocci in chains. CT of the orbits showed no evidence of abscess did show soft tissue swelling and left sinusitis. Chest x- ray had shown possible developing left basilar infiltrate versus atelectasis. Patient does admit to a cough but reports it is a chronic cough especially after her chemotherapy treatments. Patient also having episodes of atrial fibrillation with rapid ventricular response cardiology started her on digoxin and metoprolol. Review of Systems Please refer to HPI otherwise unremarkable Past Medical History Past Medical History: Atrial Fibrillation, Cancer, Eye Disorder Additional Past Medical History / Comment(s): cough pt states mass lt lower lung and other spots in the lung, left eye glaucoma, ON CHEMO AND RADIATION FOR LUNG ca History of Any Multi-Drug Resistant Organisms: None Reported Past Surgical History: No Surgical Hx Reported Additional Past Surgical History / Comment(s): Bronchoscopy, insertion of a Mediport Past Anesthesia/Blood Transfusion Reactions: No Reported Reaction Additional Past Anesthesia/Blood Transfusion Reaction / Comment(s): states has never received anesthesia Past Psychological History: No Psychological Hx Reported Smoking Status: Former smoker Past Alcohol Use History: Occasional Past Drug Use History: None Reported - Past Family History Mother Family Medical History: Cancer Additional Family Medical History / Comment(s): uterine,breast cancer Father Family Medical History: Cancer Additional Family Medical History / Comment(s): hodgkins Sister(s) Family Medical History: No Reported History Medications and Allergies Home Medications Medication Instructions Recorded Confirmed Type Simvastatin [Zocor] 20 mg PO Q48H 04/27/16 09/09/16 History Loratadine-Pseudoeph 10-240 mg 1 tab PO DAILY PRN 07/12/16 09/09/16 History [Claritin-D 24 Hour] Latanoprost Ophth [Xalatan 0.005%] 1 drops LEFT EYE HS 09/09/16 09/09/16 History Omeprazole [Omeprazole] 20 mg PO DAILY 09/09/16 09/09/16 History Simvastatin [Zocor] 40 mg PO Q48H 09/09/16 09/09/16 History predniSONE [predniSONE] See Taper PO DIRECTED 09/09/16 09/09/16 History Allergies Allergy/AdvReac Type Severity Reaction Status Date / Time Sulfa (Sulfonamide Allergy Anaphylaxis Verified 09/09/16 15:09 Antibiotics) Physical Exam Vitals: Vital Signs Temp Pulse Pulse Resp BP BP Pulse Ox 09/10/16 11:00 119 H 22 96/45 97 09/10/16 10:00 130 H 21 101/57 99 09/10/16 09:00 129 H 18 95/62 99 09/10/16 08:00 97.6 F 124 H 10 L 116/58 99 09/10/16 07:00 133 H 22 105/68 96 09/10/16 06:30 102 H 22 92/58 99 09/10/16 06:00 126 H 18 100/63 98 09/10/16 05:30 122 H 19 108/75 98 09/10/16 05:00 123 H 20 119/70 99 09/10/16 04:30 110 H 17 105/70 100 09/10/16 04:00 97.4 F L 113 H 19 79/54 93 L 09/10/16 03:30 121 H 18 90/61 95 09/10/16 03:00 123 H 20 94/61 96 09/10/16 02:30 138 H 20 83/62 95 09/10/16 02:00 81 19 113/52 95 09/10/16 01:30 82 16 99/56 96 09/10/16 01:00 82 17 111/49 100 09/10/16 00:30 94 41 H 92/48 100 09/10/16 00:00 97.2 F L 85 19 102/45 96 09/09/16 23:40 92 42 H 91/48 89 L 09/09/16 23:20 98 18 99 09/09/16 23:00 87 20 101/50 91 L 09/09/16 22:40 85 17 111/48 96 09/09/16 22:20 88 14 109/48 96 09/09/16 22:00 80 18 76/44 96 09/09/16 21:40 97 12 82/49 100 09/09/16 21:20 89 13 72/51 98 09/09/16 21:00 80 16 84/48 97 09/09/16 20:40 84 14 81/45 99 09/09/16 20:20 98.3 F 85 12 90/47 99 09/09/16 20:14 61 09/09/16 20:03 97.3 F L 92 20 87/53 96 09/09/16 19:59 92 16 84/53 96 09/09/16 19:45 90 20 84/53 96 09/09/16 19:30 92 20 82/51 96 09/09/16 19:15 91 20 79/45 97 09/09/16 19:00 92 20 80/45 97 09/09/16 18:15 100 20 92/51 97 09/09/16 18:00 100 20 89/50 98 09/09/16 17:45 100.1 F H 101 H 20 88/51 97 09/09/16 17:30 102 H 20 86/49 98 09/09/16 17:15 99.3 F 102 H 20 79/47 98 09/09/16 17:00 99.3 F 113 H 20 91/55 98 09/09/16 16:45 117 H 18 91/52 98 09/09/16 16:30 116 H 20 90/55 98 09/09/16 16:15 120 H 20 105/52 99 09/09/16 16:00 102.7 F H 122 H 20 111/54 99 09/09/16 15:45 126 H 20 114/54 99 09/09/16 15:32 125 H 18 114/57 98 09/09/16 15:06 100.3 F H 138 H 22 106/58 97 Intake and Output 09/09/16 09/10/16 09/10/16 22:59 06:59 14:59 Intake Total 770.794 7152.204 1436.0 Output Total 400 1550 475 Balance 341.768 334.204 961.0 Intake: IV 500 1850.0 862.5 Magnesium Sulfate-D5w Pmx 100 200 1 gm In Dextrose/Water 1 100ml.bag @ 100 mls/hr IVPB Q1H ELO Rx#: [id number] Piperacillin-Tazobactam 3 0 50.0 62.5 .375 gm In Dextrose/Water 1 50ml.bag @ 12.5 mls/hr IVPB Q8HR ELO Rx#: [id number] Sodium Chloride 0.9% 1, 400 1600 800 000 ml @ 100 mls/hr IV . Q10H ELO Rx#:[id number] Intake, IV Titration 1.768 34.204 253.5 Amount DOPamine DRIP 800 mg In 1.768 29.172 Dextrose/Water 1 500ml. bag @ 2 MCG/KG/MIN 4.42 mls/hr IV .Q24H ELO Rx#: [id number] Norepinephrin 16 mg-0.9% 5.032 3.5 Ns Pmx 16 mg In 250 ml @ Titrate IV .Q0M ELO Rx#: [id number] Vancomycin 1,000 mg In 250 Sodium Chloride 0.9% 250 ml @ 125 mls/hr IVPB Q12HR@0800,2000 ELO Rx#: [id number] Oral 240 320 Output: Urine 400 1550 475 Other: Voiding Method Bedside Commode Bedside Commode Bedside Commode # Voids 1 Weight 62.5 kg 64.5 kg HEENT left eye periorbital swelling. Eyelid is swollen shut. Patient is able to open eye. There are clear tears draining from both eyes. Left eye lid near the bridge of the nose there is a scratch. Red no drainage Head normocephalic Neck supple Lungs coarse breath sounds bilaterally Heart irregular rhythm. A. fib with RVR on monitor Abdomen is soft nontender nondistended positive bowel sounds no hepatosplenomegaly Extremities no edema SCDs present Neuro alert and orientated to 3 Results CBC & Chem 7: 09/10/16 04:40 09/10/16 04:40 Labs: Abnormal Lab Results - Last 24 Hours (Table) 09/09/16 09/09/16 09/09/16 Range/Units 15:15 15:15 15:15 WBC 0.1 L* (3.8-10.6) k/uL RBC 2.93 L (3.80-5.40) m/uL Hgb 9.4 L (11.4-16.0) gm/dL Hct 30.6 L (34.0-46.0) % MCV 104.4 H D (80.0-100.0) fL MCHC 30.8 L (31.0-37.0) g/dL RDW 17.6 H (11.5-15.5) % Plt Count 32 L* D (150-450) k/uL PT (9.0-12.0) sec APTT (22.0-30.0) sec Sodium 128 L (137-145) mmol/L Chloride 94 L (98-107) mmol/L Carbon Dioxide (22-30) mmol/L BUN 34 H (7-17) mg/dL Glucose 219 H (74-99) mg/dL POC Glucose (mg/dL) (75-99) mg/dL Plasma Lactic Acid Kel (0.7-2.0) mmol/L Calcium (8.4-10.2) mg/dL Magnesium 1.4 L (1.6-2.3) mg/dL Total Bilirubin 1.4 H (0.2-1.3) mg/dL AST 13 L (14-36) U/L Total Creatine Kinase <20 L (30-135) U/L Urine Glucose (UA) (Negative) 09/09/16 09/09/16 09/09/16 Range/Units 15:15 15:15 20:22 WBC (3.8-10.6) k/uL RBC (3.80-5.40) m/uL Hgb (11.4-16.0) gm/dL Hct (34.0-46.0) % MCV (80.0-100.0) fL MCHC (31.0-37.0) g/dL RDW (11.5-15.5) % Plt Count (150-450) k/uL PT 12.3 H (9.0-12.0) sec APTT 41.4 H (22.0-30.0) sec Sodium (137-145) mmol/L Chloride (98-107) mmol/L Carbon Dioxide (22-30) mmol/L BUN (7-17) mg/dL Glucose (74-99) mg/dL POC Glucose (mg/dL) 172 H (75-99) mg/dL Plasma Lactic Acid Kel 2.8 H* (0.7-2.0) mmol/L Calcium (8.4-10.2) mg/dL Magnesium (1.6-2.3) mg/dL Total Bilirubin (0.2-1.3) mg/dL AST (14-36) U/L Total Creatine Kinase (30-135) U/L Urine Glucose (UA) (Negative) 09/09/16 09/10/16 09/10/16 Range/Units 23:20 04:40 04:40 WBC 0.1 L* (3.8-10.6) k/uL RBC 2.55 L (3.80-5.40) m/uL Hgb 8.7 L (11.4-16.0) gm/dL Hct 25.8 L (34.0-46.0) % MCV 101.1 H (80.0-100.0) fL MCHC (31.0-37.0) g/dL RDW 16.9 H (11.5-15.5) % Plt Count 17 L* (150-450) k/uL PT (9.0-12.0) sec APTT (22.0-30.0) sec Sodium (137-145) mmol/L Chloride 110 H (98-107) mmol/L Carbon Dioxide 18 L (22-30) mmol/L BUN 24 H (7-17) mg/dL Glucose 151 H (74-99) mg/dL POC Glucose (mg/dL) (75-99) mg/dL Plasma Lactic Acid Kel (0.7-2.0) mmol/L Calcium 7.8 L (8.4-10.2) mg/dL Magnesium (1.6-2.3) mg/dL Total Bilirubin (0.2-1.3) mg/dL AST (14-36) U/L Total Creatine Kinase (30-135) U/L Urine Glucose (UA) 1+ H (Negative) 09/10/16 Range/Units 07:22 WBC (3.8-10.6) k/uL RBC (3.80-5.40) m/uL Hgb (11.4-16.0) gm/dL Hct (34.0-46.0) % MCV (80.0-100.0) fL MCHC (31.0-37.0) g/dL RDW (11.5-15.5) % Plt Count (150-450) k/uL PT (9.0-12.0) sec APTT (22.0-30.0) sec Sodium (137-145) mmol/L Chloride (98-107) mmol/L Carbon Dioxide (22-30) mmol/L BUN (7-17) mg/dL Glucose (74-99) mg/dL POC Glucose (mg/dL) 153 H (75-99) mg/dL Plasma Lactic Acid Kel (0.7-2.0) mmol/L Calcium (8.4-10.2) mg/dL Magnesium (1.6-2.3) mg/dL Total Bilirubin (0.2-1.3) mg/dL AST (14-36) U/L Total Creatine Kinase (30-135) U/L Urine Glucose (UA) (Negative) Microbiology - Last 24 Hours (Table) 09/09/16 15:15 Blood Culture Gram Stain - Preliminary Blood 09/09/16 15:15 Blood Culture - Final Blood Thrombosis Risk Factor Assmnt - Choose All That Apply Each Factor Represents 1 point: Sepsis (< 1month), Serious lung disease incl. pneumonia (< 1month) Other Risk Factors: Yes Each Risk Factor Represents 2 Points: Age 61-74 years Thrombosis Risk Factor Assessment Total Risk Factor Score: 4 Thrombosis Risk Factor Assessment Level: Moderate Risk Assessment and Plan Plan: 1. Left periorbital cellulitis: Computed tomography scan of the orbits showed no evidence of abscess did reveal soft tissue swelling and a left sinusitis. Continue with the IV Zosyn and vancomycin. Infectious disease has been consulted 2. Sepsis present on admission secondary to periorbital cellulitis: Continue IV fluids and antibiotics infectious diseases been consulted 3. Bacteremia with one positive blood culture growing gram-positive cocci in chains. Patient was started on IV vancomycin 4. Febrile neutropenia: Patient started on Zarxio. Hematology consulted 5. Pancytopenia: Hematology consulted. Continue to monitor CBC 6. Atrial fibrillation with rapid ventricular response: Cardiology has started patient on digoxin and metoprolol 7. Small cell lung cancer: Patient has completed radiation treatment. Has 1 more round of chemotherapy. Last chemotherapy a week ago 8. Hypomagnesemia and patient receiving supplement repeat magnesium level in a.m. 9. Hyperglycemia with a blood sugar of 230. Patient ate a slurpy this afternoon. Patient educated to avoid sugary foods. She has no history of diabetes. She did refuse the sliding scale coverage of insulin GI prophylaxis Protonix and DVT prophylaxis SCDs Time with Patient: Greater than 30 (Greater than 50% of the total time spent in counseling and coordination of care.I performed an examination of the patient and discussed their management with the physician Clay Grinder. I have reviewed the Physician Clay Grinder's notes and agree with the documented findings and plan of care)
--- NOTE | 2016-09-10 13:50 | CONS ---
DATE OF CONSULTATION: This is a 66-year-old female. She is very pleasant. She was apparently diagnosed as having small cell lung cancer back in April of this year by my partner. She apparently had bronchoscopy. Anyway, the patient subsequently had been referred to oncology and radiation therapy. In medical oncology sees Dr. Church and in radiation therapy Jean Montana. She is done with radiation therapy, but still has one more round of chemotherapy to go. She had a round of chemotherapy earlier this past week. She presented to the emergency room with complaints of swelling around the left eye. She had fever. She has signs and symptoms of the sinus infection. She was admitted with a diagnosis of sinusitis and periorbital cellulitis and possible sepsis. She was hypotensive. She received lots of fluids in the emergency room. The patient needed to be started on pressor. We initially started on some dopamine but it caused tachycardia and A. fib and subsequently we put her on Levophed. We will have cardiology see her for the atrial fibrillation. She apparently was previously treated for the atrial fibrillation, but apparently was not taking any medications for it. She is feeling better today. Her primary complaints were swelling and congestion, nasal congestion and drainage as well as fever, weakness, chills, et cetera. Her home medications include Zocor, Claritin-D, omeprazole, simvastatin and prednisone. ALLERGIES INCLUDE SULFA ANTIBIOTICS. Medical history includes lung cancer small cell type as well as sinus disease. She also has a history of glaucoma and also history gastroesophageal reflux disease and hyperlipidemia for which she is treated. She also apparently carries with her a diagnosis of atrial fibrillation, although she apparently was placed on medication for this and has not been taking it. She did not remember who the associate professor of english was. The surgical history includes, among other things, bronchoscopy for the diagnosis back in April of this year and Mediport insertion. Social history is positive for previous heavy tobacco use. Does not smoke currently. No significant alcohol or illicit drug use. Family history is positive for Hodgkin's lymphoma, uterine and breast cancer in another family member. REVIEW OF SYSTEMS: CONSTITUTIONAL: Weakness. Fever. NEUROLOGICAL: Negative. HEENT: Sinusitis, left eye swelling. CARDIOVASCULAR: Negative. PULMONARY: Negative. GI/: Negative. RHEUMATOLOGICAL/IMMUNOLOGIC: Negative. ENDOCRINOLOGIC: Negative. DERMATOLOGIC: Negative. Current vital signs include a temperature which is 97.4, heart rate about 113, respiratory rate 22, blood pressure 105/68, mean 80, room air saturation 96%. Appears in no acute distress. HEENT examination is grossly unremarkable. Mucous membranes are moist. No oral lesions. Neck is supple. Full range of motion. No adenopathy. Cardiovascular examination reveals a regular rhythm and rate. She is tachycardic. Heart rate 115 to 120. Irregular. Lungs reveal relatively clear breath sounds. A few scattered mild rhonchi. No wheezes or crackles. Abdomen is soft. Extremities are intact. No cyanosis, clubbing, or edema. Skin without rash. There is a small sore on the dorsum of the right hand. Neurological examination is nonfocal. Left eye shows significant swelling and edema. It is closed shut. There is minimal redness. Lab data is reviewed. White count is 1.1, hemoglobin 8.7, hematocrit 25.8, platelet count 17,000. Sodium, potassium normal. Chloride is 110, CO2 of 18. Anion gap is 9, BUN and creatinine 24 and 0.77. UA is negative. The patient had a chest x-ray yesterday which shows changes of COPD and some infiltrative changes in the right upper lobe. A subsequent chest x-ray showed some emphysematous changes and some possible atelectasis or infiltrates developing in the left lateral basilar area. A head CT showed evidence of left-sided preseptal soft tissue swelling, left-sided sinusitis. No evidence of abscess. Sinusitis seems to involve the left maxillary sinus, ethmoid sinus and sphenoid sinus on the left. Medications include Tylenol, Lipitor, filgrastim, ibuprofen, eye drops, loratadine, magnesium replacement, Narcan , a small dose of Levophed at 1 mcg, Protonix, Zosyn, potassium replacement, prednisone at her usual dose, vancomycin and her IV. She is not getting any supplemental oxygen. She is on Levophed at 1 mcg/min. She is getting a 0.9 IV at 200 mL an hour, which was dropped down to 100 mL/h. Microbiology thus far is negative and that includes primarily blood cultures. ASSESSMENT: 1. Periorbital cellulitis presumably secondary to chemotherapy induced leukopenia/neutropenia with neutropenic sepsis and septic shock. 2. Small cell lung cancer, currently completed radiation therapy and one more cycle of chemotherapy anticipated with the most recent chemotherapy occurring earlier this week. 3. History of hyperlipidemia, currently on Zocor. 4. Gastroesophageal reflux disease. 5. Vague history of chronic atrial fibrillation. The patient apparently was started on medication in the past but never really took it. She does not remember which associate professor of english she saw. 6. Previous heavy tobacco use. 7. Probable chronic obstructive pulmonary disease as evidenced by her chest x-ray. 8. Profound thrombocytopenia secondary to chemotherapy. PLAN: Will dropped the down to 100 mL an hour. I think the Levophed can be turned off. It is only running at 1 mcg. Will have Cardiology see the patient because of atrial fibrillation. He is already on good antibiotics in the form of both Zosyn and vancomycin. I believe Infectious Disease was consulted. CT scan and the chest x-ray are reviewed. The other medications will be reviewed. Last night when I was called I added the Neupogen 480 mcg subcu daily for the profound leukopenia/neutropenia. I will also order a cortisol level given the fact that she is hypotensive. It has been blamed on sepsis but could relate to adrenal insufficiency given the fact that she is on chronic prednisone therapy. Additional recommendations and suggestions are forthcoming. Prognosis is guarded.
[2016-09-10 14:03] LABS: Hemoglobin A1C 6.3 % (4.2-6.1)
--- NOTE | 2016-09-10 14:18 | CONS ---
Ms. Hernandez is a 66-year-old female with a known history of lung CA, recent chemotherapy and radiation who presented with cellulitis around her left eye. She was noted to be in atrial fibrillation with rapid ventricular response. After admission on presentation, she was in sinus tachycardia. She was in the hospital in June of this year and had paroxysmal atrial fibrillation and was started on medication, but she has been not been taking it. At that time, her left ventricular systolic function was normal. Patient is not aware of her arrhythmia, although at times she feels fluttering in the chest. She has dyspnea on exertion, but no chest pain. She has no significant dizziness or syncope. No significant peripheral edema. No PND or orthopnea. Her coronary risk factors are positive for prior history of smoking. She is nondiabetic. She has history of hyperlipidemia. Her medications at home include: 1. Simvastatin. 2. Prednisone. 3. Omeprazole. REVIEW OF SYSTEMS: RESPIRATORY: She had dyspnea on exertion, history of lung CA, cough, prior history of smoking. GI: She has some nausea related to chemotherapy. She has lost weight. No recent bleeding. : No dysuria or hematuria. NERVOUS: No stroke or seizure. PHYSICAL EXAMINATION: A 66-year-old female; alert, oriented, no apparent distress. Blood pressure 105/60 with a heart rate in the 130s. HEAD: Normocephalic. Left eye with erythema surrounding the eye. NECK: No bruit. LUNGS: With decreased air exchange. No wheezes. HEART: Tachycardic. Irregularly irregular. S1, S2. No S3. No rub. ABDOMEN: Soft, nontender. Positive bowel sounds. No organomegaly. EXTREMITIES: No edema. Intact distal pulses. Lab data revealed hemoglobin of 8.7, white blood cells 0.1 and platelet count of 17,000. BUN and creatinine 24 and 0.77, potassium 3.8. Chest x-ray is consistent with emphysema changes and questionable infiltrate. EKG: Initial EKG, sinus tachycardia with a rate of 130, nonspecific ST-T wave changes. Subsequently she is in atrial fibrillation. IMPRESSION: 1. Lung carcinoma. 2. Cellulitis of the left eye. 3. Paroxysmal atrial fibrillation with rapid ventricular response. 4. Prior history of smoking. RECOMMENDATION: From the cardiac standpoint, I will start her on oral beta lia as well as digoxin. Patient is not a candidate for anticoagulation in view of her severe anemia. Depending on her progress, further recommendation will be made. Thank you for this consult. Will follow with you.
[2016-09-10] MEDS: METOPROLOL TARTRATE 25 MG TAB PO SCH ×2 (15:14→21:22)
--- NOTE | 2016-09-10 17:08 | P.CONS ---
History of Present Illness - Reason for Consult Consult date: 09/10/16 Febrile neutropenia with sepsis. Lung cancer, chemo - History of Present Illness Mrs. Hernandez is a very pleasant female pt of Dr. Church who presented to her PCP Dr. Guerra in Mar 2016 with c/o of persistent dry cough for the last month or so. CXR revealed a large right hilar mass, confirmed by CT. Dr. Mcelroy performed transbronchial Bx on 04/30/16, pathology positive for small cell carcinoma. Staging PET showed no distant mets, LLL changes were felt to not likely be neoplastic. It was thus felt that the patient had limited stage disease, and she was started on concurrent chemoradiation. BANK ACCOUNTANT-16 and carboplatin was used as the chemo arm. The patient was admitted after cycle 3 for severe pancytopenia and weakness, and improved with supportive care. She did complete the concurrent phase of chemoradiation, and is receiving additional chemotherapy with a planned offered total of 6 cycles. She completed cycle 5 on 09/03/16. Neulasta was administered on 09/04/16. The patient was seen in the office yesterday for routine nurse practitioner visit. She was noted to have significant swelling around the left eye, which she was unable to open. She was feeling quite weak and reported fever at home. She was also complaining of nasal congestion, and sore throat. Temperature was 100.9 in the office. White count was 0.1. The patient was also noted to have a higher heart rate with low blood pressure. She was sent in to the emergency room. She was started on antibiotics and transferred to the ICU where she is currently on IV antibiotics and pressors. Consult was placed for further evaluation and recommendations. Review of Systems Constitutional: Reports fever, Reports poor appetite, Reports weakness Eyes: left as per HPI (Marked swelling and redness around the left eye, causing difficulty in opening) Ears, nose, mouth and throat: Reports nasal congestion, Reports post-nasal drip , Reports sore throat Cardiovascular: Reports irregular heart beat, Reports lightheadedness, Reports rapid heart beat Respiratory: Denies cough Gastrointestinal: Denies abdominal pain, Denies diarrhea, Denies nausea, Denies vomiting Genitourinary: Denies dysuria, Denies hematuria Menstruation: Reports postmenopausal Musculoskeletal: Reports muscle weakness Integumentary: Reports as per HPI Neurological: Reports weakness Psychiatric: Denies anxiety, Denies depression Endocrine: Denies fatigue, Denies weight change Hematologic/Lymphatic: Reports as per HPI Past Medical History Past Medical History: Atrial Fibrillation, Cancer, Eye Disorder Additional Past Medical History / Comment(s): cough pt states mass lt lower lung and other spots in the lung, left eye glaucoma, ON CHEMO AND RADIATION FOR LUNG ca History of Any Multi-Drug Resistant Organisms: None Reported Past Surgical History: No Surgical Hx Reported Additional Past Surgical History / Comment(s): Bronchoscopy, insertion of a Mediport Past Anesthesia/Blood Transfusion Reactions: No Reported Reaction Additional Past Anesthesia/Blood Transfusion Reaction / Comm: states has never received anesthesia Past Psychological History: No Psychological Hx Reported Smoking Status: Former smoker Past Alcohol Use History: Occasional Past Drug Use History: None Reported - Past Family History Mother Family Medical History: Cancer Additional Family Medical History / Comment(s): uterine,breast cancer Father Family Medical History: Cancer Additional Family Medical History / Comment(s): hodgkins Sister(s) Family Medical History: No Reported History Medications and Allergies Home Medications Medication Instructions Recorded Confirmed Type Simvastatin [Zocor] 20 mg PO Q48H 04/27/16 09/09/16 History Loratadine-Pseudoeph 10-240 mg 1 tab PO DAILY PRN 07/12/16 09/09/16 History [Claritin-D 24 Hour] Latanoprost Ophth [Xalatan 0.005%] 1 drops LEFT EYE HS 09/09/16 09/09/16 History Omeprazole [Omeprazole] 20 mg PO DAILY 09/09/16 09/09/16 History Simvastatin [Zocor] 40 mg PO Q48H 09/09/16 09/09/16 History predniSONE [predniSONE] See Taper PO DIRECTED 09/09/16 09/09/16 History Allergies Allergy/AdvReac Type Severity Reaction Status Date / Time Sulfa (Sulfonamide Allergy Anaphylaxis Verified 09/09/16 15:09 Antibiotics) Physical Exam Vitals: Vital Signs Temp Pulse Pulse Resp BP BP Pulse Ox 09/10/16 16:00 98 F 113 H 15 104/57 98 09/10/16 15:00 162 H 20 92/59 100 09/10/16 14:00 96 29 H 70/52 98 09/10/16 13:00 131 H 21 98/63 99 09/10/16 12:00 120 H 26 H 92/58 99 09/10/16 11:00 119 H 22 96/45 97 09/10/16 10:00 130 H 21 101/57 99 09/10/16 09:00 129 H 18 95/62 99 09/10/16 08:00 97.6 F 124 H 10 L 116/58 99 09/10/16 07:00 133 H 22 105/68 96 09/10/16 06:30 102 H 22 92/58 99 09/10/16 06:00 126 H 18 100/63 98 09/10/16 05:30 122 H 19 108/75 98 09/10/16 05:00 123 H 20 119/70 99 09/10/16 04:30 110 H 17 105/70 100 09/10/16 04:00 97.4 F L 113 H 19 79/54 93 L 09/10/16 03:30 121 H 18 90/61 95 09/10/16 03:00 123 H 20 94/61 96 09/10/16 02:30 138 H 20 83/62 95 09/10/16 02:00 81 19 113/52 95 09/10/16 01:30 82 16 99/56 96 09/10/16 01:00 82 17 111/49 100 09/10/16 00:30 94 41 H 92/48 100 09/10/16 00:00 97.2 F L 85 19 102/45 96 09/09/16 23:40 92 42 H 91/48 89 L 09/09/16 23:20 98 18 99 09/09/16 23:00 87 20 101/50 91 L 09/09/16 22:40 85 17 111/48 96 09/09/16 22:20 88 14 109/48 96 09/09/16 22:00 80 18 76/44 96 09/09/16 21:40 97 12 82/49 100 09/09/16 21:20 89 13 72/51 98 09/09/16 21:00 80 16 84/48 97 09/09/16 20:40 84 14 81/45 99 09/09/16 20:20 98.3 F 85 12 90/47 99 09/09/16 20:14 61 09/09/16 20:03 97.3 F L 92 20 87/53 96 09/09/16 19:59 92 16 84/53 96 09/09/16 19:45 90 20 84/53 96 09/09/16 19:30 92 20 82/51 96 09/09/16 19:15 91 20 79/45 97 09/09/16 19:00 92 20 80/45 97 09/09/16 18:15 100 20 92/51 97 09/09/16 18:00 100 20 89/50 98 09/09/16 17:45 100.1 F H 101 H 20 88/51 97 09/09/16 17:30 102 H 20 86/49 98 09/09/16 17:15 99.3 F 102 H 20 79/47 98 09/09/16 17:00 99.3 F 113 H 20 91/55 98 Intake and Output 09/10/16 09/10/16 09/10/16 06:59 14:59 22:59 Intake Total 3164.123 6079.0 250 Output Total 1550 475 Balance 477.672 0109.0 250 Intake: IV 1850.0 1162.5 250 Magnesium Sulfate-D5w Pmx 200 1 gm In Dextrose/Water 1 100ml.bag @ 100 mls/hr IVPB Q1H [facility] Rx#: [id number] Piperacillin-Tazobactam 3 50.0 62.5 50 .375 gm In Dextrose/Water 1 50ml.bag @ 12.5 mls/hr IVPB Q8HR [facility] Rx#: [id number] Sodium Chloride 0.9% 1, 1600 1100 200 000 ml @ 100 mls/hr IV . Q10H [facility] Rx#:[id number] Intake, IV Titration 34.204 253.5 Amount DOPamine DRIP 800 mg In 29.172 Dextrose/Water 1 500ml. bag @ 2 MCG/KG/MIN 4.42 mls/hr IV .Q24H [facility] Rx#: [id number] Norepinephrin 16 mg-0.9% 5.032 3.5 Ns Pmx 16 mg In 250 ml @ Titrate IV .Q0M [facility] Rx#: [id number] Vancomycin 1,000 mg In 250 Sodium Chloride 0.9% 250 ml @ 125 mls/hr IVPB Q12HR@0800,2000 [facility] Rx#: [id number] Oral 320 Output: Urine 1550 475 Other: Voiding Method Bedside Commode Bedside Commode Bedside Commode # Voids 1 # Bowel Movements 1 Weight 64.5 kg - Constitutional General appearance: no acute distress - EENT Marked swelling and redness in the left periorbital area. Patient can open left eye only minimally. No obvious fluctuation. Area of scabbing medial canthus ENT: hearing grossly normal, normal oropharynx - Neck Neck: no lymphadenopathy Thyroid: bilateral: normal size - Respiratory Respiratory: bilateral: CTA - Cardiovascular Rhythm: irregularly irregular Heart sounds: normal: S1, S2 - Gastrointestinal General gastrointestinal: normal bowel sounds, soft - Integumentary Integumentary: cellulitis (Left periorbital area) - Neurologic Neurologic: CNII-XII intact - Musculoskeletal Musculoskeletal: generalized weakness, strength equal bilaterally Results CBC & Chem 7: 09/10/16 04:40 09/10/16 04:40 Labs: Abnormal Lab Results - Last 24 Hours (Table) 09/09/16 09/09/16 09/10/16 Range/Units 20:22 23:20 04:40 WBC 0.1 L* (3.8-10.6) k/uL RBC 2.55 L (3.80-5.40) m/uL Hgb 8.7 L (11.4-16.0) gm/dL Hct 25.8 L (34.0-46.0) % MCV 101.1 H (80.0-100.0) fL RDW 16.9 H (11.5-15.5) % Plt Count 17 L* (150-450) k/uL Chloride (98-107) mmol/L Carbon Dioxide (22-30) mmol/L BUN (7-17) mg/dL Glucose (74-99) mg/dL POC Glucose (mg/dL) 172 H (75-99) mg/dL Hemoglobin A1c (4.2-6.1) % Calcium (8.4-10.2) mg/dL Urine Glucose (UA) 1+ H (Negative) 09/10/16 09/10/16 09/10/16 Range/Units 04:40 04:40 07:22 WBC (3.8-10.6) k/uL RBC (3.80-5.40) m/uL Hgb (11.4-16.0) gm/dL Hct (34.0-46.0) % MCV (80.0-100.0) fL RDW (11.5-15.5) % Plt Count (150-450) k/uL Chloride 110 H (98-107) mmol/L Carbon Dioxide 18 L (22-30) mmol/L BUN 24 H (7-17) mg/dL Glucose 151 H (74-99) mg/dL POC Glucose (mg/dL) 153 H (75-99) mg/dL Hemoglobin A1c 6.3 H (4.2-6.1) % Calcium 7.8 L (8.4-10.2) mg/dL Urine Glucose (UA) (Negative) 09/10/16 Range/Units 12:08 WBC (3.8-10.6) k/uL RBC (3.80-5.40) m/uL Hgb (11.4-16.0) gm/dL Hct (34.0-46.0) % MCV (80.0-100.0) fL RDW (11.5-15.5) % Plt Count (150-450) k/uL Chloride (98-107) mmol/L Carbon Dioxide (22-30) mmol/L BUN (7-17) mg/dL Glucose (74-99) mg/dL POC Glucose (mg/dL) 230 H (75-99) mg/dL Hemoglobin A1c (4.2-6.1) % Calcium (8.4-10.2) mg/dL Urine Glucose (UA) (Negative) Microbiology - Last 24 Hours (Table) 09/09/16 23:20 Urine Culture - Preliminary Urine,Clean Catch 09/09/16 15:15 Blood Culture Gram Stain - Preliminary Blood 09/09/16 15:15 Blood Culture - Final Blood Comments: Computed tomography scan of the face and orbits- report reviewed Chest x-ray: report reviewed Assessment and Plan (1) Febrile neutropenia Narrative/Plan: The patient is presented with febrile neutropenia and severe sepsis. White count is only 0.1, with heart rate in the 120-1:30 range, and systolic blood pressure in the 80 range. T-max was 102+. Surprisingly the patient looks fairly comfortable . Blood cultures are growing gram-positive cocci. Findings on the CT of the face and orbits were reviewed. It appears that the patient likely develop an upper respiratory tract infection, involving the left paranasal sinuses, which progressed to her current situation, including bacteremia and sepsis. The patient is currently in the ICU, on aggressive care with the pressors as well as broad-spectrum antibiotics including vancomycin and Zosyn. ID is on consult. Patient has already received Neulasta on 09/04/16. Therefore there is NO benefit of any additional growth factors for 10 days from that date. Therefore filgrastim will be discontinued. Status: Acute (2) Pancytopenia Narrative/Plan: Due to antineoplastic chemotherapy. Hemoglobin is in a safe range. Platelets are 17, with no obvious bleeding. Continue to monitor, and transfuse to keep hemoglobin greater than 7 and platelets greater than 10, unless there is evidence of bleeding in which case more aggressive transfusion support would be needed. Status: Acute (3) Small cell lung carcinoma Narrative/Plan: The patient has completed 5 cycles. She had one more cycle to go. Additional chemotherapy will obviously be on hold until she is fully recovered from her acute condition. Dose modification for the next cycle will need to be considered Status: Chronic Plan: PTT was noted to be somewhat elevated yesterday. This is of unclear etiology. A repeat coags and be done today along with fibrinogen.
[2016-09-10 17:25] LABS: Glucose,Whole Blood 196 mg/dL (75-99)
[2016-09-10 19:32] LABS: INR 1.1 (<1.1); Partial Thromboplastin Time 30.7 sec (22.0-30.0); Prothrombin Time 11.3 sec (9.0-12.0)
[2016-09-10] MEDS: ATORVASTATIN 40 MG TAB PO SCH (20:27)
[2016-09-10] MEDS: LATANOPROST 0.005% OPHTH DROPS 2.5 ML BTL LEFT EYE SCH (20:28)
[2016-09-10 20:43] LABS: Glucose,Whole Blood 282 mg/dL (75-99)
[2016-09-10] MEDS: ACETAMINOPHEN TAB 325 MG TAB PO PRN (20:43)
[2016-09-10] MEDS: VANCOMYCIN 1,000 MG in SODIUM CHLORIDE 0.9% 250 ML IVPB SCH (20:43)
[2016-09-11] MEDS: SODIUM CHLORIDE 0.9% 1,000 ML IV SCH ×3 (03:48→12:06)
[2016-09-11 05:06] LABS: Anion Gap 4 mmol/L; Blood Urea Nitrogen 19 mg/dL (7-17); Calcium 7.9 mg/dL (8.4-10.2); Carbon Dioxide 22 mmol/L (22-30); Chloride 108 mmol/L (98-107); Glucose 120 mg/dL (74-99); Magnesium 1.6 mg/dL (1.6-2.3); Non-African American GFR(MDRD) >60 (>60 ml/min/1.73 sqM); Phosphorous 2.1 mg/dL (2.5-4.5); Potassium 3.1 mmol/L (3.5-5.1); Sodium 134 mmol/L (137-145)
[2016-09-11 05:09] LABS: Anisocytosis Slight; Aty Lym Flag Marked; CH 32.2; CHCM 31.7; HDW 2.85; Hypochromasia Slight; MCH 34.1 pg (25.0-35.0); MCHC 33.5 g/dL (31.0-37.0); MCV 101.7 fL (80.0-100.0); Macrocytosis Moderate; Mean Platelet Volume 7.7; RBC 2.06 m/uL (3.80-5.40); RDW 16.9 % (11.5-15.5); WBC (Perox) 0.33
[2016-09-11 05:15] LABS: WBC 0.3 k/uL (3.8-10.6)
[2016-09-11] MEDS ORDERED: Phosphorus Replacement Protoco 1 EACH MISC MISCELLANE PRN (05:36)
[2016-09-11 06:01] LABS: Add Differential Manual Differential
[2016-09-11 06:03] LABS: Manual Review Performed
[2016-09-11] MEDS ORDERED: SODIUM PHOSPHATE 10 MMOL in SODIUM CHLORIDE 0.9% 100 ML IVPB ONE (06:30)
[2016-09-11] MEDS: MAGNESIUM SULFATE-D5W PMX 1 GM in DEXTROSE/WATER 1 100ML.BAG IVPB SCH ×2 (06:40→08:37)
[2016-09-11] MEDS: POTASSIUM CHLORIDE ER 20 MEQ TAB.ER PO SCH ×3 (06:41→11:36)
--- NOTE | 2016-09-11 06:47 | XR ---
EXAMINATION TYPE: XR chest 1V portable DATE OF EXAM: 09/11/2016 HISTORY: Follow up. REFERENCE: Previous study dated 09/10/2016. FINDINGS: There is a MediPort in place via a right internal jugular approach. The tip is in the super ior vena cava. The lungs are overinflated. The lungs appear clear. Pleural spaces are clear. Heart size is normal. IMPRESSION: NEAR COMPLETE RESOLUTION OF THE PATIENT'S LEFT BASILAR INFILTRATE.
[2016-09-11 07:40] LABS: Glucose,Whole Blood 127 mg/dL (75-99)
[2016-09-11] MEDS: INSULIN LISPRO (humaLOG) 300 UNIT/3 ML VIAL SQ SCH ×4 (08:37→21:00)
[2016-09-11] MEDS: DIGOXIN 125 MCG TAB PO SCH (08:38)
[2016-09-11] MEDS: METOPROLOL TARTRATE 25 MG TAB PO SCH ×3 (08:38→21:00)
[2016-09-11] MEDS: PANTOPRAZOLE 40 MG TABLET PO SCH (08:38)
[2016-09-11] MEDS: NYSTATIN 100,000 UNIT/ML SUSP 500,000 UNIT/5 ML CUP PO SCH ×4 (08:38→21:00)
[2016-09-11] MEDS: predniSONE 20 MG TAB PO SCH (08:39)
[2016-09-11] MEDS: VANCOMYCIN 1,000 MG in SODIUM CHLORIDE 0.9% 250 ML IVPB SCH (08:43)
[2016-09-11] MEDS: PIPERACILLIN-TAZOBACTAM 3.375 GM in DEXTROSE/WATER 1 50ML.BAG IVPB SCH (08:43)
[2016-09-11] MEDS: ACETAMINOPHEN TAB 325 MG TAB PO PRN (08:52)
--- NOTE | 2016-09-11 10:47 | P.PN ---
Subjective Principal diagnosis: This is a very pleasant 66-year-old female patient who was diagnosed with small cell lung cancer in April [address] Mcelroy via transbronchial biopsy. Since that time she had received chemoradiation therapy. The chemotherapy with CVP16 and carboplatin. She had recently completed her fifth cycle on 2016 and initiated on Neulasta 09/04/2016. She was seen in the oncology office on 09/09/2016 for follow-up. She was noted to have significant swelling of the left eye and reported fevers at home. Her white count was 0.1 and a temperature of 100.9. She was referred here to the intensive care unit for further evaluation and treatment. She was seen yesterday in consultation by Dr. Singh. She is seen today 09/11/2016 in follow-up in the intensive care unit. She is awake and alert in no acute distress. She is maintaining good O2 saturations in the 90s on room air. Today's chest x-ray reveals near complete resolution of the left basilar infiltrate. She does have continued swelling and discomfort in the left eye. She is currently on vancomycin and Zosyn. Her blood cultures were positive for strep pyogenes group A. She does continue to have temps could today at 100.6 Current white count 0.3. Hemoglobin 7.0, platelet count 6000. She is currently receiving 2 units of packed red blood cells and 1 unit of platelets. She is receiving a 0.9 normal saline at 100 MLS per hour.she has been hemodynamically stable. Objective - Vital Signs Vital signs: Vital Signs Temp 98.9 F 09/11/16 09:47 Pulse 88 09/11/16 09:47 Resp 15 09/11/16 09:47 BP 111/58 09/11/16 09:47 Pulse Ox 97 09/11/16 09:47 Intake & Output 09/10/16 09/11/16 09/11/16 18:59 06:59 18:59 Intake Total 2187.313 1580.0 390 Output Total 475 Balance 7735.052 2730.0 390 Weight 67.5 kg 67.5 kg Intake: IV 1612.5 1460.0 150 Magnesium Sulfate-D5w Pmx 100 1 gm In Dextrose/Water 1 100ml.bag @ 100 mls/hr IVPB Q1H [facility] Rx#: [id number] Piperacillin-Tazobactam 3 112.5 50.0 .375 gm In Dextrose/Water 1 50ml.bag @ 12.5 mls/hr IVPB Q8HR [facility] Rx#: [id number] Sodium Chloride 0.9% 1, 1500 1060 100 000 ml @ 100 mls/hr IV . Q10H [facility] Rx#:[id number] Sodium Phosphate 10 mmol 50 In Sodium Chloride 0.9% 100 ml @ 50 mls/hr IVPB ONCE ONE Rx#:[id number] Vancomycin 1,000 mg In 250 Sodium Chloride 0.9% 250 ml @ 125 mls/hr IVPB Q16H [facility] Rx#:[id number] Intake, IV Titration 254.813 Amount Norepinephrin 16 mg-0.9% 4.813 Ns Pmx 16 mg In 250 ml @ Titrate IV .Q0M [facility] Rx#: [id number] Vancomycin 1,000 mg In 250 Sodium Chloride 0.9% 250 ml @ 125 mls/hr IVPB Q12HR@0800,2000 [facility] Rx#: [id number] Oral 320 120 240 Blood Product 0 Rc As-1 Unit 0 [id number] Output: Urine 475 Other: Voiding Method Bedside Commode Bedside Commode # Voids 1 1 # Bowel Movements 1 - Exam GENERAL EXAM: Alert, comfortable in no apparent distress. HEAD: Normocephalic. EYES: Soft tissue swelling around the left eye. NOSE: Clear with pink turbinates. THROAT: No erythema or exudates. NECK: No masses, no JVD. CHEST: No chest wall deformity. LUNGS: Equal air entry with no crackles, wheeze, rhonchi or dullness. CVS: S1 and S2 normal with no audible murmurs, regular rhythm. ABDOMEN: No hepatosplenomegaly, normal bowel sounds, no guarding or rigidity. SPINE: No scoliosis or deformity SKIN: No rashes CENTRAL NERVOUS SYSTEM: No focal deficits, tone is normal in all 4 extremities. Extremities: There is trace peripheral edema. No clubbing, no cyanosis. Peripheral pulses are intact. - Labs CBC & Chem 7: 09/11/16 04:30 09/11/16 04:30 Labs: Abnormal Lab Results - Last 24 Hours (Table) 09/10/16 09/10/16 09/10/16 Range/Units 04:40 12:08 17:24 WBC (3.8-10.6) k/uL RBC (3.80-5.40) m/uL Hgb (11.4-16.0) gm/dL Hct (34.0-46.0) % MCV (80.0-100.0) fL RDW (11.5-15.5) % Plt Count (150-450) k/uL APTT (22.0-30.0) sec Fibrinogen (200-500) mg/dL Sodium (137-145) mmol/L Potassium (3.5-5.1) mmol/L Chloride (98-107) mmol/L BUN (7-17) mg/dL Glucose (74-99) mg/dL POC Glucose (mg/dL) 230 H 196 H (75-99) mg/dL Hemoglobin A1c 6.3 H (4.2-6.1) % Calcium (8.4-10.2) mg/dL Phosphorus (2.5-4.5) mg/dL Crossmatch 09/10/16 09/10/16 09/11/16 Range/Units 18:27 20:41 04:30 WBC 0.3 L* (3.8-10.6) k/uL RBC 2.06 L (3.80-5.40) m/uL Hgb 7.0 L* D (11.4-16.0) gm/dL Hct 21.0 L (34.0-46.0) % MCV 101.7 H (80.0-100.0) fL RDW 16.9 H (11.5-15.5) % Plt Count 6 L* D (150-450) k/uL APTT 30.7 H (22.0-30.0) sec Fibrinogen 733 H (200-500) mg/dL Sodium (137-145) mmol/L Potassium (3.5-5.1) mmol/L Chloride (98-107) mmol/L BUN (7-17) mg/dL Glucose (74-99) mg/dL POC Glucose (mg/dL) 282 H (75-99) mg/dL Hemoglobin A1c (4.2-6.1) % Calcium (8.4-10.2) mg/dL Phosphorus (2.5-4.5) mg/dL Crossmatch 06/09/11/16 09/11/16 Range/Units 04:30 06:40 07:20 WBC (3.8-10.6) k/uL RBC (3.80-5.40) m/uL Hgb (11.4-16.0) gm/dL Hct (34.0-46.0) % MCV (80.0-100.0) fL RDW (11.5-15.5) % Plt Count (150-450) k/uL APTT (22.0-30.0) sec Fibrinogen (200-500) mg/dL Sodium 134 L (137-145) mmol/L Potassium 3.1 L (3.5-5.1) mmol/L Chloride 108 H (98-107) mmol/L BUN 19 H (7-17) mg/dL Glucose 120 H (74-99) mg/dL POC Glucose (mg/dL) 127 H (75-99) mg/dL Hemoglobin A1c (4.2-6.1) % Calcium 7.9 L (8.4-10.2) mg/dL Phosphorus 2.1 L (2.5-4.5) mg/dL Crossmatch See Detail Microbiology - Last 24 Hours (Table) 09/09/16 15:15 Blood Culture Gram Stain - Preliminary Blood Blood Culture - Preliminary Strep pyogenes (grp a) 09/09/16 23:20 Urine Culture - Preliminary Urine,Clean Catch Assessment and Plan Plan: Impression: #1 Acute febrile neutropenia secondary to chemotherapy. #2 Pancytopenia current hemoglobin 7.0 platelets 6,000 receiving 2 units of packed red blood cells and 1 unit of platelets today. #3 Left lower lobe infiltrate, improved. #4 Small cell lung cancer status post 5 cycles of chemotherapy utilizing SHIPWRIGHT HELPER-16 and carboplatin. #5 Paroxysmal atrial fibrillation with rapid ventricular response, currently in normal sinus rhythm. #6 Previous history of chronic tobacco dependence. #7 Hyperlipidemia. Plan: The patient was seen and evaluated by Dr. Singh. Her chest x-ray and labs were reviewed. She has been stable from the critical care standpoint and could be transferred to the oncology unit later today once she receives her blood transfusions and platelets. We'll continue to monitor her labs closely. We'll continue with her current antibiotics including vancomycin and Zosyn. We will continue to follow and make further recommendations based on her clinical status.
--- NOTE | 2016-09-11 12:27 | P.PN ---
Subjective Patient is doing fairly well. She denies dizziness or lightheadedness. Left eye continued to be significantly swollen both upper and lower lid. Patient is only opening her left eye partially. She is not having any vision problems though. Objective - Vital Signs Vital signs: Vital Signs Temp 99.0 F 09/11/16 12:04 Pulse 78 09/11/16 12:04 Resp 16 09/11/16 12:04 BP 125/66 09/11/16 12:04 Pulse Ox 93 L 09/11/16 12:04 Intake & Output 09/10/16 09/11/16 09/11/16 18:59 06:59 18:59 Intake Total 2187.313 1580.0 1677.5 Output Total 475 600 Balance 9216.112 4601.0 1077.5 Weight 67.5 kg 67.5 kg Intake: IV 1612.5 1460.0 887.5 Magnesium Sulfate-D5w Pmx 100 1 gm In Dextrose/Water 1 100ml.bag @ 100 mls/hr IVPB Q1H [facility] Rx#: [id number] Piperacillin-Tazobactam 3 112.5 50.0 37.5 .375 gm In Dextrose/Water 1 50ml.bag @ 12.5 mls/hr IVPB Q8HR [facility] Rx#: [id number] Sodium Chloride 0.9% 1, 1500 1060 500 000 ml @ 100 mls/hr IV . Q10H [facility] Rx#:[id number] Sodium Phosphate 10 mmol 100 In Sodium Chloride 0.9% 100 ml @ 50 mls/hr IVPB ONCE ONE Rx#:[id number] Vancomycin 1,000 mg In 250 250 Sodium Chloride 0.9% 250 ml @ 125 mls/hr IVPB Q16H [facility] Rx#:[id number] Intake, IV Titration 254.813 Amount Norepinephrin 16 mg-0.9% 4.813 Ns Pmx 16 mg In 250 ml @ Titrate IV .Q0M [facility] Rx#: [id number] Vancomycin 1,000 mg In 250 Sodium Chloride 0.9% 250 ml @ 125 mls/hr IVPB Q12HR@0800,2000 [facility] Rx#: [id number] Oral 320 120 480 Blood Product 310 Rc As-1 Unit 310 [id number] Rc As-1 Unit 0 [id number] Output: Urine 475 600 Other: Voiding Method Bedside Commode Bedside Commode Bedside Commode # Voids 1 1 1 # Bowel Movements 1 - Exam General: The patient is awake and alert, in no distress Neck: The neck is supple, there is no JVD. Cardiovascular: Normal S1-S2, no S3-S4, no murmurs. Respiratory: Lungs clear to auscultation bilaterally Gastrointestinal: Abdomen is soft, nontender Musculoskeletal: There is no pedal edema. Neurological:. Speech is normal. Skin: Skin is warm and dry - Labs CBC & Chem 7: 09/11/16 04:30 09/11/16 04:30 Labs: Abnormal Lab Results - Last 24 Hours (Table) 09/10/16 09/10/16 09/10/16 Range/Units 04:40 17:24 18:27 WBC (3.8-10.6) k/uL RBC (3.80-5.40) m/uL Hgb (11.4-16.0) gm/dL Hct (34.0-46.0) % MCV (80.0-100.0) fL RDW (11.5-15.5) % Plt Count (150-450) k/uL APTT 30.7 H (22.0-30.0) sec Fibrinogen 733 H (200-500) mg/dL Sodium (137-145) mmol/L Potassium (3.5-5.1) mmol/L Chloride (98-107) mmol/L BUN (7-17) mg/dL Glucose (74-99) mg/dL POC Glucose (mg/dL) 196 H (75-99) mg/dL Hemoglobin A1c 6.3 H (4.2-6.1) % Calcium (8.4-10.2) mg/dL Phosphorus (2.5-4.5) mg/dL Crossmatch 09/10/16 09/11/16 09/11/16 Range/Units 20:41 04:30 04:30 WBC 0.3 L* (3.8-10.6) k/uL RBC 2.06 L (3.80-5.40) m/uL Hgb 7.0 L* D (11.4-16.0) gm/dL Hct 21.0 L (34.0-46.0) % MCV 101.7 H (80.0-100.0) fL RDW 16.9 H (11.5-15.5) % Plt Count 6 L* D (150-450) k/uL APTT (22.0-30.0) sec Fibrinogen (200-500) mg/dL Sodium 134 L (137-145) mmol/L Potassium 3.1 L (3.5-5.1) mmol/L Chloride 108 H (98-107) mmol/L BUN 19 H (7-17) mg/dL Glucose 120 H (74-99) mg/dL POC Glucose (mg/dL) 282 H (75-99) mg/dL Hemoglobin A1c (4.2-6.1) % Calcium 7.9 L (8.4-10.2) mg/dL Phosphorus 2.1 L (2.5-4.5) mg/dL Crossmatch 09/11/16 09/11/16 Range/Units 06:40 07:20 WBC (3.8-10.6) k/uL RBC (3.80-5.40) m/uL Hgb (11.4-16.0) gm/dL Hct (34.0-46.0) % MCV (80.0-100.0) fL RDW (11.5-15.5) % Plt Count (150-450) k/uL APTT (22.0-30.0) sec Fibrinogen (200-500) mg/dL Sodium (137-145) mmol/L Potassium (3.5-5.1) mmol/L Chloride (98-107) mmol/L BUN (7-17) mg/dL Glucose (74-99) mg/dL POC Glucose (mg/dL) 127 H (75-99) mg/dL Hemoglobin A1c (4.2-6.1) % Calcium (8.4-10.2) mg/dL Phosphorus (2.5-4.5) mg/dL Crossmatch See Detail Microbiology - Last 24 Hours (Table) 09/09/16 23:20 Urine Culture - Final Urine,Clean Catch 09/09/16 15:15 Blood Culture Gram Stain - Preliminary Blood Blood Culture - Preliminary Strep pyogenes (grp a) Assessment and Plan Plan: 1. Left periorbital cellulitis: Computed tomography scan of the orbits showed no evidence of abscess did reveal soft tissue swelling and a left sinusitis. Continue with the IV Zosyn and vancomycin. Infectious disease has been consulted 2. Sepsis present on admission secondary to periorbital cellulitis: Continue IV fluids and antibiotics infectious diseases been consulted 3. Bacteremia with one positive blood culture growing gram-positive cocci in chains. 4. Febrile neutropenia: 5. Chemo-induced Pancytopenia 6. Atrial fibrillation with rapid ventricular response: Now heart rate better controlled 7. Small cell lung cancer: Patient has completed radiation treatment. Has 1 more round of chemotherapy. Last chemotherapy a week ago Plan to transfuse PRBC and platelets today
[2016-09-11 12:39] LABS: Glucose,Whole Blood 171 mg/dL (75-99)
--- NOTE | 2016-09-11 13:36 | PN ---
DATE OF SERVICE: 09/11/2016 This patient is admitted with cellulitis in the periorbital. Patient is currently being treated for small cell cancer of the lung with chemotherapy. Patient had an episode of paroxysmal atrial fibrillation. Currently patient is being maintained in the normal sinus rhythm and she remains hemodynamically stable. Patient's blood cultures are positive. Blood pressure is 125/66 mmHg, heart rate is 80 per minute. First and second heart sounds are normal. Lungs are clinically clear to auscultation and percussion. We will continue the patient on Lopressor twice a day.
[2016-09-11] MEDS: CLINDAMYCIN 600 MG in DEXTROSE 5% IN WATER 50 ML IVPB SCH ×4 (13:49→21:12)
--- NOTE | 2016-09-11 16:46 | P.PN ---
Subjective Principal diagnosis: Feels much better No fever/chills Objective - Vital Signs Vital signs: Vital Signs Temp 98.2 F 09/11/16 16:00 Pulse 84 09/11/16 16:00 Resp 23 09/11/16 16:00 BP 115/60 09/11/16 16:00 Pulse Ox 95 09/11/16 16:00 Intake & Output 09/10/16 09/11/16 09/11/16 18:59 06:59 18:59 Intake Total 2187.313 1580.0 2537.5 Output Total 475 650 Balance 3053.461 7095.0 1887.5 Weight 67.5 kg 67.5 kg Intake: IV 1612.5 1460.0 1437.5 Magnesium Sulfate-D5w Pmx 100 1 gm In Dextrose/Water 1 100ml.bag @ 100 mls/hr IVPB Q1H [facility] Rx#: [id number] Piperacillin-Tazobactam 3 112.5 50.0 37.5 .375 gm In Dextrose/Water 1 50ml.bag @ 12.5 mls/hr IVPB Q8HR [facility] Rx#: [id number] Sodium Chloride 0.9% 1, 1500 1060 800 000 ml @ 100 mls/hr IV . Q10H [facility] Rx#:[id number] Sodium Phosphate 10 mmol 100 In Sodium Chloride 0.9% 100 ml @ 50 mls/hr IVPB ONCE ONE Rx#:[id number] Vancomycin 1,000 mg In 250 250 Sodium Chloride 0.9% 250 ml @ 125 mls/hr IVPB Q16H [facility] Rx#:[id number] platelets at 125 ml/hr 250 Intake, IV Titration 254.813 Amount Norepinephrin 16 mg-0.9% 4.813 Ns Pmx 16 mg In 250 ml @ Titrate IV .Q0M [facility] Rx#: [id number] Vancomycin 1,000 mg In 250 Sodium Chloride 0.9% 250 ml @ 125 mls/hr IVPB Q12HR@0800,2000 [facility] Rx#: [id number] Oral 320 120 480 Blood Product 620 Platelet Pheresis Acda1 0 Unit [id number] Rc As-1 Unit 310 [id number] Rc As-1 Unit 310 [id number] Output: Urine 475 650 Other: Voiding Method Bedside Commode Bedside Commode Bedside Commode # Voids 1 1 1 # Bowel Movements 1 - Constitutional General appearance: Present: no acute distress - EENT EENT Comment(s): L eye cellulitis improved Ears: bilateral: normal - Neck Neck: Present: normal ROM - Cardiovascular Rhythm: regular Heart sounds: normal: S1, S2 - Gastrointestinal General gastrointestinal: Present: soft - Neurologic Neurologic: Present: CNII-XII intact - Psychiatric Psychiatric: Present: A&O x's 3, appropriate affect - Labs CBC & Chem 7: 09/11/16 04:30 09/11/16 04:30 Labs: Abnormal Lab Results - Last 24 Hours (Table) 09/10/16 09/10/16 09/10/16 Range/Units 17:24 18:27 20:41 WBC (3.8-10.6) k/uL RBC (3.80-5.40) m/uL Hgb (11.4-16.0) gm/dL Hct (34.0-46.0) % MCV (80.0-100.0) fL RDW (11.5-15.5) % Plt Count (150-450) k/uL APTT 30.7 H (22.0-30.0) sec Fibrinogen 733 H (200-500) mg/dL Sodium (137-145) mmol/L Potassium (3.5-5.1) mmol/L Chloride (98-107) mmol/L BUN (7-17) mg/dL Glucose (74-99) mg/dL POC Glucose (mg/dL) 196 H 282 H (75-99) mg/dL Calcium (8.4-10.2) mg/dL Phosphorus (2.5-4.5) mg/dL Crossmatch 09/11/16 09/11/16 09/11/16 Range/Units 04:30 04:30 06:40 WBC 0.3 L* (3.8-10.6) k/uL RBC 2.06 L (3.80-5.40) m/uL Hgb 7.0 L* D (11.4-16.0) gm/dL Hct 21.0 L (34.0-46.0) % MCV 101.7 H (80.0-100.0) fL RDW 16.9 H (11.5-15.5) % Plt Count 6 L* D (150-450) k/uL APTT (22.0-30.0) sec Fibrinogen (200-500) mg/dL Sodium 134 L (137-145) mmol/L Potassium 3.1 L (3.5-5.1) mmol/L Chloride 108 H (98-107) mmol/L BUN 19 H (7-17) mg/dL Glucose 120 H (74-99) mg/dL POC Glucose (mg/dL) (75-99) mg/dL Calcium 7.9 L (8.4-10.2) mg/dL Phosphorus 2.1 L (2.5-4.5) mg/dL Crossmatch See Detail 09/11/16 09/11/16 Range/Units 07:20 12:37 WBC (3.8-10.6) k/uL RBC (3.80-5.40) m/uL Hgb (11.4-16.0) gm/dL Hct (34.0-46.0) % MCV (80.0-100.0) fL RDW (11.5-15.5) % Plt Count (150-450) k/uL APTT (22.0-30.0) sec Fibrinogen (200-500) mg/dL Sodium (137-145) mmol/L Potassium (3.5-5.1) mmol/L Chloride (98-107) mmol/L BUN (7-17) mg/dL Glucose (74-99) mg/dL POC Glucose (mg/dL) 127 H 171 H (75-99) mg/dL Calcium (8.4-10.2) mg/dL Phosphorus (2.5-4.5) mg/dL Crossmatch Microbiology - Last 24 Hours (Table) 09/09/16 23:20 Urine Culture - Final Urine,Clean Catch 09/09/16 15:15 Blood Culture Gram Stain - Preliminary Blood Blood Culture - Preliminary Strep pyogenes (grp a) - Imaging and Cardiology Chest x-ray: report reviewed Assessment and Plan (1) Febrile neutropenia Narrative/Plan: Grade IV Status: Acute (2) Orbital cellulitis, left Narrative/Plan: Improving Status: Acute (3) Pancytopenia Narrative/Plan: Chemotherapy-induced Status: Acute (4) Small cell lung carcinoma Narrative/Plan: S/P 5 cycles of Carboplatinum+Etoposide Chemotherapy Status: Chronic Plan: 1- Transfusion support as needed > Given PLT & PRBC today 2- Continue IV Antibiotics 3- G-CSF 4- Likely to discontinue further systemic Chemotherapy Answered all questions/concerns D/W nursing staff
[2016-09-11] MEDS: ceFAZolin 2 GM in SODIUM CHLORIDE 0.9% 100 ML IVPB SCH (16:47)
[2016-09-11 17:34] LABS: Glucose,Whole Blood 210 mg/dL (75-99)
[2016-09-11] MEDS: FILGRASTIM-SNDZ 480 MCG/0.8 ML SYRINGE SQ SCH (18:18)
[2016-09-11] MEDS ORDERED: VANCOMYCIN TROUGH DUE 1 EACH MISC MISCELLANE ONE (19:00)
[2016-09-11 20:54] LABS: Glucose,Whole Blood 195 mg/dL (75-99)
[2016-09-11] MEDS: ATORVASTATIN 40 MG TAB PO SCH (20:59)
[2016-09-11] MEDS: LATANOPROST 0.005% OPHTH DROPS 2.5 ML BTL LEFT EYE SCH (21:00)
[2016-09-12] MEDS: ceFAZolin 2 GM in SODIUM CHLORIDE 0.9% 100 ML IVPB SCH ×3 (00:11→15:19)
[2016-09-12] MEDS: SODIUM CHLORIDE 0.9% 1,000 ML IV SCH ×3 (05:14→14:35)
[2016-09-12] MEDS: CLINDAMYCIN 600 MG in DEXTROSE 5% IN WATER 50 ML IVPB SCH ×6 (05:14→21:56)
[2016-09-12 07:17] LABS: Glucose,Whole Blood 90 mg/dL (75-99)
[2016-09-12 07:31] LABS: Anisocytosis Slight; Aty Lym Flag Marked; CH 31.8; CHCM 33.2; HCT 24.4 % (34.0-46.0); HDW 3.32; HGB 8.3 gm/dL (11.4-16.0); Immature Gran Flag Marked; MCHC 34.2 g/dL (31.0-37.0); Macrocytosis Slight; Mean Platelet Volume 6.6; RBC 2.52 m/uL (3.80-5.40); RDW 17.6 % (11.5-15.5); WBC (Perox) 0.56
[2016-09-12 07:41] LABS: WBC 0.5 k/uL (3.8-10.6)
[2016-09-12 07:42] LABS: Anion Gap 6 mmol/L; Blood Urea Nitrogen 15 mg/dL (7-17); Calcium 8.1 mg/dL (8.4-10.2); Carbon Dioxide 23 mmol/L (22-30); Chloride 106 mmol/L (98-107); Glucose 88 mg/dL (74-99); Magnesium 1.3 mg/dL (1.6-2.3); Non-African American GFR(MDRD) >60 (>60 ml/min/1.73 sqM); Phosphorous 2.3 mg/dL (2.5-4.5); Sodium 135 mmol/L (137-145)
[2016-09-12 07:52] LABS: Potassium 2.9 mmol/L (3.5-5.1)
[2016-09-12] MEDS: FILGRASTIM-SNDZ 480 MCG/0.8 ML SYRINGE SQ SCH (08:45)
[2016-09-12] MEDS: INSULIN LISPRO (humaLOG) 300 UNIT/3 ML VIAL SQ SCH ×4 (08:47→20:20)
[2016-09-12] MEDS: METOPROLOL TARTRATE 25 MG TAB PO SCH ×3 (08:48→21:55)
[2016-09-12] MEDS: PANTOPRAZOLE 40 MG TABLET PO SCH (08:48)
[2016-09-12] MEDS: DIGOXIN 125 MCG TAB PO SCH (08:48)
[2016-09-12] MEDS: NYSTATIN 100,000 UNIT/ML SUSP 500,000 UNIT/5 ML CUP PO SCH ×4 (08:48→21:56)
[2016-09-12] MEDS: predniSONE 20 MG TAB PO SCH (08:49)
[2016-09-12] MEDS: POTASSIUM CHLORIDE 20 MEQ, LIDOCAINE 2% INJ 20 MG in SODIUM CHLORIDE 0.9% 100 ML IVPB SCH ×3 (08:58→13:00)
--- NOTE | 2016-09-12 09:51 | CONS ---
DATE OF CONSULTATION: 09/11/2016 REASON FOR CONSULTATION: Bacteremia and left periorbital cellulitis. HISTORY OF PRESENT ILLNESS: The patient is a 66-year-old female with past medical history significant for a small cell carcinoma for which the patient is currently getting chemotherapy. The patient was evaluated for routine follow-up visit in the office on 09/09 in the oncology services. Patient noted to have significant swelling around the left eye and patient unable to open the eye. The patient said that since her symptoms started on Tuesday the August, the patient did not recall if she had any injury to the area or any scratch in the eye. Patient complaining of pain and swelling around the eyeball. ( ) no significant radiation, no significant drainage. Patient did have fever or 100.9. With these symptoms, the patient was evaluated and has been started on broad-spectrum antibiotics in the form of Vanco and Zosyn. Blood culture has been obtained growing a streptococcal pyogenes. ID was consulted for further recommendations regarding antibiotic therapy. REVIEW OF SYSTEMS: CONSTITUTIONAL: Positive for weakness along with fever. EYES: As per HPI. No pain on movement of eyeball though. ENT: No complaint. RESPIRATORY: Occasional cough. CARDIOVASCULAR: No complaint. GENITOURINARY: No complaint. GASTROINTESTINAL: No complaint. MUSCULOSKELETAL: No complaint. INTEGUMENTARY: No complaint. PSYCHOLOGICAL: No complaint. ENDOCRINAL: No complaint. NEUROLOGICAL: No complaint. 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 PAST SURGICAL HISTORY: Bronchoscopy with biopsy and insertion of the Mediport. SOCIAL HISTORY: Remote history of smoking. No drinking or drug use. FAMILY HISTORY: Mother with history of cancer, uterine and breast. Father with history of Hodgkin lymphoma. ALLERGIES TO SULFA ANTIBIOTICS. Medications include the patient is currently on Tylenol, Lipitor, Lanoxin, filgrastim, Humalog, Claritin-D, Lopressor, magnesium, vancomycin. On examination, blood pressure is 115/60 with a pulse of 83, temperature 98.2. She is 94% on 2 liters nasal cannula. General description is an elderly female lying in bed in no distress. No tachypnea or accessory muscle of respiration use. HEENT examination shows no slight pallor. Patient did have left periorbital swelling with crusting lesion at the nasolabial fold. No significant drainage. Oral mucous membranes moist. NECK: Trachea central. There is no thyromegaly. LUNGS: Unlabored breathing. Coarse breath sounds bilaterally. HEART: S1, S2. Regular rate and rhythm. ABDOMEN: Soft. No tenderness. No guarding, no rigidity. EXTREMITIES: No edema feet. SKIN EXAMINATION: No rash or mass palpable. NEUROLOGICAL: The patient is awake, alert, oriented x3. Mood and affect normal. LABS: Hemoglobin is 7, white count 0.3. BUN of 19, creatinine 0.7. Blood cultures showed a Streptococcus pyogenes. Patient did have abdominal CT that did show evidence of preseptal cellulitis. DIAGNOSTIC IMPRESSION AND PLAN: Patient admitted to the hospital febrile with temperature of 100.9 with ( ) count less than 500 in a patient with significant swelling and redness of the left periorbital area likely the preseptal cellulitis in a patient with Streptococcus pyogenes bacteremia likely the source of the cellulitis. PLAN: 1. Culture repeated to make sure no evidence of any persistent bacteremia. 2. Discontinue Vanco and Zosyn. 3. Will start the patient on cefazolin, clindamycin for better coverage of the Streptococcal pyogenes. 4. Will follow the clinical condition and cultures to further adjust the medication if needed. Thank you for this consultation. We will follow this patient along with you.
[2016-09-12 11:29] LABS: Add Differential Manual Differential
[2016-09-12 11:30] LABS: Tear Drop Cells Present
[2016-09-12 12:24] LABS: Glucose,Whole Blood 119 mg/dL (75-99)
--- NOTE | 2016-09-12 13:57 | P.PN ---
Subjective Patient is doing fairly well. She denies dizziness or lightheadedness. Left eye continued to be significantly swollen both upper and lower lid. Patient is only opening her left eye partially. She is not having any vision problems though. Objective - Vital Signs Vital signs: Vital Signs Temp 100.4 F H 09/12/16 07:00 Pulse 106 H 09/12/16 08:00 Resp 16 09/12/16 08:00 BP 120/65 09/12/16 07:00 Pulse Ox 91 L 09/12/16 07:00 Intake & Output 09/11/16 09/12/16 09/12/16 18:59 06:59 18:59 Intake Total 3334.5 890 Output Total 700 Balance 2634.5 890 Weight 67.5 kg 67.5 kg Intake: IV 1837.5 300 Piperacillin-Tazobactam 3 37.5 .375 gm In Dextrose/Water 1 50ml.bag @ 12.5 mls/hr IVPB Q8HR [facility] Rx#: [id number] Sodium Chloride 0.9% 1, 1200 300 000 ml @ 100 mls/hr IV . Q10H [facility] Rx#:[id number] Sodium Phosphate 10 mmol 100 In Sodium Chloride 0.9% 100 ml @ 50 mls/hr IVPB ONCE ONE Rx#:[id number] Vancomycin 1,000 mg In 250 Sodium Chloride 0.9% 250 ml @ 125 mls/hr IVPB Q16H [facility] Rx#:[id number] platelets at 125 ml/hr 250 Intake, IV Titration 100 Amount ceFAZolin 2 gm In Sodium 100 Chloride 0.9% 100 ml @ 100 mls/hr IVPB Q8HR [facility] Rx#:[id number] Oral 480 590 Blood Product 917 Platelet Pheresis Acda1 297 Unit [id number] As-1 Unit 310 [id number] As-1 Unit 310 [id number] Output: Urine 700 Other: Voiding Method Bedside Commode Toilet Toilet # Voids 1 2 2 - Exam General: The patient is awake and alert, in no distress Neck: The neck is supple, there is no JVD. Cardiovascular: Normal S1-S2, no S3-S4, no murmurs. Respiratory: Lungs clear to auscultation bilaterally Gastrointestinal: Abdomen is soft, nontender Musculoskeletal: There is no pedal edema. Neurological:. Speech is normal. Skin: Skin is warm and dry - Labs CBC & Chem 7: 09/12/16 06:15 09/12/16 06:15 Labs: Abnormal Lab Results - Last 24 Hours (Table) 09/11/16 09/11/16 09/12/16 Range/Units 17:31 20:53 06:15 WBC 0.5 L* (3.8-10.6) k/uL RBC 2.52 L (3.80-5.40) m/uL Hgb 8.3 L (11.4-16.0) gm/dL Hct 24.4 L (34.0-46.0) % RDW 17.6 H (11.5-15.5) % Plt Count 22 L* D (150-450) k/uL Sodium (137-145) mmol/L Potassium (3.5-5.1) mmol/L POC Glucose (mg/dL) 210 H 195 H (75-99) mg/dL Calcium (8.4-10.2) mg/dL Phosphorus (2.5-4.5) mg/dL Magnesium (1.6-2.3) mg/dL 09/12/16 09/12/16 Range/Units 06:15 12:06 WBC (3.8-10.6) k/uL RBC (3.80-5.40) m/uL Hgb (11.4-16.0) gm/dL Hct (34.0-46.0) % RDW (11.5-15.5) % Plt Count (150-450) k/uL Sodium 135 L (137-145) mmol/L Potassium 2.9 L* (3.5-5.1) mmol/L POC Glucose (mg/dL) 119 H (75-99) mg/dL Calcium 8.1 L (8.4-10.2) mg/dL Phosphorus 2.3 L (2.5-4.5) mg/dL Magnesium 1.3 L (1.6-2.3) mg/dL Microbiology - Last 24 Hours (Table) 09/09/16 15:15 Blood Culture Gram Stain - Final Blood Blood Culture - Final Strep pyogenes (grp a) 09/09/16 23:20 Urine Culture - Final Urine,Clean Catch Assessment and Plan Plan: 1. Left periorbital cellulitis: Computed tomography scan of the orbits showed no evidence of abscess did reveal soft tissue swelling and a left sinusitis. Antibiotic as ordered by infectious disease. I would also consult ophthalmology for evaluation in the morning. 2. Sepsis present on admission secondary to periorbital cellulitis: Continue IV fluids and antibiotics infectious diseases been consulted 3. Bacteremia with one positive blood culture growing gram-positive cocci in chains. 4. Febrile neutropenia: 5. Chemo-induced Pancytopenia 6. Atrial fibrillation with rapid ventricular response: Now heart rate better controlled 7. Small cell lung cancer: Patient has completed radiation treatment. Has 1 more round of chemotherapy. Last chemotherapy a week ago Plan to transfuse PRBC and platelets today
--- NOTE | 2016-09-12 14:17 | PN ---
A very pleasant 66-year-old female who presented to the hospital with acute febrile neutropenic sepsis. She had pancytopenia. She also had what appeared to be a left periorbital cellulitis. She also had sinusitis. The patient is doing about the same. Not much improved in the left eye, which is completely closed shut. Does not look like it had any improvement. She does have some erythema about the left eye. ID is on the case. Anyway from the pulmonary standpoint, she is doing relatively well. She does have a history of small cell lung cancer, status post 5 cycles of chemotherapy using GENERAL ENGINEER-16 and carboplatin. She also has a history of atrial fibrillation, although she is currently in normal sinus rhythm. She also suffers from hyperlipidemia. Today, she is febrile. Temperature 100.4, heart rate about 100, respiratory rate 16, blood pressure 120/65, mean 83, room air saturation is hovering in the low 90s. Appears in no acute distress. Really upset about her left eye. HEENT examination is grossly unremarkable. Mucous membranes are moist. No oral lesions. Left eye is closed shut. There is some periorbital erythema and hyperemia. The left eye is tearing quite a bit. It is tender to touch. Neck is supple. Full range of motion. No adenopathy, thyromegaly, and no evidence of any neck vein distention. Cardiovascular reveals regular rhythm and rate. S1, S2 normal. There is no murmur. Lungs reveal clear breath sounds. No wheezes or rhonchi. No crackles. Breath sounds are equal bilaterally. Abdomen is soft. Bowel sounds are heard. Extremities are intact. No cyanosis, clubbing, or edema. Skin is without rash. Neurologic examination is nonfocal. Labs are reviewed. White count 0.5, hemoglobin 8.3, hematocrit 24.4, platelet count 22,000. Sodium 135, potassium 2.9, chloride 106, CO2 of 23, BUN and creatinine were 15 and 0.66. Microbiology is showing evidence of strep pyogenes positivity in the blood cultures. It is sensitive to everything. Medication-blanco she is on Ancef and clindamycin. ASSESSMENT: 1. Febrile neutropenia secondary to chemotherapy with evidence of both sinusitis and periorbital cellulitis as well as strep pyogenes bacteremia. 2. Pancytopenia. 3. Possible left lower lobe infiltrate, improved. 4. Small cell lung cancer, status post 5 cycles of GENERAL ENGINEER-16 and carboplatin. 5. History of paroxysmal atrial fibrillation. 6. Previous history of chronic tobacco dependence. 7. Hyperlipidemia. PLAN: The patient is on good antibiotics. Group A strep pyogenes infection is susceptible to everything. She has blood cultures, which are positive for that. In addition, she has a periorbital cellulitis on the left as well as an acute sinusitis. Will continue to follow. Prognosis is guarded. Hopefully her counts will recover. Additional recommendations and suggestions are forthcoming. Pulmonary status is currently stable.
[2016-09-12 17:25] LABS: Glucose,Whole Blood 201 mg/dL (75-99)
[2016-09-12 20:30] LABS: Glucose,Whole Blood 229 mg/dL (75-99)
[2016-09-12] MEDS: LATANOPROST 0.005% OPHTH DROPS 2.5 ML BTL LEFT EYE SCH (21:55)
[2016-09-12] MEDS: ATORVASTATIN 40 MG TAB PO SCH (21:56)
[2016-09-13] MEDS: ceFAZolin 2 GM in SODIUM CHLORIDE 0.9% 100 ML IVPB SCH ×3 (00:18→16:53)
[2016-09-13 03:25] LABS: Anisocytosis Slight; Aty Lym Flag Marked; CH 32.4; CHCM 32.6; HCT 27.5 % (34.0-46.0); HDW 3.01; HGB 8.8 gm/dL (11.4-16.0); Immature Gran Flag Marked; MCH 32.2 pg (25.0-35.0); MCHC 32.2 g/dL (31.0-37.0); Macrocytosis Slight; Mean Platelet Volume 6.8; RBC 2.74 m/uL (3.80-5.40); RDW 17.6 % (11.5-15.5); WBC (Perox) 1.88
[2016-09-13 03:27] LABS: WBC 1.6 k/uL (3.8-10.6)
[2016-09-13 03:40] LABS: Anion Gap 7 mmol/L; Blood Urea Nitrogen 12 mg/dL (7-17); Calcium 8.1 mg/dL (8.4-10.2); Carbon Dioxide 23 mmol/L (22-30); Chloride 107 mmol/L (98-107); Glucose 96 mg/dL (74-99); Magnesium 1.1 mg/dL (1.6-2.3); Non-African American GFR(MDRD) >60 (>60 ml/min/1.73 sqM); Phosphorous 2.5 mg/dL (2.5-4.5); Potassium 3.2 mmol/L (3.5-5.1); Sodium 137 mmol/L (137-145)
[2016-09-13] MEDS ORDERED: DILTIAZEM 125 MG in SODIUM CHLORIDE 0.9% 100 ML IV SCH (03:45)
[2016-09-13] MEDS: SODIUM CHLORIDE 0.9% 1,000 ML IV SCH ×3 (04:19→20:34)
[2016-09-13] MEDS ORDERED: POTASSIUM CHLORIDE 20 MEQ in WATER FOR INJECTION 1 100ML.BAG IVPB ONE ×2 (04:36→17:47)
[2016-09-13] MEDS: CLINDAMYCIN 600 MG in DEXTROSE 5% IN WATER 50 ML IVPB SCH ×6 (05:11→22:14)
[2016-09-13 05:49] LABS: Add Differential Manual Differential
[2016-09-13 05:54] LABS: Nucleated Red Blood Cells 0 /100 WBC (0-0); Total Cells Counted 100
[2016-09-13 05:55] LABS: Manual Review Performed
[2016-09-13] MEDS: MAGNESIUM SULFATE-D5W PMX 1 GM in DEXTROSE/WATER 1 100ML.BAG IVPB SCH ×3 (05:59→10:49)
[2016-09-13 06:16] LABS: Glucose,Whole Blood 109 mg/dL (75-99)
[2016-09-13] MEDS: INSULIN LISPRO (humaLOG) 300 UNIT/3 ML VIAL SQ SCH ×4 (06:57→22:14)
[2016-09-13 07:29] LABS: MCV 96.5 fL (80.0-100.0)
[2016-09-13] MEDS: predniSONE 20 MG TAB PO SCH (09:29)
[2016-09-13] MEDS: METOPROLOL TARTRATE 25 MG TAB PO SCH ×3 (09:29→20:30)
[2016-09-13] MEDS: DIGOXIN 125 MCG TAB PO SCH (09:29)
[2016-09-13] MEDS: PANTOPRAZOLE 40 MG TABLET PO SCH (09:29)
[2016-09-13] MEDS: NYSTATIN 100,000 UNIT/ML SUSP 500,000 UNIT/5 ML CUP PO SCH ×4 (09:30→20:30)
--- NOTE | 2016-09-13 09:45 | PN ---
DATE OF SERVICE: 09/12/2016 REASON FOR FOLLOW-UP: Left periorbital cellulitis with Strep bacteremia. INTERVAL HISTORY: The patient is afebrile. The left periorbital redness has improved. However, the swelling persists. The patient denies significant chest pain, or shortness of breath or cough or any pain with movement of ( ). No abdominal pain. On examination, blood pressure 118/52 with a pulse of 103. Temperature 98.4. She is 94% on room air. General description is an elderly female lying in bed in no distress. HEENT: Periorbital swelling persists but redness has improved. LUNGS: Unlabored breathing. Clear to auscultation anteriorly. HEART: S1, S2. Regular rate and rhythm. ABDOMEN: Soft. No tenderness. LABS: White count ( ) 0.5 with a BUN of 15, creatinine 0.66. ( ). DIAGNOSTIC IMPRESSION AND PLAN: Patient ( ) bacteremia with left periorbital cellulitis slowly responding to cefazolin and Clindamycin therapy that will be continued. Continue supportive care.
[2016-09-13 11:32] LABS: Glucose,Whole Blood 189 mg/dL (75-99)
--- NOTE | 2016-09-13 12:01 | P.PN ---
Subjective Left periorbital cellulitis This is a 66-year-old female with a known past medical history of small cell lung cancer who has completed radiation treatment at the end of August. Her last chemotherapy was about a week ago. And she has 1 more round of chemo treatments in September. Patient also has a known history of atrial fibrillation, anemia, pancytopenia and history of a former smoker. Patient reports about a week ago she was having sinus infection symptoms with sinus congestion and runny nose. However symptoms began to worsen she started to notice swelling around the left eye. She's having tears draining from both eyes. She also has been feverish with sweats. She went to Dr. Barrios's office for follow-up visit and they recommended that she comes to the emergency room due to the periorbital cellulitis and fevers. Temp on admission was 102.7 she was tachycardic with a heart rate of 133. White count 0.1 hemoglobin 8.7 and platelets are 17. Patient was admitted to the ICU. Consults were placed for pulmonary for critical care, oncology, infectious disease and cardiology. Patient did go into atrial fibrillation with rapid ventricular response. Patient reports that she has not been taking the verapamil that she was discharged home with the last admission. She also was found to be hypotensive and required vasopressor support. She is currently off of the vasopressors she is awake and alert answering questions. Dr. Singh has started her on zarxio for her neutropenia. Also she was started on Zosyn and vancomycin for the periorbital cellulitis and bacteremia. She does have one positive blood culture with gram-positive cocci in chains. CT of the orbits showed no evidence of abscess did show soft tissue swelling and left sinusitis. Chest x- ray had shown possible developing left basilar infiltrate versus atelectasis. Patient also having episodes of atrial fibrillation with rapid ventricular response cardiology started her on digoxin and metoprolol. 09/13/2016 Patient transferred out of the ICU over the weekend. She had a temp of 100.4 yesterday. She still having episodes of paroxysmal atrial fibrillation with rapid ventricular response. Awaiting ophthalmology consult. Patient still having a lot of swelling more redness around that left eye. She is able to open the eyelids. Then the vision is intact. She denies any chest pain or shortness of breath. Denies any nausea or vomiting. She is having regular bowel movements. Denies any burning with urination Objective - Vital Signs Vital signs: Vital Signs Temp 98.8 F 09/13/16 10:30 Pulse 129 H 09/13/16 10:30 Resp 20 09/13/16 10:30 BP 143/74 09/13/16 10:30 Pulse Ox 95 09/13/16 10:30 Intake & Output 09/12/16 09/13/16 09/13/16 18:59 06:59 18:59 Intake Total 1490 1680 120 Output Total 4 404 Balance 1486 1276 120 Weight 67.5 kg 67.9 kg Intake: IV 750 900 Sodium Chloride 0.9% 1, 750 900 000 ml @ 100 mls/hr IV . Q10H [facility] Rx#:[id number] Intake, IV Titration 500 100 Amount Clindamycin 600 mg In 100 100 Dextrose 5% in Water 50 ml @ 100 mls/hr IVPB Q8H [facility] Rx#:[id number] Potassium Chloride 20 meq 300 Lidocaine 2% Inj 20 mg In Sodium Chloride 0.9% 100 ml @ 55.5 mls/hr IVPB Q2HR [facility] Rx#:[id number] ceFAZolin 2 gm In Sodium 100 Chloride 0.9% 100 ml @ 100 mls/hr IVPB Q8HR [facility] Rx#:[id number] Oral 240 680 120 Blood Product 0 Platelet Pheresis Acda2 0 Unit [id number] Output: Urine 4 404 Other: Voiding Method Toilet Toilet Toilet # Voids 2 1 - Exam HEENT left eye periorbital swelling. Eyelid is swollen shut. Patient is able to open eye. There are clear tears draining from both eyes. Left eye lid near the bridge of the nose there is a scratch. No drainage. There is evidence of cellulitis and redness around the left periorbital area Head normocephalic Neck supple Lungs coarse breath sounds bilaterally Heart irregular rhythm. A. fib with RVR on monitor Abdomen is soft nontender nondistended positive bowel sounds no hepatosplenomegaly Extremities no edema SCDs present Neuro alert and orientated to 3 - Labs CBC & Chem 7: 09/13/16 03:15 09/13/16 03:15 Labs: Abnormal Lab Results - Last 24 Hours (Table) 09/12/16 09/12/16 09/12/16 Range/Units 06:15 12:06 17:05 WBC (3.8-10.6) k/uL RBC (3.80-5.40) m/uL Hgb (11.4-16.0) gm/dL Hct (34.0-46.0) % RDW (11.5-15.5) % Plt Count 22 L* D (150-450) k/uL Neutrophils # (Manual) (1.3-7.7) k/uL Lymphocytes # (Manual) (1.0-4.8) k/uL Potassium (3.5-5.1) mmol/L POC Glucose (mg/dL) 119 H 201 H (75-99) mg/dL Calcium (8.4-10.2) mg/dL Magnesium (1.6-2.3) mg/dL 09/12/16 09/13/16 09/13/16 Range/Units 20:19 03:15 03:15 WBC 1.6 L* (3.8-10.6) k/uL RBC 2.74 L (3.80-5.40) m/uL Hgb 8.8 L (11.4-16.0) gm/dL Hct 27.5 L (34.0-46.0) % RDW 17.6 H (11.5-15.5) % Plt Count 8 L* D (150-450) k/uL Neutrophils # (Manual) 1.0 L (1.3-7.7) k/uL Lymphocytes # (Manual) 0.5 L (1.0-4.8) k/uL Potassium 3.2 L (3.5-5.1) mmol/L POC Glucose (mg/dL) 229 H (75-99) mg/dL Calcium 8.1 L (8.4-10.2) mg/dL Magnesium 1.1 L (1.6-2.3) mg/dL 09/13/16 09/13/16 Range/Units 06:15 11:31 WBC (3.8-10.6) k/uL RBC (3.80-5.40) m/uL Hgb (11.4-16.0) gm/dL Hct (34.0-46.0) % RDW (11.5-15.5) % Plt Count (150-450) k/uL Neutrophils # (Manual) (1.3-7.7) k/uL Lymphocytes # (Manual) (1.0-4.8) k/uL Potassium (3.5-5.1) mmol/L POC Glucose (mg/dL) 109 H 189 H (75-99) mg/dL Calcium (8.4-10.2) mg/dL Magnesium (1.6-2.3) mg/dL Microbiology - Last 24 Hours (Table) 09/11/16 13:38 Blood Culture - Preliminary Blood No Growth after 24 hours Assessment and Plan Plan: 1. Left periorbital cellulitis: Computed tomography scan of the orbits showed no evidence of abscess did reveal soft tissue swelling and a left sinusitis. Antibiotics adjusted per infectious disease. Patient currently on an clindamycin. Awaiting ophthalmology consult 2. Sepsis present on admission secondary to periorbital cellulitis: Continue IV fluids and antibiotics infectious diseases been consulted 3. Bacteremia with strep pyogenes grp A. repeat blood cultures are negative. Continue with the clindamycin. Infectious disease is following 4. Febrile neutropenia: Secondary to chemotherapy and infection with sinusitis , periorbital cellulitis and bacteremia and possible pneumonia. Patient started on Zarxio. White count up to 1.6. 5. Chemo-induced pancytopenia. Platelet count of 8. Patient receiving transfusion of platelets. Repeat labs in a.m. 6. Paroxysmal Atrial fibrillation with rapid ventricular response: Cardiology following. Patient's heart rate has been fluctuating up into the 150s. 7. Small cell lung cancer: Patient has completed radiation treatment. Has 1 more round of chemotherapy. Last chemotherapy a week ago 8. Hypomagnesemia and hypokalemia. Patient receiving supplements. Repeat labs in a.m. 9. Hyperglycemia. Patient educated to avoid sugary foods. She has no history of diabetes. She has been refusing the sliding scale coverage of insulin. Hemoglobin A1c 6.3. Plus patient is on prednisone 10. Possible pneumonia: repeat chest x-ray shows improvement GI prophylaxis Protonix and DVT prophylaxis SCDs I performed an examination of the patient and discussed their management with the physician Stained Glass Installer. I have reviewed the Physician Stained Glass Installer's notes and agree with the documented findings and plan of care
[2016-09-13] MEDS: FILGRASTIM-SNDZ 480 MCG/0.8 ML SYRINGE SQ SCH (12:27)
[2016-09-13 16:30] LABS: Glucose,Whole Blood 195 mg/dL (75-99)
--- NOTE | 2016-09-13 17:13 | P.PN ---
Subjective This is a very pleasant 66-year-old female patient who was diagnosed with small cell lung cancer in April [address] Mcelroy via transbronchial biopsy. Since that time she had received chemoradiation therapy. The chemotherapy with CVP16 and carboplatin. She had recently completed her fifth cycle on 2016 and initiated on Neulasta 09/04/2016. She was seen in the oncology office on 09/09/2016 for follow-up. She was noted to have significant swelling of the left eye and reported fevers at home. Her white count was 0.1 and a temperature of 100.9. She was referred here to the intensive care unit for further evaluation and treatment. She was seen yesterday in consultation by Dr. Singh. She is seen today 09/11/2016 in follow-up in the intensive care unit. She is awake and alert in no acute distress. She is maintaining good O2 saturations in the 90s on room air. Today's chest x-ray reveals near complete resolution of the left basilar infiltrate. She does have continued swelling and discomfort in the left eye. She is currently on vancomycin and Zosyn. Her blood cultures were positive for strep pyogenes group A. She does continue to have temps could today at 100.6 Current white count 0.3. Hemoglobin 7.0, platelet count 6000. She is currently receiving 2 units of packed red blood cells and 1 unit of platelets. She is receiving a 0.9 normal saline at 100 MLS per hour.she has been hemodynamically stable. On 09/13/2016 I'm seeing this patient in follow-up. The patient is still being treated for a left eye cellulitis. No headaches. No change in her vision. Hemodynamically stable. His platelet count has dropped down to 8000 and the patient will receive platelet transfusion. She remains on a combination of IV cefazolin and clindamycin regarding strep a pyogenous bacteremia. She remains neutropenic. No significant drop in hemoglobin. No other new complaints for now. Objective - Vital Signs Vital signs: Vital Signs Temp 98.5 F 09/13/16 16:00 Pulse 117 H 09/13/16 16:00 Resp 20 09/13/16 16:00 BP 118/63 09/13/16 16:00 Pulse Ox 95 09/13/16 16:00 Intake & Output 09/12/16 09/13/16 09/13/16 18:59 06:59 18:59 Intake Total 1490 1680 958 Output Total 4 404 Balance 1486 1276 958 Weight 67.5 kg 67.9 kg Intake: IV 750 900 300 Magnesium Sulfate-D5w Pmx 100 1 gm In Dextrose/Water 1 100ml.bag @ 100 mls/hr IVPB Q1H [facility] Rx#: [id number] Potassium Chloride 20 meq 100 In Water For Injection 1 100ml.bag @ 50 mls/hr IVPB ONCE ONE Rx#: [id number] Sodium Chloride 0.9% 1, 750 900 000 ml @ 100 mls/hr IV . Q10H [facility] Rx#:[id number] ceFAZolin 2 gm In Sodium 100 Chloride 0.9% 100 ml @ 100 mls/hr IVPB Q8HR [facility] Rx#:[id number] Intake, IV Titration 500 100 Amount Clindamycin 600 mg In 100 100 Dextrose 5% in Water 50 ml @ 100 mls/hr IVPB Q8H [facility] Rx#:[id number] Potassium Chloride 20 meq 300 Lidocaine 2% Inj 20 mg In Sodium Chloride 0.9% 100 ml @ 55.5 mls/hr IVPB Q2HR [facility] Rx#:[id number] ceFAZolin 2 gm In Sodium 100 Chloride 0.9% 100 ml @ 100 mls/hr IVPB Q8HR [facility] Rx#:[id number] Oral 240 680 360 Blood Product 298 Platelet Pheresis Acda2 298 Unit [id number] Output: Urine 4 404 Other: Voiding Method Toilet Toilet Toilet # Voids 2 1 - Exam GENERAL EXAM: Alert, comfortable in no apparent distress. HEAD: Normocephalic. EYES: Soft tissue swelling around the left eye. NOSE: Clear with pink turbinates. THROAT: No erythema or exudates. NECK: No masses, no JVD. CHEST: No chest wall deformity. LUNGS: Equal air entry with no crackles, wheeze, rhonchi or dullness. CVS: S1 and S2 normal with no audible murmurs, regular rhythm. ABDOMEN: No hepatosplenomegaly, normal bowel sounds, no guarding or rigidity. SPINE: No scoliosis or deformity SKIN: No rashes CENTRAL NERVOUS SYSTEM: No focal deficits, tone is normal in all 4 extremities. Extremities: There is trace peripheral edema. No clubbing, no cyanosis. Peripheral pulses are intact. - Labs CBC & Chem 7: 09/13/16 03:15 09/13/16 03:15 Labs: Abnormal Lab Results - Last 24 Hours (Table) 09/12/16 09/12/16 09/12/16 Range/Units 06:15 17:05 20:19 WBC (3.8-10.6) k/uL RBC (3.80-5.40) m/uL Hgb (11.4-16.0) gm/dL Hct (34.0-46.0) % RDW (11.5-15.5) % Plt Count 22 L* D (150-450) k/uL Neutrophils # (Manual) (1.3-7.7) k/uL Lymphocytes # (Manual) (1.0-4.8) k/uL Potassium (3.5-5.1) mmol/L POC Glucose (mg/dL) 201 H 229 H (75-99) mg/dL Calcium (8.4-10.2) mg/dL Magnesium (1.6-2.3) mg/dL 09/13/16 09/13/16 09/13/16 Range/Units 03:15 03:15 06:15 WBC 1.6 L* (3.8-10.6) k/uL RBC 2.74 L (3.80-5.40) m/uL Hgb 8.8 L (11.4-16.0) gm/dL Hct 27.5 L (34.0-46.0) % RDW 17.6 H (11.5-15.5) % Plt Count 8 L* D (150-450) k/uL Neutrophils # (Manual) 1.0 L (1.3-7.7) k/uL Lymphocytes # (Manual) 0.5 L (1.0-4.8) k/uL Potassium 3.2 L (3.5-5.1) mmol/L POC Glucose (mg/dL) 109 H (75-99) mg/dL Calcium 8.1 L (8.4-10.2) mg/dL Magnesium 1.1 L (1.6-2.3) mg/dL 09/13/16 09/13/16 Range/Units 11:31 16:28 WBC (3.8-10.6) k/uL RBC (3.80-5.40) m/uL Hgb (11.4-16.0) gm/dL Hct (34.0-46.0) % RDW (11.5-15.5) % Plt Count (150-450) k/uL Neutrophils # (Manual) (1.3-7.7) k/uL Lymphocytes # (Manual) (1.0-4.8) k/uL Potassium (3.5-5.1) mmol/L POC Glucose (mg/dL) 189 H 195 H (75-99) mg/dL Calcium (8.4-10.2) mg/dL Magnesium (1.6-2.3) mg/dL Microbiology - Last 24 Hours (Table) 09/11/16 13:38 Blood Culture - Preliminary Blood No Growth after 48 hours Assessment and Plan Plan: Impression: #1 neutropenic sepsis, improving. The patient has a strep A pyogenous bacteremia, hemodynamically stable and covered with broad-spectrum antibiotics. #2 Pancytopenia , improving. The white cell count is improved and is up to 1.6. That his counts are low at 8000 and patient will be receiving platelet transfusion. #3 left eye cellulitis , currently on broad-spectrum antibiotics. Likely a streptococcal cellulitis. #4 Small cell lung cancer status post 5 cycles of chemotherapy utilizing [employer]-16 and carboplatin. #5 Paroxysmal atrial fibrillation with rapid ventricular response, currently in normal sinus rhythm. #6 Previous history of chronic tobacco dependence. #7 Hyperlipidemia. Plan Continue same antibiotic coverage. Continue the IV cefazolin and clindamycin. Monitor the hematologic profile. White cell count is at 1.6 and then anticipate further improvement. Renal function is stable. Complete platelet transfusion. Monitor platelet counts. Not a candidate for anticoagulation. We 'll follow.
[2016-09-13] MEDS: LATANOPROST 0.005% OPHTH DROPS 2.5 ML BTL LEFT EYE SCH (20:30)
[2016-09-13] MEDS: ATORVASTATIN 40 MG TAB PO SCH (20:30)
[2016-09-13 20:53] LABS: Glucose,Whole Blood 165 mg/dL (75-99)
[2016-09-14] MEDS: ceFAZolin 2 GM in SODIUM CHLORIDE 0.9% 100 ML IVPB SCH ×4 (00:06→23:11)
[2016-09-14 00:42] LABS: Magnesium 1.4 mg/dL (1.6-2.3); Potassium 3.3 mmol/L (3.5-5.1)
[2016-09-14] MEDS: MAGNESIUM SULFATE-D5W PMX 1 GM in DEXTROSE/WATER 1 100ML.BAG IVPB SCH ×3 (01:29→05:57)
[2016-09-14] MEDS ORDERED: POTASSIUM CHLORIDE 20 MEQ in WATER FOR INJECTION 1 100ML.BAG IVPB ONE (02:00)
[2016-09-14 05:51] LABS: Glucose,Whole Blood 122 mg/dL (75-99)
[2016-09-14] MEDS: CLINDAMYCIN 600 MG in DEXTROSE 5% IN WATER 50 ML IVPB SCH ×6 (06:23→19:53)
[2016-09-14] MEDS: INSULIN LISPRO (humaLOG) 300 UNIT/3 ML VIAL SQ SCH ×4 (06:25→21:46)
[2016-09-14 06:35] LABS: Anisocytosis Slight; Basophils % (A) 0 %; CH 32.1; CHCM 32.4; Eosinophils % (A) 0 %; HCT 24.3 % (34.0-46.0); HDW 2.78; Luc # (Auto) 0.27; Luc % (Auto) 4; Lymphocytes # (A) 0.6 k/uL (1.0-4.8); Lymphocytes % (A) 9 %; MCHC 33.1 g/dL (31.0-37.0); MCV 99.7 fL (80.0-100.0); Macrocytosis Slight; Mean Platelet Volume 7.3; Monocytes # (A) 0.3 k/uL (0-1.0); Monocytes % (A) 4 %; Neutrophils # (A) 5.1 k/uL (1.3-7.7); Neutrophils % (A) 82 %; RBC 2.44 m/uL (3.80-5.40); RDW 17.5 % (11.5-15.5); WBC 6.3 k/uL (3.8-10.6); WBC (Perox) 6.68
[2016-09-14 06:51] LABS: Anion Gap 6 mmol/L; Blood Urea Nitrogen 9 mg/dL (7-17); Calcium 8.1 mg/dL (8.4-10.2); Carbon Dioxide 25 mmol/L (22-30); Chloride 104 mmol/L (98-107); Glucose 116 mg/dL (74-99); Non-African American GFR(MDRD) >60 (>60 ml/min/1.73 sqM); Phosphorous 2.7 mg/dL (2.5-4.5); Potassium 3.2 mmol/L (3.5-5.1); Sodium 135 mmol/L (137-145)
--- NOTE | 2016-09-14 07:31 | PN ---
DATE OF SERVICE: 09/13/2016 Reason for followup is left periorbital cellulitis with Streptococcus pyogenes bacteremia. INTERVAL HISTORY: The patient is afebrile. The periorbital swelling and redness has slightly improved. Denies significant chest pain, shortness of breath or cough. No abdominal pain, no diarrhea. On examination, blood pressure is 133/59 with the pulse of 70, temperature 97.8. She is 95% on room air. General description is an elderly female up in bed in no distress. HEENT: Left periorbital swelling persists, ( ) improved. LUNGS: Unlabored breathing. Clear to auscultation anteriorly. HEART: S1, S2 with regular rate and rhythm. ABDOMEN: Soft, no tenderness. LABS: Hemoglobin is 8.8, white count 1.6 with a BUN of 12, creatinine 0.70. Follow up blood cultures will be negative. DIAGNOSTIC IMPRESSION AND PLAN: Patient with left periorbital cellulitis with Streptococcus pyogenes bacteremia. Patient at this time will continue with cefazolin and clindamycin. Has shown slight clinical improvement. Continue supportive care.
[2016-09-14] MEDS: SODIUM CHLORIDE 0.9% 1,000 ML IV SCH ×2 (08:05→18:40)
[2016-09-14] MEDS: DIGOXIN 125 MCG TAB PO SCH (08:06)
[2016-09-14] MEDS: METOPROLOL TARTRATE 25 MG TAB PO SCH ×3 (08:06→19:50)
[2016-09-14] MEDS: predniSONE 20 MG TAB PO SCH (08:06)
[2016-09-14] MEDS: NYSTATIN 100,000 UNIT/ML SUSP 500,000 UNIT/5 ML CUP PO SCH ×4 (08:06→19:50)
[2016-09-14] MEDS: PANTOPRAZOLE 40 MG TABLET PO SCH (08:06)
--- NOTE | 2016-09-14 08:47 | P.PN ---
Subjective Principal diagnosis: Left periorbital cellulitis Patient is stable, Left eye continued to be significantly swollen both upper and lower lid. Patient is only opening her left eye partially. She is not having any vision problems, there is more erythema coming down her left side of her face today. On review of systems Today patient is complaining of watery diarrhea Otherwise she denies any new complaints there is no fever or chills no headache or dizziness No chest pain no shortness of breath no cough No nausea or vomiting no abdominal pain and no urinary symptoms Objective - Vital Signs Vital signs: Vital Signs Temp 98.2 F 09/14/16 07:50 Pulse 84 09/14/16 07:50 Resp 16 09/14/16 07:50 BP 135/82 09/14/16 07:50 Pulse Ox 94 L 09/14/16 07:50 Intake & Output 09/13/16 09/14/16 09/14/16 18:59 06:59 18:59 Intake Total 1180 1200 Balance 1180 1200 Weight 68.5 kg Intake: IV 300 1200 Magnesium Sulfate-D5w Pmx 100 100 1 gm In Dextrose/Water 1 100ml.bag @ 100 mls/hr IVPB Q1H [facility] Rx#: [id number] Potassium Chloride 20 meq 100 200 In Water For Injection 1 100ml.bag @ 50 mls/hr IVPB ONCE ONE Rx#: [id number] Sodium Chloride 0.9% 1, 800 000 ml @ 100 mls/hr IV . Q10H [facility] Rx#:[id number] ceFAZolin 2 gm In Sodium 100 100 Chloride 0.9% 100 ml @ 100 mls/hr IVPB Q8HR [facility] Rx#:[id number] Oral 582 Blood Product 298 Platelet Pheresis Acda2 298 Unit [id number] Other: Voiding Method Toilet Toilet Toilet # Voids 2 1 - Exam In general patient is alert and oriented 3 in no apparent distress HEENT significant for erythema and swelling around the left eye going down her face more today Neck is supple no JVD no goiter no lymphadenopathy Chest exam reveals a few scattered rhonchi no wheezing Cardiac exam reveals regular heart sounds S1 and S2 no gallops no murmurs Abdomen is soft nontender no organomegaly with normal bowel sounds Extremity exam reveals no edema no cyanosis or clubbing - Labs CBC & Chem 7: 09/14/16 06:02 09/14/16 06:02 Labs: Abnormal Lab Results - Last 24 Hours (Table) 09/13/16 09/13/16 09/13/16 Range/Units 11:31 16:24 16:28 RBC (3.80-5.40) m/uL Hgb (11.4-16.0) gm/dL Hct (34.0-46.0) % RDW (11.5-15.5) % Plt Count (150-450) k/uL Lymphocytes # (1.0-4.8) k/uL Sodium (137-145) mmol/L Potassium 3.3 L (3.5-5.1) mmol/L Glucose (74-99) mg/dL POC Glucose (mg/dL) 189 H 195 H (75-99) mg/dL Calcium (8.4-10.2) mg/dL Magnesium (1.6-2.3) mg/dL 09/13/16 09/13/16 09/14/16 Range/Units 20:51 23:27 05:49 RBC (3.80-5.40) m/uL Hgb (11.4-16.0) gm/dL Hct (34.0-46.0) % RDW (11.5-15.5) % Plt Count (150-450) k/uL Lymphocytes # (1.0-4.8) k/uL Sodium (137-145) mmol/L Potassium 3.3 L (3.5-5.1) mmol/L Glucose (74-99) mg/dL POC Glucose (mg/dL) 165 H 122 H (75-99) mg/dL Calcium (8.4-10.2) mg/dL Magnesium 1.4 L (1.6-2.3) mg/dL 09/14/16 09/14/16 Range/Units 06:02 06:02 RBC 2.44 L (3.80-5.40) m/uL Hgb 8.0 L (11.4-16.0) gm/dL Hct 24.3 L (34.0-46.0) % RDW 17.5 H (11.5-15.5) % Plt Count 19 L* D (150-450) k/uL Lymphocytes # 0.6 L (1.0-4.8) k/uL Sodium 135 L (137-145) mmol/L Potassium 3.2 L (3.5-5.1) mmol/L Glucose 116 H (74-99) mg/dL POC Glucose (mg/dL) (75-99) mg/dL Calcium 8.1 L (8.4-10.2) mg/dL Magnesium (1.6-2.3) mg/dL Microbiology - Last 24 Hours (Table) 09/11/16 13:38 Blood Culture - Preliminary Blood No Growth after 48 hours Assessment and Plan Plan: 1. Left periorbital cellulitis: Computed tomography scan of the orbits showed no evidence of abscess did reveal soft tissue swelling and a left sinusitis. Antibiotic as ordered by infectious disease. I would also consult ophthalmology for evaluation in the morning. 2. Sepsis present on admission secondary to periorbital cellulitis: Continue IV fluids and antibiotics infectious diseases been consulted 3. Bacteremia with one positive blood culture growing gram-positive cocci in chains. 4. Watery diarrhea will check stool for C. diff 5. Chemo-induced Pancytopenia 6. Atrial fibrillation with rapid ventricular response: Now heart rate better controlled 7. Small cell lung cancer: Patient has completed radiation treatment. Has 1 more round of chemotherapy. Last chemotherapy a week ago Will follow closely recheck labs in a.m.
[2016-09-14] MEDS: POTASSIUM CHLORIDE 10 MEQ, LIDOCAINE 2% INJ 10 MG in SODIUM CHLORIDE 0.9% 100 ML IVPB SCH ×2 (09:30→10:56)
--- NOTE | 2016-09-14 11:15 | P.PN ---
Subjective This is a very pleasant 66-year-old female patient who was diagnosed with small cell lung cancer in April [address] Mcelroy via transbronchial biopsy. Since that time she had received chemoradiation therapy. The chemotherapy with CVP16 and carboplatin. She had recently completed her fifth cycle on 2016 and initiated on Neulasta 09/04/2016. She was seen in the oncology office on 09/09/2016 for follow-up. She was noted to have significant swelling of the left eye and reported fevers at home. Her white count was 0.1 and a temperature of 100.9. She was referred here to the intensive care unit for further evaluation and treatment. She was seen yesterday in consultation by Dr. Singh. She is seen today 09/11/2016 in follow-up in the intensive care unit. She is awake and alert in no acute distress. She is maintaining good O2 saturations in the 90s on room air. Today's chest x-ray reveals near complete resolution of the left basilar infiltrate. She does have continued swelling and discomfort in the left eye. She is currently on vancomycin and Zosyn. Her blood cultures were positive for strep pyogenes group A. She does continue to have temps could today at 100.6 Current white count 0.3. Hemoglobin 7.0, platelet count 6000. She is currently receiving 2 units of packed red blood cells and 1 unit of platelets. She is receiving a 0.9 normal saline at 100 MLS per hour.she has been hemodynamically stable. On 09/13/2016 I'm seeing this patient in follow-up. The patient is still being treated for a left eye cellulitis. No headaches. No change in her vision. Hemodynamically stable. His platelet count has dropped down to 8000 and the patient will receive platelet transfusion. She remains on a combination of IV cefazolin and clindamycin regarding strep a pyogenous bacteremia. She remains neutropenic. No significant drop in hemoglobin. No other new complaints for now. On 09/14/2016 the patient is doing well. The patient is not having any fever or chills. Her left isolate is improving and the patient is able to see better so her left eye. The eyelid is less swollen and less red. There is some minimal left cheek/face swelling however this was also present on yesterday's evaluation. Hemodynamically stable. Still on same antibiotic coverage. Her neutropenia has recovered. Platelet count improved as the patient got transfused with platelets yesterday. No change in mental status. No headaches no neck stiffness. No nausea or vomiting. No change in her vision. No other complaints otherwise for now. Objective - Vital Signs Vital signs: Vital Signs Temp 98.2 F 09/14/16 07:50 Pulse 84 09/14/16 07:50 Resp 16 09/14/16 07:50 BP 135/82 09/14/16 07:50 Pulse Ox 94 L 09/14/16 07:50 Intake & Output 09/13/16 09/14/16 09/14/16 18:59 06:59 18:59 Intake Total 1180 1200 Balance 1180 1200 Weight 68.5 kg Intake: IV 300 1200 Magnesium Sulfate-D5w Pmx 100 100 1 gm In Dextrose/Water 1 100ml.bag @ 100 mls/hr IVPB Q1H [facility] Rx#: [id number] Potassium Chloride 20 meq 100 200 In Water For Injection 1 100ml.bag @ 50 mls/hr IVPB ONCE ONE Rx#: [id number] Sodium Chloride 0.9% 1, 800 000 ml @ 100 mls/hr IV . Q10H [facility] Rx#:[id number] ceFAZolin 2 gm In Sodium 100 100 Chloride 0.9% 100 ml @ 100 mls/hr IVPB Q8HR [facility] Rx#:[id number] Oral 582 Blood Product 298 Platelet Pheresis Acda2 298 Unit [id number] Other: Voiding Method Toilet Toilet Toilet # Voids 2 1 - Exam GENERAL EXAM: Alert, comfortable in no apparent distress. HEAD: Normocephalic. EYES: Soft tissue swelling around the left eye. NOSE: Clear with pink turbinates. THROAT: No erythema or exudates. NECK: No masses, no JVD. CHEST: No chest wall deformity. LUNGS: Equal air entry with no crackles, wheeze, rhonchi or dullness. CVS: S1 and S2 normal with no audible murmurs, regular rhythm. ABDOMEN: No hepatosplenomegaly, normal bowel sounds, no guarding or rigidity. SPINE: No scoliosis or deformity SKIN: No rashes CENTRAL NERVOUS SYSTEM: No focal deficits, tone is normal in all 4 extremities. Extremities: There is trace peripheral edema. No clubbing, no cyanosis. Peripheral pulses are intact. - Labs CBC & Chem 7: 09/14/16 06:02 09/14/16 06:02 Labs: Abnormal Lab Results - Last 24 Hours (Table) 09/13/16 09/13/16 09/13/16 Range/Units 11:31 16:24 16:28 RBC (3.80-5.40) m/uL Hgb (11.4-16.0) gm/dL Hct (34.0-46.0) % RDW (11.5-15.5) % Plt Count (150-450) k/uL Lymphocytes # (1.0-4.8) k/uL Sodium (137-145) mmol/L Potassium 3.3 L (3.5-5.1) mmol/L Glucose (74-99) mg/dL POC Glucose (mg/dL) 189 H 195 H (75-99) mg/dL Calcium (8.4-10.2) mg/dL Magnesium (1.6-2.3) mg/dL 09/13/16 09/13/16 09/14/16 Range/Units 20:51 23:27 05:49 RBC (3.80-5.40) m/uL Hgb (11.4-16.0) gm/dL Hct (34.0-46.0) % RDW (11.5-15.5) % Plt Count (150-450) k/uL Lymphocytes # (1.0-4.8) k/uL Sodium (137-145) mmol/L Potassium 3.3 L (3.5-5.1) mmol/L Glucose (74-99) mg/dL POC Glucose (mg/dL) 165 H 122 H (75-99) mg/dL Calcium (8.4-10.2) mg/dL Magnesium 1.4 L (1.6-2.3) mg/dL 09/14/16 09/14/16 Range/Units 06:02 06:02 RBC 2.44 L (3.80-5.40) m/uL Hgb 8.0 L (11.4-16.0) gm/dL Hct 24.3 L (34.0-46.0) % RDW 17.5 H (11.5-15.5) % Plt Count 19 L* D (150-450) k/uL Lymphocytes # 0.6 L (1.0-4.8) k/uL Sodium 135 L (137-145) mmol/L Potassium 3.2 L (3.5-5.1) mmol/L Glucose 116 H (74-99) mg/dL POC Glucose (mg/dL) (75-99) mg/dL Calcium 8.1 L (8.4-10.2) mg/dL Magnesium (1.6-2.3) mg/dL Microbiology - Last 24 Hours (Table) 09/11/16 13:38 Blood Culture - Preliminary Blood No Growth after 48 hours Assessment and Plan Plan: Impression: #1 neutropenic sepsis, improving. The patient has a strep A pyogenous bacteremia, hemodynamically stable and covered with broad-spectrum antibiotics. #2 Pancytopenia , improving. The white cell count is improved and is up to 1.6. That his counts are low at 8000 and patient will be receiving platelet transfusion. #3 left eye cellulitis , currently on broad-spectrum antibiotics. Likely a streptococcal cellulitis. #4 Small cell lung cancer status post 5 cycles of chemotherapy utilizing [employer]-16 and carboplatin. #5 Paroxysmal atrial fibrillation with rapid ventricular response, currently in normal sinus rhythm. #6 Previous history of chronic tobacco dependence. #7 Hyperlipidemia. Plan Patient's neutropenia has improved and the white cell count is up to 6.3. Her platelet count is up to 19,000 and the patient got transfused with platelets yesterday. Left eye cigarettes is improving. Continue same antibiotic coverage. Monitor the fever pattern. Infectious diseases on the case. We'll continue to follow. Suggest replacing the potassium and the magnesium
[2016-09-14 11:39] LABS: Glucose,Whole Blood 144 mg/dL (75-99)
[2016-09-14 16:55] LABS: Glucose,Whole Blood 217 mg/dL (75-99)
[2016-09-14] MEDS: LATANOPROST 0.005% OPHTH DROPS 2.5 ML BTL LEFT EYE SCH (19:50)
[2016-09-14] MEDS: ATORVASTATIN 40 MG TAB PO SCH (19:51)
[2016-09-14 20:55] LABS: Glucose,Whole Blood 219 mg/dL (75-99)
[2016-09-15 06:03] LABS: Glucose,Whole Blood 106 mg/dL (75-99)
[2016-09-15 06:06] LABS: Anisocytosis Slight; CH 31.8; CHCM 32.9; HCT 26.7 % (34.0-46.0); HDW 2.79; HGB 8.6 gm/dL (11.4-16.0); Immature Gran Flag Marked; MCH 31.4 pg (25.0-35.0); MCHC 32.2 g/dL (31.0-37.0); MCV 97.4 fL (80.0-100.0); Macrocytosis Slight; Mean Platelet Volume 7.6; RBC 2.74 m/uL (3.80-5.40); RDW 17.3 % (11.5-15.5); WBC 11.2 k/uL (3.8-10.6); WBC (Perox) 11.39
[2016-09-15 06:24] LABS: ALT 28 U/L (9-52); AST 23 U/L (14-36); Alkaline Phosphatase 147 U/L (38-126); Anion Gap 9 mmol/L; Blood Urea Nitrogen 8 mg/dL (7-17); Calcium 8.4 mg/dL (8.4-10.2); Carbon Dioxide 26 mmol/L (22-30); Chloride 104 mmol/L (98-107); Glucose 108 mg/dL (74-99); Non-African American GFR(MDRD) >60 (>60 ml/min/1.73 sqM); Potassium 3.1 mmol/L (3.5-5.1); Sodium 139 mmol/L (137-145); Total Bilirubin 0.7 mg/dL (0.2-1.3); Total Protein 5.6 g/dL (6.3-8.2)
[2016-09-15] MEDS: INSULIN LISPRO (humaLOG) 300 UNIT/3 ML VIAL SQ SCH ×4 (06:31→21:38)
[2016-09-15] MEDS: CLINDAMYCIN 600 MG in DEXTROSE 5% IN WATER 50 ML IVPB SCH ×4 (06:33→14:48)
[2016-09-15] MEDS: SODIUM CHLORIDE 0.9% 1,000 ML IV SCH ×3 (06:34→23:52)
[2016-09-15 06:57] LABS: Add Differential Manual Differential
[2016-09-15 07:10] LABS: Metamyelocytes % 0.5 %; Nucleated Red Blood Cells 0 /100 WBC (0-0); Total Cells Counted 200
[2016-09-15 07:12] LABS: Toxic Vacuolation Present
[2016-09-15 07:15] LABS: Polychromasia Present
[2016-09-15] MEDS ORDERED: POTASSIUM CHLORIDE 20 MEQ in WATER FOR INJECTION 1 100ML.BAG IVPB ONE (08:00)
[2016-09-15] MEDS: ceFAZolin 2 GM in SODIUM CHLORIDE 0.9% 100 ML IVPB SCH ×3 (08:39→23:52)
[2016-09-15] MEDS: predniSONE 20 MG TAB PO SCH (08:44)
[2016-09-15] MEDS: DIGOXIN 125 MCG TAB PO SCH (08:44)
[2016-09-15] MEDS: METOPROLOL TARTRATE 25 MG TAB PO SCH ×3 (08:44→21:39)
[2016-09-15] MEDS: NYSTATIN 100,000 UNIT/ML SUSP 500,000 UNIT/5 ML CUP PO SCH ×4 (08:44→21:39)
[2016-09-15] MEDS: PANTOPRAZOLE 40 MG TABLET PO SCH (08:44)
--- NOTE | 2016-09-15 10:24 | P.PN ---
Subjective Principal diagnosis: Left periorbital cellulitis Patient is stable, Left eye continued to be significantly swollen both upper and lower lid. Patient is only opening her left eye partially. She is not having any vision problems, there is more erythema coming down her left side of her face today. On review of systems Today patient is complaining of watery diarrhea Otherwise she denies any new complaints there is no fever or chills no headache or dizziness No chest pain no shortness of breath no cough No nausea or vomiting no abdominal pain and no urinary symptoms Objective - Vital Signs Vital signs: Vital Signs Temp 97.0 F L 09/15/16 07:55 Pulse 83 09/15/16 07:55 Resp 18 09/15/16 07:55 BP 140/71 09/15/16 07:55 Pulse Ox 95 09/15/16 07:55 Intake & Output 09/14/16 09/15/16 09/15/16 18:59 06:59 18:59 Intake Total 462 700 180 Output Total 600 Balance -138 700 180 Weight 67.8 kg Intake: IV 700 Clindamycin 600 mg In 100 Dextrose 5% in Water 50 ml @ 100 mls/hr IVPB Q8H [facility] Rx#:[id number] Sodium Chloride 0.9% 1, 500 000 ml @ 100 mls/hr IV . Q10H [facility] Rx#:[id number] ceFAZolin 2 gm In Sodium 100 Chloride 0.9% 100 ml @ 100 mls/hr IVPB Q8HR [facility] Rx#:[id number] Oral 462 180 Output: Urine 600 Other: Voiding Method Toilet Toilet # Voids 1 1 - Exam In general patient is alert and oriented 3 in no apparent distress HEENT significant for erythema and swelling around the left eye, there is scabbing on the upper left eyelid Neck is supple no JVD no goiter no lymphadenopathy Chest exam reveals a few scattered rhonchi no wheezing Cardiac exam reveals regular heart sounds S1 and S2 no gallops no murmurs Abdomen is soft nontender no organomegaly with normal bowel sounds Extremity exam reveals no edema no cyanosis or clubbing - Labs CBC & Chem 7: 09/15/16 05:51 09/15/16 05:51 Labs: Abnormal Lab Results - Last 24 Hours (Table) 09/14/16 09/14/16 09/14/16 Range/Units 11:31 16:45 20:52 WBC (3.8-10.6) k/uL RBC (3.80-5.40) m/uL Hgb (11.4-16.0) gm/dL Hct (34.0-46.0) % RDW (11.5-15.5) % Plt Count (150-450) k/uL Neutrophils # (Manual) (1.3-7.7) k/uL Potassium (3.5-5.1) mmol/L Glucose (74-99) mg/dL POC Glucose (mg/dL) 144 H 217 H 219 H (75-99) mg/dL Alkaline Phosphatase (38-126) U/L Total Protein (6.3-8.2) g/dL Albumin (3.5-5.0) g/dL 09/15/16 09/15/16 09/15/16 Range/Units 05:51 05:51 06:02 WBC 11.2 H (3.8-10.6) k/uL RBC 2.74 L (3.80-5.40) m/uL Hgb 8.6 L (11.4-16.0) gm/dL Hct 26.7 L (34.0-46.0) % RDW 17.3 H (11.5-15.5) % Plt Count 12 L* (150-450) k/uL Neutrophils # (Manual) 8.9 H (1.3-7.7) k/uL Potassium 3.1 L (3.5-5.1) mmol/L Glucose 108 H (74-99) mg/dL POC Glucose (mg/dL) 106 H (75-99) mg/dL Alkaline Phosphatase 147 H (38-126) U/L Total Protein 5.6 L (6.3-8.2) g/dL Albumin 2.4 L (3.5-5.0) g/dL Microbiology - Last 24 Hours (Table) 09/11/16 13:38 Blood Culture - Preliminary Blood No Growth after 72 hours Assessment and Plan Plan: 1. Left periorbital cellulitis: Computed tomography scan of the orbits showed no evidence of abscess did reveal soft tissue swelling and a left sinusitis. Antibiotic as ordered by infectious disease. Currently maintained on cefazolin 2 g every 8 hours and clindamycin 100 mg every 8 hours . 2. Sepsis present on admission secondary to periorbital cellulitis: Continue IV fluids and antibiotics infectious diseases been consulted 3. Bacteremia with one positive blood culture growing gram-positive cocci in chains. 4. Watery diarrhea. check stool for C. diff done yesterday and was negative diarrhea has improved 5. Chemo-induced Pancytopenia 6. Atrial fibrillation with rapid ventricular response: Now heart rate better controlled maintained on digoxin and metoprolol 7. Small cell lung cancer: Patient has completed radiation treatment. Has 1 more round of chemotherapy. Last chemotherapy a week ago Will follow closely recheck labs in a.m.
[2016-09-15 11:23] LABS: Glucose,Whole Blood 173 mg/dL (75-99)
[2016-09-15] MEDS: FILGRASTIM-SNDZ 480 MCG/0.8 ML SYRINGE SQ SCH (11:26)
--- NOTE | 2016-09-15 14:25 | P.PN ---
Subjective This is a very pleasant 66-year-old female patient who was diagnosed with small cell lung cancer in April [address] Mcelroy via transbronchial biopsy. Since that time she had received chemoradiation therapy. The chemotherapy with CVP16 and carboplatin. She had recently completed her fifth cycle on 2016 and initiated on Neulasta 09/04/2016. She was seen in the oncology office on 09/09/2016 for follow-up. She was noted to have significant swelling of the left eye and reported fevers at home. Her white count was 0.1 and a temperature of 100.9. She was referred here to the intensive care unit for further evaluation and treatment. She was seen yesterday in consultation by Dr. Singh. She is seen today 09/11/2016 in follow-up in the intensive care unit. She is awake and alert in no acute distress. She is maintaining good O2 saturations in the 90s on room air. Today's chest x-ray reveals near complete resolution of the left basilar infiltrate. She does have continued swelling and discomfort in the left eye. She is currently on vancomycin and Zosyn. Her blood cultures were positive for strep pyogenes group A. She does continue to have temps could today at 100.6 Current white count 0.3. Hemoglobin 7.0, platelet count 6000. She is currently receiving 2 units of packed red blood cells and 1 unit of platelets. She is receiving a 0.9 normal saline at 100 MLS per hour.she has been hemodynamically stable. On 09/13/2016 I'm seeing this patient in follow-up. The patient is still being treated for a left eye cellulitis. No headaches. No change in her vision. Hemodynamically stable. His platelet count has dropped down to 8000 and the patient will receive platelet transfusion. She remains on a combination of IV cefazolin and clindamycin regarding strep a pyogenous bacteremia. She remains neutropenic. No significant drop in hemoglobin. No other new complaints for now. On 09/14/2016 the patient is doing well. The patient is not having any fever or chills. Her left isolate is improving and the patient is able to see better so her left eye. The eyelid is less swollen and less red. There is some minimal left cheek/face swelling however this was also present on yesterday's evaluation. Hemodynamically stable. Still on same antibiotic coverage. Her neutropenia has recovered. Platelet count improved as the patient got transfused with platelets yesterday. No change in mental status. No headaches no neck stiffness. No nausea or vomiting. No change in her vision. No other complaints otherwise for now. On 09/15/2016 I'm seeing this patient in follow-up. The patient is doing well. The patient is afebrile. Her neutropenia has recovered. No fever or chills. Platelet counts are low however the patient shows no evidence of any bleeding. The patient remains on antibiotics regarding her strep septicemia. Left eye and face cellulitis improving. No complaints for now. No changes in vision. No other complaints otherwise for now. The patient is afebrile. The patient is in atrial fibrillation. Known to have relations be utilized as the patient has an underlying thrombocytopenia. Objective - Vital Signs Vital signs: Vital Signs Temp 97.2 F L 09/15/16 11:51 Pulse 85 09/15/16 11:51 Resp 18 09/15/16 11:51 BP 133/75 09/15/16 11:51 Pulse Ox 95 09/15/16 11:51 Intake & Output 09/14/16 09/15/16 09/15/16 18:59 06:59 18:59 Intake Total 618 504 5395 Output Total 600 Balance -413 669 7110 Weight 67.8 kg Intake: IV 700 950 Clindamycin 600 mg In 100 50 Dextrose 5% in Water 50 ml @ 100 mls/hr IVPB Q8H ELO Rx#:[id number] Sodium Chloride 0.9% 1, 500 800 000 ml @ 100 mls/hr IV . Q10H ELO Rx#:[id number] ceFAZolin 2 gm In Sodium 100 100 Chloride 0.9% 100 ml @ 100 mls/hr IVPB Q8HR ELO Rx#:[id number] Oral [id number] Output: Urine 600 Other: Voiding Method Toilet Toilet # Voids 1 1 - Exam GENERAL EXAM: Alert, comfortable in no apparent distress. HEAD: Normocephalic. EYES: Soft tissue swelling around the left eye. NOSE: Clear with pink turbinates. THROAT: No erythema or exudates. NECK: No masses, no JVD. CHEST: No chest wall deformity. LUNGS: Equal air entry with no crackles, wheeze, rhonchi or dullness. CVS: S1 and S2 normal with no audible murmurs, regular rhythm. ABDOMEN: No hepatosplenomegaly, normal bowel sounds, no guarding or rigidity. SPINE: No scoliosis or deformity SKIN: No rashes CENTRAL NERVOUS SYSTEM: No focal deficits, tone is normal in all 4 extremities. Extremities: There is trace peripheral edema. No clubbing, no cyanosis. Peripheral pulses are intact. - Labs CBC & Chem 7: 09/15/16 05:51 09/15/16 05:51 Labs: Abnormal Lab Results - Last 24 Hours (Table) 09/14/16 09/14/16 09/15/16 Range/Units 16:45 20:52 05:51 WBC 11.2 H (3.8-10.6) k/uL RBC 2.74 L (3.80-5.40) m/uL Hgb 8.6 L (11.4-16.0) gm/dL Hct 26.7 L (34.0-46.0) % RDW 17.3 H (11.5-15.5) % Plt Count 12 L* (150-450) k/uL Neutrophils # (Manual) 8.9 H (1.3-7.7) k/uL Potassium (3.5-5.1) mmol/L Glucose (74-99) mg/dL POC Glucose (mg/dL) 217 H 219 H (75-99) mg/dL Alkaline Phosphatase (38-126) U/L Total Protein (6.3-8.2) g/dL Albumin (3.5-5.0) g/dL 09/15/16 09/15/16 09/15/16 Range/Units 05:51 06:02 11:21 WBC (3.8-10.6) k/uL RBC (3.80-5.40) m/uL Hgb (11.4-16.0) gm/dL Hct (34.0-46.0) % RDW (11.5-15.5) % Plt Count (150-450) k/uL Neutrophils # (Manual) (1.3-7.7) k/uL Potassium 3.1 L (3.5-5.1) mmol/L Glucose 108 H (74-99) mg/dL POC Glucose (mg/dL) 106 H 173 H (75-99) mg/dL Alkaline Phosphatase 147 H (38-126) U/L Total Protein 5.6 L (6.3-8.2) g/dL Albumin 2.4 L (3.5-5.0) g/dL Microbiology - Last 24 Hours (Table) 09/11/16 13:38 Blood Culture - Preliminary Blood No Growth after 72 hours Assessment and Plan Plan: Impression: #1 neutropenic sepsis, improving. The patient has a strep A pyogenous bacteremia, hemodynamically stable and covered with broad-spectrum antibiotics. The patient has recovered from his underlying neutropenia. The patient is hemodynamically stable. The patient is afebrile. The patient remains on broad- spectrum antibiotics for now. #2 Pancytopenia , as the patient recovers from the neutropenia. The patient has an underlying thrombocytopenia and anemia. Platelet counts remain low however the patient does not show any signs of bleeding. #3 left eye cellulitis , currently on broad-spectrum antibiotics. Likely a streptococcal cellulitis. #4 Small cell lung cancer status post 5 cycles of chemotherapy utilizing [employer]-16 and carboplatin. #5 Paroxysmal atrial fibrillation #6 Previous history of chronic tobacco dependence. #7 Hyperlipidemia. Plan The patient has stable hemodynamics. No fever. No signs of septicemia. The patient was having some diarrhea and stool for C. diff was negative and the diarrhea improved. The neutropenia is also improved. The heart is under good control with a combination of metoprolol and digoxin. The patient is on no anticoagulants. Platelet counts are low. The patient will ultimately need recommendations from ID regarding outpatient antibiotics whether his IV versus oral. Currently she is maintained on cefazolin 2 g every 8 hours and clindamycin 100 mg every 8 hours. Left eye cellulitis improving.
--- NOTE | 2016-09-15 16:51 | P.PN ---
Subjective Principal diagnosis: cellulitis, neutropenic fever Pt seen today in follow up. She feels much better, the swelling in her left eye is finally gone, there is a large scab but she states no pain or vision blurriness. Pt is eating and drinking, no nausea, SOB, cough, diarrhea or constipation, she is fully ambulatory. Objective - Vital Signs Vital signs: Vital Signs Temp 97.5 F L 09/15/16 15:24 Pulse 78 09/15/16 15:24 Resp 18 09/15/16 15:24 BP 142/77 09/15/16 15:24 Pulse Ox 92 L 09/15/16 15:24 Intake & Output 09/14/16 09/15/16 09/15/16 18:59 06:59 18:59 Intake Total 846 613 1910 Output Total 600 Balance -913 627 8922 Weight 67.8 kg Intake: IV 700 950 Clindamycin 600 mg In 100 50 Dextrose 5% in Water 50 ml @ 100 mls/hr IVPB Q8H ELO Rx#:[id number] Sodium Chloride 0.9% 1, 500 800 000 ml @ 100 mls/hr IV . Q10H ELO Rx#:[id number] ceFAZolin 2 gm In Sodium 100 100 Chloride 0.9% 100 ml @ 100 mls/hr IVPB Q8HR ELO Rx#:[id number] Oral [id number] Output: Urine 600 Other: Voiding Method Toilet Toilet # Voids 1 1 - Constitutional General appearance: Present: average body habitus, cooperative, no acute distress - EENT EENT Comment(s): left eyelid skin is bronzed, 1-1.5cm scab in the medial aspect, swelling is gone , sclera is white, EOMs intact. ENT: Present: normal oropharynx - Respiratory Respiratory: bilateral: CTA - Cardiovascular Heart sounds: normal: S1, S2 - Peripheral edema leg Peripheral Edema: bilateral: None - Gastrointestinal General gastrointestinal: Present: normal bowel sounds, soft - Integumentary Integumentary Comment(s): few bruises, scattered petechiae on extremities - Neurologic Neurologic: Present: CNII-XII intact - Musculoskeletal Musculoskeletal: Present: strength equal bilaterally - Psychiatric Psychiatric: Present: A&O x's 3, appropriate affect, intact judgment & insight - Labs CBC & Chem 7: 09/15/16 05:51 09/15/16 05:51 Labs: Abnormal Lab Results - Last 24 Hours (Table) 09/14/16 09/14/16 09/15/16 Range/Units 16:45 20:52 05:51 WBC 11.2 H (3.8-10.6) k/uL RBC 2.74 L (3.80-5.40) m/uL Hgb 8.6 L (11.4-16.0) gm/dL Hct 26.7 L (34.0-46.0) % RDW 17.3 H (11.5-15.5) % Plt Count 12 L* (150-450) k/uL Neutrophils # (Manual) 8.9 H (1.3-7.7) k/uL Potassium (3.5-5.1) mmol/L Glucose (74-99) mg/dL POC Glucose (mg/dL) 217 H 219 H (75-99) mg/dL Alkaline Phosphatase (38-126) U/L Total Protein (6.3-8.2) g/dL Albumin (3.5-5.0) g/dL 09/15/16 09/15/16 09/15/16 Range/Units 05:51 06:02 11:21 WBC (3.8-10.6) k/uL RBC (3.80-5.40) m/uL Hgb (11.4-16.0) gm/dL Hct (34.0-46.0) % RDW (11.5-15.5) % Plt Count (150-450) k/uL Neutrophils # (Manual) (1.3-7.7) k/uL Potassium 3.1 L (3.5-5.1) mmol/L Glucose 108 H (74-99) mg/dL POC Glucose (mg/dL) 106 H 173 H (75-99) mg/dL Alkaline Phosphatase 147 H (38-126) U/L Total Protein 5.6 L (6.3-8.2) g/dL Albumin 2.4 L (3.5-5.0) g/dL Microbiology - Last 24 Hours (Table) 09/11/16 13:38 Blood Culture - Preliminary Blood No Growth after 96 hours Assessment and Plan (1) Febrile neutropenia Narrative/Plan: Strep pyogenes bactremia. No fever>24 hours, WBC recovered. ID managing Status: Acute (2) Orbital cellulitis, left Narrative/Plan: Much improved with abx. Status: Acute (3) Pancytopenia Narrative/Plan: WBC recovered, Hgb stable, plt 12,000 with some petechiae and few wet purpura, 1 unit single donor platelets will be given. Status: Acute (4) Small cell lung carcinoma Narrative/Plan: Pt is s/p 5/6 planned cycles of chemo, this cycle hematological toxicities were severe. Her last cycle will be delayed if not discontinued due to the severity of her SE. Pt has f/u sched with Dr. Church next Tuesday,date and time in EMR. Status: Chronic Plan: From Hem/Onc standpoint pt can be discharged once she has received platelets, she has follow up next Tuesday. She requires clearance from IM and other specialties.
[2016-09-15 17:03] LABS: Glucose,Whole Blood 178 mg/dL (75-99)
--- NOTE | 2016-09-15 19:09 | PN ---
DATE OF SERVICE: 09/14/2016 REASON FOR FOLLOWUP: Left periorbital cellulitis and strep bacteremia. INTERVAL HISTORY: The patient is afebrile. She is breathing comfortably. Overall swelling and redness to the left periorbital area have improved. She is able to open her eye more. Denies significant chest pain, shortness of breath or cough. No abdominal pain. Some diarrhea. On examination, blood pressure 147/66 with a pulse of 83, temperature 98. She is 92% on room air. General description is an elderly female up in the chair in no distress. HEENT EXAMINATION: Left periorbital swelling has slightly improved. She is able to open her eye. No drainage. LUNGS: Unlabored breathing. Clear to auscultation anteriorly. HEART: S1, S2. Regular rate and rhythm. ABDOMEN: Soft. No tenderness. LABS: Hemoglobin is 8 with a white count of 6.3 with a BUN of 9, creatinine 0.70. DIAGNOSTIC IMPRESSION AND PLAN: Patient with left preseptal cellulitis with streptococcal bacteremia. The patient is current covered with clindamycin and cefazolin. That will be continued; hopefully finish therapy with oral antibiotic. Continue supportive care. [facility]
[2016-09-15 21:03] LABS: Glucose,Whole Blood 188 mg/dL (75-99)
[2016-09-15] MEDS: ATORVASTATIN 40 MG TAB PO SCH (21:38)
[2016-09-15] MEDS: LATANOPROST 0.005% OPHTH DROPS 2.5 ML BTL LEFT EYE SCH (21:39)
[2016-09-16 06:01] LABS: Glucose,Whole Blood 137 mg/dL (75-99)
[2016-09-16] MEDS: INSULIN LISPRO (humaLOG) 300 UNIT/3 ML VIAL SQ SCH ×2 (06:17→12:27)
[2016-09-16] MEDS: SODIUM CHLORIDE 0.9% 1,000 ML IV SCH (06:18)
[2016-09-16 06:21] LABS: Anisocytosis Slight; Basophils % (A) 0 %; CH 31.2; CHCM 32.3; Eosinophils % (A) 0 %; HCT 26.4 % (34.0-46.0); HDW 2.68; HGB 8.9 gm/dL (11.4-16.0); Luc # (Auto) 0.27; Luc % (Auto) 2; Lymphocytes # (A) 0.9 k/uL (1.0-4.8); Lymphocytes % (A) 8 %; MCH 32.7 pg (25.0-35.0); MCHC 33.6 g/dL (31.0-37.0); MCV 97.3 fL (80.0-100.0); Macrocytosis Slight; Mean Platelet Volume 7.3; Monocytes # (A) 0.5 k/uL (0-1.0); Monocytes % (A) 5 %; Neutrophils # (A) 9.3 k/uL (1.3-7.7); Neutrophils % (A) 84 %; RBC 2.72 m/uL (3.80-5.40); RDW 16.9 % (11.5-15.5)
[2016-09-16 06:50] LABS: Anion Gap 9 mmol/L; Blood Urea Nitrogen 7 mg/dL (7-17); Calcium 8.4 mg/dL (8.4-10.2); Carbon Dioxide 31 mmol/L (22-30); Chloride 101 mmol/L (98-107); Glucose 145 mg/dL (74-99); Non-African American GFR(MDRD) >60 (>60 ml/min/1.73 sqM); Potassium 3.3 mmol/L (3.5-5.1); Sodium 141 mmol/L (137-145)
[2016-09-16] MEDS: ceFAZolin 2 GM in SODIUM CHLORIDE 0.9% 100 ML IVPB SCH (08:53)
[2016-09-16] MEDS: predniSONE 20 MG TAB PO SCH (08:54)
[2016-09-16] MEDS: METOPROLOL TARTRATE 25 MG TAB PO SCH (08:54)
[2016-09-16] MEDS: DIGOXIN 125 MCG TAB PO SCH (08:54)
[2016-09-16] MEDS: NYSTATIN 100,000 UNIT/ML SUSP 500,000 UNIT/5 ML CUP PO SCH ×2 (08:54→12:48)
[2016-09-16] MEDS: PANTOPRAZOLE 40 MG TABLET PO SCH (08:54)
[2016-09-16 09:02] VITALS: RESP 18
[2016-09-16 10:56] VITALS: BMI 21.7
[2016-09-16 12:04] LABS: Glucose,Whole Blood 177 mg/dL (75-99)
[2016-09-16 12:27] VITALS: BP 151/69; PULSE 77; TEMP 98.1
--- NOTE | 2016-09-16 14:17 | P.DS ---
Providers Date of admission: 09/09/16 15:54 Expected date of discharge: 09/16/16 Attending physician: Richard Edwards Consults: 09/09/16 15:56 Consult Physician Routine Consulting Provider: Nicholas Barrios Consult Reason/Comments: known Do you want consulting provider notified?: Yes 09/09/16 19:36 Consult Physician Stat Consulting Provider: Daniel Singh Consult Reason/Comments: ICU management Do you want consulting provider notified?: Yes 09/10/16 05:52 Consult Physician Urgent Consulting Provider: Guillermo Felipe Consult Reason/Comments: Positive blood cultures Do you want consulting provider notified?: Yes, Notify in am 09/10/16 08:53 Consult Physician Routine Consulting Provider: Marquise Shanks Consult Reason/Comments: Atrial fibrillation Do you want consulting provider notified?: Already Contacted 09/13/16 10:51 Consult Physician Routine Consulting Provider: Effie Velazco Consult Reason/Comments: Periorbital cellulitis Do you want consulting provider notified?: Yes Primary care physician: Hermila Guerra Hospital Course: Diagnoses on discharge1. Left periorbital cellulitis: Computed tomography scan of the orbits showed no evidence of abscess did reveal soft tissue swelling and a left sinusitis. Antibiotic as ordered by infectious disease. Currently maintained on cefazolin 2 g every 8 hours and clindamycin 100 mg every 8 hours . 2. Sepsis present on admission secondary to periorbital cellulitis: Continue IV fluids and antibiotics infectious diseases been consulted 3. Bacteremia with one positive blood culture growing gram-positive cocci in chains. 4. Watery diarrhea. check stool for C. diff done yesterday and was negative diarrhea has improved 5. Chemo-induced Pancytopenia 6. Atrial fibrillation with rapid ventricular response: Now heart rate better controlled maintained on digoxin and metoprolol 7. Small cell lung cancer: Patient has completed radiation treatment. Has 1 more round of chemotherapy. Last chemotherapy a week ago Hospital course This is a 66-year-old female with a known past medical history of small cell lung cancer who has completed radiation treatment at the end of August. Her last chemotherapy was about a week ago. And she has 1 more round of chemo treatments in September. Patient also has a known history of atrial fibrillation, anemia, pancytopenia and history of a former smoker. Patient reports about a week ago she was having sinus infection symptoms with sinus congestion and runny nose. However symptoms began to worsen she started to notice swelling around the left eye. She's having tears draining from both eyes. She also has been feverish with sweats. She went to Dr. Barrios's office for follow-up visit and they recommended that she comes to the emergency room due to the periorbital cellulitis and fevers. Temp on admission was 102.7 she was tachycardic with a heart rate of 133. White count 0.1 hemoglobin 8.7 and platelets are 17. Patient was admitted to the ICU. Consults were placed for pulmonary for critical care, oncology, infectious disease and cardiology. Patient did go into atrial fibrillation with rapid ventricular response. Patient reports that she has not been taking the verapamil that she was discharged home with the last admission. She also was found to be hypotensive and required vasopressor support. She is currently off of the vasopressors she is awake and alert answering questions. Dr. Singh has started her on zarxio for her neutropenia. Also she was started on Zosyn and vancomycin for the periorbital cellulitis and bacteremia. She does have one positive blood culture with gram-positive cocci in chains. CT of the orbits showed no evidence of abscess did show soft tissue swelling and left sinusitis. Chest x- ray had shown possible developing left basilar infiltrate versus atelectasis. Patient does admit to a cough but reports it is a chronic cough especially after her chemotherapy treatments. Patient also having episodes of atrial fibrillation with rapid ventricular response cardiology started her on digoxin and metoprolol. Patient was admitted to telemetry floor she was kept on IV antibiotic throughout this admission she improved significantly she was switched to oral antibiotic Keflex 500 mg 3 times a day for [address] Addison's recommendation she was discharged home on 09/16/2016 she will follow-up was Dr. Addison in one week she will also follow-up with her primary care physician Dr. Foote in one week follow-up was Dr. Church in 1-2 weeks Patient Condition at Discharge: Fair Plan - Discharge Summary New Discharge Prescriptions: New Cephalexin [Keflex] 500 mg PO Q8HR #24 cap Acetaminophen Tab [Tylenol] 650 mg PO Q4HR PRN tab PRN Reason: Fever And/Or Mild Pain Digoxin [Lanoxin] 125 mcg PO DAILY tab Metoprolol Tartrate [Lopressor] 25 mg PO TID tab Nystatin 100,000 Unit/ml Susp [Mycostatin Oral Susp] 500,000 unit PO QID dose Continue Simvastatin [Zocor] 20 mg PO Q48H Loratadine-Pseudoeph 10-240 mg [Claritin-D 24 Hour] 1 tab PO DAILY PRN PRN Reason: Allergy Symptoms Omeprazole 20 mg PO DAILY Simvastatin [Zocor] 40 mg PO Q48H predniSONE See Taper PO DIRECTED Latanoprost Ophth [Xalatan 0.005%] 1 drops LEFT EYE HS Discharge Medication List Simvastatin [Zocor] 20 mg PO Q48H 04/27/16 [History] Loratadine-Pseudoeph 10-240 mg [Claritin-D 24 Hour] 1 tab PO DAILY PRN 07/12/16 [History] Latanoprost Ophth [Xalatan 0.005%] 1 drops LEFT EYE HS 09/09/16 [History] Omeprazole 20 mg PO DAILY 09/09/16 [History] Simvastatin [Zocor] 40 mg PO Q48H 09/09/16 [History] predniSONE See Taper PO DIRECTED 09/09/16 [History] Acetaminophen Tab [Tylenol] 650 mg PO Q4HR PRN tab 09/16/16 [Rx] Cephalexin [Keflex] 500 mg PO Q8HR #24 cap 09/16/16 [Rx] Digoxin [Lanoxin] 125 mcg PO DAILY tab 09/16/16 [Rx] Metoprolol Tartrate [Lopressor] 25 mg PO TID tab 09/16/16 [Rx] Nystatin 100,000 Unit/ml Susp [Mycostatin Oral Susp] 500,000 unit PO QID dose 09/16/16 [Rx] Follow up Appointment(s)/Referral(s): Effie Velazco MD [STAFF PHYSICIAN] - 1 Week Jean Church MD [STAFF PHYSICIAN] - 09/24/16 5:00 pm Hermila Guerra MD [Primary Care Provider] - 1-2 days Christofer Addison MD [STAFF PHYSICIAN] - 1 Week Activity/Diet/Wound Care/Special Instructions: Next week chemo treatment has been delayed, pt will be seen by Dr. Church before any further chemo
--- NOTE | 2016-09-16 15:45 | P.PN ---
Progress Note - Text Date of service is 09/16/2016 Reason for follow-up: Left periorbital cellulitis with Streptococcus pathogen his bacteremia Interval history: The patient is afebrile , left periorbital swelling and redness has much improved she is able to open her eye more the patient denies significant chest pain shortness of breath or cough no abdominal pain or any diarrhea Examination: Blood pressure is 134/77 pulse of 64 temperature 97.7 and she's 100 % on room air GENERAL DESCRIPTION: Elderly female lying in bed in no distress HEENT: Left periorbital swelling and redness much improved RESPIRATORY SYSTEM: Unlabored breathing , decreased breath sounds at bases HEART: S1 S2 regular rate and rhythm ,no loud murmurs ABDOMEN: Soft , no tenderness EXTREMITIES: No edema feet Impression and plan:1-left periorbital cellulitis with Streptococcus pyogenes bacteremia repeat blood culture has been negative patient has shown significant improvement currently on cefazolin with a plan to finish therapy with the by mouth Keflex 500 mg every 8 hours for another 8 days scripts were sent to the pharmacy with outpatient follow-up
--- NOTE | 2016-09-16 15:47 | P.PN ---
Subjective This is a very pleasant 66-year-old female patient who was diagnosed with small cell lung cancer in April [address] Mcelroy via transbronchial biopsy. Since that time she had received chemoradiation therapy. The chemotherapy with CVP16 and carboplatin. She had recently completed her fifth cycle on 2016 and initiated on Neulasta 09/04/2016. She was seen in the oncology office on 09/09/2016 for follow-up. She was noted to have significant swelling of the left eye and reported fevers at home. Her white count was 0.1 and a temperature of 100.9. She was referred here to the intensive care unit for further evaluation and treatment. She was seen yesterday in consultation by Dr. Singh. She is seen today 09/11/2016 in follow-up in the intensive care unit. She is awake and alert in no acute distress. She is maintaining good O2 saturations in the 90s on room air. Today's chest x-ray reveals near complete resolution of the left basilar infiltrate. She does have continued swelling and discomfort in the left eye. She is currently on vancomycin and Zosyn. Her blood cultures were positive for strep pyogenes group A. She does continue to have temps could today at 100.6 Current white count 0.3. Hemoglobin 7.0, platelet count 6000. She is currently receiving 2 units of packed red blood cells and 1 unit of platelets. She is receiving a 0.9 normal saline at 100 MLS per hour.she has been hemodynamically stable. On 09/13/2016 I'm seeing this patient in follow-up. The patient is still being treated for a left eye cellulitis. No headaches. No change in her vision. Hemodynamically stable. His platelet count has dropped down to 8000 and the patient will receive platelet transfusion. She remains on a combination of IV cefazolin and clindamycin regarding strep a pyogenous bacteremia. She remains neutropenic. No significant drop in hemoglobin. No other new complaints for now. On 09/14/2016 the patient is doing well. The patient is not having any fever or chills. Her left isolate is improving and the patient is able to see better so her left eye. The eyelid is less swollen and less red. There is some minimal left cheek/face swelling however this was also present on yesterday's evaluation. Hemodynamically stable. Still on same antibiotic coverage. Her neutropenia has recovered. Platelet count improved as the patient got transfused with platelets yesterday. No change in mental status. No headaches no neck stiffness. No nausea or vomiting. No change in her vision. No other complaints otherwise for now. On 09/15/2016 I'm seeing this patient in follow-up. The patient is doing well. The patient is afebrile. Her neutropenia has recovered. No fever or chills. Platelet counts are low however the patient shows no evidence of any bleeding. The patient remains on antibiotics regarding her strep septicemia. Left eye and face cellulitis improving. No complaints for now. No changes in vision. No other complaints otherwise for now. The patient is afebrile. The patient is in atrial fibrillation. Known to have relations be utilized as the patient has an underlying thrombocytopenia. On the patient is looking much better. The left eye cellulitis is progressively improving. The patient has no specific complaints. White cell count is recovered. Platelet count has come up to 66,000. No significant anemia at this point. Cardiac rhythm is controlled. The patient is on the prednisone of 20 mg by mouth daily. The patient is on IV cefazolin. Objective - Vital Signs Vital signs: Vital Signs Temp 98.1 F 09/16/16 12:00 Pulse 77 09/16/16 12:00 Resp 18 09/16/16 12:00 BP 151/69 09/16/16 12:00 Pulse Ox 96 09/16/16 12:00 Intake & Output 09/15/16 09/16/16 09/16/16 18:59 06:59 18:59 Intake Total 1604 1020 397 Balance 1604 1020 397 Weight 62.9 kg 62.9 kg Intake: IV 950 800 100 Clindamycin 600 mg In 50 Dextrose 5% in Water 50 ml @ 100 mls/hr IVPB Q8H ELO Rx#:[id number] Sodium Chloride 0.9% 1, 800 800 000 ml @ 100 mls/hr IV . Q10H ELO Rx#:[id number] ceFAZolin 2 gm In Sodium 100 100 Chloride 0.9% 100 ml @ 100 mls/hr IVPB Q8HR ELO Rx#:[id number] Oral 654 297 Blood Product 220 Platelet Pheresis Acda1 220 Unit [id number] Other: Voiding Method Toilet # Voids 1 - Exam GENERAL EXAM: Alert, comfortable in no apparent distress. HEAD: Normocephalic. EYES: Soft tissue swelling around the left eye. NOSE: Clear with pink turbinates. THROAT: No erythema or exudates. NECK: No masses, no JVD. CHEST: No chest wall deformity. LUNGS: Equal air entry with no crackles, wheeze, rhonchi or dullness. CVS: S1 and S2 normal with no audible murmurs, regular rhythm. ABDOMEN: No hepatosplenomegaly, normal bowel sounds, no guarding or rigidity. SPINE: No scoliosis or deformity SKIN: No rashes CENTRAL NERVOUS SYSTEM: No focal deficits, tone is normal in all 4 extremities. Extremities: There is trace peripheral edema. No clubbing, no cyanosis. Peripheral pulses are intact. - Labs CBC & Chem 7: 09/16/16 05:57 09/16/16 05:57 Labs: Abnormal Lab Results - Last 24 Hours (Table) 09/15/16 09/15/16 09/16/16 Range/Units 16:51 20:53 05:57 WBC 11.0 H (3.8-10.6) k/uL RBC 2.72 L (3.80-5.40) m/uL Hgb 8.9 L (11.4-16.0) gm/dL Hct 26.4 L (34.0-46.0) % RDW 16.9 H (11.5-15.5) % Plt Count 66 L D (150-450) k/uL Neutrophils # 9.3 H (1.3-7.7) k/uL Lymphocytes # 0.9 L (1.0-4.8) k/uL Potassium (3.5-5.1) mmol/L Carbon Dioxide (22-30) mmol/L Glucose (74-99) mg/dL POC Glucose (mg/dL) 178 H 188 H (75-99) mg/dL 09/16/16 09/16/16 09/16/16 Range/Units 05:57 05:59 12:02 WBC (3.8-10.6) k/uL RBC (3.80-5.40) m/uL Hgb (11.4-16.0) gm/dL Hct (34.0-46.0) % RDW (11.5-15.5) % Plt Count (150-450) k/uL Neutrophils # (1.3-7.7) k/uL Lymphocytes # (1.0-4.8) k/uL Potassium 3.3 L (3.5-5.1) mmol/L Carbon Dioxide 31 H (22-30) mmol/L Glucose 145 H (74-99) mg/dL POC Glucose (mg/dL) 137 H 177 H (75-99) mg/dL Microbiology - Last 24 Hours (Table) 09/11/16 13:38 Blood Culture - Preliminary Blood No Growth after 96 hours Assessment and Plan Plan: Impression: #1 neutropenic sepsis, improving. The patient had a strep A pyogenous bacteremia, hemodynamically stable and covered with broad-spectrum antibiotics. This has essentially recovered #2 Pancytopenia , recovered #3 left eye cellulitis , currently on broad-spectrum antibiotics. Likely a streptococcal cellulitis. #4 Small cell lung cancer status post 5 cycles of chemotherapy utilizing [employer]-16 and carboplatin. #5 Paroxysmal atrial fibrillation #6 Previous history of chronic tobacco dependence. #7 Hyperlipidemia. Plan The patient will be discharged home on Keflex. Prednisone burst taper. Outpatient medication be ordered resume. Follow-up in the pulmonary clinic regarding her small cell lung cancer.
--- NOTE | 2016-09-18 06:16 | PN ---
DATE OF SERVICE: 09/15/2016 Reason for followup is left periorbital cellulitis. INTERVAL HISTORY: The patient is afebrile. She is feeling better. The left periorbital swelling has improved. She is able to open her eyes. Denies significant chest pain or shortness of breath or cough. No abdominal pain. Did have some diarrhea. On examination, blood pressure is 133/75 with a pulse of 85. Temperature 97.2. She is 95% on room air. General description is an elderly female up in the bed in no distress. HEENT EXAMINATION: Left periorbital swelling has improved. LUNGS: Unlabored breathing. Clear to auscultation anteriorly. HEART: S1 and S2, regular rate and rhythm. ABDOMEN: Soft, no tenderness. LABS: Hemoglobin 8.3. White count 11.2 with a BUN of 8, creatinine 0.62. Follow up blood cultures on 09/11 has been negative. DIAGNOSTIC IMPRESSION AND PLAN: Patient with left periorbital cellulitis with Streptococcus pyogenes bacteremia likely the source of her cellulitis. Repeat blood cultures have been negative. The patient currently continued on cefazolin. Clindamycin will be discontinued. If the patient continued to improve, plan to finish therapy with oral Keflex for another 10 days with outpatient followup. NIKKI
== END 2016-09-16 16:19 | disposition home or self-care (01) | DRG 871 ==
LOC: EC 14:42 → 5ONC 15:54 → 6SEL 18:21 → 6ICU 19:46 → 5ONC 09-11 20:50 → 6SEL 09-13 04:28
PROVIDERS: ADMIT Internal Medicine; ATTEND Internal Medicine
DX: A40.9 Streptococcal sepsis, unspecified (principal); D61.810 Antineoplastic chemotherapy induced pancytopenia; R65.21 Severe sepsis with septic shock; D69.59 Other secondary thrombocytopenia; D70.1 Agranulocytosis secondary to cancer chemotherapy; B37.0 Candidal stomatitis; C34.90 Malignant neoplasm of unspecified part of unspecified bronchus or lung; D70.3 Neutropenia due to infection; E83.42 Hypomagnesemia; H05.012 Cellulitis of left orbit; L03.211 Cellulitis of face; L03.213 Periorbital cellulitis; I48.0 Paroxysmal atrial fibrillation; E78.5 Hyperlipidemia, unspecified; H40.9 Unspecified glaucoma; I48.2 Chronic atrial fibrillation; J44.9 Chronic obstructive pulmonary disease, unspecified; K21.9 Gastro-esophageal reflux disease without esophagitis; T45.1X5A Adverse effect of antineoplastic and immunosuppressive drugs, initial encounter; Z79.899 Other long term (current) drug therapy; Z80.3 Family history of malignant neoplasm of breast; Z80.7 Family history of other malignant neoplasms of lymphoid, hematopoietic and related tissues; Z87.891 Personal history of nicotine dependence; Z88.2 Allergy status to sulfonamides; Z92.3 Personal history of irradiation; R19.7 Diarrhea, unspecified
CPT/HCPCS: 36415; 70480; 71010; 71020; 80048; 80053; 81003; 82533; 82550; 82553; 83036; 83605; 83735; 84100; 84132; 84484; 85025; 85384; 85610; 85730; 86850; 86900; 86901; 86920; 87040; 87077; 87086; 87186; 87324; 93005; 96365; 96366; 96367; 99285

== ENCOUNTER → 2016-10-27 | Outpatient (CLI) | payer MEDICARE, OTHER | END | disposition home or self-care (01) | LOC: RADPROMAIN 07:34 | PROVIDERS: ATTEND Internal Medicine Hematology & Oncology | DX: C34.92 Malignant neoplasm of unspecified part of left bronchus or lung (principal) | CPT/HCPCS: 82565; 84520 ==

== ENCOUNTER → 2016-10-28 | Outpatient (CLI) | payer MEDICARE, OTHER ==
--- NOTE | 2016-10-28 12:53 | CT ---
EXAMINATION TYPE: CT brain wo/w con DATE OF EXAM: 10/28/2016 COMPARISON: February brain May 12, 2016 HISTORY: lung CA CT DLP: 1855.9 mGycm Automated exposure control for dose reduction was used. CONTRAST: CT scan of the head is performed without and with IV Contrast, patient injected with 80 mL of Visipaq ue 320. FINDINGS: Noncontrast images show no acute intracranial hemorrhage or midline shift. Postcontrast efrain ges show no suspicious enhancing intraparenchymal mass. The ventricles and sulci are within normal l imits in size. Foci of white matter change on MRI are less well seen on CT. The globes are intact and the visualized sinuses are clear. Persistent anterior metopic suture is incidentally noted. IMPRESSION: No suspicious enhancing intraparenchymal mass is seen to suggest metastatic disease.
== END | disposition home or self-care (01) ==
LOC: RADCTMAIN 11:56
PROVIDERS: ATTEND Internal Medicine Hematology & Oncology
DX: C34.92 Malignant neoplasm of unspecified part of left bronchus or lung (principal)
CPT/HCPCS: 70470; Q9967

== ENCOUNTER 2016-11-19 12:42 | Day surgery (SDC) | payer MEDICARE, OTHER ==
[2016-11-18 10:52] VITALS: BMI 19.5
[~2016-11-19 12:42] MED LIST changes: -ALBUTEROL NEB (CONC) 2.5 MG/0.5 ML INHALATION ONE; -LACTATED RINGERS 1,000 ML IV ONE; -LIDOCAINE 2% (PF) 20 MG/ML 10ML INHALATION ONE; -Pre Op ABX Message 1 EACH MISC MISCELLANE ONE
[2016-11-19 13:20] VITALS: RESP 16; TEMP 98.2
[2016-11-19] MEDS ORDERED: LIDOCAINE 1% 20 ML VIAL (10MG/ML) FOR IV START INTRADERMA ONE (13:22)
[2016-11-19] MEDS ORDERED: PROPOFOL 10 MG/ML 20 ML VIAL IV ONE (13:56)
[2016-11-19] MEDS ORDERED: LIDOCAINE 1% INJ 10MG/ML (20 ML MDV) ONE (13:56)
--- NOTE | 2016-11-19 14:39 | P.PCN ---
Date of Procedure: 11/19/16 Preoperative Diagnosis: Postoperative Diagnosis: Procedure(s) Performed: BRIEF HISTORY: Patient is a 66-year-old, pleasant, female, scheduled for an upper endoscopy with possible dilation as a part of evaluation of dysphagia to solids for the last 1 month duration. The patient was diagnosed with lung cancer and she is status post radiation as well as chemotherapy that ended about a month ago. Lately she is been having dysphagia to solids and has been able to eat soft diet and some liquids. She has severe passive regurgitation.. PROCEDURE PERFORMED: Esophagogastroduodenoscopy with dilation. PREOPERATIVE DIAGNOSIS: Progressive dysphagia to solids of 1 month duration. IV sedation per anesthesia. PROCEDURE: After informed consent was obtained, the patient was brought into the endoscopy unit. IV sedation was administered by Anesthesia under continuous monitoring. Initially the Olympus GIF-140 video endoscope was inserted into the mouth. Esophagus intubated without any difficulty. In the mid esophagus at 25 cm from the incisors there was a tight stricture identified. The mucosa at the site of stricture appeared normal indicated above radiation-induced stricture. At this time the scope was removed and a pediatric upper scope was introduced into the mouth and esophagus reintubated without any difficulty. The stretcher was dilated using 8-10 mm balloon for total of 90 seconds in a sequential fashion. Following this with gentle pressure I was able to advance the scope into the stomach and duodenum and carefully examined. The bulb and the second part of the duodenum appeared normal. The scope at this time was withdrawn to the stomach, adequately insufflated with air, and upon careful examination, mucosa of the antrum, body, cardia and the fundus appeared normal. The scope was then withdrawn into the esophagus. The GE junction was located at 39 cm from the incisors. Once again the midesophagus to was identified at 25 cm from the incisors which appeared very short length extending approximately 1 cm. The proximal esophagus appeared normal and the patient tolerated the procedure well. IMPRESSION: 1. 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 2. Rest of the esophagus appeared normal. RECOMMENDATIONS: The findings of this examination were discussed with the patient as well as her family. She was advised to be on a clear liquid diet today and advance to soft diet tomorrow. She'll be seen in the office in 4 weeks and based on the symptoms will plan a repeat upper endoscopy with dilation if needed. Implants: Indications for Procedure: Operative Findings: Description of Procedure:
[2016-11-19 15:01] VITALS: BP 138/80; PULSE 97
== END 2016-11-19 15:05 | disposition home or self-care (01) ==
LOC: ORWHC2ENDO 12:42
PROVIDERS: ATTEND Internal Medicine Gastroenterology
DX: K22.2 Esophageal obstruction (principal); C34.90 Malignant neoplasm of unspecified part of unspecified bronchus or lung; Z92.21 Personal history of antineoplastic chemotherapy; Z92.3 Personal history of irradiation; I48.91 Unspecified atrial fibrillation; Z79.899 Other long term (current) drug therapy; Z79.52 Long term (current) use of systemic steroids; Z88.2 Allergy status to sulfonamides
CPT/HCPCS: 43249; J2001; J2704; C1726

== ENCOUNTER → 2016-11-24 | Outpatient (CLI) | payer MEDICARE, OTHER ==
[2016-11-24 13:56] LABS: Non-African American GFR(MDRD) 55 (>60 ml/min/1.73 sqM)
--- NOTE | 2016-11-24 17:07 | MR ---
EXAMINATION TYPE: MR brain wo/w con DATE OF EXAM: 11/24/2016 3:55 PM COMPARISON: 05/12/2016 HISTORY: secondary malignant neoplasm of brain CONTRAST: Patient received 6 mL intravenous Gadavist gadolinium contrast. Multiplanar and multispin-echo imaging of the brain was performed . Pre and post contrast enhanced i mages are obtained. The ventricles, basal cisterns and sulci overlying the cerebral convexities are mildly enlarged. There is evidence of mild periventricular white matter ischemic demyelination. Remote deep white matter insults are also noted. Focal nonspecific areas of increased signal within the subcortical white matter of both cerebral hemispheres. Demyelination not excluded. No acute edema is seen on diffusion weighted imaging. There is no evidence for midline shift or mass effect. Acute intracranial hemorrhage or extra-axial collection is not evident. No enhancing lesions are seen. The paranasal sinuses and mastoid air cells are well-aerated. IMPRESSION: 1. No evidence for metastatic disease or enhancing lesion. 2. Age-related atrophic and chronic small vessel ischemic change. No acute intracranial process at this time.
== END | disposition home or self-care (01) ==
LOC: RADMRIMAIN 13:36
PROVIDERS: ATTEND Radiology Radiation Oncology
DX: C79.31 Secondary malignant neoplasm of brain (principal)
CPT/HCPCS: 82565; 70553; 36415; A9581

== ENCOUNTER → 2016-12-24 | Outpatient (CLI) | payer MEDICARE, OTHER ==
[2016-12-24 08:59] LABS: Blood Urea Nitrogen 14 mg/dL (7-17); Non-African American GFR(MDRD) >60 (>60 ml/min/1.73 sqM)
--- NOTE | 2016-12-24 10:00 | CT ---
EXAMINATION TYPE: CT chest w con DATE OF EXAM: 12/24/2016 COMPARISON: CT chest August 19, 2016. PET CT April 24, 2016. HISTORY: lung ca bilateral. finished chemo in July CT DLP: 139.60 mGycm. Automated Exposure Control for Dose Reduction was Utilized. TECHNIQUE: CT scan of the thorax is performed following with IV Contrast, patient injected with 100 mL of Omnipaque 300. FINDINGS: LUNGS: There is redemonstration of thick-walled bulla in the right lung apex, it is now larger in siz e extending to the pleura inferiorly and laterally where there is ill-defined fluid and soft tissue d ensity. There is some posterior apical consolidation also seen. There is suspected new second bulla i nferiorly and laterally on axial image 19. Area of more central neoplasm on PET/CT shows low density anterior right hilar region likely reflecting treated neoplasm on axial image 26. There is bibasilar linear scarring seen. There is right hilar superior retraction redemonstrated with some right hilar s carring again seen. Left lung is clear. No pleural effusion or pneumothorax is present bilaterally. MEDIASTINUM: There are no new greater than 1 cm hilar or mediastinal lymph nodes. Marked improvement from PET CT in right paratracheal adenopathy is noted. No cardiomegaly or pericardial effusion is se en. Coronary artery calcification is redemonstrated which is noted marker for coronary artery diseas e. OTHER: Osseous structures are demineralized. Mild multilevel spurring in visualized spine is seen. Sl ight thickening to left adrenal gland is unchanged from PET/CT where there was no suspicious hypermet abolic uptake noted. IMPRESSION: Successful treatment of thoracic adenopathy and right hilar neoplasm with superior extens ion. However progression of bulla with irregular consolidation and fluid extending now to right upper posterior lateral pleural surface is concerning as neoplastic progression at this level cannot be ex cluded. Consider repeat PET/CT correlation.
== END | disposition home or self-care (01) ==
LOC: RADCTMAIN 08:01
PROVIDERS: ATTEND Internal Medicine Hematology & Oncology
DX: J43.9 Emphysema, unspecified (principal); C34.92 Malignant neoplasm of unspecified part of left bronchus or lung; Z88.2 Allergy status to sulfonamides
CPT/HCPCS: 82565; 84520; 71260; 36415; Q9967

== ENCOUNTER → 2017-04-12 | Outpatient (CLI) | payer MEDICARE, OTHER ==
[2017-04-12 14:28] LABS: Blood Urea Nitrogen 22 mg/dL (7-17)
--- NOTE | 2017-04-12 16:15 | CT ---
EXAMINATION TYPE: CT chest w con DATE OF EXAM: 04/12/2017 COMPARISON: 12/24/2016 and 04/09/1716. HISTORY: Lung cancer follow up CT DLP: 141.5 mGycm. Automated Exposure Control for Dose Reduction was Utilized. TECHNIQUE: CT scan of the thorax is performed following with IV Contrast, patient injected with 100 mL of Omnipaque 300. FINDINGS: LUNGS: There is a thick-walled cavitary lesion of the right upper lung with surrounding atelectasis e xtending to the pleural surface with a central soft tissue nodularity measuring 1.1 cm, overall simil ar to the prior exam of 12/24/2016. This could represent neoplasm or a fungal etiology. Elongated righ t apical bulla is again demonstrated, similar to the prior exam. Degree of right upper lobe interlobu lar septal thickening and reticular nodular opacity as well as more confluent opacity within the righ t apex posteriorly and pleural thickening appear mildly progressed from the prior exam for example on series 4 image 13 as opposed to the prior series 4 image 15. Hilar retraction and soft tissue densit y around the right hilum and suprahilar region have also increased from the prior such as on soft tis michelle algorithms series 3 image 22 as opposed to the prior exam of 01/03/2017 on series 3 image 26. Thi s new right suprahilar soft tissue density measures approximately 1.7 x 2.5 cm. New right upper lobe opacity medially within the right upper lobe adjacent to the anterior junctional line abutting the mediastinal border as seen on series 4 image 27. Left basilar pleural parenchymal scarring is noted. Retrospectively there is a stable left apical solid pulmonary nodule measuring 5 m m on series 4 image 12. This is stable from the prior exam of 12/24/2016 but new from the exam of 04/09. MEDIASTINUM: There are no greater than 1 cm hilar or mediastinal lymph nodes. Right perihilar and sup rahilar soft tissue density as described in the above lung section. Right-sided Mediport is again see n. No pericardial effusion is seen. OTHER: Mild osseous demineralization and multilevel mild degenerative changes of the thoracic spine a re unchanged. Slight thickening of the left adrenal gland without nodularity is unchanged from the pr ior with no suspicious hypermetabolic uptake on the prior PET/CT. This likely represents adrenal glan d hypertrophy, benign. IMPRESSION: 1. Similar appearing thick walled cavitary lesion within the right upper lobe contiguous with the ple ural surface with surrounding atelectasis. Considerations are for cavitary neoplasm or infectious lokesh ology such as aspergillosis in this immunosuppressed patient. 2. New right suprahilar opacity, right middle lobe opacity, and increasing nodular right apical opaci ty in comparison to the prior. Although these could represent inflammatory/infectious or posttreatmen t etiologies neoplasm is also possible and repeat PET CT should again be considered. 3. Retrospectively stable 5 mm left apical solid pulmonary nodule seen on the prior exam but not pres ent on the exam of 04/16/2016. Surveillance is recommended.
== END | disposition home or self-care (01) ==
LOC: RADCTMAIN 13:49
PROVIDERS: ATTEND Internal Medicine Hematology & Oncology
DX: J98.11 Atelectasis (principal); R91.1 Solitary pulmonary nodule; R91.8 Other nonspecific abnormal finding of lung field; C34.92 Malignant neoplasm of unspecified part of left bronchus or lung; Z88.2 Allergy status to sulfonamides
CPT/HCPCS: 82565; 84520; 71260; 36415; Q9967

== ENCOUNTER → 2017-05-25 | Outpatient (CLI) | payer MEDICARE, OTHER ==
--- NOTE | 2017-05-25 12:03 | MR ---
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 FINDINGS: Diffusion weighted images demonstrate no evidence of a recent infarct or other diffusion ab normality. There is no worrisome extra-axial fluid collection. There is persistent mild ventricular and sulcal prominence consistent with mild age-related cerebral atrophy. There are some scattered foc i T2 hyperintensity redemonstrated throughout the white matter bilaterally. Approximately 40 scattere d lesions are again seen. Reference lesion 7 mm left frontal lobe at coronal radiata on axial image 4 1 is stable. Midline structures demonstrate normal morphology. The craniocervical junction appears within normal limits. Post contrast images demonstrate no abnormal enhancement. The dural venous sinuses appear pa tent. The visualized sinuses are clear and the globes are intact. Nasal septum is redemonstrated oskar ated to right of midline. IMPRESSION: 1. No suspicious new enhancing intraparenchymal mass identified to suggest new metastatic disease to the brain. 2. Background mild diffuse cerebral atrophy and moderate nonspecific white matter changes most likely on basis of product of chronic small vessel ischemic change redemonstrated. No significant change fr om most recent MRI.
== END | disposition home or self-care (01) ==
LOC: RADMRIMAIN 10:16
PROVIDERS: ATTEND Radiology Radiation Oncology
DX: C34.11 Malignant neoplasm of upper lobe, right bronchus or lung (principal); C79.31 Secondary malignant neoplasm of brain
CPT/HCPCS: 82565; 70553; A9581

== ENCOUNTER 2017-07-05 11:50 | Day surgery (SDC) | payer MEDICARE, OTHER ==
[2017-07-04 09:15] VITALS: BMI 17.4
--- NOTE | 2017-07-04 10:13 | HP ---
HISTORY AND PHYSICAL CHIEF COMPLAINT: Right shoulder pain and stiffness. HISTORY OF PRESENT ILLNESS: The patient is a 67-year-old, right-hand dominant, retired female who presents with progressive right shoulder pain and stiffness, worsening over the past couple months. She cannot recall a specific traumatic event. She is having a difficult time with overhead activity and at night. PAST MEDICAL HISTORY: Significant for lung cancer, atrial fibrillation. CURRENT MEDICATIONS: 1. Digoxin. 2. Metoprolol. ALLERGIES: She denies drug allergies. SURGICAL HISTORY: Significant for Port-A-Cath placement. FAMILY HISTORY: Significant for cancer and heart disease. SOCIAL HISTORY: Significant for 1 pack per day tobacco use. REVIEW OF SYSTEMS: Sixteen-point review of systems otherwise reviewed and is noncontributory. PHYSICAL EXAMINATION: On examination, the patient is approximately 5 feet 8 inches, 110 pounds of ectomorphic habitus. HEENT exam is nonfocal. Neck is supple. On examination of her right shoulder, she is tender about the anterior subacromial space. She has mild subacromial crepitus. Active range of motion forward elevation 60 degrees, external rotation with the arm at side 0 degrees, internal rotation to the buttock. Passively I am able to forward elevate her to 60 degrees. Motor strength is 5 minus over 5 for external rotation. Dunn, Neer and Speed tests are positive. Her distal neurovascular exam otherwise appears intact in the right upper extremity. X-rays to include AP and scapular outlet views of the right shoulder obtained in the office show type 2 acromion with maintained humeral head to acromial distance. IMPRESSION: 1. Right shoulder adhesive capsulitis. 2. History of lung cancer. RECOMMENDATIONS: I discussed the patient's condition and treatment options at length. At this point, she is quite symptomatic and opts to proceed with manipulation of her right shoulder under anesthesia with a subacromial cortisone injection. We will perform that as an outpatient procedure utilizing IV sedation. We will institute formal therapy directly after the procedure. Risks and benefits were discussed at length in layman's terms. MMODL / IJN: [id number] /
[~2017-07-05 11:50] MED LIST changes: +DEXAMETHASONE SOD PHOSPHATE 10 MG/ML 1 ML VIAL IV ONE; +HYDROmorphone 0.5 MG/0.5 ML SYRINGE IVP PRN; +LIDOCAINE 1% 20 ML VIAL (10MG/ML) FOR IV START INTRADERMA PRN; +MIDAZOLAM 2 MG/2 ML VIAL IV PRN; +ONDANSETRON 4 MG/2 ML VIAL IVP ONE; +SCOPOLAMINE 1.5MG/72HR PATCH TRANSDERM ONE; +ceFAZolin 1,000 MG in DEXTROSE/WATER 1 50ML.BAG IV ONE
[2017-07-05 12:11] VITALS: RESP 16
[2017-07-05] MEDS ORDERED: PROPOFOL 10 MG/ML 20 ML VIAL IV ONE (13:21)
[2017-07-05] MEDS ORDERED: LIDOCAINE 1% INJ 10MG/ML (20 ML MDV) ONE (13:21)
--- NOTE | 2017-07-05 13:39 | P.OP ---
Date of Procedure: 07/05/17 Preoperative Diagnosis: Right shoulder adhesive capsulitis Postoperative Diagnosis: Same Procedure(s) Performed: Manipulation under anesthesia right shoulder with subacromial cortisone injection Anesthesia: MAC Surgeon: Sanjeev Cantor Estimated Blood Loss (ml): 0 Pathology: none sent Condition: stable Disposition: PACU Indications for Procedure: The patient's a 67-year-old female who presents with progressive right shoulder pain and stiffness and clinically she was noted to have significant adhesive capsulitis. A discussion of the risks and benefits of manipulation under anesthesia was made with patient. She opted to proceed. Risks of this procedure to include fracture, dislocation, possible tendon rerupture, possible recurrence of stiffness and need for subsequent procedures was discussed. Informed consent was obtained. Operative Findings: As below Description of Procedure: The patient was brought to the recovery room, and after induction of IV sedation I then gently manipulated her right shoulder. First with the arm at the side I obtain 60 of external rotation. Moderate adhesions were encountered. I then obtained full forward elevation. Again there were moderate adhesions. I felt I had adequate mobility at this point. Her right posterior shoulder was prepped with ChloraPrep. 40 mg of Depo-Medrol along with 5 mL of quarter percent plain Marcaine was injected. She was then monitored until fully awake. No complications were incurred. There was no blood loss.
[2017-07-05 13:46] VITALS: TEMP 98
[2017-07-05] MEDS: fentaNYL (PF) 50 MCG/ML 2 ML AMP IV PRN ×4 (13:50→14:18)
[2017-07-05] MEDS ORDERED: KETOROLAC 30 MG/ML 1 ML VIAL IVP ONE (13:59)
[2017-07-05] MEDS ORDERED: HYDROcodone/APAP 5-325MG 1 EACH TAB PO ONE (14:45)
[2017-07-05 14:51] VITALS: PULSE 67
[2017-07-05 15:09] VITALS: BP 130/56
== END 2017-07-05 15:30 | disposition home or self-care (01) ==
LOC: OR 11:50
PROVIDERS: ATTEND Orthopaedic Surgery
DX: M75.01 Adhesive capsulitis of right shoulder (principal); I48.91 Unspecified atrial fibrillation; C34.90 Malignant neoplasm of unspecified part of unspecified bronchus or lung; I10 Essential (primary) hypertension; E78.5 Hyperlipidemia, unspecified; F17.210 Nicotine dependence, cigarettes, uncomplicated; Z95.828 Presence of other vascular implants and grafts; Z88.2 Allergy status to sulfonamides; Z79.899 Other long term (current) drug therapy
CPT/HCPCS: 23700; J1100; J2405; J2001; J3010; J1885; J2704

== ENCOUNTER → 2017-07-26 | Outpatient (CLI) | payer MEDICARE, OTHER ==
--- NOTE | 2017-07-26 12:12 | CT ---
EXAMINATION TYPE: CT chest w con DATE OF EXAM: 07/26/2017 COMPARISON: 04/12/2017 HISTORY: Follow up to lung CA CT DLP: 289 mGycm Automated exposure control for dose reduction was used. CONTRAST: CT scan of the chest is performed with IV Contrast, patient injected with 100 mL of Isovue 300. FINDINGS: LUNGS: Persistent right upper lobe areas of cavitation with associated pleural thickening and volume loss. One of the cavitary lesions contains intracavitary nodule measuring 9.8 mm unchanged from prior study which may reflect cavitary neoplasm versus infectious etiology. Superimposed infiltrate with t raction bronchiectasis. No new masses are identified. Stable left 4.5 mm nodule left upper lobe. The left lung is otherwise clear. MEDIASTINUM: There are no greater than 1 cm hilar or mediastinal lymph nodes. No pericardial effusi on is seen. Thoracic aorta is of normal caliber. The heart is not enlarged. UPPER ABDOMEN: No significant abnormality appreciated. OTHER: No additional significant abnormality is seen. IMPRESSION: 1. Stable areas of cavitation right upper lobe associated pleural parenchymal opacity, pleural thicke belia and traction bronchiectasis. No new masses or significant interval change appreciated at this ti me. Correlate for cavitary neoplasm and/or underlying infection. 2. Stable nodule left upper lobe.
== END | disposition home or self-care (01) ==
LOC: RADCTMAIN 10:41
PROVIDERS: ATTEND Internal Medicine Hematology & Oncology
DX: C34.92 Malignant neoplasm of unspecified part of left bronchus or lung (principal); J92.9 Pleural plaque without asbestos; J47.9 Bronchiectasis, uncomplicated; Z88.2 Allergy status to sulfonamides
CPT/HCPCS: 82565; 84520; 71260; 36415; Q9967

== ENCOUNTER → 2017-08-25 | Outpatient (CLI) | payer MEDICARE, OTHER ==
--- NOTE | 2017-08-26 09:01 | MR ---
EXAMINATION TYPE: MR brain wo/w con DATE OF EXAM: 08/25/2017 COMPARISON: 05/25/2017 HISTORY: Hx Lung Ca, Secondary malignant neoplasm of brain CONTRAST: Performed utilizing 5.5 mL intravenous Gadavist gadolinium contrast. TECHNIQUE: Multiplanar, multiecho imaging on a 3.0 Nohemy magnet is performed through the brain. Stud y is performed within 24 hours of arrival to the hospital. The craniovertebral junction is normal. The pituitary is normal. Diffusion-weighted imaging is performed. No abnormal hyperintensity is present to suggest an acute i ntracranial infarct or acute ischemic change. On inversion recovery weighted sequences there are scattered bilateral subcortical white matter aly es greater in the left centrum semiovale. The largest measures 0.8 cm. Series 401 image 19. Chronic w enrique matter ischemic changes more likely within the differential. Small metastatic lesions however ar e not excluded. These were present previously. There is a small focus of hyperintensity within the left brainstem on inversion recovery measuring 0. 6 cm. Series 501 image 19. This was not clearly evident on the prior examination. Ventricles and sulci are appropriate for the patient age. Suspicious enhancement is not identified IMPRESSIONS: 1. Multiple bilateral scattered subcortical and deep white matter changes with a new area within the left brainstem. Findings favor chronic white matter ischemic changes. No suspicious enhancement is id entified.
== END | disposition home or self-care (01) ==
LOC: RADMRIMAIN 11:39
PROVIDERS: ATTEND Radiology Radiation Oncology
DX: C79.31 Secondary malignant neoplasm of brain (principal); C34.11 Malignant neoplasm of upper lobe, right bronchus or lung
CPT/HCPCS: 70553; A9581

== ENCOUNTER → 2017-10-19 | Outpatient (CLI) | payer MEDICARE, OTHER ==
--- NOTE | 2017-10-19 13:15 | CT ---
EXAMINATION TYPE: CT chest w con DATE OF EXAM: 10/19/2017 COMPARISON: 07/26/2017 and 12/24/2016. HISTORY: F/U FOR LUNG CA, COUGH CT DLP: 151.9 mGycm. Automated Exposure Control for Dose Reduction was Utilized. TECHNIQUE: CT scan of the thorax is performed following with IV Contrast, patient injected with 100 mL of Isovue 300. FINDINGS: LUNGS: There is similar size of the solid component within the cavitary lesion now seen dependently m easuring up to 1.1 cm and previously measuring up to 1.0 cm. The cavitary mass itself is also unchang ed in size measuring approximately 2.3 cm. There is extensive surrounding right-sided pleural thicken ing, right-sided volume loss, traction bronchiectasis, and retraction of the right mariya as well as ri ght hilar and suprahilar soft tissue thickening. Right hilar soft tissue density is similar to the pr ior 07/26/2017 compared on series 3 image 16 measuring 1.4 cm in anterior posterior dimension by 1.5 cm in transverse dimension measuring approximately 1.5 x 1.4 cm on the prior. Left apical solid pulmona ry nodule is similar to the prior measuring approximately 5 mm on series 4 image 6. No new pulmonary nodule or mass is identified. There is mild background centrilobular emphysematous change. MEDIASTINUM: Right hilar soft tissue density as described above is again seen. No new adenopathy. N o pericardial effusion is seen. Mild coronary artery calcifications are present. OTHER: Minimal multilevel degenerative change of the thoracic spine is seen. No new suspicious osseou s lesions. IMPRESSION: 1. Stable appearance of the thick walled cavitary right apical lesion containing a mobile intracavita ry nodule at with extensive surrounding pleural thickening, traction bronchiectasis, perihilar soft t issue density, and right apical opacity. Again cavitary component of the patient's known lung carcino ma or superimposed infectious etiology such as aspergillosis in this immunocompromised patient are po ssible. 2. Stability of the 5 mm left apical pulmonary nodule dating back to 12/24/2016.
== END | disposition home or self-care (01) ==
LOC: RADCTMAIN 11:54
PROVIDERS: ATTEND Internal Medicine Hematology & Oncology
DX: C34.92 Malignant neoplasm of unspecified part of left bronchus or lung (principal); J47.9 Bronchiectasis, uncomplicated; R91.1 Solitary pulmonary nodule
CPT/HCPCS: 82565; 84520; 71260; Q9967

== ENCOUNTER → 2018-01-02 | Outpatient (CLI) | payer MEDICARE, OTHER ==
--- NOTE | 2018-01-02 16:05 | MR ---
EXAMINATION TYPE: MR brain wo/w con DATE OF EXAM: 01/02/2018 COMPARISON: 08/25/2017 and 05/25/2017. HISTORY: Secondary malignant neoplasm of bone TECHNIQUE: Multiplanar, multisequence images of the brain and brainstem is performed without and with IV contras t, utilizing 5 mL intravenous Gadavist . FINDINGS: Diffusion weighted images demonstrate no evidence of a recent infarct or other diffusion ab normality. There is no extra-axial fluid collection. Scattered foci of T2/FLAIR hyperintensity are s een within the subcortical and periventricular white matter. There are and overall unchanged number o f these nonspecific white matter foci and there are similar in size and morphology. No new vasogenic edema is seen. Overall these are moderate burden with greater than 20 appreciated in the bilateral he mispheres. These are most commonly on the basis of chronic microangiopathy. No abnormal enhancement i s seen of these white matter changes. The ventricular system and cisternal spaces are normal in size and appearance. The brain volume is age appropriate. Midline structures demonstrate normal morphology. There is rightward nasal septal deviation. Scant mu cosal thickening is seen within the ethmoid sinuses. Remaining paranasal sinuses and mastoid air cell s are well aerated. Major intracranial flow voids are maintained. The craniocervical junction appear s within normal limits. Post contrast images demonstrate no abnormal enhancement. The dural venous s inuses appear patent. The globes are intact. IMPRESSION: 1. No new intracranial mass or abnormal intracranial enhancement to suggest metastasis. 2. Stable size and number of the nonspecific white matter change, most commonly on the basis of chron ic microangiopathy. No enhancement of these lesions.
== END | disposition home or self-care (01) ==
LOC: RADMRIMAIN 09:49
PROVIDERS: ATTEND Radiology Radiation Oncology
DX: R90.82 White matter disease, unspecified (principal); C79.51 Secondary malignant neoplasm of bone; C34.11 Malignant neoplasm of upper lobe, right bronchus or lung
CPT/HCPCS: 82565; 70553; 36415; A9581

== ENCOUNTER → 2018-01-24 | Outpatient (CLI) | payer MEDICARE, OTHER ==
--- NOTE | 2018-01-25 07:58 | CT ---
EXAMINATION TYPE: CT chest w con DATE OF EXAM: 01/24/2018 COMPARISON: Chest CT June 19, [address]. Prior PET/CT April 24, 2016. HISTORY: Follow up for lung cancer. CT DLP: 251 mGycm. Automated Exposure Control for Dose Reduction was Utilized. TECHNIQUE: CT scan of the thorax is performed following with IV Contrast, patient injected with 100m l mL of Isovue M300. FINDINGS: LUNGS: There is persistent right upper lung opacity and volume loss with tracheal shift. Apical pleur al thickening remains present near axial image 7 similar to most recent CT. There is persistent later al thick-walled cavitary lesion adjacent to eccentric pleural thickening difficult to accurately santy ure felt grossly stable measuring roughly 3.5 x 1.9 cm on axial image 16. Dependent oval density axia l image 18 remains present. Superimposed infectious process such as aspergillosis cannot be excluded. Involving right lung apex and medial tissue there is irregular consolidation with mild to moderate s lightly irregular bronchiectasis redemonstrated. No significant change from most recent CT. There is background mild underlying emphysematous change with slightly expanded left lung. Stable 4 x 3 mm lef t apical scarlike opacity axial image 10. No new suspicious nodules are identified. No pleural effusi on or pneumothorax is noted bilaterally. MEDIASTINUM: There is persistent abnormal soft tissue right hilar region surrounding superior retrac sean right mainstem bronchus. No new suspicious mediastinal or left hilar adenopathy is present. No c ardiomegaly or pericardial effusion is seen. There is mild to moderate calcified plaque of aorta. OTHER: Osseous structures are somewhat demineralized. Mild multilevel spurring in thoracic spine is p resent.. IMPRESSION: Overall stable findings from most recent CT, right upper lung findings extending into sup erior retracted right hilum likely reflect combination of posttreatment change and/or residual underl randi neoplasm. Significant improvement in right hilar findings since initial studies noted. No new kyle spicious masses or consolidation present.
== END ==
LOC: RADCTMAIN 15:00
PROVIDERS: ATTEND Internal Medicine Hematology & Oncology
DX: C34.92 Malignant neoplasm of unspecified part of left bronchus or lung (principal)
CPT/HCPCS: 82565; 84520; 71260; 36415; Q9967

== ENCOUNTER → 2018-05-05 | Outpatient (CLI) | payer MEDICARE, OTHER ==
--- NOTE | 2018-05-05 12:47 | MR ---
EXAMINATION TYPE: MR brain wo/w con DATE OF EXAM: 05/05/2018 COMPARISON: 01/02/2018 and 09/07/2017 HISTORY: Malignant neoplasm of upper lobe Right lung TECHNIQUE: Multiplanar, multisequence images of the brain and brainstem is performed without and with IV contras t, utilizing 5.5 mL intravenous Gadavist . FINDINGS: Diffusion weighted images demonstrate no evidence of a recent infarct or other diffusion ab normality. There is no extra-axial fluid collection. There is again moderate burden scattered foci o f T2/FLAIR hyperintensity within the subcortical and periventricular white matter. Again these are ov erall unchanged in size and number in comparison to the prior of 01/02/2018 and 08/25/2017. These do no t demonstrate enhancement. As indicated on the prior there are greater than 20 appreciated in the antelmo ateral hemispheres. The ventricular system and cisternal spaces are normal in size and appearance. T he brain volume is age appropriate. Midline structures demonstrate normal morphology. The craniocervical junction appears within normal limits. Post contrast images demonstrate no abnormal enhancement. The dural venous sinuses appear pa tent. Scant mucosal thickening is again appreciated in the ethmoid sinuses. The remaining visualized sinuses are clear and the globes are intact. IMPRESSION: 1. No new evidence of intracranial metastasis. 2. Again there are stable size and number of the moderate burden nonspecific white matter change, mos t commonly on the basis of chronic microangiopathy.
== END | disposition home or self-care (01) ==
LOC: RADMRIMAIN 10:45
PROVIDERS: ATTEND Radiology Radiation Oncology
DX: C34.11 Malignant neoplasm of upper lobe, right bronchus or lung (principal); F17.210 Nicotine dependence, cigarettes, uncomplicated; R90.89 Other abnormal findings on diagnostic imaging of central nervous system; Z92.3 Personal history of irradiation; Z92.21 Personal history of antineoplastic chemotherapy
CPT/HCPCS: 82565; 84520; 70553; 36415; A9585

== ENCOUNTER → 2018-08-22 | Outpatient (CLI) | payer MEDICARE, OTHER ==
--- NOTE | 2018-08-22 16:01 | CT ---
EXAMINATION TYPE: CT chest w con DATE OF EXAM: 08/22/2018 COMPARISON: 01/24/2018 HISTORY: Lung cancer. Follow-up exam. CT DLP: 371 mGycm. Automated Exposure Control for Dose Reduction was Utilized. TECHNIQUE: CT scan of the thorax is performed following with IV Contrast, patient injected with 100 mL of Isovue 300. FINDINGS: LUNGS: The thick-walled right upper lobe cavitary mass measures approximately 3.3 x 2.4 cm and previo usly was measured at 3.5 x 1.9 cm however when measured similarly this has unchanged in size from the prior of 01/24/2018. Varicose bronchiectasis leads to this cavitary lesion and there is redemonstrati on of an intracavitary nodule that is dependent. This has changed location. Second cavitary component is seen at the lung apex measuring 2.6 x 2.5 cm, unchanged. The spiculated right perihilar density measures approximately 2.5 x 2.1 cm in the suprahilar region o n series 3 image 17. When measured at a similar location on the prior exam this measured approximatel y 2.3 x 2.0 cm and therefore given differences in slice selection this is overall unchanged. The righ t apical consolidation is also unchanged. Stable spiculated 4 mm probable scar is marked on image 6 in the left lung apex. No new suspicious pu lmonary nodule. No focal consolidation, pleural effusion or pneumothorax. MEDIASTINUM: There are no greater than 1 cm hilar or mediastinal lymph nodes. No pericardial effusi on is seen. No central pulmonary embolus is seen. No enlargement of main pulmonary artery or ascendi ng thoracic aorta. There is mild atherosclerosis of the thoracic aorta and severe atherosclerosis of the visualized upper abdominal aorta. OTHER: No additional significant abnormality is seen. There is a questionable hepatic lesion versus distal aspect of a prominent hepatic vein marked on series 3 image 67. Three-phase CT abdomen is lucas mmended for further characterization. Mild multilevel degenerative changes of the spine are seen. No new suspicious osseous lesion is identified. IMPRESSION: 1. Cavitary lesion of the right lung apex with mobile intracavitary nodule suggest aspergillosis. Thi s is seen adjacent to the posttreatment change of the right upper lobe from the primary known lung ca ncer. 2. Questionable right hepatic lobe lesion measuring 9 mm versus prominent distal aspect of the right hepatic vein. Three-phase enhanced CT abdomen is recommended for further characterization. 3. Stable posttreatment change in the right hilum and right lung apex. Continued follow-up is recomme nded to ensure no underlying residual neoplasm.
== END | disposition home or self-care (01) ==
LOC: RADCTMAIN 13:14
PROVIDERS: ATTEND Internal Medicine Hematology & Oncology
DX: Z03.89 Encounter for observation for other suspected diseases and conditions ruled out (principal); R91.1 Solitary pulmonary nodule; C34.92 Malignant neoplasm of unspecified part of left bronchus or lung; Z98.890 Other specified postprocedural states; Z88.2 Allergy status to sulfonamides
CPT/HCPCS: 82565; 84520; 71260; 36415; Q9967

== ENCOUNTER → 2018-09-07 | Outpatient (CLI) | payer MEDICARE, OTHER ==
--- NOTE | 2018-09-08 07:15 | MR ---
EXAMINATION TYPE: MR liver wo/w con DATE OF EXAM: 09/07/2018 COMPARISON: None HISTORY: Lung Cancer / Abnormal Imaging CONTRAST: Standard multiplanar, multisequence MRI departmental protocol utilizing 5.5 mL intravenous Gadavist g adolinium contrast. FINDINGS: Gallbladder is contracted. Bile ducts are not dilated. There is no focal liver defect. There is no as cites. Spleen has normal size. There is no evidence of a pancreatic mass. Pancreatic duct appears nor mal. Stomach appears normal. Kidneys have normal size and contour. There is no hydronephrosis. Ureters are not dilated. There is n o evidence of retroperitoneal adenopathy. Contrast images show no pathologic enhancement. There is no sign of pleural effusion. Kidneys show normal contrast opacification. IMPRESSION: Negative MR scan of the abdomen. No evidence of hepatic metastatic disease.
== END | disposition home or self-care (01) ==
LOC: RADMRIMAIN 06:52
PROVIDERS: ATTEND Internal Medicine Hematology & Oncology
DX: C34.92 Malignant neoplasm of unspecified part of left bronchus or lung (principal)
CPT/HCPCS: 74183; A9585

== ENCOUNTER → 2018-11-02 | Outpatient (CLI) | payer MEDICARE, OTHER ==
--- NOTE | 2018-11-02 15:18 | MR ---
EXAMINATION TYPE: MR brain wo/w con DATE OF EXAM: 11/02/2018 COMPARISON: HISTORY: Malignant neoplasm of upper lobe, right bro CONTRAST: Performed utilizing 5.5 mL intravenous Gadavist gadolinium contrast. TECHNIQUE: Multiplanar, multiecho imaging on a 3.0 Nohemy magnet is performed through the brain. Stud y is performed within 24 hours of arrival to the hospital. The craniovertebral junction is normal. The pituitary is normal. Diffusion-weighted imaging is performed. No abnormal hyperintensity is present to suggest an acute i ntracranial infarct or acute ischemic change. Normal vascular flow voids are within the visualized intracranial cerebral vasculature. Optic chiasm is normal. There are periventricular and deep white matter punctate hyperintensities. The largest are within the left cifuentes radiata and measures 0.9 x 0.7 cm. Series fracture on image 41 and within the subcortica l white matter the left parietal lobe measuring 0.4 x 0.9 cm. Series 501 image 44. Findings appear st able from comparison. Following intravenous administration, no abnormal enhancement is evident. Ventricles and sulci are appropriate for the patient age. Next line there is some mild mucosal thickening within the right maxillary sinus. Some mild left ethm oid air cell mucosal thickening is present. The globes appear symmetrical. Optic nerves and extraocul ar muscles as visualized are unremarkable. IMPRESSIONS: 1. Multiple bilateral scattered white matter changes within the deep white matter compatible with chr onic appearing microvascular ischemic change. Different etiologies such as multiple sclerosis, Lyme d isease, microvascular ischemic change should be considered. Metastatic disease is considered less lik susana based on positioning.
== END | disposition home or self-care (01) ==
LOC: RADMRIMAIN 06:34
PROVIDERS: ATTEND Radiology Radiation Oncology
DX: G35 Multiple sclerosis (principal); I67.82 Cerebral ischemia; A69.20 Lyme disease, unspecified; Z92.21 Personal history of antineoplastic chemotherapy; Z92.3 Personal history of irradiation; F17.210 Nicotine dependence, cigarettes, uncomplicated
CPT/HCPCS: 70553; A9585

== ENCOUNTER → 2019-02-26 | Outpatient (CLI) | payer MEDICARE, OTHER ==
--- NOTE | 2019-03-02 13:18 | CT ---
EXAMINATION TYPE: CT chest w con DATE OF EXAM: 02/26/2019 COMPARISON: 08/22/2018 HISTORY: Follow up lung cancer. CT DLP: 175.3 mGycm, Automated exposure control for dose reduction was used. CONTRAST: Performed injected with 100 mL of Isovue M300. TECHNIQUE: Axial images were obtained at 5 mm thick sections. Reconstructed images are reviewed on [employer] computer in the coronal plane. FINDINGS: Portion of the thyroid visualized is normal. There is a consolidation with cavitation in the right apex. This extends towards the right hilum. The soft tissue density in the right suprahilar region corresponding level to the previous examination m easures approximately 2.5 x 2.0 cm previous is stable from comparison. No enlarged mediastinal or hilar adenopathy is evident. The ascending aorta diameter at the level o f the main pulmonary artery is 3.0 cm. The main pulmonary artery diameter at the bifurcation is 2.[address] sections are obtained through the upper abdomen. Abdomen is essentially unremarkable. IMPRESSIONS: 1. Stable right apical cavitary lesion can be compatible with the patient's lung cancer. This is stab le in appearance and size from the comparison study. Continued monitoring is recommended.
== END | disposition home or self-care (01) ==
LOC: RADCTMAIN 10:24
PROVIDERS: ATTEND Internal Medicine Hematology & Oncology
DX: R91.1 Solitary pulmonary nodule (principal); C34.92 Malignant neoplasm of unspecified part of left bronchus or lung; Z88.2 Allergy status to sulfonamides
CPT/HCPCS: 82565; 84520; 71260; 36415; Q9967

== ENCOUNTER → 2019-05-09 | Outpatient (CLI) | payer MEDICARE, OTHER ==
--- NOTE | 2019-05-09 15:54 | MR ---
EXAMINATION TYPE: MR brain wo/w con DATE OF EXAM: 05/09/2019 COMPARISON: 11/02/2018 HISTORY: Lung CA, mets CONTRAST: Performed utilizing 5 mL intravenous Gadavist gadolinium contrast. TECHNIQUE: Multiplanar, multiecho imaging on a 3.0 Nohemy magnet is performed through the brain. Stud y is performed within 24 hours of arrival to the hospital. The craniovertebral junction is normal. The pituitary is normal. Diffusion-weighted imaging is performed. No abnormal hyperintensity is present to suggest an acute i ntracranial infarct or acute ischemic change. Multiple periventricular white matter hyperintensities are present within the subcortical and deep wh ite matter. Pattern appears stable Reference lesions: 1. 0.3 x 0.7 cm left subcortical parietal lobe, series 501 image 44. Smaller than comparison. 2. 0.5 x 0.9 cm left cifuentes radiata. Series 501 image 51. Stable to minimally smaller from comparison . Ventricles and sulci are appropriate for the patient age. No abnormal enhancement is evident. Suspicious metastatic lesions within the brain are not identified . IMPRESSIONS: 1. Stable multiple white matter changes throughout the brain. Microvascular ischemic changes favored within the differential. 2. No suspicious enhancing metastatic lesions identified. 3. Examination appears stable from comparison.
== END | disposition home or self-care (01) ==
LOC: RADMRIMAIN 11:18
PROVIDERS: ATTEND Radiology Radiation Oncology
DX: R90.89 Other abnormal findings on diagnostic imaging of central nervous system (principal); C34.11 Malignant neoplasm of upper lobe, right bronchus or lung; Z92.3 Personal history of irradiation; F17.210 Nicotine dependence, cigarettes, uncomplicated; Z92.21 Personal history of antineoplastic chemotherapy
CPT/HCPCS: 70553; A9585

== ENCOUNTER → 2019-10-30 | Outpatient (CLI) | payer MEDICARE, OTHER ==
[2019-10-30 11:40] LABS: African American GFR (CKD) >90 (>60 ml/min/1.73 sqM); Blood Urea Nitrogen 19 mg/dL (7-17); Non-African American GFR(CKD) 81 (>60 ml/min/1.73 sqM)
--- NOTE | 2019-10-30 12:29 | CT ---
"EXAMINATION TYPE: CT chest w con DATE OF EXAM: 10/30/2019 COMPARISON: CT chest February 26, 2019 and older CTs. PET/CT April 24, 2016. HISTORY: Right sided Lung cancer progress study. Originally diagnosed 2017 with chemotherapy and radi ation treatment. CT DLP: 219.90 mGycm. Automated Exposure Control for Dose Reduction was Utilized. TECHNIQUE: CT scan of the thorax is performed following with IV Contrast, patient injected with 100 ml mL of Isovue 300. FINDINGS: LUNGS: The irregular thick-walled right apical cavitary mass shows continued marked interval progress ion now measuring roughly 7.9 x 7.8 cm axial image 12 x 7.7 cm renal cortical dimension coronal image 39. Continued right apical volume loss with mediastinal shift. Persistent irregular narrowing of the right upper lung bronchus and branches coronal image 38. Abnormal irregular soft tissue right hilar region measures 2.7 x 2.4 cm with some crossing vessels more prominent versus most recent prior study . Background mild underlying emphysematous change with hyperexpanded right lower lobe. Left lung remain s clear. MEDIASTINUM: There is new subcarinal adenopathy which may be confluent extension from the enlarging r ight hilar adenopathy. There is new 11 x 9 mm prevascular lymph node axial image 22. Irregular wall t hickening and basilar mediastinum with indistinct fat planes from the trachea and proximal to mid eso phagus for reference axial image 16. There is [id number] concentric esophageal thickening adrienne r [place] axial image 19 extending inferiorly. No cardiomegaly or pericardial effusion is seen. Ledesma ry artery calcification redemonstrated. Moderate mixed plaque in the thoracic aorta redemonstrated. OTHER: Multilevel spurring in thoracic spine. IMPRESSION: Significant interval neoplastic progression as detailed above. A Yellow level critical message alert has been initiated for Jean Church MD via the [employer] 36 0 | Critical Results System on 10/30/2019 12:27 PM. This message alert has been sent to Jean Church MD via the preferences provided by the clinician for the receipt of Radiology Critical Findings. [facility] – [place] [id number]."
== END | disposition home or self-care (01) ==
LOC: RADCTMAIN 10:56
PROVIDERS: ATTEND Internal Medicine Hematology & Oncology
DX: C34.92 Malignant neoplasm of unspecified part of left bronchus or lung (principal); Z88.2 Allergy status to sulfonamides
CPT/HCPCS: 82565; 84520; 71260; 36415; Q9967

== ENCOUNTER → 2019-11-10 | Outpatient (CLI) | payer MEDICARE, OTHER ==
--- NOTE | 2019-11-11 14:28 | PE ---
EXAMINATION TYPE: PET CT fusion skull to thigh DATE OF EXAM: 11/10/2019 COMPARISON: CT chest 10/30/2019 Prior PET/CT: 04/24/2016 HISTORY: Lung cancer TECHNIQUE: Following the intravenous administration of 10.99 mCi of F-18 FDG, whole body images are performed from the skull base to the midthigh. Images are reviewed on the computer in the coronal, a xial, and sagittal planes. Reconstructed rotating images are created on independent workstation and reviewed on the computer. A localization and attenuation correction CT is performed in conjunction with the PET scan. DLP: 155.36 mGycm SCAN: Subsequent Blood glucose: 92 mg/dL Average Mediastinum SUV: 1.62 Average Liver SUV: 2.09 FINDINGS: NECK: No abnormal uptake THORAX: There is increased uptake through the changes through the right apex. Maximum SUV value along the medial right apex is 2.2. The more solid central right upper lobe portion has an SUV value of 3. 08. The right suprahilar region, image 17, has an SUV value of 3.46. The pleural thickening at the sa me level is 2.29. There is increased uptake within the subcarinal region which may be direct extension or lymphadenopat hy within SUV value of 2.07. Para-aortic superior mediastinal lymph node, image 75, measures 2.02 SUV . ABDOMEN: No abnormal uptake PELVIS: There is some increase uptake adjacent to the left femoral head within the soft tissues. Imag e 214, SUV 2.63. OSSEOUS STRUCTURES: No suspicious uptake LOCALIZATION CT: No acute suspicious changes COMPARISON: There is significant diminished radiotracer through the thorax compared to the prior exam ination. Solid density however appears more extensive than the comparison. Mediastinal uptake appears diminished from comparison. The periaortic node in the superior mediastinum is new and suspicious fo r metastatic lymph node. No suspicious changes in the left lung base are evident. No suspicious aly e adjacent to the left femoral head is evident on the prior exam. IMPRESSION: 1. Residual or recurrent right apical neoplasm is suspected. This may has some direct extension or me tastatic lymph nodes within the right hilar and subcarinal region. 2. A new metastatic lymph node is suspected adjacent to the ascending thoracic aorta. 3. New focus of radiotracer adjacent to the left hip within the soft tissues. A metastatic lesion cou ld be suspected based on radiotracer. Corresponding soft tissue abnormality is not identified. Other etiologies such as inflammatory changes are within the differential.
== END | disposition home or self-care (01) ==
LOC: RADPETMAIN 10:15
PROVIDERS: ATTEND Internal Medicine Hematology & Oncology
DX: C34.82 Malignant neoplasm of overlapping sites of left bronchus and lung (principal)
CPT/HCPCS: 78815; A9552

== ENCOUNTER 2019-11-21 10:55 | Day surgery (SDC) | payer MEDICARE, OTHER ==
[2019-11-19 13:20] VITALS: BMI 16.7
[~2019-11-21 10:55] MED LIST changes: +ALBUTEROL NEB (CONC) 2.5 MG/0.5 ML INHALATION ONE; -DEXAMETHASONE SOD PHOSPHATE 10 MG/ML 1 ML VIAL IV ONE; -HYDROmorphone 0.5 MG/0.5 ML SYRINGE IVP PRN; -LIDOCAINE 1% 20 ML VIAL (10MG/ML) FOR IV START INTRADERMA PRN; +LIDOCAINE 2% (PF) 20 MG/ML 5 ML VIAL INHALATION ONE; +LIDOCAINE VISCOUS 300 MG/15 ML CUP MUCOUS MEM ONE; -MIDAZOLAM 2 MG/2 ML VIAL IV PRN; -ONDANSETRON 4 MG/2 ML VIAL IVP ONE; -SCOPOLAMINE 1.5MG/72HR PATCH TRANSDERM ONE; +SODIUM CHLORIDE 0.9% 1,000 ML IV SCH; -ceFAZolin 1,000 MG in DEXTROSE/WATER 1 50ML.BAG IV ONE
[2019-11-21] MEDS ORDERED: LIDOCAINE 1% (10MG/ML) FOR IV START INTRADERMA ONE (11:26)
[2019-11-21 11:33] VITALS: RESP 16; TEMP 97.1
[2019-11-21] MEDS ORDERED: LIDOCAINE 1% INJ 10MG/ML (20 ML MDV) ONE (12:12)
[2019-11-21] MEDS ORDERED: PROPOFOL 10 MG/ML 20 ML VIAL IV ONE (12:12)
[2019-11-21] MEDS ORDERED: LIDOCAINE 2% INJ 20 MG/ML INTRATRACH ONE (12:23)
--- NOTE | 2019-11-21 12:59 | FL ---
EXAMINATION TYPE: FL bronchoscopy DATE OF EXAM: 11/21/2019 COMPARISON: NONE HISTORY: Bronchoscopy TECHNIQUE: Fluoroscopy. FINDINGS: 1 sec fl-1 image IMPRESSION: As Above.
[2019-11-21 13:09] VITALS: BP 134/58; PULSE 77
--- NOTE | 2019-11-21 13:23 | XR ---
EXAMINATION TYPE: XR chest 1V portable DATE OF EXAM: 11/21/2019 CLINICAL HISTORY: Post right upper lobe bronchoscopy TECHNIQUE: Portable frontal view of the chest obtained COMPARISON: Chest radiograph 11/09/2019. PET/CT 11/10/2019. FINDINGS: The lungs are hyperinflated. There is redemonstrated right apical loculated pneumothorax w ith thickened rind, and upward right hilar retraction and volume loss, which appears similar to 2019 comparison. There is no new pneumothorax. No pleural effusion. Cardiac silhouette normal. IMPRESSION: Right apical loculated pneumothorax with thickened rind, volume loss, and upward right hi lar retraction appears similar to 11/09/2019 comparison. There is no significant change or new pneumot horax status post bronchoscopy.
--- NOTE | 2019-11-21 16:35 | PCN ---
PROCEDURE NOTE Operative report is bronchoscopy with multiple endobronchial biopsies of the right upper lobe posterior segment, brushings of the right upper lobe, washings, and lavage of the right upper lobe bronchus and right upper lobe posterior segment. PREOPERATIVE DIAGNOSIS: Recurrent small cell lung cancer. POSTOPERATIVE DIAGNOSIS: Recurrent small cell lung cancer. ANESTHESIA USED: IV conscious sedation. PROCEDURE: Patient was placed in a supine position, she was prepared according to the bronchoscopy protocol. O2 was applied via nasal cannula. And we monitored her O2 saturation continuously, blood pressure was intermittently monitored, and cardiac rhythm was continuously monitored. After adequate IV conscious sedation, the left naris was anesthetized with lidocaine, and the bronchoscope was advanced through the left naris down to the area of the vocal cords. The vocal cords were noted to be patent. Then, lidocaine was applied over the vocal cords, and the bronchoscope was advanced further down. Thorough examination was done of the trachea, tamica, right upper lobe, right middle lobe, right lower lobe, left upper lobe, lingula, and left lower lobe. There was no evidence of any endobronchial tumors or lesions on the left side. However, and as we entered the right mainstem bronchus, there was clearly some narrowing noted of the right mainstem bronchus, and as we entered up into the right upper lobe bronchus, there was complete occlusion of the bronchus leading into the posterior segment of the right upper lobe. There was significant friable changes and mucosal swelling noted in the other segments of the anterior segment and apical segment. Attempted to advance a forceps biopsy into the posterior segment of the right upper lobe; however, and it was basically completely occluded. Multiple biopsies were done from that site. The brushings were also done. And lavage of the right upper lobe posterior segment was also done. Then as we went down to the right middle lobe, it was extrinsically compressed, could be related to malignancy or could be related to changes. The same thing noted in the right lower lobe, but there was no evidence of any endobronchial tumors. The main abnormality was noted in the posterior segment of the right upper lobe. And again, all the biopsies were taken from that segment/bronchus. Procedure was well tolerated, no evidence of any immediate complication. MMODL / IJN: [id number] /
== END 2019-11-21 13:48 | disposition home or self-care (01) ==
LOC: ORWHC2ENDO 10:55
PROVIDERS: ATTEND Internal Medicine
DX: J98.4 Other disorders of lung (principal); J84.10 Pulmonary fibrosis, unspecified; C34.90 Malignant neoplasm of unspecified part of unspecified bronchus or lung; J44.9 Chronic obstructive pulmonary disease, unspecified; J30.2 Other seasonal allergic rhinitis; K21.9 Gastro-esophageal reflux disease without esophagitis; E03.9 Hypothyroidism, unspecified; I48.91 Unspecified atrial fibrillation; F17.200 Nicotine dependence, unspecified, uncomplicated; Z88.2 Allergy status to sulfonamides; Z79.899 Other long term (current) drug therapy; Z79.890 Hormone replacement therapy; Z90.89 Acquired absence of other organs; Z92.21 Personal history of antineoplastic chemotherapy; Z92.3 Personal history of irradiation; Z98.890 Other specified postprocedural states
CPT/HCPCS: 88104; 88108; 88305; 88342; 88341; 87070; 87205; 87116; 87102; 87077; 87186; 87206; 71045; 31625; 31623; 31624; J2001 ×2; J2704; 31622; 31628

== ENCOUNTER → 2019-12-18 | Outpatient (CLI) | payer MEDICARE, OTHER ==
--- NOTE | 2019-12-18 14:09 | CT ---
EXAMINATION TYPE: CT chest w con DATE OF EXAM: 12/18/2019 COMPARISON: 10/30/2019 HISTORY: Follow up lung cancer CT DLP: 127.2 mGycm, Automated exposure control for dose reduction was used. CONTRAST: Performed injected with 100 mL of Isovue 300. TECHNIQUE: Axial images were obtained at 5 mm thick sections. Reconstructed images are reviewed on [employer] computer in the coronal plane. FINDINGS: Portion of the thyroid visualized is normal. Cavitary lesion is again evident at the right apex. Utilizing similar measurement level this measures 8.0 x 7.6 cm which is essentially stable. Soft tissue density extends to the right suprahilar region with some encasement of the right upper and right middle lobe bronchi. Previous Aortic lymph node is slightly smaller currently measuring 1.0 x 0.8 cm. The large 0.9 cm re trocrural lymph node appears to be stable The ascending aorta diameter at the level of the main pulmo nary artery is 2.8 cm. The main pulmonary artery diameter at the bifurcation is 2.[address] sections are obtained through the upper abdomen. Some mild thickening of the left adrenal gland may be present at 1.1 cm. IMPRESSIONS: 1. Stable right upper lobe neoplasm with extension to the hilum. 2. Stable retrocrural lymph node.
== END | disposition home or self-care (01) ==
LOC: RADCTMAIN 10:45
PROVIDERS: ATTEND Internal Medicine Hematology & Oncology
DX: C34.11 Malignant neoplasm of upper lobe, right bronchus or lung (principal); C34.92 Malignant neoplasm of unspecified part of left bronchus or lung; C34.01 Malignant neoplasm of right main bronchus; Z88.2 Allergy status to sulfonamides
CPT/HCPCS: 82565; 84520; 71260; 36415; Q9967

== ENCOUNTER → 2020-03-18 | Outpatient (CLI) | payer MEDICARE, OTHER ==
--- NOTE | 2020-03-18 09:27 | CT ---
EXAMINATION TYPE: CT chest w con DATE OF EXAM: 03/18/2020 COMPARISON: Chest CT December 18, 2019 and older CTs HISTORY: Lung cancer CT DLP: 136.7 mGycm. Automated Exposure Control for Dose Reduction was Utilized. TECHNIQUE: CT scan of the thorax is performed following with IV Contrast, patient injected with 100 ml mL of Isovue 300. FINDINGS: LUNGS: Persistent irregular thick-walled cavitary lesion right lung apex with right apical volume los s measuring approximately 8.1 x 8.0 cm axial image 11 x 5.7 cm craniocaudal dimension coronal image 3 7. Asymmetric sclerosis of adjacent right-sided ribs. No rib destruction noted. Hilar retraction with peribronchial wall thickening and bronchial narrowing is redemonstrated. There is continued abnormal right hilar surrounding soft tissue without significant interval change. No hypermetabolic uptake no sean on recent PET/CT. No new nodules or masses. Left lung remains clear. Background mild to moderate underlying emphysematous change redemonstrated. MEDIASTINUM: There are no new greater than 1 cm hilar or mediastinal lymph nodes. Stable left hilar subcentimeter adenopathy axial image 28. No cardiomegaly or pericardial effusion is seen. Coronary calcification redemonstrated. OTHER: No additional significant abnormality is seen. IMPRESSION: Overall stable findings as detailed above favor posttreatment change. No enlarging masses or nodules identified to suggest active neoplastic progression.
== END | disposition home or self-care (01) ==
LOC: RADCTMAIN 07:53
PROVIDERS: ATTEND Internal Medicine Hematology & Oncology
DX: C34.92 Malignant neoplasm of unspecified part of left bronchus or lung (principal); Z98.890 Other specified postprocedural states; Z99.2 Dependence on renal dialysis
CPT/HCPCS: 82565; 84520; 71260; 36415; Q9967

== ENCOUNTER → 2020-04-24 | Outpatient (CLI) | payer MEDICARE, OTHER ==
--- NOTE | 2020-04-24 11:04 | MR ---
EXAMINATION TYPE: MR brain wo/w con DATE OF EXAM: 04/24/2020 COMPARISON: MR brain 05/09/2019 HISTORY: HX of cancer, F/u abnormal brain MRI TECHNIQUE: Multiplanar, multisequence images of the brain and brainstem is performed without and with IV contras t, utilizing 5.5 mL intravenous Gadavist . FINDINGS: Diffusion weighted images demonstrate no evidence of a recent infarct or other diffusion ab normality. There is no extra-axial fluid collection or significant change in white matter signal abn ormality, scattered hyperintensities are present and inversion recovery T2-weighted sequences within the deep white matter. The ventricular system and cisternal spaces are normal in size and appearance . The brain volume is age appropriate. Midline structures demonstrate normal morphology. The craniocervical junction appears within normal limits. Post contrast images demonstrate no abnormal enhancement. The dural venous sinuses appear pa tent. The visualized sinuses are clear and the globes are intact. IMPRESSION: Stable brain MRI. No enhancing lesion within the brain to suggest metastasis.
== END | disposition home or self-care (01) ==
LOC: RADMRIMAIN 09:35
PROVIDERS: ATTEND Radiology Radiation Oncology
DX: C34.11 Malignant neoplasm of upper lobe, right bronchus or lung (principal); Z92.3 Personal history of irradiation; F17.210 Nicotine dependence, cigarettes, uncomplicated; Z92.21 Personal history of antineoplastic chemotherapy
CPT/HCPCS: 70553; A9585

== ENCOUNTER → 2020-07-15 | Outpatient (CLI) | payer MEDICARE, OTHER ==
--- NOTE | 2020-07-15 10:32 | CT ---
EXAMINATION TYPE: CT chest w con DATE OF EXAM: 07/15/2020 COMPARISON: 03/18/2020 HISTORY: Lung CA CT DLP: 408 mGycm Automated exposure control for dose reduction was used. TECHNIQUE: CT scan of the chest is performed with IV Contrast, patient injected with 100 mL of Isovue 300. MIP Images are created on CT scanner and reviewed. 3D reconstructed images are created on an independent workstation and reviewed. FINDINGS: LUNGS: Persistent irregular thick-walled cavitary lesion right lung apex with right apical volume los s measuring approximately 8.1 x 8.0 cm and stable from prior exam. Asymmetric sclerosis of adjacent r ight-sided ribs. No rib destruction noted. Hilar retraction with peribronchial wall thickening and br onchial narrowing is redemonstrated. There is continued abnormal right hilar surrounding soft tissue without significant interval change. No new nodules or masses. Left lung remains clear. Background m ild to moderate underlying emphysematous change redemonstrated. MEDIASTINUM: Peribronchial wall thickening and right hilar adenopathy measuring short axis of 1.7 cm stable from prior exam. Heart size stable. Atherosclerotic change of the aorta. Mild coronary artery calcification. Small hiatal hernia incidentally noted. OTHER: No additional significant abnormality is seen. IMPRESSION: 1. Stable CT scan demonstrating cavitary lesion right lung apex unchanged from prior exam. No new nod ules. Hilar adenopathy and peribronchial thickening on the right stable from prior exam.
== END | disposition home or self-care (01) ==
LOC: RADCTMAIN 08:48
PROVIDERS: ATTEND Internal Medicine Hematology & Oncology
DX: C34.90 Malignant neoplasm of unspecified part of unspecified bronchus or lung (principal)
CPT/HCPCS: 82565; 84520; 71260; 36415; Q9967

== ENCOUNTER → 2020-10-29 | Outpatient (CLI) | payer MEDICARE, OTHER ==
[2020-10-30 04:07] LABS: Digoxin 1.6 ng/mL (0.8-2.0)
[2020-10-30 17:12] LABS: African American GFR (CKD) 52.7 (60.0-200.0); Albumin 4.2 g/dL (3.80-4.90); Albumin/Globulin Ratio 1.11 (1.60-3.17); Anion Gap 16.5 mmol/L (4.00-12.00); BUN/Creat Ratio 21.67 Ratio (12.00-20.00); Calcium 9.2 mg/dL (8.7-10.3); Carbon Dioxide 19.5 mmol/L (21.6-31.8); Globulin 3.8 g/dL (1.6-3.3); Non-African American GFR(CKD) 45.4 (60.0-200.0); Potassium 4.9 mmol/L (3.5-5.5); Total Bilirubin 0.4 mg/dL (0.3-1.2)
== END | disposition home or self-care (01) ==
LOC: LABWHC1 16:22
PROVIDERS: ATTEND Internal Medicine Interventional Cardiology
DX: I48.3 Typical atrial flutter (principal)
CPT/HCPCS: 36415; 80053; 80162

== ENCOUNTER → 2020-11-11 | Outpatient (CLI) | payer MEDICARE, OTHER ==
[2020-11-11 20:22] LABS: African American GFR (CKD) 65.6 (60.0-200.0); Anion Gap 9.2 mmol/L (4.00-12.00); Carbon Dioxide 23.8 mmol/L (21.6-31.8); Non-African American GFR(CKD) 56.6 (60.0-200.0); Potassium 4.7 mmol/L (3.5-5.5)
== END | disposition home or self-care (01) ==
LOC: LABWHC1 09:07
PROVIDERS: ATTEND Nurse Practitioner Adult Health
DX: I48.0 Paroxysmal atrial fibrillation (principal)
CPT/HCPCS: 36415; 80048

== ENCOUNTER → 2021-04-28 | Outpatient (CLI) | payer MEDICARE ==
--- NOTE | 2021-04-28 11:00 | MR ---
EXAMINATION TYPE: MR brain wo/w con DATE OF EXAM: 04/28/2021 COMPARISON: 04/24/2020 HISTORY: F/U hx neoplasm TECHNIQUE: Multiplanar, multisequence images of the brain and brainstem is performed without and with IV contras t, utilizing 5 mL intravenous Gadavist . FINDINGS: Diffusion weighted images demonstrate no evidence of a recent infarct or other diffusion ab normality. There is scattered areas of abnormal signal throughout the white matter which are not. T he ventricular system and cisternal spaces are normal in size and appearance. The brain volume is ag e appropriate. Midline structures demonstrate normal morphology. The craniocervical junction appears within normal limits. Post contrast images demonstrate no abnormal enhancement. The dural venous sinuses appear pa tent. Changes of mild chronic sinusitis and the globes are intact. IMPRESSION: 1. No enhancing mass or mass effect. 2. Nonspecific white matter changes most typical remote white matter ischemia.
== END | disposition home or self-care (01) ==
LOC: RADMRIMAIN 09:08
PROVIDERS: ATTEND Radiology Radiation Oncology
DX: Z08 Encounter for follow-up examination after completed treatment for malignant neoplasm (principal); I67.82 Cerebral ischemia; Z85.858 Personal history of malignant neoplasm of other endocrine glands; Z85.118 Personal history of other malignant neoplasm of bronchus and lung; Z87.891 Personal history of nicotine dependence; Z92.3 Personal history of irradiation; Z92.21 Personal history of antineoplastic chemotherapy
CPT/HCPCS: 70553; A9585

== ENCOUNTER → 2021-05-22 | Outpatient (CLI) | payer MEDICARE, OTHER ==
--- NOTE | 2021-05-26 10:46 | PE ---
Nuclear medicine PET/CT HISTORY: C 34.11, lung carcinoma right, subsequent Patient received 9.1 mCi F-18 FDG intravenously and delayed scanning was performed from the skull bas e to the mid thighs. Localization and attenuation correction CT scan was performed. Correlation to prior CT neck and chest 05/04/2021, the [facility] medicine PET/CT 11/10/2019 Average mediastinal uptake SUV is 1.9, average liver uptake SUV 1.9 Chest and neck: Anterior mediastinal mass not seen on prior PET/CT but noted on prior CT shows SUV 7. 9, prevascular uptake is seen. Pleural-based density in the right upper hemithorax laterally shows KIM V 9.1. Right hilar uptake SUV 2.3. Uptake along the tongue may be physiologic. Cavity is present in t he right upper lobe, diffuse pleural uptake is improved. No pleural or pericardial effusion. No addit ional suspicious uptake. ABDOMEN: No evident adrenal mass. No liver mass or retroperitoneal adenopathy. There is no ascites. N o pelvic adenopathy or suspicious uptake. Osseous structures show no suspicious uptake. IMPRESSION: Anterior mediastinal, prevascular masses have developed in the interval, there is interva l improvement as described along the pleura in the right upper hemithorax, interval increase in inten sity of uptake along the pleural margin laterally where there is abnormal soft tissue.
== END | disposition home or self-care (01) ==
LOC: RADPETMAIN 14:47
PROVIDERS: ATTEND Radiology Radiation Oncology
DX: C34.11 Malignant neoplasm of upper lobe, right bronchus or lung (principal)
CPT/HCPCS: 78815; A9552

== ENCOUNTER 2021-09-07 06:50 | Inpatient (IN) | payer MEDICARE, OTHER ==
[2021-09-07] MEDS ORDERED: SODIUM CHLORIDE 0.9% 500 ML 500 ML IV STA (07:02)
[2021-09-07] MEDS ORDERED: DILTIAZEM DRIP BOLUS FROM BAG 1 MG SOLN IV ONE (07:03)
--- NOTE | 2021-09-07 07:31 | ED ---
General Adult HPI - General Chief complaint: Shortness of Breath Stated complaint: SOB Time Seen by Provider: 09/07/21 06:52 Source: patient, RN notes reviewed Mode of arrival: ambulatory Limitations: no limitations - History of Present Illness Initial comments: This a 71-year-old female presents emergency Department via EMS with chief complaint of shortness of breath. Patient states she's had increased shortness with the last few days but worsened primarily over night into this morning. Patient is currently being treated for lung cancer. Patient states she just finished a round of chemo. Patient does have a history of anemia, history of A. fib states that she's not on any blood thinners because she states she is ALLERGIC. Patient denies any chest pain or leg swelling denies any known fevers chills no sick contacts. She has meant to some nausea vomiting. - Related Data Home Medications Medication Instructions Recorded Confirmed Levothyroxine Sodium [Synthroid] 25 mcg PO DAILY 11/19/19 09/07/21 Metoprolol Tartrate [Lopressor] 25 mg PO BID 11/19/19 09/07/21 Levalbuterol Tartrate 1 puff INHALATION RT-DAILY PRN 09/07/21 09/07/21 [Levalbuterol Tartrate 45 MCG Hfa] Allergies Allergy/AdvReac Type Severity Reaction Status Date / Time Sulfa (Sulfonamide Allergy Anaphylaxis Verified 09/07/21 07:27 Antibiotics) Review of Systems ROS Statement: Those systems with pertinent positive or pertinent negative responses have been documented in the HPI. ROS Other: All systems not noted in ROS Statement are negative. Past Medical History Past Medical History: Atrial Fibrillation, Cancer, Eye Disorder, Thyroid Disorder Additional Past Medical History / Comment(s): "FROZEN RIGHT SHOULDER" LUNG CANCER WITH CHEMO (LAST TX 08/2016), AND RADIATION (LAST TX 07/29/16), DYSPHAGIA DUE TO SCAR TISSUE FROM RADIATION [place].- IS ON SOFT DIET, STATES "MY THROAT IS THE SIZE OF A STRAW" GLAUCOMA LEFT EYE, seasonal allergies History of Any Multi-Drug Resistant Organisms: None Reported Past Surgical History: No Surgical Hx Reported Additional Past Surgical History / Comment(s): Bronchoscopy, insertion of a Mediport, mediport removed, EGD WITH DILATION X2 Past Anesthesia/Blood Transfusion Reactions: No Reported Reaction Additional Past Anesthesia/Blood Transfusion Reaction / Comment(s): STATES HX OF BLOOD TRANSFUSION- NO REACTION. "my throat is the size of a straw" Past Psychological History: No Psychological Hx Reported Smoking Status: Current every day smoker Past Alcohol Use History: None Reported Past Drug Use History: None Reported - Past Family History Mother Family Medical History: Cancer Additional Family Medical History / Comment(s): uterine,breast cancer Father Family Medical History: Cancer Additional Family Medical History / Comment(s): hodgkins Sister(s) Family Medical History: No Reported History General Exam Limitations: no limitations General appearance: alert, in no apparent distress Head exam: Present: atraumatic, normocephalic, normal inspection Eye exam: Present: normal appearance, PERRL, EOMI. Absent: scleral icterus, conjunctival injection, periorbital swelling ENT exam: Present: normal exam, normal oropharynx, mucous membranes moist Neck exam: Present: normal inspection, full ROM. Absent: tenderness, meningismus, lymphadenopathy Respiratory exam: Present: normal lung sounds bilaterally. Absent: respiratory distress, wheezes, rales, rhonchi, stridor Cardiovascular Exam: Present: normal rhythm, tachycardia, normal heart sounds. Absent: systolic murmur, diastolic murmur, rubs, gallop, clicks GI/Abdominal exam: Present: soft, normal bowel sounds. Absent: distended, tenderness, guarding, rebound, rigid Back exam: Absent: CVA tenderness (R), CVA tenderness (L) Neurological exam: Present: alert, oriented X3, CN II-XII intact Skin exam: Present: warm, dry, intact, normal color. Absent: rash Course Vital Signs 09/07/21 09/07/21 09/07/21 06:52 07:02 07:35 Temperature 97.6 F Pulse Rate 104 H 141 H Respiratory 18 20 18 Rate Blood Pressure 96/63 85/51 O2 Sat by Pulse 96 99 Oximetry 09/07/21 09/07/21 08:06 08:51 Temperature Pulse Rate 93 96 Respiratory 18 18 Rate Blood Pressure 106/46 92/46 O2 Sat by Pulse 98 97 Oximetry Medical Decision Making - Medical Decision Making 71-year-old female presented from for dyspnea. Patient's found to be an A. fib RVR, multifocal tachycardia patient started on Cardizem as her heart racing 150- 170. Heart rate was include Green, blood pressure did improve after patient converted to sinus rhythm patient's found to be severely anemic, pancytopenic with a hemoglobin 3.8. 2 units of blood were ordered. She has no active signs of bleeding. She has just finished chemotherapy in which she has had issues with anemia, thrombocytopenia and has received infusions in the past. Patient does feel greatly improved after heart rate improvement states her dyspnea has subsided some she remains to feel weak x-ray does not show any acute abnormality. Does show improvement of known cancer. Patient does have what acidosis related to hypovolemia. - Lab Data Result diagrams: 09/07/21 07:08 09/07/21 07:08 Lab Results 09/07/21 09/07/21 09/07/21 Range/Units 07:08 07:08 07:08 WBC 2.9 L (3.8-10.6) k/uL RBC 1.13 L (3.80-5.40) m/uL Hgb 3.8 L* (11.4-16.0) gm/dL Hct 11.4 L* (34.0-46.0) % MCV 100.8 H (80.0-100.0) fL MCH 33.4 (25.0-35.0) pg MCHC 33.1 (31.0-37.0) g/dL RDW 18.9 H (11.5-15.5) % Plt Count 2 L* (150-450) k/uL MPV 7.7 Neutrophils % 57 % Lymphocytes % 33 % Monocytes % 4 % Eosinophils % 1 % Basophils % 1 % Neutrophils # 1.6 (1.3-7.7) k/uL Lymphocytes # 1.0 (1.0-4.8) k/uL Monocytes # 0.1 (0-1.0) k/uL Eosinophils # 0.0 (0-0.7) k/uL Basophils # 0.0 (0-0.2) k/uL Manual Slide Review Performed Hypochromasia Slight Anisocytosis Slight Macrocytosis Moderate Sodium 136 L (137-145) mmol/L Potassium 3.9 (3.5-5.1) mmol/L Chloride 108 H (98-107) mmol/L Carbon Dioxide 20 L (22-30) mmol/L Anion Gap 8 mmol/L BUN 52 H (7-17) mg/dL Creatinine 0.73 (0.52-1.04) mg/dL Est GFR (CKD-EPI)AfAm >90 (>60 ml/min/1.73 sqM) Est GFR (CKD-EPI)NonAf 83 (>60 ml/min/1.73 sqM) Glucose 182 H (74-99) mg/dL Plasma Lactic Acid Kel 5.3 H* (0.7-2.0) mmol/L Calcium 8.7 (8.4-10.2) mg/dL Magnesium 1.3 L (1.6-2.3) mg/dL Total Bilirubin 0.9 (0.2-1.3) mg/dL AST 11 L (14-36) U/L ALT 9 (4-34) U/L Alkaline Phosphatase 68 (38-126) U/L Troponin I (0.000-0.034) ng/mL NT-Pro-B Natriuret Pep pg/mL Total Protein 5.2 L (6.3-8.2) g/dL Albumin 2.7 L (3.5-5.0) g/dL 09/07/21 09/07/21 Range/Units 07:08 07:08 WBC (3.8-10.6) k/uL RBC (3.80-5.40) m/uL Hgb (11.4-16.0) gm/dL Hct (34.0-46.0) % MCV (80.0-100.0) fL MCH (25.0-35.0) pg MCHC (31.0-37.0) g/dL RDW (11.5-15.5) % Plt Count (150-450) k/uL MPV Neutrophils % % Lymphocytes % % Monocytes % % Eosinophils % % Basophils % % Neutrophils # (1.3-7.7) k/uL Lymphocytes # (1.0-4.8) k/uL Monocytes # (0-1.0) k/uL Eosinophils # (0-0.7) k/uL Basophils # (0-0.2) k/uL Manual Slide Review Hypochromasia Anisocytosis Macrocytosis Sodium (137-145) mmol/L Potassium (3.5-5.1) mmol/L Chloride (98-107) mmol/L Carbon Dioxide (22-30) mmol/L Anion Gap mmol/L BUN (7-17) mg/dL Creatinine (0.52-1.04) mg/dL Est GFR (CKD-EPI)AfAm (>60 ml/min/1.73 sqM) Est GFR (CKD-EPI)NonAf (>60 ml/min/1.73 sqM) Glucose (74-99) mg/dL Plasma Lactic Acid Kel (0.7-2.0) mmol/L Calcium (8.4-10.2) mg/dL Magnesium (1.6-2.3) mg/dL Total Bilirubin (0.2-1.3) mg/dL AST (14-36) U/L ALT (4-34) U/L Alkaline Phosphatase (38-126) U/L Troponin I 0.023 (0.000-0.034) ng/mL NT-Pro-B Natriuret Pep 826 pg/mL Total Protein (6.3-8.2) g/dL Albumin (3.5-5.0) g/dL Critical Care Time Critical Care Time: Yes Total Critical Care Time: 35 Disposition Clinical Impression: Pancytopenia, Atrial fibrillation with RVR, Small cell lung carcinoma, Dehydration, Anemia Disposition: ADMITTED IP TO THIS HOSP Condition: Serious Referrals: None,Stated [REFERRING] - 1-2 days Time of Disposition: 09:01
[2021-09-07] MEDS: DILTIAZEM 125 MG in SODIUM CHLORIDE 0.9% 100 ML IV SCH (07:42)
[2021-09-07 07:48] LABS: INR 1.2 (<1.2); Partial Thromboplastin Time 23.8 sec (22.0-30.0); Prothrombin Time 12.9 sec (9.0-12.0)
--- NOTE | 2021-09-07 07:49 | XR ---
EXAMINATION TYPE: XR chest 2V DATE OF EXAM: 09/07/2021 COMPARISON: 11/21/2019 INDICATION: Difficulty breathing TECHNIQUE: Frontal and lateral views of the chest are obtained. FINDINGS: The heart size is normal. The pulmonary vasculature is normal. Right upper lung field density has improved with residual remaining. This is compatible with patient' s lung cancer.. There is hyperinflation and flattened diaphragms compatible COPD. IMPRESSION: 1. COPD. 2. Improved right upper lobe density.
[2021-09-07 07:57] LABS: ALT 9 U/L (4-34); AST 11 U/L (14-36); African American GFR (CKD) >90 (>60 ml/min/1.73 sqM); Albumin 2.7 g/dL (3.5-5.0); Alkaline Phosphatase 68 U/L (38-126); Anion Gap 8 mmol/L; Anisocytosis Slight; Basophils % (A) 1 %; Blood Urea Nitrogen 52 mg/dL (7-17); Calcium 8.7 mg/dL (8.4-10.2); Carbon Dioxide 20 mmol/L (22-30); Chloride 108 mmol/L (98-107); Eosinophils % (A) 1 %; Glucose 182 mg/dL (74-99); Hypochromasia Slight; Lymphocytes % (A) 33 %; MCH 33.4 pg (25.0-35.0); MCHC 33.1 g/dL (31.0-37.0); MCV 100.8 fL (80.0-100.0); Macrocytosis Moderate; Magnesium 1.3 mg/dL (1.6-2.3); Mean Platelet Volume 7.7; Monocytes # (A) 0.1 k/uL (0-1.0); Monocytes % (A) 4 %; Neutrophils # (A) 1.6 k/uL (1.3-7.7); Neutrophils % (A) 57 %; Non-African American GFR(CKD) 83 (>60 ml/min/1.73 sqM); Potassium 3.9 mmol/L (3.5-5.1); RBC 1.13 m/uL (3.80-5.40); RDW 18.9 % (11.5-15.5); Sodium 136 mmol/L (137-145); Total Bilirubin 0.9 mg/dL (0.2-1.3); Total Protein 5.2 g/dL (6.3-8.2); WBC 2.9 k/uL (3.8-10.6)
[2021-09-07 07:59] LABS: HCT 11.4 % (34.0-46.0); HGB 3.8 gm/dL (11.4-16.0)
[2021-09-07] MEDS ORDERED: MAGNESIUM SULFATE-D5W PMX 1 GM in DEXTROSE/WATER 1 100ML.BAG IVPB ONE (07:59)
[2021-09-07] MEDS ORDERED: SODIUM CHLORIDE 0.9% 1,000 ML IV SCH (08:00)
[2021-09-07 08:24] LABS: Platelet Count 2 k/uL (150-450)
[2021-09-07] MEDS ORDERED: NALOXONE 0.4 MG/ML 1 ML VIAL IV PRN (09:14)
[2021-09-07 12:40] LABS: LDH 294 U/L (313-618)
[2021-09-07 12:58] LABS: T4, Free (Free Thyroxine) 1.96 ng/dL (0.78-2.19)
[2021-09-07 14:14] LABS: Appearance,Urine Clear (Clear); Bilirubin,Urine Negative (Negative); Blood,Urine Negative (Negative); Color,Urine Yellow; Glucose,Urine (UA) Negative (Negative); Ketones,Urine Negative (Negative); Leukocyte Esterase,Urine Negative (Negative); Nitrite,Urine Negative (Negative); Protein,Urine Negative (Negative); Specific Gravity,Urine 1.015 (1.001-1.035); Urobilinogen,Urine <2.0 mg/dL (<2.0)
--- NOTE | 2021-09-07 16:03 | P.CONS ---
History of Present Illness - Reason for Consult Consult date: 09/07/21 Thrombocytopenia Requesting physician: Evelio Venegas - History of Present Illness y CT Scan. 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 The patient had PET Scan : No distant mets identified. LLL changes are likely not neoplastic. She smoked 1-2 PPD, trying to quit. Denied anorexia or weight loss, remains fully active. 06/04/16: Tolerated cycle#1 of Chemotherapy well > No side effects > developed allopecia. Cough resolved, no chest pain or SOB. 06/23/16: Feels well, tolerating concurrent Radiation/Chemotherapy well > fully active. No chest pain/SOB. 07/22/16: was admitted to [facility] with neutropenic fever (Cultures negative) and A-Fib with RVR >Recovered. She has 6 more radiation treatments. 09/01/16: Feels Ok, C/O dry cough. CT Scan of chest after 4 cycles of Carboplatinum/Etoposide + XRT > good MA. 09/09/16-Pt here today for f/u s/p 5th cycle of carbo/PERSON INVESTIGATOR. She has not felt good for a few days, she had sinus infection symptoms that are persistent (frontal fullness, pain) and over the last 24-48 hours her left eye has swollen, thick, purulent drainage, both of her ears feel full, slight sore throat and mouth, congested sounding cough, poor oral intake, decreased urine output, maybe dysuria. She states she is actually tolerating oral intake, no N,V, diarrhea, she had to treat consitpation. Temp 100.9F, tachycardia auscultated, WBC 0.1, pt directed to the ER for admission for neutropenic sepsis. 09/24/16: Feels tired, unable to walk without help, she was hospitalized at [facility] with Neutropenic fever and septic shock resulting from L orbital cellulitis, she was hospitalized in ICU for 1 week. C/O dysphagia. 10/26/16-Pt here today for acute visit, she has been having temps ranging from 99F-100.7F, the temps resolve with out medicating, she has not been feeling well for about 5-6 days, she c/o right rib and back pain with coughing, denies new/changed cough, no hemoptysis, denies odynophagia but there are "certain things I can't eat" (she was unable to describe to me why she has trouble with certain foods and what that problem exactly is), she has noticed a "sinus POLK", denies changes in vision, hearing, balance, no confusion, vomiting, dysuria, hematuria, diarrhea or constipation, she states drinking a lot ogf fluids but s he was not able to provide an adequate urine specimen for evaluation, she drank 3 bottles of water before being able to give a urine. Her is with her, he denies noticing any confusion, he had to help pt ambulate, viwibly pt was unsteady on her feet. 12/30/16: Feels Ok, eating better, no chest pain, has stable SOB. CT Scan : Improved 02/16/17: Feels Ok, still having dysphagia > had esophageal dilation by Dr Christiano Alves >improved. 05/05/17: Feels Ok, still has dysphagia. CT Scan : ? mediastinal lymphadenopathy. 08/02/17: Feels Ok, started smoking again. 10/25/17: Feels Ok, fully active, still smoking. 01/31/18: Feels well, asymptomatic, continues to smoke. 05/30/18: Feels Ok, remains asymptomatic and fully active, she is trying to "quit smoking" as she stated 08/29/18: Feels Ok, no chest pain or SOB, fully active. CT Scan of chest revealed ? Cavitary RUL lesion and 9 mm hepatic lesion of ? etiology. 12/29/18: Feels well, continues to smoke. Fully active. 05/04/19: Feels well, C/O back pain after bending down. 11/07/19: Not feeling well, C/O increasing SOB, weight loss & fatigue 11/16/19: Feels Ok. Was seen by Dr Mcelroy> bronchoscopy on Nov 20. PET Scan : Minimal SUV in noted lesions in subcarinal and R hilar areas, but no extra- thoracic abnormalities. 11/27/19: Feels "Ok", no chest pain or SOB, had bronchoscopy & Bx by Dr Mcelroy > negative results. 12/25/19: Feels well, no significant SOB, active, CT Scan stable 03/25/20: Feels well, C/O dry cough, no weight loss, has good apetite. CT Scan stable 07/22/20: Feels well, continues to smoke against advise. 05/28/21: Presented with sudden horseness > CT Scan: New L mediastinal mass > Confirmed by PET SCan revealing also R hilar lymphadenopathy > evaluated by pulmonary > not accesable for biopsy. She is C/O fatigue & anorexia, continues to smoke. Diagnosed with Small cell lung cancer and started on treatment with carboplatin, PERSON INVESTIGATOR-16 and tecentriq. Last given on 08/28/21. She was suppose to have follow-up in office today to discuss re-staging imaging but presented to hospital. Review of Systems All systems: negative Constitutional: Reports as per HPI Past Medical History Past Medical History: Atrial Fibrillation, Cancer, Eye Disorder, Thyroid Disorder Additional Past Medical History / Comment(s): "FROZEN RIGHT SHOULDER" LUNG CANCER WITH CHEMO (LAST TX 08/2016), AND RADIATION (LAST TX 07/29/16), DYSPHAGIA DUE TO SCAR TISSUE FROM RADIATION [place].- IS ON SOFT DIET, STATES "MY THROAT IS THE SIZE OF A STRAW" GLAUCOMA LEFT EYE, seasonal allergies History of Any Multi-Drug Resistant Organisms: None Reported Past Surgical History: No Surgical Hx Reported Additional Past Surgical History / Comment(s): Bronchoscopy, insertion of a Mediport, mediport removed, EGD WITH DILATION X2 Past Anesthesia/Blood Transfusion Reactions: No Reported Reaction Additional Past Anesthesia/Blood Transfusion Reaction / Comm: STATES HX OF BLOOD TRANSFUSION- NO REACTION. "my throat is the size of a straw" Past Psychological History: No Psychological Hx Reported Smoking Status: Current every day smoker Past Alcohol Use History: None Reported Past Drug Use History: None Reported - Past Family History Mother Family Medical History: Cancer Additional Family Medical History / Comment(s): uterine,breast cancer Father Family Medical History: Cancer Additional Family Medical History / Comment(s): hodgkins Sister(s) Family Medical History: No Reported History Medications and Allergies Home Medications Medication Instructions Recorded Confirmed Type Levothyroxine Sodium [Synthroid] 25 mcg PO DAILY 11/19/19 09/07/21 History Metoprolol Tartrate [Lopressor] 25 mg PO BID 11/19/19 09/07/21 History Levalbuterol Tartrate 1 puff INHALATION RT-DAILY PRN 09/07/21 09/07/21 History [Levalbuterol Tartrate 45 MCG Hfa] Allergies Allergy/AdvReac Type Severity Reaction Status Date / Time Sulfa (Sulfonamide Allergy Anaphylaxis Verified 09/07/21 07:27 Antibiotics) Physical Exam Vitals: Vital Signs Temp Pulse Resp BP Pulse Ox 09/07/21 10:27 97.6 F 93 16 100/43 98 09/07/21 09:57 97.5 F L 90 16 111/39 97 09/07/21 09:47 97.5 F L 91 16 107/42 98 09/07/21 08:51 96 18 92/46 97 09/07/21 08:06 93 18 106/46 98 09/07/21 07:35 141 H 18 85/51 99 09/07/21 07:02 20 09/07/21 06:52 97.6 F 104 H 18 96/63 96 Intake and Output 09/06/21 09/07/21 09/07/21 22:59 06:59 14:59 Intake Total 0 Balance 0 Intake: Blood Product 0 Rc As-1 Unit 0 [id number] Other: Weight 47.627 kg - Constitutional General appearance: cooperative, mild distress - EENT Eyes: EOMI ENT: hard of hearing, NA/AT - Neck Neck: normal ROM - Respiratory Respiratory: bilateral: diminished - Cardiovascular Rhythm: regularly irregular - Gastrointestinal General gastrointestinal: soft - Integumentary Integumentary: pale - Musculoskeletal Musculoskeletal: generalized weakness Results CBC & Chem 7: 09/07/21 07:08 09/07/21 07:08 Labs: Abnormal Lab Results - Last 24 Hours (Table) 09/07/21 09/07/21 09/07/21 Range/Units 07:08 07:08 07:08 WBC 2.9 L (3.8-10.6) k/uL RBC 1.13 L (3.80-5.40) m/uL Hgb 3.8 L* (11.4-16.0) gm/dL Hct 11.4 L* (34.0-46.0) % MCV 100.8 H (80.0-100.0) fL RDW 18.9 H (11.5-15.5) % Plt Count 2 L* (150-450) k/uL PT 12.9 H (9.0-12.0) sec INR 1.2 H (<1.2) Sodium 136 L (137-145) mmol/L Chloride 108 H (98-107) mmol/L Carbon Dioxide 20 L (22-30) mmol/L BUN 52 H (7-17) mg/dL Glucose 182 H (74-99) mg/dL Plasma Lactic Acid Kel (0.7-2.0) mmol/L Magnesium 1.3 L (1.6-2.3) mg/dL AST 11 L (14-36) U/L Total Protein 5.2 L (6.3-8.2) g/dL Albumin 2.7 L (3.5-5.0) g/dL Crossmatch 09/07/21 09/07/21 Range/Units 07:08 08:05 WBC (3.8-10.6) k/uL RBC (3.80-5.40) m/uL Hgb (11.4-16.0) gm/dL Hct (34.0-46.0) % MCV (80.0-100.0) fL RDW (11.5-15.5) % Plt Count (150-450) k/uL PT (9.0-12.0) sec INR (<1.2) Sodium (137-145) mmol/L Chloride (98-107) mmol/L Carbon Dioxide (22-30) mmol/L BUN (7-17) mg/dL Glucose (74-99) mg/dL Plasma Lactic Acid Kel 5.3 H* (0.7-2.0) mmol/L Magnesium (1.6-2.3) mg/dL AST (14-36) U/L Total Protein (6.3-8.2) g/dL Albumin (3.5-5.0) g/dL Crossmatch See Detail Assessment and Plan (1) Macrocytic anemia Narrative/Plan: Severe with hemoglobin 3.8 Transfusions ordered IRon and anemia studies ordered on initial blood to not be mis interpretted aftyer transfusions. Transfuse hemoglobin less than 7 Current Visit: Yes Status: Acute Code(s): D53.9 - NUTRITIONAL ANEMIA, UNSPECIFIED SNOMED Code(s): 29533039 (2) Thrombocytopenia Narrative/Plan: Severe, platelets are 2K today Transfuse Platelets DIC work-up COag review Transfuse platelets less than 10 Current Visit: Yes Status: Acute Code(s): D69.6 - THROMBOCYTOPENIA, UNSPECIFIED SNOMED Code(s): 900331327 (3) Small cell lung carcinoma Narrative/Plan: Status post chemotherapy cycle 4 with immune therapy Was suppose to have follow-up in office today however presented to hospital WIll need to see Dr. Church after discharge for plans of restaging and possible maintenance immune therapy Current Visit: Yes Status: Chronic Priority: Medium Code(s): C34.90 - MALIGNANT NEOPLASM OF UNSP PART OF UNSP BRONCHUS OR LUNG SNOMED Code(s): 274656903 (4) Hypomagnesemia Current Visit: No Status: Acute Code(s): E83.42 - HYPOMAGNESEMIA SNOMED Code(s): 703177859
[2021-09-07] MEDS ORDERED: ALBUTEROL NEBULIZED 2.5 MG/3 ML INHALATION PRN (17:23)
--- NOTE | 2021-09-07 17:38 | P.HPIM ---
History of Present Illness H&P Date: 09/07/21 Gayla Hernandez, is a 71-year-old female who presented to [facility] emergency room with a chief complaint of shortness of breath that has been worsening over the last 2 weeks but worse the last 2 days. She was evaluated in the emergency room vital examination on presentation revealed a temperature of 97.6 pulse 104 respiration 18 blood pressure 96/63 pulse ox 96% on room air Laboratory data revealed a white blood count of 2.9 hemoglobin 3.8 platelet count of 2 sodium 136 potassium 3.9 chloride 108 CO2 20 BUN 52 creatinine 0.73 glucose level 182 Testing in the emergency room revealed EKG done in the emergency room revealed evidence of atrial fibrillation with rapid ventricular response, chest x-ray done in the emergency room revealed evidence of COPD and improved right upper lobe density. Patient was given 2 units of red blood cells in the emergency room, she was started on IV Cardizem. Patient was admitted to medical floor for further evaluation and treatment. Past medical history is significant for atrial fibrillation, history of lung cancer with previous history of chemotherapy and radiation therapy followed by Dr. Church, history of COPD, history of hypothyroidism, history of esophageal stricture requiring previous dilatation. Past Medical History Past Medical History: Atrial Fibrillation, Cancer, Eye Disorder, Thyroid Disorder Additional Past Medical History / Comment(s): "FROZEN RIGHT SHOULDER" LUNG CANCER WITH CHEMO (LAST TX 08/2016), AND RADIATION (LAST TX 07/29/16), DYSPHAGIA DUE TO SCAR TISSUE FROM RADIATION [place].- IS ON SOFT DIET, STATES "MY THROAT IS THE SIZE OF A STRAW" GLAUCOMA LEFT EYE, seasonal allergies History of Any Multi-Drug Resistant Organisms: None Reported Past Surgical History: No Surgical Hx Reported Additional Past Surgical History / Comment(s): Bronchoscopy, insertion of a Med iport, mediport removed, EGD WITH DILATION X2 Past Anesthesia/Blood Transfusion Reactions: No Reported Reaction Additional Past Anesthesia/Blood Transfusion Reaction / Comment(s): STATES HX OF BLOOD TRANSFUSION- NO REACTION. "my throat is the size of a straw" Past Psychological History: No Psychological Hx Reported Smoking Status: Current every day smoker Past Alcohol Use History: None Reported Past Drug Use History: None Reported - Past Family History Mother Family Medical History: Cancer Additional Family Medical History / Comment(s): uterine,breast cancer Father Family Medical History: Cancer Additional Family Medical History / Comment(s): hodgkins Sister(s) Family Medical History: No Reported History Medications and Allergies Home Medications Medication Instructions Recorded Confirmed Type Levothyroxine Sodium [Synthroid] 25 mcg PO DAILY 11/19/19 09/07/21 History Metoprolol Tartrate [Lopressor] 25 mg PO BID 11/19/19 09/07/21 History Levalbuterol Tartrate 1 puff INHALATION RT-DAILY PRN 09/07/21 09/07/21 History [Levalbuterol Tartrate 45 MCG Hfa] Allergies Allergy/AdvReac Type Severity Reaction Status Date / Time Sulfa (Sulfonamide Allergy Anaphylaxis Verified 09/07/21 07:27 Antibiotics) Physical Exam Vitals: Vital Signs Temp Pulse Resp BP Pulse Ox 09/07/21 13:20 97.7 F 94 16 110/50 97 09/07/21 13:10 97.6 F 93 16 120/73 100 09/07/21 13:07 97.7 F 88 18 100/43 100 09/07/21 10:27 97.6 F 93 16 100/43 98 09/07/21 09:57 97.5 F L 90 16 111/39 97 09/07/21 09:47 97.5 F L 91 16 107/42 98 09/07/21 08:51 96 18 92/46 97 09/07/21 08:06 93 18 106/46 98 09/07/21 07:35 141 H 18 85/51 99 09/07/21 07:02 20 09/07/21 06:52 97.6 F 104 H 18 96/63 96 Intake and Output 09/06/21 09/07/21 09/07/21 22:59 06:59 14:59 Intake Total 310 Balance 310 Intake: Blood Product 310 Rc As-1 Unit 0 [id number] Rc As-1 Unit 310 [id number] Other: Weight 47.627 kg In general patient is alert and oriented x 3 in no distress HEENT head normocephalic and atraumatic Neck is supple no JVD no goiter no lymphadenopathy no carotid bruit Chest examination is clear to auscultation no crackles no wheezing Cardiac exam reveals regular heart sounds S1 and S2 no gallops no murmurs Abdomen is soft nontender no organomegaly with normal bowel sounds Extremity exam reveals no edema no cyanosis or clubbing Neurological examination reveals no gross focal deficits Results CBC & Chem 7: 09/07/21 07:08 09/07/21 07:08 Labs: Abnormal Lab Results - Last 24 Hours (Table) 09/07/21 09/07/21 09/07/21 Range/Units 07:08 07:08 07:08 WBC 2.9 L (3.8-10.6) k/uL RBC 1.13 L (3.80-5.40) m/uL Hgb 3.8 L* (11.4-16.0) gm/dL Hct 11.4 L* (34.0-46.0) % MCV 100.8 H (80.0-100.0) fL RDW 18.9 H (11.5-15.5) % Plt Count 2 L* (150-450) k/uL PT 12.9 H (9.0-12.0) sec INR 1.2 H (<1.2) Sodium 136 L (137-145) mmol/L Chloride 108 H (98-107) mmol/L Carbon Dioxide 20 L (22-30) mmol/L BUN 52 H (7-17) mg/dL Glucose 182 H (74-99) mg/dL Plasma Lactic Acid Kel (0.7-2.0) mmol/L Magnesium 1.3 L (1.6-2.3) mg/dL AST 11 L (14-36) U/L Lactate Dehydrogenase (313-618) U/L Total Protein 5.2 L (6.3-8.2) g/dL Albumin 2.7 L (3.5-5.0) g/dL TSH (0.465-4.680) mIU/L Crossmatch 09/07/21 09/07/21 09/07/21 Range/Units 07:08 07:08 08:05 WBC (3.8-10.6) k/uL RBC (3.80-5.40) m/uL Hgb (11.4-16.0) gm/dL Hct (34.0-46.0) % MCV (80.0-100.0) fL RDW (11.5-15.5) % Plt Count (150-450) k/uL PT (9.0-12.0) sec INR (<1.2) Sodium (137-145) mmol/L Chloride (98-107) mmol/L Carbon Dioxide (22-30) mmol/L BUN (7-17) mg/dL Glucose (74-99) mg/dL Plasma Lactic Acid Kel 5.3 H* (0.7-2.0) mmol/L Magnesium (1.6-2.3) mg/dL AST (14-36) U/L Lactate Dehydrogenase 294 L (313-618) U/L Total Protein (6.3-8.2) g/dL Albumin (3.5-5.0) g/dL TSH 5.790 H (0.465-4.680) mIU/L Crossmatch See Detail 09/07/21 Range/Units 11:50 WBC (3.8-10.6) k/uL RBC (3.80-5.40) m/uL Hgb (11.4-16.0) gm/dL Hct (34.0-46.0) % MCV (80.0-100.0) fL RDW (11.5-15.5) % Plt Count (150-450) k/uL PT (9.0-12.0) sec INR (<1.2) Sodium (137-145) mmol/L Chloride (98-107) mmol/L Carbon Dioxide (22-30) mmol/L BUN (7-17) mg/dL Glucose (74-99) mg/dL Plasma Lactic Acid Kel 9.4 H* (0.7-2.0) mmol/L Magnesium (1.6-2.3) mg/dL AST (14-36) U/L Lactate Dehydrogenase (313-618) U/L Total Protein (6.3-8.2) g/dL Albumin (3.5-5.0) g/dL TSH (0.465-4.680) mIU/L Crossmatch Assessment and Plan Plan: Severe anemia with a hemoglobin of 3.8, 2 units of red blood cell transfusion was given in the emergency room, will monitor closely Atrial fibrillation with rapid ventricular response started on IV Cardizem in the emergency room Underlying history of lung cancer with recent chemotherapy about 2 weeks ago Underlying history of hypothyroidism maintained on Synthroid Underlying history of COPD Underlying history of esophageal stricture requiring dilation in the past Underlying history of atrial fibrillation At this time patient is admitted to telemetry floor Home medications reviewed and reordered Consultation for oncology initiated Recheck labs in a.m. For DVT prophylaxis SCD stockings For GI prophylaxis omeprazole Will follow closely
[2021-09-07 18:22] LABS: Anisocytosis Slight; HCT 21.9 % (34.0-46.0); Hypochromasia Slight; MCH 32.7 pg (25.0-35.0); MCHC 35.2 g/dL (31.0-37.0); Mean Platelet Volume 11.5; Poikilocytosis Slight; RBC 2.36 m/uL (3.80-5.40); RDW 16.4 % (11.5-15.5); WBC 7.7 k/uL (3.8-10.6)
[2021-09-07 18:32] LABS: HGB 7.7 gm/dL (11.4-16.0); MCV 92.9 fL (80.0-100.0); Platelet Count 2 k/uL (150-450)
[2021-09-07] MEDS: METOPROLOL TARTRATE 25 MG TAB PO SCH (19:49)
[2021-09-08] MEDS ORDERED: DOCUSATE 100 MG CAP PO PRN (01:33)
[2021-09-08] MEDS ORDERED: SODIUM CHLORIDE 0.9% 500 ML 500 ML IV ONE (04:50)
[2021-09-08] MEDS: ONDANSETRON 4 MG/2 ML VIAL IVP PRN ×3 (05:27→16:29)
[2021-09-08] MEDS: PANTOPRAZOLE 40 MG TABLET PO SCH (05:27)
[2021-09-08] MEDS: LEVOTHYROXINE 25 MCG TAB PO SCH (05:27)
[2021-09-08] MEDS: DILTIAZEM 125 MG in SODIUM CHLORIDE 0.9% 100 ML IV SCH (07:41)
[2021-09-08] MEDS: METOPROLOL TARTRATE 25 MG TAB PO SCH ×2 (08:48→20:12)
[2021-09-08 09:21] LABS: Anisocytosis Slight; Basophils % (A) 0 %; Eosinophils % (A) 0 %; Hypochromasia Slight; Lymphocytes # (A) 1.1 k/uL (1.0-4.8); Lymphocytes % (A) 11 %; MCH 32.2 pg (25.0-35.0); MCHC 34.8 g/dL (31.0-37.0); MCV 92.6 fL (80.0-100.0); Mean Platelet Volume 12.6; Monocytes # (A) 0.4 k/uL (0-1.0); Monocytes % (A) 4 %; Neutrophils % (A) 81 %; Poikilocytosis Slight; RBC 1.71 m/uL (3.80-5.40); RDW 17.5 % (11.5-15.5); WBC 9.9 k/uL (3.8-10.6)
[2021-09-08 09:25] LABS: HCT 15.8 % (34.0-46.0); HGB 5.5 gm/dL (11.4-16.0); Platelet Count 4 k/uL (150-450)
[2021-09-08 09:31] LABS: ALT 7 U/L (4-34); AST 12 U/L (14-36); African American GFR (CKD) >90 (>60 ml/min/1.73 sqM); Alkaline Phosphatase 56 U/L (38-126); Anion Gap 5 mmol/L; Blood Urea Nitrogen 69 mg/dL (7-17); Calcium 7.9 mg/dL (8.4-10.2); Carbon Dioxide 25 mmol/L (22-30); Chloride 110 mmol/L (98-107); Glucose 147 mg/dL (74-99); Magnesium 1.3 mg/dL (1.6-2.3); Non-African American GFR(CKD) >90 (>60 ml/min/1.73 sqM); Phosphorus 2.7 mg/dL (2.5-4.5); Potassium 3.9 mmol/L (3.5-5.1); Sodium 140 mmol/L (137-145); Total Bilirubin 1.3 mg/dL (0.2-1.3); Total Protein 4.1 g/dL (6.3-8.2)
[2021-09-08 10:04] LABS: Iron 176 ug/dL (50-170)
[2021-09-08 10:05] LABS: Total Iron Binding Capacity 203 ug/dL (228-460)
[2021-09-08 10:07] LABS: INR 1.2 (<1.2); Prothrombin Time 12.9 sec (9.0-12.0)
--- NOTE | 2021-09-08 10:30 | P.CRDCN ---
History of Present Illness History of present illness: HISTORY OF PRESENT ILLNESS: This is a 71 year old female with a past medical history significant for paroxysmal atrial flutter, hypothyroidism, and small cell lung cancer. Patient follows in the office with Dr. Shanks. We have been asked to see the patient in consultation for atrial fibrillation. Patient examined at the bedside. Patient states she finished her last chemotherapy approximately 2 weeks ago. She states since that time she has not been feeling well. Patient reports feeling short of breath yesterday which prompted her to come to the emergency room. At the time of examination, she denies shortness of breath. She denies chest pain or pressure. She denies palpitations. * EKG reveals sinus tachycardia with PACs * Chest xray COPD with improved right upper lobe density * Laboratory data: WBC 9.9. Hemoglobin 5.5. Platelet count 4. Sodium 140. Potassium 3.9. BUN 69. Creatinine 0.62. Lactic acid 3.0. TSH 5.790. Free T4 1 0.96. * Current home cardiac medications include metoprolol tartrate 25 mg twice a day * Most recent echocardiogram obtained in October 2020 revealed ejection fraction 55-60% and mild mitral regurgitation * Patient underwent a Dobutamine stress test in October 2020 which was negative for stress-induced ischemia. Small fixed basal septal wall defect and normal gated SPECT images. REVIEW OF SYSTEMS: At the time of my exam: CONSTITUTIONAL: Denies fever or chills. HEENT: Denies blurred vision, vision changes, or eye pain. Denies hemoptysis CARDIOVASCULAR: Denies chest pain. Denies orthopnea. Denies PND. Denies palpitations RESPIRATORY: Denies shortness of breath. GASTROINTESTINAL: Denies abdominal pain. Denies nausea or vomiting. HEMATOLOGIC: Denies bleeding disorders. GENITOURINARY: Denies any blood in urine. SKIN: Denies pruitis. Denies rash. PHYSICAL EXAM: VITAL SIGNS: Reviewed. GENERAL: Well-developed in no acute distress. HEENT: Head is normocephalic. Pupils are equal, round. Sclerae anicteric. Mucous membranes of the mouth are moist. Neck supple. No JVD or thyromegaly LUNGS: Respirations even and unlabored. Lungs essentially clear to auscultation bilaterally. HEART: Irregular rate and rhythm. S1 and S2 heard. ABDOMEN: Soft. Nondistended. Nontender. EXTREMITIES: Normal range of motion. No clubbing or cyanosis. Peripheral pulses intact. No lower extremity edema NEUROLOGIC: Awake and alert. Oriented x 3. ASSESSMENT: Shortness of breath Pancytopenia Small cell lung cancer, with last chemotherapy 2 weeks ago Sinus tachycardia with PACs Paroxysmal atrial flutter, not on anticoagulation secondary to adverse reactions and pancytopenia Hypothyroidism PLAN: Obtain 2-D echo to assess cardiac structure and function Resume home dose of metoprolol Continue to monitor electrolytes and supplement as appropriate Oncology following for pancytopenia. Await evaluation Further recommendations pending patient course Nurse practitioner note has been reviewed by physician. Signing provider agrees with the documented findings, assessment, and plan of care. Past Medical History Past Medical History: Atrial Fibrillation, Cancer, Eye Disorder, Thyroid Disorder Additional Past Medical History / Comment(s): "FROZEN RIGHT SHOULDER" LUNG CANCER WITH CHEMO (LAST TX 08/2016), AND RADIATION (LAST TX 07/29/16), DYSPHAGIA DUE TO SCAR TISSUE FROM RADIATION TX.- IS ON SOFT DIET, STATES "MY THROAT IS THE SIZE OF A STRAW" GLAUCOMA LEFT EYE, seasonal allergies History of Any Multi-Drug Resistant Organisms: None Reported Past Surgical History: No Surgical Hx Reported Additional Past Surgical History / Comment(s): Bronchoscopy, insertion of a Mediport, mediport removed, EGD WITH DILATION X2 Past Anesthesia/Blood Transfusion Reactions: No Reported Reaction Additional Past Anesthesia/Blood Transfusion Reaction / Comment(s): STATES HX OF BLOOD TRANSFUSION- NO REACTION. "my throat is the size of a straw" Past Psychological History: No Psychological Hx Reported Smoking Status: Current every day smoker Past Alcohol Use History: None Reported Past Drug Use History: None Reported - Past Family History Mother Family Medical History: Cancer Additional Family Medical History / Comment(s): uterine,breast cancer Father Family Medical History: Cancer Additional Family Medical History / Comment(s): hodgkins Sister(s) Family Medical History: No Reported History Medications and Allergies Home Medications Medication Instructions Recorded Confirmed Type Levothyroxine Sodium [Synthroid] 25 mcg PO DAILY 11/19/19 09/07/21 History Metoprolol Tartrate [Lopressor] 25 mg PO BID 11/19/19 09/07/21 History Levalbuterol Tartrate 1 puff INHALATION RT-DAILY PRN 09/07/21 09/07/21 History [Levalbuterol Tartrate 45 MCG Hfa] Allergies Allergy/AdvReac Type Severity Reaction Status Date / Time Sulfa (Sulfonamide Allergy Anaphylaxis Verified 09/07/21 07:27 Antibiotics) Physical Exam Vitals: Vital Signs Temp Pulse Pulse Resp BP BP Pulse Ox 09/08/21 04:59 92/50 09/08/21 04:53 98.6 F 80 18 83/46 100 09/07/21 22:50 101 H 17 106/55 100 09/07/21 19:40 98.3 F 105 H 19 112/61 100 09/07/21 16:51 97.9 F 93 95 19 107/68 107/68 100 09/07/21 16:05 95 17 09/07/21 15:58 90 18 104/54 98 09/07/21 15:15 97.8 F 19 102/53 97 09/07/21 13:50 97.7 F 98 16 132/57 98 09/07/21 13:20 97.7 F 94 16 110/50 97 09/07/21 13:10 97.6 F 93 16 120/73 100 09/07/21 13:07 97.7 F 88 18 100/43 100 09/07/21 10:27 97.6 F 93 16 100/43 98 Intake and Output 09/07/21 09/08/21 09/08/21 22:59 06:59 14:59 Intake Total 310 105.5 118 Balance 310 105.5 118 Intake: Intake, IV Titration 105.5 Amount Diltiazem 125 mg In 105.5 Sodium Chloride 0.9% 100 ml @ 5 MG/HR 5 mls/hr IV .Q24H [facility] Rx#:[id number] Oral 118 Blood Product 310 Rc As-1 Unit 310 [id number] Other: Voiding Method Bedside Commode Bedside Commode # Voids 1 4 1 Results 09/08/21 08:43 09/08/21 08:43 Cardiac Enzymes 09/07/21 09/08/21 Range/Units 07:08 08:43 AST 12 L (14-36) U/L Lactate Dehydrogenase 294 L (313-618) U/L Coagulation 09/07/21 Range/Units 07:08 PT 12.9 H (9.0-12.0) sec APTT 23.8 (22.0-30.0) sec CBC 09/07/21 09/08/21 Range/Units 18:00 08:43 WBC 7.7 9.9 (3.8-10.6) k/uL RBC 2.36 L 1.71 L (3.80-5.40) m/uL Hgb 7.7 L D 5.5 L* D (11.4-16.0) gm/dL Hct 21.9 L 15.8 L* (34.0-46.0) % Plt Count 2 L* 4 L* D (150-450) k/uL Comprehensive Metabolic Panel 09/08/21 Range/Units 08:43 Sodium 140 (137-145) mmol/L Potassium 3.9 (3.5-5.1) mmol/L Chloride 110 H (98-107) mmol/L Carbon Dioxide 25 (22-30) mmol/L BUN 69 H (7-17) mg/dL Creatinine 0.62 (0.52-1.04) mg/dL Glucose 147 H (74-99) mg/dL Calcium 7.9 L (8.4-10.2) mg/dL AST 12 L (14-36) U/L ALT 7 (4-34) U/L Alkaline Phosphatase 56 (38-126) U/L Total Protein 4.1 L (6.3-8.2) g/dL Albumin 2.0 L (3.5-5.0) g/dL Current Medications Generic Name Dose Route Start Last Admin Trade Name Freq PRN Reason Stop Dose Admin Albuterol Sulfate 2.5 mg 09/07/21 17:23 Albuterol Nebulized 2.5 Mg/3 Ml INHALATION RT-DAILY PRN Shortness Of Breath Docusate Sodium 100 mg 09/08/21 01:33 Docusate 100 Mg Cap PO BID PRN Constipation Levothyroxine Sodium 25 mcg 09/08/21 06:30 09/08/21 05:27 Levothyroxine 25 Mcg Tab PO 25 mcg 0630 ELO Administration Metoprolol Tartrate 25 mg 09/07/21 21:00 09/08/21 08:48 Metoprolol Tartrate 25 Mg Tab PO 25 mg BID ELO Administration Naloxone HCl 0.2 mg 09/07/21 09:14 Naloxone 0.4 Mg/Ml 1 Ml Vial IV Q2M PRN Opioid Reversal Ondansetron HCl 4 mg 09/08/21 01:32 09/08/21 09:22 Ondansetron 4 Mg/2 Ml Vial IVP 4 mg Q6HR PRN Administration Nausea And Vomiting Pantoprazole Sodium 40 mg 09/08/21 07:30 09/08/21 05:27 Pantoprazole 40 Mg Tablet PO 40 mg [id number] ELO Administration Intake and Output 09/07/21 09/08/21 09/08/21 22:59 06:59 14:59 Intake Total 310 105.5 118 Balance 310 105.5 118 Intake: Intake, IV Titration 105.5 Amount Diltiazem 125 mg In 105.5 Sodium Chloride 0.9% 100 ml @ 5 MG/HR 5 mls/hr IV .Q24H [facility] Rx#:[id number] Oral 118 Blood Product 310 Rc As-1 Unit 310 [id number] Other: Voiding Method Bedside Commode Bedside Commode # Voids 1 4 1 09/08/21 08:43 09/08/21 08:43
--- NOTE | 2021-09-08 15:12 | CA ---
Transthoracic Echo Report Name: Gayla Hernandez Age: 71 Gender: F : 1950 Exam Date: 09/08/2021 11:01 Exam Location: [facility] Ht (in): 68 Wt (lb): 105 Ordering Physician: Saadia Garcia Attending/Referring Phys: [id number], Jose Mill Tender Second Operator Maggie Hassan RDCS Procedure CPT: Indications: LV function Cardiac Hx: Technical Quality: Fair Contrast 1: N/A Total Dose (mL): Contrast 2: Total Dose (mL): MEASUREMENTS (Male / Female) Normal Values 2D ECHO LV Diastolic Diameter PLAX 3.4 cm 4.2 - 5.9 / 3.9 - 5.3 cm LV Systolic Diameter PLAX 2.7 cm IVS Diastolic Thickness 0.6 cm 0.6 - 1.0 / 0.6 - 0.9 cm LVPW Diastolic Thickness 1.3 cm 0.6 - 1.0 / 0.6 - 0.9 cm LV Relative Wall Thickness 0.6 M-MODE Aortic Root Diameter MM 3.2 cm MV E Point Septal Separation 1.5 cm DOPPLER MV Area PHT 4.0 cm??? Mitral E Point Velocity 84.7 cm/s Mitral A Point Velocity 88.5 cm/s Mitral E to A Ratio 1.0 MV Deceleration Time 190.8 ms MV E' Velocity 9.3 cm/s Mitral E to MV E' Ratio 9.1 FINDINGS Left Ventricle Normal left ventricular size, wall thickness, systolic function with no obvious regional wall motion abnormalities. The ejection fraction is visually estimated at 50-55 %. Right Ventricle The right ventricle is normal in size and function. Right ventricular systolic pressure within normal limits. Right Atrium The right atrium is normal in size. Left Atrium The left atrium is normal in size. Mitral Valve Structurally normal mitral valve.[id number] mitral regurgitation. Aortic Valve Aortic valve not well visualized. Tricuspid Valve Structurally normal tricuspid valve. Pulmonic Valve Pulmonic valve not well visualized. Pericardium Echo free space anterior to the right ventricle likely represents a fat pad. Aorta Normal aortic root dimension. CONCLUSIONS Normal LV size and systolic function Normal RV size and function Previewed by: Dr. Vincent Chery MD (Electronically Signed) Final Date: 08 September 2021 15:10
--- NOTE | 2021-09-08 15:34 | P.PN ---
Subjective Progress Note Date: 09/08/21 Principal diagnosis: bicytopenia, completed chemotherapy/IO, small cell lung cancer. in follow-up today patient continues to have vomiting, denies significant nausea, congested cough, short of breath with any activity, denies fevers, bleeding, pain. Objective - Vital Signs Vital signs: Vital Signs Temp 98.0 F 09/08/21 14:47 Pulse 89 09/08/21 14:47 Resp 20 09/08/21 14:47 BP 111/49 09/08/21 14:47 Pulse Ox 99 09/08/21 14:47 FiO2 Intake & Output 09/07/21 09/08/21 09/08/21 18:59 06:59 18:59 Intake Total 620 105.5 650 Output Total 200 Balance 420 105.5 650 Weight 47.627 kg 47.627 kg Intake: Intake, IV Titration 105.5 Amount Diltiazem 125 mg In 105.5 Sodium Chloride 0.9% 100 ml @ 5 MG/HR 5 mls/hr IV .Q24H [facility] Rx#:[id number] Oral 340 Blood Product 620 310 Rc As-1 Unit 310 [id number] Rc As-1 Unit 310 [id number] Rc As-1 Unit 310 [id number] Output: Urine 200 Other: Voiding Method Bedside Commode Bedside Commode # Voids 1 4 1 # Bowel Movements 1 - Constitutional General appearance: Present: cooperative, mild distress, thin - EENT Eyes: Present: anicteric sclerae, EOMI ENT: Present: hearing grossly normal - Respiratory Respiratory: bilateral: rhonchi (scattered, right greater than left) - Cardiovascular Rhythm: regular Heart sounds: normal: S1, S2 Abnormal Heart Sounds: Absent: systolic murmur, diastolic murmur, rub, S3 Gallop, S4 Gallop, click, other - Peripheral edema leg Peripheral Edema: bilateral: None - Gastrointestinal General gastrointestinal: Present: normal bowel sounds, soft - Integumentary Integumentary: Present: pale - Neurologic Neurologic: Present: CNII-XII intact (grossly) - Musculoskeletal Musculoskeletal: Present: generalized weakness, strength equal bilaterally - Psychiatric Psychiatric: Present: A&O x's 3, appropriate affect, intact judgment & insight - Labs CBC & Chem 7: 09/08/21 08:43 06/21/22 08:43 Labs: Abnormal Lab Results - Last 24 Hours (Table) 09/07/21 09/07/21 09/07/21 Range/Units 07:08 07:08 08:05 RBC (3.80-5.40) m/uL Hgb (11.4-16.0) gm/dL Hct (34.0-46.0) % RDW (11.5-15.5) % Plt Count (150-450) k/uL Neutrophils # (1.3-7.7) k/uL PT (9.0-12.0) sec INR (<1.2) Chloride (98-107) mmol/L BUN (7-17) mg/dL Glucose (74-99) mg/dL Plasma Lactic Acid Kel (0.7-2.0) mmol/L Calcium (8.4-10.2) mg/dL Magnesium (1.6-2.3) mg/dL Iron 176 H (50-170) ug/dL TIBC 203 L (228-460) ug/dL % Saturation 86.70 H (12.00-45.00) Transferrin 145.0 L (204.0-354.0) mg/dL Ferritin 1309.0 H (10.0-291.0) ng/mL AST (14-36) U/L Total Protein (6.3-8.2) g/dL Albumin (3.5-5.0) g/dL Vitamin B12 >2000.0 H (200.0-944.0) pg/mL Crossmatch See Detail 09/07/21 09/07/21 09/08/21 Range/Units 18:00 18:00 08:43 RBC 2.36 L (3.80-5.40) m/uL Hgb 7.7 L D (11.4-16.0) gm/dL Hct 21.9 L (34.0-46.0) % RDW 16.4 H (11.5-15.5) % Plt Count 2 L* (150-450) k/uL Neutrophils # (1.3-7.7) k/uL PT 12.9 H (9.0-12.0) sec INR 1.2 H (<1.2) Chloride (98-107) mmol/L BUN (7-17) mg/dL Glucose (74-99) mg/dL Plasma Lactic Acid Kel 3.0 H* (0.7-2.0) mmol/L Calcium (8.4-10.2) mg/dL Magnesium (1.6-2.3) mg/dL Iron (50-170) ug/dL TIBC (228-460) ug/dL % Saturation (12.00-45.00) Transferrin (204.0-354.0) mg/dL Ferritin (10.0-291.0) ng/mL AST (14-36) U/L Total Protein (6.3-8.2) g/dL Albumin (3.5-5.0) g/dL Vitamin B12 (200.0-944.0) pg/mL Crossmatch 09/08/21 09/08/21 Range/Units 08:43 08:43 RBC 1.71 L (3.80-5.40) m/uL Hgb 5.5 L* D (11.4-16.0) gm/dL Hct 15.8 L* (34.0-46.0) % RDW 17.5 H (11.5-15.5) % Plt Count 4 L* D (150-450) k/uL Neutrophils # 8.0 H (1.3-7.7) k/uL PT (9.0-12.0) sec INR (<1.2) Chloride 110 H (98-107) mmol/L BUN 69 H (7-17) mg/dL Glucose 147 H (74-99) mg/dL Plasma Lactic Acid Kel (0.7-2.0) mmol/L Calcium 7.9 L (8.4-10.2) mg/dL Magnesium 1.3 L (1.6-2.3) mg/dL Iron (50-170) ug/dL TIBC (228-460) ug/dL % Saturation (12.00-45.00) Transferrin (204.0-354.0) mg/dL Ferritin (10.0-291.0) ng/mL AST 12 L (14-36) U/L Total Protein 4.1 L (6.3-8.2) g/dL Albumin 2.0 L (3.5-5.0) g/dL Vitamin B12 (200.0-944.0) pg/mL Crossmatch - Imaging and Cardiology echo report reviewed, LVEF 50-55% Assessment and Plan (1) Anemia Current Visit: Yes Status: Acute Priority: High Code(s): D64.9 - ANEMIA, UNSPECIFIED SNOMED Code(s): 510713966 (2) Thrombocytopenia Current Visit: Yes Status: Acute Priority: High Code(s): D69.6 - THROMBOCYTOPENIA, UNSPECIFIED SNOMED Code(s): 183968859 (3) Vomiting Current Visit: Yes Status: Acute Priority: High Code(s): R11.10 - VOMITING, UNSPECIFIED SNOMED Code(s): 063430421 (4) Small cell lung carcinoma Current Visit: Yes Status: Chronic Priority: Medium Code(s): C34.90 - MALIGNANT NEOPLASM OF UNSP PART OF UNSP BRONCHUS OR LUNG SNOMED Code(s): 939705330 Plan: 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 Coags near normal, fibrinogen normal. No labs suggestive of hemolysis. CBC reviewed. For patient's hemoglobin of 3.8 on admit, status post 2 units of PRBCs hemoglobin of 5.8 would be more reasonable than a hemoglobin of 7. Patient is not reporting any bleeding. Hemoglobin 5.5 today. 1 unit PRBCs ordered. 1 unit single donor platelets ordered for a platelet count of 4000. CBC in a.m. Lactic acid decreasing, patient is on empiric antibiotics. Cultures thus far negative. Patient remains afebrile. Ordered incentive spirometry for patient. Continue to monitor patient vomiting. Ordered soft diet. Anti-emetics available. If persistent or progressive may need to consider endoscopy. Follow up with primary Oncologist for further plans regarding treatment of lung cancer.
[2021-09-08] MEDS ORDERED: METOPROLOL TARTRATE 12.5 MG TAB PO STA (22:23)
[2021-09-09] MEDS ORDERED: DEXTROSE 5% IN WATER 100 ML with AMIODARONE 150 MG IV ONE (00:16)
[2021-09-09 00:43] LABS: Glucose,Whole Blood 212 mg/dL (70-110)
[2021-09-09] MEDS ORDERED: AMIODARONE 360 MG in DEXTROSE 5% IN WATER 200 ML IV ONE ×2 (01:00)
[2021-09-09] MEDS ORDERED: METOPROLOL TARTRATE 12.5 MG TAB PO STA (01:22)
--- NOTE | 2021-09-09 01:26 | XR ---
EXAM: XR Chest, 1 View CLINICAL HISTORY: ITS.REASON XR Reason: increased O2 demand TECHNIQUE: Frontal view of the chest. COMPARISON: 09/07/2021: FINDINGS: Lungs: Continued cavitation in the right lung apex with some opacification and scarring. Lung hyperinflation compatible with COPD. Pleural space: New small left pleural effusion. Left basilar atelectasis/consolidation. Heart: No cardiomegaly. Bones/joints: No acute osseous abnormality. IMPRESSION: New small left pleural effusion. Left basilar atelectasis/consolidation.
[2021-09-09 01:59] LABS: ALT 9 U/L (4-34); AST 15 U/L (14-36); African American GFR (CKD) >90 (>60 ml/min/1.73 sqM); Albumin 2.2 g/dL (3.5-5.0); Alkaline Phosphatase 69 U/L (38-126); Anion Gap 2 mmol/L; Blood Urea Nitrogen 63 mg/dL (7-17); Calcium 8.3 mg/dL (8.4-10.2); Carbon Dioxide 26 mmol/L (22-30); Chloride 111 mmol/L (98-107); Glucose 163 mg/dL (74-99); Non-African American GFR(CKD) >90 (>60 ml/min/1.73 sqM); Potassium 3.3 mmol/L (3.5-5.1); Sodium 139 mmol/L (137-145); Total Bilirubin 1.4 mg/dL (0.2-1.3); Total Protein 4.3 g/dL (6.3-8.2)
[2021-09-09 02:02] LABS: Anisocytosis Slight; MCH 31.8 pg (25.0-35.0); MCHC 34.7 g/dL (31.0-37.0); MCV 91.5 fL (80.0-100.0); Mean Platelet Volume 8.9; Poikilocytosis Slight; RBC 1.79 m/uL (3.80-5.40); RDW 16.3 % (11.5-15.5); WBC 14.3 k/uL (3.8-10.6)
[2021-09-09 02:05] LABS: HGB 5.7 gm/dL (11.4-16.0)
[2021-09-09 02:06] LABS: HCT 16.4 % (34.0-46.0); Platelet Count 69 k/uL (150-450)
[2021-09-09] MEDS: LEVOTHYROXINE 25 MCG TAB PO SCH (06:14)
[2021-09-09] MEDS: PANTOPRAZOLE 40 MG TABLET PO SCH (06:14)
[2021-09-09] MEDS ORDERED: AMIODARONE 450 MG in DEXTROSE 5% IN WATER 250 ML IV SCH ×2 (06:30)
[2021-09-09] MEDS: METOPROLOL TARTRATE 25 MG TAB PO SCH ×2 (08:15→16:49)
--- NOTE | 2021-09-09 10:02 | P.PN ---
Subjective Progress Note Date: 09/08/21 Gayla Hernandez, is a 71-year-old female who presented to [facility] emergency room with a chief complaint of shortness of breath that has been worsening over the last 2 weeks but worse the last 2 days. She was evaluated in the emergency room vital examination on presentation reve aled a temperature of 97.6 pulse 104 respiration 18 blood pressure 96/63 pulse ox 96% on room air Laboratory data revealed a white blood count of 2.9 hemoglobin 3.8 platelet count of 2 sodium 136 potassium 3.9 chloride 108 CO2 20 BUN 52 creatinine 0.73 glucose level 182 Testing in the emergency room revealed EKG done in the emergency room revealed evidence of atrial fibrillation with rapid ventricular response, chest x-ray done in the emergency room revealed evidence of COPD and improved right upper lobe density. Patient was given 2 units of red blood cells in the emergency room, she was star sean on IV Cardizem. Patient was admitted to medical floor for further evaluation and treatment. Past medical history is significant for atrial fibrillation, history of lung cancer with previous history of chemotherapy and radiation therapy followed by Dr. Church, history of COPD, history of hypothyroidism, history of esophageal stricture requiring previous dilatation. On 09/08/2021 patient is alert and oriented 3 status post blood transfusion. Hemoglobin continued to be low at 5.5. Blood product ordered per oncology. Oncology and cardiology services following Objective - Vital Signs Vital signs: Vital Signs Temp 98.0 F 09/08/21 14:47 Pulse 89 09/08/21 14:47 Resp 20 09/08/21 14:47 BP 111/49 09/08/21 14:47 Pulse Ox 99 09/08/21 14:47 FiO2 Intake & Output 09/07/21 09/08/21 09/08/21 18:59 06:59 18:59 Intake Total 620 105.5 650 Output Total 200 Balance 420 105.5 650 Weight 47.627 kg 47.627 kg Intake: Intake, IV Titration 105.5 Amount Diltiazem 125 mg In 105.5 Sodium Chloride 0.9% 100 ml @ 5 MG/HR 5 mls/hr IV .Q24H [facility] Rx#:[id number] Oral 340 Blood Product 620 310 Rc As-1 Unit 310 [id number] Rc As-1 Unit 310 [id number] Rc As-1 Unit 310 [id number] Output: Urine 200 Other: Voiding Method Bedside Commode Bedside Commode # Voids 1 4 1 # Bowel Movements 1 - Exam In general patient is alert and oriented x 3 in no distress HEENT head normocephalic and atraumatic Neck is supple no JVD no goiter no lymphadenopathy no carotid bruit Chest examination is clear to auscultation no crackles no wheezing Cardiac exam reveals regular heart sounds S1 and S2 no gallops no murmurs Abdomen is soft nontender no organomegaly with normal bowel sounds Extremity exam reveals no edema no cyanosis or clubbing Neurological examination reveals no gross focal deficits - Labs CBC & Chem 7: 09/09/21 01:19 09/09/21 01:19 Labs: Abnormal Lab Results - Last 24 Hours (Table) 09/07/21 09/07/21 09/07/21 Range/Units 07:08 07:08 08:05 RBC (3.80-5.40) m/uL Hgb (11.4-16.0) gm/dL Hct (34.0-46.0) % RDW (11.5-15.5) % Plt Count (150-450) k/uL Neutrophils # (1.3-7.7) k/uL PT (9.0-12.0) sec INR (<1.2) Chloride (98-107) mmol/L BUN (7-17) mg/dL Glucose (74-99) mg/dL Plasma Lactic Acid Kel (0.7-2.0) mmol/L Calcium (8.4-10.2) mg/dL Magnesium (1.6-2.3) mg/dL Iron 176 H (50-170) ug/dL TIBC 203 L (228-460) ug/dL % Saturation 86.70 H (12.00-45.00) Transferrin 145.0 L (204.0-354.0) mg/dL Ferritin 1309.0 H (10.0-291.0) ng/mL AST (14-36) U/L Total Protein (6.3-8.2) g/dL Albumin (3.5-5.0) g/dL Vitamin B12 >2000.0 H (200.0-944.0) pg/mL Crossmatch See Detail 09/07/21 09/07/2109/08/22 Range/Units 18:00 18:00 08:43 RBC 2.36 L (3.80-5.40) m/uL Hgb 7.7 L D (11.4-16.0) gm/dL Hct 21.9 L (34.0-46.0) % RDW 16.4 H (11.5-15.5) % Plt Count 2 L* (150-450) k/uL Neutrophils # (1.3-7.7) k/uL PT 12.9 H (9.0-12.0) sec INR 1.2 H (<1.2) Chloride (98-107) mmol/L BUN (7-17) mg/dL Glucose (74-99) mg/dL Plasma Lactic Acid Kel 3.0 H* (0.7-2.0) mmol/L Calcium (8.4-10.2) mg/dL Magnesium (1.6-2.3) mg/dL Iron (50-170) ug/dL TIBC (228-460) ug/dL % Saturation (12.00-45.00) Transferrin (204.0-354.0) mg/dL Ferritin (10.0-291.0) ng/mL AST (14-36) U/L Total Protein (6.3-8.2) g/dL Albumin (3.5-5.0) g/dL Vitamin B12 (200.0-944.0) pg/mL Crossmatch 09/08/21 09/08/21 Range/Units 08:43 08:43 RBC 1.71 L (3.80-5.40) m/uL Hgb 5.5 L* D (11.4-16.0) gm/dL Hct 15.8 L* (34.0-46.0) % RDW 17.5 H (11.5-15.5) % Plt Count 4 L* D (150-450) k/uL Neutrophils # 8.0 H (1.3-7.7) k/uL PT (9.0-12.0) sec INR (<1.2) Chloride 110 H (98-107) mmol/L BUN 69 H (7-17) mg/dL Glucose 147 H (74-99) mg/dL Plasma Lactic Acid Kel (0.7-2.0) mmol/L Calcium 7.9 L (8.4-10.2) mg/dL Magnesium 1.3 L (1.6-2.3) mg/dL Iron (50-170) ug/dL TIBC (228-460) ug/dL % Saturation (12.00-45.00) Transferrin (204.0-354.0) mg/dL Ferritin (10.0-291.0) ng/mL AST 12 L (14-36) U/L Total Protein 4.1 L (6.3-8.2) g/dL Albumin 2.0 L (3.5-5.0) g/dL Vitamin B12 (200.0-944.0) pg/mL Crossmatch Assessment and Plan Plan: Severe anemia with a hemoglobin of 3.8, 2 units of red blood cell transfusion was given in the emergency room, will monitor closely Atrial fibrillation with rapid ventricular response started on IV Cardizem in the emergency room Underlying history of lung cancer with recent chemotherapy about 2 weeks ago Underlying history of hypothyroidism maintained on Synthroid Underlying history of COPD Underlying history of esophageal stricture requiring dilation in the past Underlying history of atrial fibrillation At this time patient is admitted to telemetry floor Home medications reviewed and reordered Consultation for oncology initiated Recheck labs in a.m. For DVT prophylaxis SCD stockings For GI prophylaxis omeprazole Will follow closely
--- NOTE | 2021-09-09 10:04 | P.PN ---
Subjective Progress Note Date: 09/09/21 Gayla Hernandez, is a 71-year-old female who presented to [facility] emergency room with a chief complaint of shortness of breath that has been worsening over the last 2 weeks but worse the last 2 days. She was evaluated in the emergency room vital examination on presentation reve aled a temperature of 97.6 pulse 104 respiration 18 blood pressure 96/63 pulse ox 96% on room air Laboratory data revealed a white blood count of 2.9 hemoglobin 3.8 platelet count of 2 sodium 136 potassium 3.9 chloride 108 CO2 20 BUN 52 creatinine 0.73 glucose level 182 Testing in the emergency room revealed EKG done in the emergency room revealed evidence of atrial fibrillation with rapid ventricular response, chest x-ray done in the emergency room revealed evidence of COPD and improved right upper lobe density. Patient was given 2 units of red blood cells in the emergency room, she was star sean on IV Cardizem. Patient was admitted to medical floor for further evaluation and treatment. Past medical history is significant for atrial fibrillation, history of lung cancer with previous history of chemotherapy and radiation therapy followed by Dr. Church, history of COPD, history of hypothyroidism, history of esophageal stricture requiring previous dilatation. On 09/08/2021 patient is alert and oriented 3 status post blood transfusion. Hemoglobin continued to be low at 5.5. Blood product ordered per oncology. Oncology and cardiology services following On 09/09/2021 patient is alert and oriented 3. At this time patient having some nausea and dry heaves. Zofran has been ordered. Awaiting blood recheck. Patient had potential reaction to amiodarone throughout night with tachycardia and low oxygen. At that time hemoglobin was checked hemoglobin low at 5.7 1 unit PRBCs was ordered. Current vitals temp 98.2, heart rate 99, respiratory rate 22 with a blood pressure 105/59. Patient satting 99% on 3 L Objective - Vital Signs Vital signs: Vital Signs Temp 98.2 F 09/09/21 08:14 Pulse 99 09/09/21 08:14 Resp 22 09/09/21 08:14 BP 105/59 09/09/21 08:14 Pulse Ox 99 09/09/21 08:14 FiO2 Intake & Output 09/08/21 09/09/21 09/09/21 18:59 06:59 18:59 Intake Total 890 667 0 Balance 890 667 0 Weight 47.627 kg Intake: Oral 580 0 Blood Product 310 667 Platelet Pheresis Pas 357 Psoralen Unit [id number] Rc As-1 Unit 310 [id number] As-1 Unit 310 [id number] Other: Voiding Method Bedside Commode # Voids 1 2 1 # Bowel Movements 0 - Exam In general patient is alert and oriented x 3 in no distress HEENT head normocephalic and atraumatic Neck is supple no JVD no goiter no lymphadenopathy no carotid bruit Chest examination is clear to auscultation no crackles no wheezing Cardiac exam reveals regular heart sounds S1 and S2 no gallops no murmurs Abdomen is soft nontender no organomegaly with normal bowel sounds Extremity exam reveals no edema no cyanosis or clubbing Neurological examination reveals no gross focal deficits - Labs CBC & Chem 7: 09/09/21 01:19 09/09/21 01:19 Labs: Abnormal Lab Results - Last 24 Hours (Table) 09/07/21 09/07/21 09/08/21 Range/Units 07:08 08:05 08:43 WBC (3.8-10.6) k/uL RBC (3.80-5.40) m/uL Hgb (11.4-16.0) gm/dL Hct (34.0-46.0) % RDW (11.5-15.5) % Plt Count (150-450) k/uL Neutrophils # (1.3-7.7) k/uL PT 12.9 H (9.0-12.0) sec INR 1.2 H (<1.2) Potassium (3.5-5.1) mmol/L Chloride (98-107) mmol/L BUN (7-17) mg/dL Glucose (74-99) mg/dL POC Glucose (mg/dL) (70-110) mg/dL Calcium (8.4-10.2) mg/dL Iron 176 H (50-170) ug/dL TIBC 203 L (228-460) ug/dL % Saturation 86.70 H (12.00-45.00) Transferrin 145.0 L (204.0-354.0) mg/dL Ferritin 1309.0 H (10.0-291.0) ng/mL Total Bilirubin (0.2-1.3) mg/dL Total Protein (6.3-8.2) g/dL Albumin (3.5-5.0) g/dL Crossmatch See Detail 09/08/21 09/09/21 09/09/21 Range/Units 08:43 00:41 01:19 WBC 14.3 H (3.8-10.6) k/uL RBC 1.79 L (3.80-5.40) m/uL Hgb 5.7 L* (11.4-16.0) gm/dL Hct 16.4 L* (34.0-46.0) % RDW 16.3 H (11.5-15.5) % Plt Count 69 L D (150-450) k/uL Neutrophils # 8.0 H (1.3-7.7) k/uL PT (9.0-12.0) sec INR (<1.2) Potassium (3.5-5.1) mmol/L Chloride (98-107) mmol/L BUN (7-17) mg/dL Glucose (74-99) mg/dL POC Glucose (mg/dL) 212 H (70-110) mg/dL Calcium (8.4-10.2) mg/dL Iron (50-170) ug/dL TIBC (228-460) ug/dL % Saturation (12.00-45.00) Transferrin (204.0-354.0) mg/dL Ferritin (10.0-291.0) ng/mL Total Bilirubin (0.2-1.3) mg/dL Total Protein (6.3-8.2) g/dL Albumin (3.5-5.0) g/dL Crossmatch 09/09/21 Range/Units 01:19 WBC (3.8-10.6) k/uL RBC (3.80-5.40) m/uL Hgb (11.4-16.0) gm/dL Hct (34.0-46.0) % RDW (11.5-15.5) % Plt Count (150-450) k/uL Neutrophils # (1.3-7.7) k/uL PT (9.0-12.0) sec INR (<1.2) Potassium 3.3 L (3.5-5.1) mmol/L Chloride 111 H (98-107) mmol/L BUN 63 H (7-17) mg/dL Glucose 163 H (74-99) mg/dL POC Glucose (mg/dL) (70-110) mg/dL Calcium 8.3 L (8.4-10.2) mg/dL Iron (50-170) ug/dL TIBC (228-460) ug/dL % Saturation (12.00-45.00) Transferrin (204.0-354.0) mg/dL Ferritin (10.0-291.0) ng/mL Total Bilirubin 1.4 H (0.2-1.3) mg/dL Total Protein 4.3 L (6.3-8.2) g/dL Albumin 2.2 L (3.5-5.0) g/dL Crossmatch Microbiology - Last 24 Hours (Table) 09/07/21 18:11 Blood Culture - Preliminary Blood No Growth after 24 hours 09/07/21 18:00 Blood Culture - Preliminary Blood No Growth after 24 hours Assessment and Plan Plan: Severe anemia with a hemoglobin of 3.8, 2 units of red blood cell transfusion was given in the emergency room, will monitor closely Atrial fibrillation with rapid ventricular response started on IV Cardizem in the emergency room. Resolved Underlying history of lung cancer with recent chemotherapy about 2 weeks ago Underlying history of hypothyroidism maintained on Synthroid Underlying history of COPD Underlying history of esophageal stricture requiring dilation in the past Underlying history of atrial fibrillation At this time patient is admitted to telemetry floor Home medications reviewed and reordered Cardiology and oncology service is following Status post transfusion of 4 units of PRBCs and 1 unit of platelets Continue to monitor patient closely and transfuse as needed
[2021-09-09 11:15] LABS: HCT 21.9 % (34.0-46.0); MCH 32.1 pg (25.0-35.0); MCHC 34.8 g/dL (31.0-37.0); MCV 92.4 fL (80.0-100.0); Mean Platelet Volume 8.7; RBC 2.37 m/uL (3.80-5.40); RDW 14.7 % (11.5-15.5); WBC 16.1 k/uL (3.8-10.6)
--- NOTE | 2021-09-09 11:20 | P.PN ---
Subjective Progress Note Date: 09/09/21 HISTORY OF PRESENT ILLNESS: This is a 71 year old female with a past medical history significant for paroxysmal atrial flutter, hypothyroidism, and small cell lung cancer. Patient follows in the office with Dr. Shanks. We have been asked to see the patient in consultation for atrial fibrillation. Patient examined at the bedside. Patient states she finished her last chemotherapy approximately 2 weeks ago. She states since that time she has not been feeling well. Patient reports feeling short of breath yesterday which prompted her to come to the emergency room. At the time of examination, she denies shortness of breath. She denies chest pain or pressure. She denies palpitations. * EKG reveals sinus tachycardia with PACs * Chest xray COPD with improved right upper lobe density * Laboratory data: WBC 9.9. Hemoglobin 5.5. Platelet count 4. Sodium 140. Potassium 3.9. BUN 69. Creatinine 0.62. Lactic acid 3.0. TSH 5.790. Free T4 1 0.96. * Current home cardiac medications include metoprolol tartrate 25 mg twice a day * Most recent echocardiogram obtained in October 2020 revealed ejection fraction 55-60% and mild mitral regurgitation * Patient underwent a Dobutamine stress test in October 2020 which was negative for stress-induced ischemia. Small fixed basal septal wall defect and normal gated SPECT images. 09/09/2021 Patient examined this morning at the bedside. Patient denies chest pain or pressure. She currently denies shortness of breath. Patient was started on amiodarone drip overnight for A. fib with uncontrolled ventricular rate. The patient had an reaction today amiodarone and her infusion was discontinued. Patient is going in and out of atrial fibrillation and sinus mechanism with PACs She is currently on metoprolol 25 mg twice a day. Patient remains anemic with a hemoglobin of 5.7 this morning. Patient has received 4 units of RBCs. Echocardiogram completed revealing preserved systolic function with an ejection fraction of 50-55%. PHYSICAL EXAM: VITAL SIGNS: Reviewed. GENERAL: Well-developed in no acute distress. HEENT: Head is normocephalic. Pupils are equal, round. Sclerae anicteric. Mucous membranes of the mouth are moist. Neck supple. No JVD or thyromegaly LUNGS: Respirations even and unlabored. Lungs essentially clear to auscultation bilaterally. HEART: Tachycardic. Irregular rate and rhythm. S1 and S2 heard. ABDOMEN: Soft. Nondistended. Nontender. EXTREMITIES: Normal range of motion. No clubbing or cyanosis. Peripheral pulses intact. No lower extremity edema NEUROLOGIC: Awake and alert. Oriented x 3. ASSESSMENT: Shortness of breath Pancytopenia Small cell lung cancer, with last chemotherapy 2 weeks ago Sinus tachycardia with PACs Paroxysmal atrial fibrillation/ typical atrial flutter, not on anticoagulation secondary to adverse reactions and pancytopenia Hypothyroidism PLAN: Continue current cardiac medications Increase metoprolol to 25 mg 3 times a day Tachycardia likely secondary to anemia. Recommend to treat underlying cause of tachycardia and suspect heart rate will improve Further recommendations pending patient course Nurse practitioner note has been reviewed by physician. Signing provider agrees with the documented findings, assessment, and plan of care. Objective - Vital Signs Vital signs: Vital Signs Temp 98.2 F 09/09/21 08:14 Pulse 99 09/09/21 08:14 Resp 22 09/09/21 08:14 BP 105/59 09/09/21 08:14 Pulse Ox 99 09/09/21 08:14 FiO2 Intake & Output 09/08/21 09/09/21 09/09/21 18:59 06:59 18:59 Intake Total 890 667 0 Balance 890 667 0 Weight 47.627 kg Intake: Oral 580 0 Blood Product 310 667 Platelet Pheresis Pas 357 Psoralen Unit [id number] As-1 Unit 310 [id number] As-1 Unit 310 [id number] Other: Voiding Method Bedside Commode # Voids 1 2 1 # Bowel Movements 0 - Labs CBC & Chem 7: 09/09/21 01:19 09/09/21 01:19 Labs: Abnormal Lab Results - Last 24 Hours (Table) 09/07/21 09/09/21 09/09/21 Range/Units 08:05 00:41 01:19 WBC 14.3 H (3.8-10.6) k/uL RBC 1.79 L (3.80-5.40) m/uL Hgb 5.7 L* (11.4-16.0) gm/dL Hct 16.4 L* (34.0-46.0) % RDW 16.3 H (11.5-15.5) % Plt Count 69 L D (150-450) k/uL Potassium (3.5-5.1) mmol/L Chloride (98-107) mmol/L BUN (7-17) mg/dL Glucose (74-99) mg/dL POC Glucose (mg/dL) 212 H (70-110) mg/dL Calcium (8.4-10.2) mg/dL Total Bilirubin (0.2-1.3) mg/dL Total Protein (6.3-8.2) g/dL Albumin (3.5-5.0) g/dL Crossmatch See Detail 09/09/21 Range/Units 01:19 WBC (3.8-10.6) k/uL RBC (3.80-5.40) m/uL Hgb (11.4-16.0) gm/dL Hct (34.0-46.0) % RDW (11.5-15.5) % Plt Count (150-450) k/uL Potassium 3.3 L (3.5-5.1) mmol/L Chloride 111 H (98-107) mmol/L BUN 63 H (7-17) mg/dL Glucose 163 H (74-99) mg/dL POC Glucose (mg/dL) (70-110) mg/dL Calcium 8.3 L (8.4-10.2) mg/dL Total Bilirubin 1.4 H (0.2-1.3) mg/dL Total Protein 4.3 L (6.3-8.2) g/dL Albumin 2.2 L (3.5-5.0) g/dL Crossmatch Microbiology - Last 24 Hours (Table) 09/07/21 18:11 Blood Culture - Preliminary Blood No Growth after 24 hours 09/07/21 18:00 Blood Culture - Preliminary Blood No Growth after 24 hours
[2021-09-09 11:24] LABS: HGB 7.6 gm/dL (11.4-16.0)
[2021-09-09 11:25] LABS: Platelet Count 45 k/uL (150-450)
[2021-09-09 11:37] LABS: ALT 9 U/L (4-34); AST 15 U/L (14-36); African American GFR (CKD) >90 (>60 ml/min/1.73 sqM); Albumin 2.4 g/dL (3.5-5.0); Alkaline Phosphatase 71 U/L (38-126); Anion Gap 7 mmol/L; Blood Urea Nitrogen 51 mg/dL (7-17); Calcium 8.4 mg/dL (8.4-10.2); Carbon Dioxide 22 mmol/L (22-30); Chloride 112 mmol/L (98-107); Glucose 136 mg/dL (74-99); Non-African American GFR(CKD) >90 (>60 ml/min/1.73 sqM); Potassium 3.6 mmol/L (3.5-5.1); Sodium 141 mmol/L (137-145); Total Bilirubin 2.9 mg/dL (0.2-1.3); Total Protein 4.6 g/dL (6.3-8.2)
--- NOTE | 2021-09-09 14:07 | CDI ---
Documentation Clarification Form Date: 09/09/2021 01:51:28 PM From: Laura Blake CCS, CCDS Admit Date: 09/07/2021 09:14:00 AM Patient Name: Gayla Hernandez Visit Number: [id number] Discharge Date: ATTENTION: The Clinical Documentation Specialists (CDI) and [facility] Coding Staff appreciate your assistance in clarifying documentation. Please respond to the clarification below the line at the bottom and electronically sign. The CDI & [facility] Coding staff will review the response and follow-up if needed. Please note: Queries are made part of the Legal Health Record. If you have any questions, please contact the author of this message via ITS. Dr. Richard Edwards: Pancytopenia is documented is documented in the 09/07 ED Note, the 09/08 Cardiology Consult and in the subsequent Cardiology Progress Note without further specificity or cause. Additional clarification regarding the etiology of pancytopenia is requested. 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 Clinical indicators: Presented to the ED on 09/07 with SOB, currently being treated for lung cancer, just finished a round of chemotherapy. Has a history of Anemia & Atrial Fibrillation, not on blood thinners. Has some nausea & vomiting. Blood pressure improved and patient converted to sinus rhythm, found to be severely Anemic, Pancytopenic. Has had issues with Anemia an Thrombocytopenia before status post infusions. Admit with Pancytopenia, Atrial Fibrillation w/RVR, Small Cell Lung Carcinoma, Dehydration, Anemia. 09/07 LAB: Hematology: WBC 2.9, RBC 1.13, Hgb 3.8, Hct 11.4, Plt Count 2 Coagulation: PT 12.9, INR 1.2 Chemistry: Na 136, Chloride 108, CO2 20, BUN 52, Glucose 182, Lactic Acid 5.3, 9.4, 1.0; Mag 1.3, Iron 176, TIBC 203, % Sat 86.70, Transferrin 145.0, Ferritin 1309.0, AST 11, LDH 294, total Protein 5.2, Albumin 2.7, Vit B12 >2000.0, TSH 5.790 Treatment 09/07: IV Cardizem Drip Bolus 5 mg x1, 2 units PRBCs ordered. Telemetry, Blood culture, O2 2Lnc, DNR, IV Na Chl 500 mls @ 999 mls/hr q31M, IV Mag Sulfate/Dextrose 100 mls @ 100 mls/hr x1, INH Ventolin 2.5 mg aily/prn, po Lopressor 25 mg BID. Transfusions: 4 units PRBCs (09/07, 09/08, 09/09), 1 unit Platelets (09/08) Consults: Oncology, Cardiology Please clarify the etiology of Pancytopenia, if known: x ] Pancytopenia due to chemotherapy [ ] Pancytopenia drug induced, specify drug [ ] Pancytopenia due to other, please specify [ ] Other condition, please specify: [ ] Unable to determine (Template Last Revised: May 2020) MTDD
--- NOTE | 2021-09-09 14:22 | CDI ---
Documentation Clarification Form Date: 09/09/2021 02:10:00 PM From: Laura Blake CCS, CCDS Admit Date: 09/07/2021 09:14:00 AM Patient Name: Gayla Hernandez Visit Number: [id number] Discharge Date: ATTENTION: The Clinical Documentation Specialists (CDI) and [facility] Coding Staff appreciate your assistance in clarifying documentation. Please respond to the clarification below the line at the bottom and electronically sign. The CDI & [facility] Coding staff will review the response and follow-up if needed. Please note: Queries are made part of the Legal Health Record. If you have any questions, please contact the author of this message via ITS. Dr. Richard Edwards: The patient presented with worsening SOB x2 weeks, BP of 96/63, PO 96 on 3Lnc and was found to be in Atrial Fibrillation with RVR with known RUL Lung Cancer currently undergoing chemotherapy and Pancytopenic. On 09/09 the patient's Respiratory Rate was 26 with SOB & cough, PO 100 on 2Lnc. Based on this information and the findings below, is there an additional diagnosis that is clinically appropriate for this patient? History/Risk Factors per the 09/07 H/P: Atrial Fibrillation, Lung Cancer in chemotherapy, status post radiation, COPD, Hypothyroidism and Esophageal Stricture status post Dilatation. Current Smoker. Clinical indicators: Presented to the ED on 09/07 with SOB, currently being treated for lung cancer, just finished a round of chemotherapy. Has a history of Anemia & Atrial Fibrillation, not on blood thinners. Has some nausea & vomiting. Blood pressure improved and patient converted to sinus rhythm, found to be severely Anemic, Pancytopenic. Has had issues with Anemia an Thrombocytopenia before status post infusions. Admit with Pancytopenia, Atrial Fibrillation w/RVR, Small Cell Lung Carcinoma, Dehydration, Anemia. 09/07 VS: T 97.6, P 104, R 18 - 20 (sob), BP 96/63, PO 96-99 3Lnc 09/08 VS: T 97.9, P 90, R 16 0 21 (sob), BP 85/35, PO 99 - 100 2L-3Lnc 09/09 VS: T 98.0, P 95, R 26 (sob, cough), BP 120/63, PO 99 3Lnc - 100 2Lnc 09/07 LAB: Hematology: WBC 2.9, RBC 1.13, Hgb 3.8, Hct 11.4, Plt Count 2 Coagulation: PT 12.9, INR 1.2 Chemistry: Na 136, Chloride 108, CO2 20, BUN 52, Glucose 182, Lactic Acid 5.3, 9.4, 1.0; Mag 1.3, Iron 176, TIBC 203, % Sat 86.70, Transferrin 145.0, Ferritin 1309.0, AST 11, LDH 294, total Protein 5.2, Albumin 2.7, Vit B12 >2000.0, TSH 5.790 09/09 LAB (Hematology): WBC 14.3, 16.1; RBC 1.79, 2.37; Hgb 5.7, 7.6; Hct 16.4, 21.9; Pl Ct 69, 45 Treatment 09/07: IV Cardizem Drip Bolus 5 mg x1, 2 units PRBCs ordered. Telemetry, Blood culture, O2 2Lnc, DNR, IV Na Chl 500 mls @ 999 mls/hr q31M, IV Mag Sulfate/Dextrose 100 mls @ 100 mls/hr x1, INH Ventolin 2.5 mg aily/prn, po Lopressor 25 mg BID. Transfusions: 4 units PRBCs (09/07, 09/08, 09/09), 1 unit Platelets (09/08) Consults: Oncology, Cardiology Is there an additional diagnosis that is clinically appropriate for this patient? [ x] Acute Hypoxic Respiratory Failure [ ] Acute Hypercapnic Respiratory Failure [ ] Acute on Chronic Hypoxic Respiratory Failure [ ] Acute on Chronic Hypercapnic Respiratory Failure [ ] Chronic Hypoxic Respiratory Failure [ ] Chronic Hypercapnic Respiratory Failure [ ] Other Diagnosis, please specify: [ ] Unable to determine (Template Last Revised: May 2020) MTDD
[2021-09-09 16:43] LABS: Methylmalonic Acid 0.49 umol/L (<0.40)
[2021-09-09 17:32] LABS: HCT 22.6 % (34.0-46.0); HGB 7.9 gm/dL (11.4-16.0); MCH 32.2 pg (25.0-35.0); Mean Platelet Volume 8.7; RBC 2.46 m/uL (3.80-5.40); RDW 15.4 % (11.5-15.5); WBC 14.2 k/uL (3.8-10.6)
[2021-09-09 17:54] LABS: Platelet Count 39 k/uL (150-450)
[2021-09-09 18:04] LABS: INR 1.2 (<1.2); Partial Thromboplastin Time 22.4 sec (22.0-30.0); Prothrombin Time 12.5 sec (9.0-12.0)
[2021-09-10] MEDS: METOPROLOL TARTRATE 25 MG TAB PO SCH ×3 (00:22→16:14)
[2021-09-10] MEDS: LEVOTHYROXINE 25 MCG TAB PO SCH (06:26)
[2021-09-10] MEDS: PANTOPRAZOLE 40 MG TABLET PO SCH (06:26)
[2021-09-10 07:11] LABS: Basophils % (A) 0 %; Eosinophils # (A) 0.1 k/uL (0-0.7); Eosinophils % (A) 1 %; Lymphocytes # (A) 1.3 k/uL (1.0-4.8); Lymphocytes % (A) 13 %; MCH 32.1 pg (25.0-35.0); MCHC 34.7 g/dL (31.0-37.0); MCV 92.7 fL (80.0-100.0); Mean Platelet Volume 9.1; Monocytes # (A) 0.5 k/uL (0-1.0); Monocytes % (A) 5 %; Neutrophils % (A) 78 %; RDW 15.3 % (11.5-15.5); WBC 10.3 k/uL (3.8-10.6)
[2021-09-10 07:22] LABS: ALT 7 U/L (4-34); AST 14 U/L (14-36); African American GFR (CKD) >90 (>60 ml/min/1.73 sqM); Albumin 2.2 g/dL (3.5-5.0); Alkaline Phosphatase 69 U/L (38-126); Anion Gap 4 mmol/L; Blood Urea Nitrogen 29 mg/dL (7-17); Calcium 8.5 mg/dL (8.4-10.2); Carbon Dioxide 24 mmol/L (22-30); Chloride 111 mmol/L (98-107); Glucose 97 mg/dL (74-99); Non-African American GFR(CKD) >90 (>60 ml/min/1.73 sqM); Sodium 139 mmol/L (137-145); Total Bilirubin 1.2 mg/dL (0.2-1.3); Total Protein 4.2 g/dL (6.3-8.2)
[2021-09-10 07:31] LABS: HGB 6.7 gm/dL (11.4-16.0)
[2021-09-10 07:32] LABS: HCT 19.4 % (34.0-46.0); Platelet Count 24 k/uL (150-450)
[2021-09-10] MEDS ORDERED: Potassium Replacement Protocol 1 EACH MISC MISCELLANE PRN (11:19)
[2021-09-10] MEDS: POTASSIUM CHLORIDE ER 20 MEQ TAB.ER PO SCH ×2 (11:35→13:41)
--- NOTE | 2021-09-10 12:31 | P.PN ---
Subjective Progress Note Date: 09/10/21 HISTORY OF PRESENT ILLNESS: This is a 71 year old female with a past medical history significant for paroxysmal atrial flutter, hypothyroidism, and small cell lung cancer. Patient follows in the office with Dr. Shanks. We have been asked to see the patient in consultation for atrial fibrillation. Patient examined at the bedside. Patient states she finished her last chemotherapy approximately 2 weeks ago. She states since that time she has not been feeling well. Patient reports feeling short of breath yesterday which prompted her to come to the emergency room. At the time of examination, she denies shortness of breath. She denies chest pain or pressure. She denies palpitations. * EKG reveals sinus tachycardia with PACs * Chest xray COPD with improved right upper lobe density * Laboratory data: WBC 9.9. Hemoglobin 5.5. Platelet count 4. Sodium 140. Potassium 3.9. BUN 69. Creatinine 0.62. Lactic acid 3.0. TSH 5.790. Free T4 1 0.96. * Current home cardiac medications include metoprolol tartrate 25 mg twice a day * Most recent echocardiogram obtained in October 2020 revealed ejection fraction 55-60% and mild mitral regurgitation * Patient underwent a Dobutamine stress test in October 2020 which was negative for stress-induced ischemia. Small fixed basal septal wall defect and normal gated SPECT images. 09/09/2021 Patient examined this morning at the bedside. Patient denies chest pain or pressure. She currently denies shortness of breath. Patient was started on amiodarone drip overnight for A. fib with uncontrolled ventricular rate. The patient had an reaction today amiodarone and her infusion was discontinued. Patient is going in and out of atrial fibrillation and sinus mechanism with PACs She is currently on metoprolol 25 mg twice a day. Patient remains anemic with a hemoglobin of 5.7 this morning. Patient has received 4 units of RBCs. Echocardiogram completed revealing preserved systolic function with an ejection fraction of 50-55%. 09/10/2021 Patient examined this morning at bedside. Patient denies chest pain or pressure. She denies shortness of breath. Telemetry reveals sinus mechanism with a heart rate in the 80s. Blood pressure 114/56. PHYSICAL EXAM: VITAL SIGNS: Reviewed. GENERAL: Well-developed in no acute distress. HEENT: Head is normocephalic. Pupils are equal, round. Sclerae anicteric. Mucous membranes of the mouth are moist. Neck supple. No JVD or thyromegaly LUNGS: Respirations even and unlabored. Lungs essentially clear to auscultation bilaterally. HEART: Irregular rate and rhythm. S1 and S2 heard. ABDOMEN: Soft. Nondistended. Nontender. EXTREMITIES: Normal range of motion. No clubbing or cyanosis. Peripheral pulses intact. No lower extremity edema NEUROLOGIC: Awake and alert. Oriented x 3. ASSESSMENT: Shortness of breath Pancytopenia Small cell lung cancer, with last chemotherapy 2 weeks ago Sinus tachycardia with PACs Paroxysmal atrial fibrillation/ typical atrial flutter, not on anticoagulation secondary to adverse reactions and pancytopenia Hypothyroidism PLAN: Continue current cardiac medications Patient is currently stable from a cardiac standpoint We will sign off. Please reconsult if needed. Nurse practitioner note has been reviewed by physician. Signing provider agrees with the documented findings, assessment, and plan of care. Objective - Vital Signs Vital signs: Vital Signs Temp 98.2 F 09/10/21 11:31 Pulse 82 09/10/21 11:31 Resp 22 09/10/21 11:31 BP 114/56 09/10/21 11:31 Pulse Ox 98 09/10/21 11:31 FiO2 Intake & Output 09/09/21 09/10/21 09/10/21 18:59 06:59 18:59 Intake Total 618 0 Balance 618 0 Weight 47.627 kg Intake: Oral 618 0 Blood Product 0 Unit 0 Other: Voiding Method Bedside Commode # Voids 1 1 # Bowel Movements 1 - Labs CBC & Chem 7: 09/10/21 06:43 09/10/21 06:43 Labs: Abnormal Lab Results - Last 24 Hours (Table) 09/07/21 09/08/21 09/09/21 Range/Units 08:05 08:43 16:59 WBC 14.2 H (3.8-10.6) k/uL RBC 2.46 L (3.80-5.40) m/uL Hgb 7.9 L (11.4-16.0) gm/dL Hct 22.6 L (34.0-46.0) % Plt Count 39 L (150-450) k/uL Neutrophils # (1.3-7.7) k/uL PT (9.0-12.0) sec INR (<1.2) Potassium (3.5-5.1) mmol/L Chloride (98-107) mmol/L BUN (7-17) mg/dL Total Protein (6.3-8.2) g/dL Albumin (3.5-5.0) g/dL Methylmalonic Acid 0.49 H (<0.40) umol/L Crossmatch See Detail 09/09/21 09/10/21 09/10/21 Range/Units 16:59 06:43 06:43 WBC (3.8-10.6) k/uL RBC 2.10 L (3.80-5.40) m/uL Hgb 6.7 L* (11.4-16.0) gm/dL Hct 19.4 L* (34.0-46.0) % Plt Count 24 L (150-450) k/uL Neutrophils # 8.0 H (1.3-7.7) k/uL PT 12.5 H (9.0-12.0) sec INR 1.2 H (<1.2) Potassium 3.0 L (3.5-5.1) mmol/L Chloride 111 H (98-107) mmol/L BUN 29 H (7-17) mg/dL Total Protein 4.2 L (6.3-8.2) g/dL Albumin 2.2 L (3.5-5.0) g/dL Methylmalonic Acid (<0.40) umol/L Crossmatch Microbiology - Last 24 Hours (Table) 09/07/21 18:11 Blood Culture - Preliminary Blood No Growth after 48 hours 09/07/21 18:00 Blood Culture - Preliminary Blood No Growth after 48 hours
[2021-09-10] MEDS ORDERED: IPRATROPIUM-ALBUTEROL 3 ML NEB INHALATION PRN (12:43)
--- NOTE | 2021-09-10 12:43 | P.CNPUL ---
History of Present Illness Consult date: 09/10/21 Requesting physician: Richard Edwards Reason for consult: dyspnea, cough, COPD, hypoxemia, abnormal CXR/CT Chief complaint: Shortness of breath. History of present illness: Pulmonary consult dated 09/10/2021. This is a 71-year-old female with a history of small cell lung cancer. The patient presented to the emergency department on September 07, complaining of shortness of breath. She apparently had shortness of breath, progressive, for the last 2 or 3 days prior to her admission. The shortness of breath was progressive in nature, and that is why she came in to be evaluated. The patient recently completed chemotherapy for her lung cancer. The patient also has a cough, mostly nonproductive. She denies any fever or chills. There is no chest pain or chest discomfort. No nausea, vomiting, or diarrhea. Currently, she is a DO NOT RESUSCITATE patient. She is receiving a blood transfusion. She is on 2 L nasal cannula. No IV fluids. She has a history of atrial fibrillation, lung cancer, hypothyroidism, and has a prior history of tobacco use. White count 10.3, hemoglobin down to 6.7, hematocrit 19.4, platelet count 24,000. Sodium 139, potassium 3, chlorides 111, CO2 24, BUN 29 and creatinine 0.58. Blood cultures are thus far negative. Chest x-rays consistent with hyperinflation and underlying COPD. There is also a chronic cavitation in the right lung apex. Review of Systems REVIEW OF SYSTEMS: CONSTITUTIONAL: [Negative.] NEUROLOGIC: [ Negative.] HEENT: [ Negative.] CARDIAC: [Negative.] PULMONARY: Shortness of breath, nonproductive cough. GI: [Negative.] : [Negative.] RHEUMATOLOGIC: [ Negative.] IMMUNOLOGIC: [ Negative.] ENDOCRINE: [Negative. ] DERMATOLOGIC: [Negative.] Past Medical History Past Medical History: Atrial Fibrillation, Cancer, Eye Disorder, Thyroid Disorder Additional Past Medical History / Comment(s): "FROZEN RIGHT SHOULDER" LUNG CANCER WITH CHEMO (LAST TX 08/2016), AND RADIATION (LAST TX 07/29/16), DYSPHAGIA DUE TO SCAR TISSUE FROM RADIATION TX.- IS ON SOFT DIET, STATES "MY THROAT IS THE SIZE OF A STRAW" GLAUCOMA LEFT EYE, seasonal allergies History of Any Multi-Drug Resistant Organisms: None Reported Past Surgical History: No Surgical Hx Reported Additional Past Surgical History / Comment(s): Bronchoscopy, insertion of a Mediport, mediport removed, EGD WITH DILATION X2 Past Anesthesia/Blood Transfusion Reactions: No Reported Reaction Additional Past Anesthesia/Blood Transfusion Reaction / Comment(s): STATES HX OF BLOOD TRANSFUSION- NO REACTION. "my throat is the size of a straw" Past Psychological History: No Psychological Hx Reported Smoking Status: Current every day smoker Past Alcohol Use History: None Reported Past Drug Use History: None Reported - Past Family History Mother Family Medical History: Cancer Additional Family Medical History / Comment(s): uterine,breast cancer Father Family Medical History: Cancer Additional Family Medical History / Comment(s): hodgkins Sister(s) Family Medical History: No Reported History Medications and Allergies Home Medications Medication Instructions Recorded Confirmed Type Levothyroxine Sodium [Synthroid] 25 mcg PO DAILY 11/19/19 09/07/21 History Metoprolol Tartrate [Lopressor] 25 mg PO BID 11/19/19 09/07/21 History Levalbuterol Tartrate 1 puff INHALATION RT-DAILY PRN 09/07/21 09/07/21 History [Levalbuterol Tartrate 45 MCG Hfa] Allergies Allergy/AdvReac Type Severity Reaction Status Date / Time Sulfa (Sulfonamide Allergy Anaphylaxis Verified 09/07/21 07:27 Antibiotics) amiodarone AdvReac Dyspnea Verified 09/09/21 06:41 Physical Exam Osteopathic Statement: *. No significant issues noted on an osteopathic structural exam other than those noted in the History and Physical/Consult. Vitals: Vital Signs Temp Pulse Pulse Resp BP BP Pulse Ox 09/10/21 11:31 98.2 F 82 22 114/56 98 09/10/21 10:34 98.2 F 75 120/51 100 09/10/21 10:04 98.1 F 77 19 83/48 100 09/10/21 09:54 98.3 F 84 20 86/49 100 09/10/21 08:16 97.9 F 93 20 95/59 100 09/10/21 03:37 81 18 92/50 100 09/10/21 02:00 20 09/09/21 23:57 98 F 90 20 92/53 98 09/09/21 20:56 97.9 F 90 20 97/56 100 09/09/21 20:00 20 09/09/21 15:46 98.1 F 94 26 H 108/62 100 Intake and Output 09/09/21 09/10/21 09/10/21 22:59 06:59 14:59 Intake Total 500 0 Balance 500 0 Intake: Oral 500 0 Blood Product 0 Unit 0 Other: Voiding Method Bedside Commode Bedside Commode # Voids 1 1 # Bowel Movements 1 Weight 47.627 kg No acute distress, oriented 3. No conversational dyspnea or use of accessory muscles. Currently on 2 L nasal O2. HEENT examination is grossly unremarkable. Neck supple. Full range of motion. No adenopathy thyromegaly or neck vein distention. Cardiovascular examination reveals regular rhythm rate. S1-S2 normal. No S3 or S4. No discernible murmur noted. Heart rate 82 bpm. Lungs reveal diffuse bilateral rhonchi. No wheezes. Scattered crackles. Breath sounds equal bilaterally. Her cough is a bit congested and wet sounding. Breath sounds equal bilaterally but diminished throughout. Abdomen soft bowel sounds are heard. No masses or tenderness. Extremities are intact. No cyanosis clubbing or edema. Skin is without rash or lesion. Neurologic examination is brief but nonfocal. Results - Laboratory Findings CBC and BMP: 09/10/21 06:43 09/10/21 06:43 PT/INR, D-dimer PT 12.5 sec (9.0-12.0) H 09/09/21 16:59 INR 1.2 (<1.2) H 09/09/21 16:59 Abnormal lab findings: Abnormal Labs 09/07/21 09/07/21 09/07/21 07:08 07:08 07:08 WBC 2.9 L RBC 1.13 L Hgb 3.8 L* Hct 11.4 L* MCV 100.8 H RDW 18.9 H Plt Count 2 L* Neutrophils # PT 12.9 H INR 1.2 H Sodium 136 L Potassium Chloride 108 H Carbon Dioxide 20 L BUN 52 H Glucose 182 H POC Glucose (mg/dL) Plasma Lactic Acid Kel Calcium Magnesium 1.3 L Iron TIBC % Saturation Transferrin Ferritin Total Bilirubin AST 11 L Lactate Dehydrogenase Total Protein 5.2 L Albumin 2.7 L Vitamin B12 Methylmalonic Acid TSH Crossmatch 06/20/22 06/20/22 06/20/22 07:08 07:08 07:08 WBC RBC Hgb Hct MCV RDW Plt Count Neutrophils # PT INR Sodium Potassium Chloride Carbon Dioxide BUN Glucose POC Glucose (mg/dL) Plasma Lactic Acid Kle 5.3 H* Calcium Magnesium Iron 176 H TIBC 203 L % Saturation 86.70 H Transferrin 145.0 L Ferritin 1309.0 H Total Bilirubin AST Lactate Dehydrogenase 294 L Total Protein Albumin Vitamin B12 >2000.0 H Methylmalonic Acid TSH 5.790 H Crossmatch 09/07/21 09/07/21 09/07/21 08:05 11:50 18:00 WBC RBC Hgb Hct MCV RDW Plt Count Neutrophils # PT INR Sodium Potassium Chloride Carbon Dioxide BUN Glucose POC Glucose (mg/dL) Plasma Lactic Acid Kel 9.4 H* 3.0 H* Calcium Magnesium Iron TIBC % Saturation Transferrin Ferritin Total Bilirubin AST Lactate Dehydrogenase Total Protein Albumin Vitamin B12 Methylmalonic Acid TSH Crossmatch See Detail 09/07/21 09/08/21 09/08/21 18:00 08:43 08:43 WBC RBC 2.36 L Hgb 7.7 L D Hct 21.9 L MCV RDW 16.4 H Plt Count 2 L* Neutrophils # PT 12.9 H INR 1.2 H Sodium Potassium Chloride Carbon Dioxide BUN Glucose POC Glucose (mg/dL) Plasma Lactic Acid Kel Calcium Magnesium Iron TIBC % Saturation Transferrin Ferritin Total Bilirubin AST Lactate Dehydrogenase Total Protein Albumin Vitamin B12 Methylmalonic Acid 0.49 H TSH Crossmatch 09/08/21 09/08/21 09/09/21 08:43 08:43 00:41 WBC RBC 1.71 L Hgb 5.5 L* D Hct 15.8 L* MCV RDW 17.5 H Plt Count 4 L* D Neutrophils # 8.0 H PT INR Sodium Potassium Chloride 110 H Carbon Dioxide BUN 69 H Glucose 147 H POC Glucose (mg/dL) 212 H Plasma Lactic Acid Kel Calcium 7.9 L Magnesium 1.3 L Iron TIBC % Saturation Transferrin Ferritin Total Bilirubin AST 12 L Lactate Dehydrogenase Total Protein 4.1 L Albumin 2.0 L Vitamin B12 Methylmalonic Acid TSH Crossmatch 09/09/21 09/09/21 09/09/21 01:19 01:19 10:32 WBC 14.3 H 16.1 H RBC 1.79 L 2.37 L Hgb 5.7 L* 7.6 L D Hct 16.4 L* 21.9 L MCV RDW 16.3 H Plt Count 69 L D 45 L Neutrophils # PT INR Sodium Potassium 3.3 L Chloride 111 H Carbon Dioxide BUN 63 H Glucose 163 H POC Glucose (mg/dL) Plasma Lactic Acid Kel Calcium 8.3 L Magnesium Iron TIBC % Saturation Transferrin Ferritin Total Bilirubin 1.4 H AST Lactate Dehydrogenase Total Protein 4.3 L Albumin 2.2 L Vitamin B12 Methylmalonic Acid TSH Crossmatch 09/09/21 09/09/21 09/09/21 10:32 16:59 16:59 WBC 14.2 H RBC 2.46 L Hgb 7.9 L Hct 22.6 L MCV RDW Plt Count 39 L Neutrophils # PT 12.5 H INR 1.2 H Sodium Potassium Chloride 112 H Carbon Dioxide BUN 51 H Glucose 136 H POC Glucose (mg/dL) Plasma Lactic Acid Kel Calcium Magnesium Iron TIBC % Saturation Transferrin Ferritin Total Bilirubin 2.9 H AST Lactate Dehydrogenase Total Protein 4.6 L Albumin 2.4 L Vitamin B12 Methylmalonic Acid TSH Crossmatch 09/10/21 09/10/21 06:43 06:43 WBC RBC 2.10 L Hgb 6.7 L* Hct 19.4 L* MCV RDW Plt Count 24 L Neutrophils # 8.0 H PT INR Sodium Potassium 3.0 L Chloride 111 H Carbon Dioxide BUN 29 H Glucose POC Glucose (mg/dL) Plasma Lactic Acid Kel Calcium Magnesium Iron TIBC % Saturation Transferrin Ferritin Total Bilirubin AST Lactate Dehydrogenase Total Protein 4.2 L Albumin 2.2 L Vitamin B12 Methylmalonic Acid TSH Crossmatch - Diagnostic Findings Chest x-ray: image reviewed Assessment and Plan Assessment: Shortness of breath, multifactorial, in part related to COPD exacerbation, mild tracheobronchitis, and anemia. Small cell lung cancer, status post chemotherapy. Acute anemia, status post 5 units of blood. Bicytopenia. History of atrial fibrillation. Hypothyroidism. 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 Plan: Plan dated 09/10/2021. The patient will get a few doses of corticosteroids. In addition, we'll give her DuoNeb, and Symbicort. Additional recommendations and suggestions are forthcoming. Prognosis is certainly guarded. The patient can also get a short course of antibiotic. We will continue to follow. Prognosis is certainly very guarded. Time with Patient: Greater than 30
[2021-09-10] MEDS: AZITHROMYCIN 500 MG TAB PO SCH (13:41)
--- NOTE | 2021-09-10 14:18 | P.PN ---
Subjective Progress Note Date: 09/09/21 Hemoglobin 7.6. Improved today Objective - Vital Signs Vital signs: Vital Signs Temp 98.0 F 09/09/21 11:16 Pulse 95 09/09/21 11:16 Resp 26 H 09/09/21 11:16 BP 120/63 09/09/21 11:16 Pulse Ox 100 09/09/21 11:16 FiO2 Intake & Output 09/08/21 09/09/21 09/09/21 18:59 06:59 18:59 Intake Total 890 667 0 Balance 890 667 0 Weight 47.627 kg Intake: Oral 580 0 Blood Product 310 667 Platelet Pheresis Pas 357 Psoralen Unit [id number] Rc As-1 Unit 310 [id number] Rc As-1 Unit 310 [id number] Other: Voiding Method Bedside Commode # Voids 1 2 1 # Bowel Movements 0 - Exam - Constitutional General appearance: Present: cooperative, mild distress, thin - EENT Eyes: Present: anicteric sclerae, EOMI ENT: Present: hearing grossly normal - Respiratory Respiratory: bilateral: rhonchi (scattered, right greater than left) - Cardiovascular Rhythm: regular Heart sounds: normal: S1, S2 Abnormal Heart Sounds: Absent: systolic murmur, diastolic murmur, rub, S3 Gallop, S4 Gallop, click, other - Peripheral edema leg Peripheral Edema: bilateral: None - Gastrointestinal General gastrointestinal: Present: normal bowel sounds, soft - Integumentary Integumentary: Present: pale - Neurologic Neurologic: Present: CNII-XII intact (grossly) - Musculoskeletal Musculoskeletal: Present: generalized weakness, strength equal bilaterally - Psychiatric Psychiatric: Present: A&O x's 3, appropriate affect, intact judgment & insight - Labs CBC & Chem 7: 09/09/21 16:59 09/09/21 10:32 Labs: Abnormal Lab Results - Last 24 Hours (Table) 09/07/21 09/09/21 09/09/21 Range/Units 08:05 00:41 01:19 WBC 14.3 H (3.8-10.6) k/uL RBC 1.79 L (3.80-5.40) m/uL Hgb 5.7 L* (11.4-16.0) gm/dL Hct 16.4 L* (34.0-46.0) % RDW 16.3 H (11.5-15.5) % Plt Count 69 L D (150-450) k/uL Potassium (3.5-5.1) mmol/L Chloride (98-107) mmol/L BUN (7-17) mg/dL Glucose (74-99) mg/dL POC Glucose (mg/dL) 212 H (70-110) mg/dL Calcium (8.4-10.2) mg/dL Total Bilirubin (0.2-1.3) mg/dL Total Protein (6.3-8.2) g/dL Albumin (3.5-5.0) g/dL Crossmatch See Detail 09/09/21 09/09/21 09/09/21 Range/Units 01:19 10:32 10:32 WBC 16.1 H (3.8-10.6) k/uL RBC 2.37 L (3.80-5.40) m/uL Hgb 7.6 L D (11.4-16.0) gm/dL Hct 21.9 L (34.0-46.0) % RDW (11.5-15.5) % Plt Count 45 L (150-450) k/uL Potassium 3.3 L (3.5-5.1) mmol/L Chloride 111 H 112 H (98-107) mmol/L BUN 63 H 51 H (7-17) mg/dL Glucose 163 H 136 H (74-99) mg/dL POC Glucose (mg/dL) (70-110) mg/dL Calcium 8.3 L (8.4-10.2) mg/dL Total Bilirubin 1.4 H 2.9 H (0.2-1.3) mg/dL Total Protein 4.3 L 4.6 L (6.3-8.2) g/dL Albumin 2.2 L 2.4 L (3.5-5.0) g/dL Crossmatch Microbiology - Last 24 Hours (Table) 09/07/21 18:11 Blood Culture - Preliminary Blood No Growth after 24 hours 09/07/21 18:00 Blood Culture - Preliminary Blood No Growth after 24 hours Assessment and Plan (1) Macrocytic anemia Narrative/Plan: Severe with hemoglobin 3.8, on 6/21/22 = 5, and today = Transfusions ordered IRon and anemia studies ordered on initial blood to not be mis interpretted aftyer transfusions. Transfuse hemoglobin less than 7.6 Current Visit: Yes Status: Acute Code(s): D53.9 - NUTRITIONAL ANEMIA, UNSPECIFIED SNOMED Code(s): 48335265 (2) Thrombocytopenia Narrative/Plan: Severe, platelets are 2K today Transfuse Platelets DIC work-up COag review Transfuse platelets less than 10 Current Visit: Yes Status: Acute Priority: High Code(s): D69.6 - THROMBOCYTOPENIA, UNSPECIFIED SNOMED Code(s): 753926061 (3) Small cell lung carcinoma Narrative/Plan: Status post chemotherapy cycle 4 with immune therapy Was suppose to have follow-up in office today however presented to hospital WIll need to see Dr. Church after discharge for plans of restaging and possible maintenance immune therapy Current Visit: Yes Status: Chronic Priority: Medium Code(s): C34.90 - MALIGNANT NEOPLASM OF UNSP PART OF UNSP BRONCHUS OR LUNG SNOMED Code(s): 104775979 (4) Hypomagnesemia Current Visit: No Status: Acute Code(s): E83.42 - HYPOMAGNESEMIA SNOMED Code(s): 787690444
[2021-09-10] MEDS: methylPREDNISolone SOD SUCCI 40 MG/ML 1 ML VIAL IV SCH (16:14)
[2021-09-10] MEDS: IPRATROPIUM-ALBUTEROL 3 ML NEB INHALATION SCH ×3 (16:48→19:55)
[2021-09-10 16:50] LABS: HCT 23.6 % (34.0-46.0); MCH 31.2 pg (25.0-35.0); MCHC 33.9 g/dL (31.0-37.0); MCV 92.1 fL (80.0-100.0); Mean Platelet Volume 11.5; RBC 2.56 m/uL (3.80-5.40); RDW 15.4 % (11.5-15.5); WBC 14.1 k/uL (3.8-10.6)
[2021-09-10 16:52] LABS: Platelet Count 19 k/uL (150-450)
[2021-09-10] MEDS: SYMBICORT 160-4.5 MCG INHALER INHALATION SCH (19:55)
--- NOTE | 2021-09-10 20:22 | P.PN ---
Subjective Progress Note Date: 09/10/21 PRBC required again this am hg 6.7 Objective - Vital Signs Vital signs: Vital Signs Temp 98.9 F 09/10/21 12:41 Pulse 87 09/10/21 12:41 Resp 28 H 09/10/21 12:41 BP 106/57 09/10/21 12:41 Pulse Ox 100 09/10/21 12:41 FiO2 Intake & Output 09/09/21 09/10/21 09/10/21 18:59 06:59 18:59 Intake Total 618 310 Balance 618 310 Weight 47.627 kg Intake: Oral 618 0 Blood Product 310 Rc As-1 Unit 310 [id number] Other: Voiding Method Bedside Commode # Voids 1 1 # Bowel Movements 1 - Exam - Constitutional General appearance: Present: cooperative, mild distress, thin - EENT Eyes: Present: anicteric sclerae, EOMI ENT: Present: hearing grossly normal - Respiratory Respiratory: bilateral: rhonchi (scattered, right greater than left) - Cardiovascular Rhythm: regular Heart sounds: normal: S1, S2 Abnormal Heart Sounds: Absent: systolic murmur, diastolic murmur, rub, S3 Gallop, S4 Gallop, click, other - Peripheral edema leg Peripheral Edema: bilateral: None - Gastrointestinal General gastrointestinal: Present: normal bowel sounds, soft - Integumentary Integumentary: Present: pale - Neurologic Neurologic: Present: CNII-XII intact (grossly) - Musculoskeletal Musculoskeletal: Present: generalized weakness, strength equal bilaterally - Psychiatric Psychiatric: Present: A&O x's 3, appropriate affect, intact judgment & insight - Labs CBC & Chem 7: 09/10/21 16:39 09/10/21 06:43 Labs: Abnormal Lab Results - Last 24 Hours (Table) 09/07/21 09/08/21 09/09/21 Range/Units 08:05 08:43 16:59 WBC 14.2 H (3.8-10.6) k/uL RBC 2.46 L (3.80-5.40) m/uL Hgb 7.9 L (11.4-16.0) gm/dL Hct 22.6 L (34.0-46.0) % Plt Count 39 L (150-450) k/uL Neutrophils # (1.3-7.7) k/uL PT (9.0-12.0) sec INR (<1.2) Potassium (3.5-5.1) mmol/L Chloride (98-107) mmol/L BUN (7-17) mg/dL Total Protein (6.3-8.2) g/dL Albumin (3.5-5.0) g/dL Methylmalonic Acid 0.49 H (<0.40) umol/L Crossmatch See Detail 09/09/21 09/10/21 09/10/21 Range/Units 16:59 06:43 06:43 WBC (3.8-10.6) k/uL RBC 2.10 L (3.80-5.40) m/uL Hgb 6.7 L* (11.4-16.0) gm/dL Hct 19.4 L* (34.0-46.0) % Plt Count 24 L (150-450) k/uL Neutrophils # 8.0 H (1.3-7.7) k/uL PT 12.5 H (9.0-12.0) sec INR 1.2 H (<1.2) Potassium 3.0 L (3.5-5.1) mmol/L Chloride 111 H (98-107) mmol/L BUN 29 H (7-17) mg/dL Total Protein 4.2 L (6.3-8.2) g/dL Albumin 2.2 L (3.5-5.0) g/dL Methylmalonic Acid (<0.40) umol/L Crossmatch Microbiology - Last 24 Hours (Table) 09/07/21 18:11 Blood Culture - Preliminary Blood No Growth after 48 hours 09/07/21 18:00 Blood Culture - Preliminary Blood No Growth after 48 hours Assessment and Plan (1) Macrocytic anemia Narrative/Plan: Severe with hemoglobin 3.8, on 09/08/21 = 5, and today = Transfusions ordered IRon and anemia studies ordered on initial blood to not be mis interpretted aftyer transfusions. Transfuse hemoglobin less than 7.o, hemoglobi 6.7 today Current Visit: Yes Status: Acute Code(s): D53.9 - NUTRITIONAL ANEMIA, UNSPECIFIED SNOMED Code(s): 53982822 (2) Thrombocytopenia Narrative/Plan: Severe, improving Transfuse Platelets DIC work-up COag review Transfuse platelets less than 10 Current Visit: Yes Status: Acute Priority: High Code(s): D69.6 - THROMBOCYTOPENIA, UNSPECIFIED SNOMED Code(s): 756244184 (3) Small cell lung carcinoma Narrative/Plan: Status post chemotherapy cycle 4 with immune therapy Was suppose to have follow-up in office today however presented to hospital WIll need to see Dr. Church after discharge for plans of restaging and possible maintenance immune therapy Current Visit: Yes Status: Chronic Priority: Medium Code(s): C34.90 - MALIGNANT NEOPLASM OF UNSP PART OF UNSP BRONCHUS OR LUNG SNOMED Code(s): 174231446 (4) Hypomagnesemia Current Visit: No Status: Acute Code(s): E83.42 - HYPOMAGNESEMIA SNOMED Code(s): 114166922
[2021-09-11] MEDS: METOPROLOL TARTRATE 25 MG TAB PO SCH ×4 (00:04→23:24)
[2021-09-11] MEDS: methylPREDNISolone SOD SUCCI 40 MG/ML 1 ML VIAL IV SCH ×4 (00:04→23:24)
[2021-09-11] MEDS: PANTOPRAZOLE 40 MG TABLET PO SCH (06:05)
[2021-09-11] MEDS: LEVOTHYROXINE 25 MCG TAB PO SCH (06:05)
[2021-09-11] MEDS: IPRATROPIUM-ALBUTEROL 3 ML NEB INHALATION SCH ×4 (07:56→19:17)
[2021-09-11] MEDS: SYMBICORT 160-4.5 MCG INHALER INHALATION SCH ×2 (07:56→19:17)
[2021-09-11] MEDS: AZITHROMYCIN 500 MG TAB PO SCH (08:40)
[2021-09-11 09:10] LABS: Basophils % (A) 0 %; Eosinophils % (A) 0 %; HCT 26.1 % (34.0-46.0); HGB 8.8 gm/dL (11.4-16.0); Lymphocytes # (A) 0.7 k/uL (1.0-4.8); Lymphocytes % (A) 6 %; MCH 31.5 pg (25.0-35.0); MCHC 33.8 g/dL (31.0-37.0); MCV 93.2 fL (80.0-100.0); Mean Platelet Volume 9.8; Monocytes # (A) 0.3 k/uL (0-1.0); Monocytes % (A) 2 %; Neutrophils % (A) 90 %; RDW 15.8 % (11.5-15.5); WBC 12.2 k/uL (3.8-10.6)
--- NOTE | 2021-09-11 09:20 | CDI ---
Documentation Clarification Form Date: 09/11/2021 09:10:42 AM From: Laura Blake [facility], CCDS Admit Date: 09/07/2021 09:14:00 AM Patient Name: Gayla Hernandez Visit Number: [id number] Discharge Date: ATTENTION: The Clinical Documentation Specialists (CDI) and [facility] Coding Staff appreciate your assistance in clarifying documentation. Please respond to the clarification below the line at the bottom and electronically sign. The CDI & [facility] Coding staff will review the response and follow-up if needed. Please note: Queries are made part of the Legal Health Record. If you have any questions, please contact the author of this message via ITS. Dr. Richard Edwards: Based on this information and the findings below, is there an additional diagnosis that is clinically appropriate for this patient? History/Risk Factors per the 09/07 H/P: Lung Cancer status post chemotherapy & radiation therapy, COPD, Atrial Fibrillation, Hypothyroidism. Clinical Indicators: Presented to the ED on 09/07 with SOB, currently being treated for lung cancer, just finished a round of chemo. Admit with Pancytopenia, Atrial Fibrillation with RVR, Small Cell Lung Carcinoma, Dehydration, Anemia. Nursing Nutritional Assessment: Appetite is Poor, on Oral Supplement: Ensure clear TID. . BMI: 16.0. Nutrition Intake: Fair, consumed 25-50%, refused breakfast this am, 15% of meals. Soft/[place] Diet, Difficulty Swallowing, Underweight. Weight 47.627 kg, Height 5 ft 8 in. BMI: 16.0 Calculated IBW: 63.6, % IBW: 75%. Inadequate energy intake. Treatment: Telemetry, Incentive Spirometry, Oral Nutrition Supplement (ensure), Accuchecks, Blood cultures, O2 2Lnc, PT/OT, IV Na Chl 500 mls @ 999 mls/hr q31M, IV Cardizem Drip bolus 5 mg x1, IV mag/Sulfate/Dextrose 100 mls @ 100 mls/hr x1, INH Ventolin 2.5 mg Daily/prn, po Lopressor 25 mg BID, IV Zofran 4 mg q6H/prn. Is there an additional diagnosis that is clinically appropriate for this patient? [ ] Mild Protein-Calorie Malnutrition [ x ] Moderate Protein-Calorie Malnutrition [ ] Severe Protein-Calorie Malnutrition [ ] Other condition, please specify [ ] Unable to Determine (Template Last Revised: May 2020) MTDD
[2021-09-11 09:26] LABS: Platelet Count 14 k/uL (150-450)
[2021-09-11 09:44] LABS: ALT 9 U/L (4-34); AST 14 U/L (14-36); African American GFR (CKD) >90 (>60 ml/min/1.73 sqM); Albumin 2.6 g/dL (3.5-5.0); Alkaline Phosphatase 86 U/L (38-126); Anion Gap 5 mmol/L; Blood Urea Nitrogen 23 mg/dL (7-17); Calcium 8.9 mg/dL (8.4-10.2); Carbon Dioxide 25 mmol/L (22-30); Chloride 111 mmol/L (98-107); Glucose 186 mg/dL (74-99); Non-African American GFR(CKD) >90 (>60 ml/min/1.73 sqM); Potassium 4.2 mmol/L (3.5-5.1); Sodium 141 mmol/L (137-145); Total Bilirubin 0.9 mg/dL (0.2-1.3); Total Protein 4.8 g/dL (6.3-8.2)
--- NOTE | 2021-09-11 09:50 | P.PN ---
Subjective Progress Note Date: 09/11/21 Principal diagnosis: Severe pancytopenia Platelets trending down again. She appears to be transfusion dependent as she is responding to transfusion but then quickly dropping resulting in need of another blood product (whether platelts or PRBC) to remain safe Objective - Vital Signs Vital signs: Vital Signs Temp 98.2 F 09/11/21 00:00 Pulse 85 09/11/21 08:00 Resp 16 09/11/21 08:00 BP 119/52 09/11/21 08:00 Pulse Ox 100 09/11/21 08:00 FiO2 Intake & Output 09/10/21 09/11/21 09/11/21 18:59 06:59 18:59 Intake Total 310 120 Balance 310 120 Weight 47.627 kg Intake: Oral 0 120 Blood Product 310 Rc As-1 Unit 310 [id number] Other: Voiding Method Bedside Commode # Voids 0 1 # Bowel Movements 0 - Exam - Constitutional General appearance: Present: cooperative, mild distress, thin - EENT Eyes: Present: anicteric sclerae, EOMI ENT: Present: hearing grossly normal - Respiratory Respiratory: bilateral: rhonchi (scattered, right greater than left) - Cardiovascular Rhythm: regular Heart sounds: normal: S1, S2 Abnormal Heart Sounds: Absent: systolic murmur, diastolic murmur, rub, S3 Gallop, S4 Gallop, click, other - Peripheral edema leg Peripheral Edema: bilateral: None - Gastrointestinal General gastrointestinal: Present: normal bowel sounds, soft - Integumentary Integumentary: Present: pale - Neurologic Neurologic: Present: CNII-XII intact (grossly) - Musculoskeletal Musculoskeletal: Present: generalized weakness, strength equal bilaterally - Psychiatric Psychiatric: Present: A&O x's 3, appropriate affect, intact judgment & insight - Labs CBC & Chem 7: 09/11/21 07:56 09/11/21 07:56 Labs: Abnormal Lab Results - Last 24 Hours (Table) 09/07/21 09/10/21 09/11/21 Range/Units 08:05 16:39 07:56 WBC 14.1 H 12.2 H (3.8-10.6) k/uL RBC 2.56 L 2.80 L (3.80-5.40) m/uL Hgb 8.0 L 8.8 L (11.4-16.0) gm/dL Hct 23.6 L 26.1 L (34.0-46.0) % RDW 15.8 H (11.5-15.5) % Plt Count 19 L* 14 L* (150-450) k/uL Neutrophils # 11.0 H (1.3-7.7) k/uL Lymphocytes # 0.7 L (1.0-4.8) k/uL Crossmatch See Detail Microbiology - Last 24 Hours (Table) 09/07/21 18:00 Blood Culture - Preliminary Blood No Growth after 72 hours 09/07/21 18:11 Blood Culture - Preliminary Blood No Growth after 72 hours Assessment and Plan (1) Macrocytic anemia Narrative/Plan: Severe with hemoglobin 3.8, on 09/08/21 = 5, and today = Transfusions ordered IRon and anemia studies ordered on initial blood to not be mis interpretted aftyer transfusions. Transfuse hemoglobin less than 7.o, hemoglobi 6.7 today Current Visit: Yes Status: Acute Code(s): D53.9 - NUTRITIONAL ANEMIA, UNSPECIFIED SNOMED Code(s): 86547516 (2) Thrombocytopenia Narrative/Plan: Severe, improving Transfuse Platelets DIC work-up COag review Transfuse platelets less than 10 14K today Current Visit: Yes Status: Acute Priority: High Code(s): D69.6 - THROM BOCYTOPENIA, UNSPECIFIED SNOMED Code(s): 173455752 (3) Small cell lung carcinoma Narrative/Plan: Status post chemotherapy cycle 4 with immune therapy Was suppose to have follow-up in office today however presented to hospital WIll need to see Dr. Church after discharge for plans of restaging and possible maintenance immune therapy Discussed with Dr. Church today as patient was due for restaging scans, she was suppose to be seen in office but has not been due to hospitalization, will recheck CT C/A/P Current Visit: Yes Status: Chronic Priority: Medium Code(s): C34.90 - MALIGNANT NEOPLASM OF UNSP PART OF UNSP BRONCHUS OR LUNG SNOMED Code(s): 321274566 (4) Hypomagnesemia Current Visit: No Status: Acute Code(s): E83.42 - HYPOMAGNESEMIA SNOMED Code(s): 459444961 Plan: Await metabolic panel and magnesium today, recheck coags Chest xray reviewed with atelectesis, primary team has ordered for PT/OT and an order for incentive spirometer has been placed. CT C/A/P per Dr. Church restaging.
--- NOTE | 2021-09-11 10:08 | P.PN ---
Subjective Progress Note Date: 09/11/21 Gayla Hernandez, is a 71-year-old female who presented to [facility] emergency room with a chief complaint of shortness of breath that has been worsening over the last 2 weeks but worse the last 2 days. She was evaluated in the emergency room vital examination on presentation reve aled a temperature of 97.6 pulse 104 respiration 18 blood pressure 96/63 pulse ox 96% on room air Laboratory data revealed a white blood count of 2.9 hemoglobin 3.8 platelet count of 2 sodium 136 potassium 3.9 chloride 108 CO2 20 BUN 52 creatinine 0.73 glucose level 182 Testing in the emergency room revealed EKG done in the emergency room revealed evidence of atrial fibrillation with rapid ventricular response, chest x-ray done in the emergency room revealed evidence of COPD and improved right upper lobe density. Patient was given 2 units of red blood cells in the emergency room, she was star sean on IV Cardizem. Patient was admitted to medical floor for further evaluation and treatment. Past medical history is significant for atrial fibrillation, history of lung cancer with previous history of chemotherapy and radiation therapy followed by Dr. Church, history of COPD, history of hypothyroidism, history of esophageal stricture requiring previous dilatation. On 09/08/2021 patient is alert and oriented 3 status post blood transfusion. Hemoglobin continued to be low at 5.5. Blood product ordered per oncology. Oncology and cardiology services following On 09/09/2021 patient is alert and oriented 3. At this time patient having some nausea and dry heaves. Zofran has been ordered. Awaiting blood recheck. Patient had potential reaction to amiodarone throughout night with tachycardia and low oxygen. At that time hemoglobin was checked hemoglobin low at 5.7 1 unit PRBCs was ordered. Current vitals temp 98.2, heart rate 99, respiratory rate 22 with a blood pressure 105/59. Patient satting 99% on 3 L On 6 07/22/2021 patient is alert and oriented 3. Nausea has improved. Hemoglobin today 8.8. Platelets low at 14 awaiting hematology input in regards to further transfusion. Current vital signs temp 98.2. Pulse rate 85, respiratory rate 16 with a blood pressure of 119/52 pulse ox 100% on 2 L Objective - Vital Signs Vital signs: Vital Signs Temp 98.2 F 09/11/21 00:00 Pulse 85 09/11/21 08:00 Resp 16 09/11/21 08:00 BP 119/52 09/11/21 08:00 Pulse Ox 100 09/11/21 08:00 FiO2 Intake & Output 09/10/21 09/11/21 09/11/21 18:59 06:59 18:59 Intake Total 310 120 Balance 310 120 Weight 47.627 kg Intake: Oral 0 120 Blood Product 310 Rc As-1 Unit 310 [id number] Other: Voiding Method Bedside Commode # Voids 0 1 # Bowel Movements 0 - Exam In general patient is alert and oriented x 3 in no distress HEENT head normocephalic and atraumatic Neck is supple no JVD no goiter no lymphadenopathy no carotid bruit Chest examination is clear to auscultation no crackles no wheezing Cardiac exam reveals regular heart sounds S1 and S2 no gallops no murmurs Abdomen is soft nontender no organomegaly with normal bowel sounds Extremity exam reveals no edema no cyanosis or clubbing Neurological examination reveals no gross focal deficits - Labs CBC & Chem 7: 09/11/21 07:56 09/11/21 07:56 Labs: Abnormal Lab Results - Last 24 Hours (Table) 09/07/21 09/10/21 09/11/21 Range/Units 08:05 16:39 07:56 WBC 14.1 H 12.2 H (3.8-10.6) k/uL RBC 2.56 L 2.80 L (3.80-5.40) m/uL Hgb 8.0 L 8.8 L (11.4-16.0) gm/dL Hct 23.6 L 26.1 L (34.0-46.0) % RDW 15.8 H (11.5-15.5) % Plt Count 19 L* 14 L* (150-450) k/uL Neutrophils # 11.0 H (1.3-7.7) k/uL Lymphocytes # 0.7 L (1.0-4.8) k/uL Chloride (98-107) mmol/L BUN (7-17) mg/dL Glucose (74-99) mg/dL Total Protein (6.3-8.2) g/dL Albumin (3.5-5.0) g/dL Crossmatch See Detail 09/11/21 Range/Units 07:56 WBC (3.8-10.6) k/uL RBC (3.80-5.40) m/uL Hgb (11.4-16.0) gm/dL Hct (34.0-46.0) % RDW (11.5-15.5) % Plt Count (150-450) k/uL Neutrophils # (1.3-7.7) k/uL Lymphocytes # (1.0-4.8) k/uL Chloride 111 H (98-107) mmol/L BUN 23 H (7-17) mg/dL Glucose 186 H (74-99) mg/dL Total Protein 4.8 L (6.3-8.2) g/dL Albumin 2.6 L (3.5-5.0) g/dL Crossmatch Microbiology - Last 24 Hours (Table) 09/07/21 18:00 Blood Culture - Preliminary Blood No Growth after 72 hours 09/07/21 18:11 Blood Culture - Preliminary Blood No Growth after 72 hours Assessment and Plan Plan: Severe anemia with a hemoglobin of 3.8, 2 units of red blood cell transfusion was given in the emergency room, will monitor closely Atrial fibrillation with rapid ventricular response started on IV Cardizem in the emergency room. Resolved Underlying history of lung cancer with recent chemotherapy about 2 weeks ago Underlying history of hypothyroidism maintained on Synthroid Underlying history of COPD Underlying history of esophageal stricture requiring dilation in the past Underlying history of atrial fibrillation At this time patient is admitted to telemetry floor Home medications reviewed and reordered Cardiology and oncology service is following Status post transfusion of 4 units of PRBCs and 1 unit of platelets Continue to monitor patient closely and transfuse as needed
[2021-09-11 10:41] LABS: INR 1.1 (<1.2); Prothrombin Time 12.1 sec (9.0-12.0)
--- NOTE | 2021-09-11 11:02 | P.PN ---
Subjective Progress Note Date: 09/11/21 Principal diagnosis: COPD exacerbation, lung cancer. Pulmonary consult dated 09/10/2021. This is a 71-year-old female with a history of small cell lung cancer. The patient presented to the emergency department on September 07, complaining of shortness of breath. She apparently had shortness of breath, progressive, for the last 2 or 3 days prior to her admission. The shortness of breath was progressive in nature, and that is why she came in to be evaluated. The patient recently completed chemotherapy for her lung cancer. The patient also has a cough, mostly nonproductive. She denies any fever or chills. There is no chest pain or chest discomfort. No nausea, vomiting, or diarrhea. Currently, she is a DO NOT RESUSCITATE patient. She is receiving a blood transfusion. She is on 2 L nasal cannula. No IV fluids. She has a history of atrial fibrillation, lung cancer, hypothyroidism, and has a prior history of tobacco use. White count 10.3, hemoglobin down to 6.7, hematocrit 19.4, platelet count 24,000. Sodium 139, potassium 3, chlorides 111, CO2 24, BUN 29 and creatinine 0.58. Blood cultures are thus far negative. Chest x-rays consistent with hyperinflation and underlying COPD. There is also a chronic cavitation in the right lung apex. Progress note dated 09/11/2021. 71-year-old female with a history of small cell lung cancer. The patient was seen in consultation yesterday. The patient was complaining of shortness of breath. We placed her on DuoNeb nebs, corticosteroids, as well as long-acting beta agonist and inhaled corticosteroids. The patient's feeling much better. She's currently on a couple liters. White count 12.2, hemoglobin 8.8, hematocrit 26.1, and platelet count 14,000. Sodium 141, potassium 4.2, chlorides 111, CO2 25, BUN 23, and creatinine 0.55. Albumin is 2.6. Objective - Vital Signs Vital signs: Vital Signs Temp 98.2 F 09/11/21 00:00 Pulse 85 09/11/21 08:00 Resp 16 09/11/21 08:00 BP 119/52 09/11/21 08:00 Pulse Ox 100 09/11/21 08:00 FiO2 Intake & Output 09/10/21 09/11/21 09/11/21 18:59 06:59 18:59 Intake Total 310 120 Balance 310 120 Weight 47.627 kg Intake: Oral 0 120 Blood Product 310 Rc As-1 Unit 310 [id number] Other: Voiding Method Bedside Commode Bedside Commode # Voids 0 1 # Bowel Movements 0 - Exam No acute distress, oriented 3. No conversational dyspnea or use of accessory muscles. Currently on 2 L nasal O2. HEENT examination is grossly unremarkable. Neck supple. Full range of motion. No adenopathy thyromegaly or neck vein distention. Cardiovascular examination reveals regular rhythm rate. S1-S2 normal. No S3 or S4. No discernible murmur noted. Heart rate 85 bpm. Lungs reveal improved bilateral breath sounds. Scattered mild rhonchi. No wheezes or crackles. Breath sounds equal bilaterally but diminished throughout. 2 L saturation is 100%. Abdomen soft bowel sounds are heard. No masses or tenderness. Extremities are intact. No cyanosis clubbing or edema. Skin is without rash or lesion. Neurologic examination is brief but nonfocal. - Labs CBC & Chem 7: 09/11/21 07:56 09/11/21 07:56 Labs: Abnormal Lab Results - Last 24 Hours (Table) 09/07/21 09/10/21 09/11/21 Range/Units 08:05 16:39 07:56 WBC 14.1 H 12.2 H (3.8-10.6) k/uL RBC 2.56 L 2.80 L (3.80-5.40) m/uL Hgb 8.0 L 8.8 L (11.4-16.0) gm/dL Hct 23.6 L 26.1 L (34.0-46.0) % RDW 15.8 H (11.5-15.5) % Plt Count 19 L* 14 L* (150-450) k/uL Neutrophils # 11.0 H (1.3-7.7) k/uL Lymphocytes # 0.7 L (1.0-4.8) k/uL PT (9.0-12.0) sec Chloride (98-107) mmol/L BUN (7-17) mg/dL Glucose (74-99) mg/dL Magnesium (1.6-2.3) mg/dL Total Protein (6.3-8.2) g/dL Albumin (3.5-5.0) g/dL Crossmatch See Detail 09/11/21 09/11/21 09/11/21 Range/Units 07:56 07:56 07:56 WBC (3.8-10.6) k/uL RBC (3.80-5.40) m/uL Hgb (11.4-16.0) gm/dL Hct (34.0-46.0) % RDW (11.5-15.5) % Plt Count (150-450) k/uL Neutrophils # (1.3-7.7) k/uL Lymphocytes # (1.0-4.8) k/uL PT 12.1 H (9.0-12.0) sec Chloride 111 H (98-107) mmol/L BUN 23 H (7-17) mg/dL Glucose 186 H (74-99) mg/dL Magnesium 1.1 L (1.6-2.3) mg/dL Total Protein 4.8 L (6.3-8.2) g/dL Albumin 2.6 L (3.5-5.0) g/dL Crossmatch Microbiology - Last 24 Hours (Table) 09/07/21 18:00 Blood Culture - Preliminary Blood No Growth after 72 hours 09/07/21 18:11 Blood Culture - Preliminary Blood No Growth after 72 hours Assessment and Plan Assessment: Shortness of breath, multifactorial, in part related to COPD exacerbation, mild tracheobronchitis, and anemia, improved. Small cell lung cancer, status post chemotherapy. Acute anemia, status post 5 units of blood. Bicytopenia. History of atrial fibrillation. Hypothyroidism. 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 Plan: Plan dated 09/10/2021. The patient will get a few doses of corticosteroids. In addition, we'll give her DuoNeb, and Symbicort. Additional recommendations and suggestions are forthcoming. Prognosis is certainly guarded. The patient can also get a short course of antibiotic. We will continue to follow. Prognosis is certainly very guarded. Plan dated 09/11/2021. The patient is improved. The patient was placed on Symbicort, DuoNeb nebs, and corticosteroids. The patient's also getting a couple doses of azithromycin. Additional recommendations and suggestions are forthcoming. Prognosis is guarded. We will continue to follow. No additional recommendations at this time. Time with Patient: Less than 30
[2021-09-11] MEDS ORDERED: IOPAMIDOL CONTRAST (ORAL USE) VIAL PO PRN (20:27)
--- NOTE | 2021-09-12 01:02 | CT ---
EXAMINATION TYPE: CT ChestAbdPelvis w con DATE OF EXAM: 09/11/2021 COMPARISON: PET CT scan 05/22/2021 HISTORY: LUNG CA, RESTAGING CT DLP: 672.4 mGycm Automated exposure control for dose reduction was used. CONTRAST: Performed with IV Contrast, patient injected with 100 mL of Isovue 300. Images obtained from the thoracic inlet to the floor of the pelvis with IV contrast. There is oral co ntrast. There are bilateral pleural effusions. There is right apical pneumothorax or large air-filled cavity. There is some infiltrate and atelectasis in the left lower lobe. Heart size is normal. No hilar mass es. There is no mediastinal adenopathy. There is pleural thickening and spiculation in the right pulm onary hilum and along the right lateral chest wall. There is anterior mediastinal density that measur es 3.5 x 1.5 cm and consistent with tumor and unchanged. No evidence of any significant filling defect in the pulmonary arteries. Liver shows no focal defect. Spleen is intact. No sign of pancreatic mass. The stomach is intact. There is no adrenal mass. Kidneys have normal size. No hydronephrosis. Delayed images show normal lani al excretion. Ureters are not dilated. There is no retroperitoneal adenopathy. There is mild abdomina l ascites fluid in the pelvis. Small bowel pattern is fairly normal. No sign of a bowel obstruction. The thoracic and lumbar spine are intact. Sternum is intact. Shoulder joints appear intact. I see no rib fracture. There is some diffuse atherosclerotic plaque formation in the abdominal aorta. No definite hemodynami c stenosis. IMPRESSION: There is cavitation in the right upper lobe with spiculation and masslike density at the right pulmon olaf hilum and linear infiltrate extending into the right upper lobe. There is irregular pleural thick ening on the right lateral chest wall. There is new mild to moderate bilateral pleural effusions comp ared to old exam and consistent with progression of disease. There is new infiltrate and atelectasis left lung base compared to old exam. There is some new mild abdominal ascites fluid compared to old exam and could relate to progression o f disease in the abdomen.
[2021-09-12] MEDS: SYMBICORT 160-4.5 MCG INHALER INHALATION SCH ×2 (07:27→19:40)
[2021-09-12] MEDS: IPRATROPIUM-ALBUTEROL 3 ML NEB INHALATION SCH ×4 (07:27→19:40)
[2021-09-12 08:18] LABS: Basophils % (A) 0 %; Eosinophils % (A) 0 %; HCT 26.6 % (34.0-46.0); HGB 8.9 gm/dL (11.4-16.0); Lymphocytes # (A) 0.9 k/uL (1.0-4.8); Lymphocytes % (A) 3 %; MCH 31.3 pg (25.0-35.0); MCHC 33.6 g/dL (31.0-37.0); Mean Platelet Volume 13.1; Monocytes # (A) 0.8 k/uL (0-1.0); Monocytes % (A) 3 %; Neutrophils # (A) 25.4 k/uL (1.3-7.7); Neutrophils % (A) 92 %; RBC 2.86 m/uL (3.80-5.40); RDW 15.6 % (11.5-15.5); WBC 27.5 k/uL (3.8-10.6)
[2021-09-12 08:20] LABS: ALT 11 U/L (4-34); AST 16 U/L (14-36); African American GFR (CKD) >90 (>60 ml/min/1.73 sqM); Albumin 2.9 g/dL (3.5-5.0); Alkaline Phosphatase 129 U/L (38-126); Anion Gap 4 mmol/L; Blood Urea Nitrogen 25 mg/dL (7-17); Calcium 9.3 mg/dL (8.4-10.2); Carbon Dioxide 27 mmol/L (22-30); Chloride 107 mmol/L (98-107); Glucose 185 mg/dL (74-99); Non-African American GFR(CKD) 90 (>60 ml/min/1.73 sqM); Potassium 3.4 mmol/L (3.5-5.1); Sodium 138 mmol/L (137-145); Total Bilirubin 0.6 mg/dL (0.2-1.3); Total Protein 5.1 g/dL (6.3-8.2)
[2021-09-12 08:25] LABS: Platelet Count 18 k/uL (150-450)
[2021-09-12] MEDS: methylPREDNISolone SOD SUCCI 40 MG/ML 1 ML VIAL IV SCH ×3 (09:10→22:53)
[2021-09-12] MEDS: METOPROLOL TARTRATE 25 MG TAB PO SCH ×3 (09:10→22:51)
[2021-09-12] MEDS: PANTOPRAZOLE 40 MG TABLET PO SCH (09:10)
[2021-09-12] MEDS: LEVOTHYROXINE 25 MCG TAB PO SCH (09:10)
[2021-09-12] MEDS ORDERED: Magnesium Replacement Protocol 1 EACH MISC MISCELLANE PRN (11:17)
--- NOTE | 2021-09-12 11:22 | P.PN ---
Subjective Progress Note Date: 09/12/21 Gayla Hernandez, is a 71-year-old female who presented to [facility] emergency room with a chief complaint of shortness of breath that has been worsening over the last 2 weeks but worse the last 2 days. She was evaluated in the emergency room vital examination on presentation reve aled a temperature of 97.6 pulse 104 respiration 18 blood pressure 96/63 pulse ox 96% on room air Laboratory data revealed a white blood count of 2.9 hemoglobin 3.8 platelet count of 2 sodium 136 potassium 3.9 chloride 108 CO2 20 BUN 52 creatinine 0.73 glucose level 182 Testing in the emergency room revealed EKG done in the emergency room revealed evidence of atrial fibrillation with rapid ventricular response, chest x-ray done in the emergency room revealed evidence of COPD and improved right upper lobe density. Patient was given 2 units of red blood cells in the emergency room, she was star sean on IV Cardizem. Patient was admitted to medical floor for further evaluation and treatment. Past medical history is significant for atrial fibrillation, history of lung cancer with previous history of chemotherapy and radiation therapy followed by Dr. Church, history of COPD, history of hypothyroidism, history of esophageal stricture requiring previous dilatation. On 09/08/2021 patient is alert and oriented 3 status post blood transfusion. Hemoglobin continued to be low at 5.5. Blood product ordered per oncology. Oncology and cardiology services following On 09/09/2021 patient is alert and oriented 3. At this time patient having some nausea and dry heaves. Zofran has been ordered. Awaiting blood recheck. Patient had potential reaction to amiodarone throughout night with tachycardia and low oxygen. At that time hemoglobin was checked hemoglobin low at 5.7 1 unit PRBCs was ordered. Current vitals temp 98.2, heart rate 99, respiratory rate 22 with a blood pressure 105/59. Patient satting 99% on 3 L On 09/11/2021 patient is alert and oriented 3. Nausea has improved. Hemoglobin today 8.8. Platelets low at 14 awaiting hematology input in regards to further transfusion. Current vital signs temp 98.2. Pulse rate 85, respiratory rate 16 with a blood pressure of 119/52 pulse ox 100% on 2 L On 09/12/2021 patient was seen and examined on the medical floor she is alert and oriented 3 in no apparent distress, she is complaining of worsening shortness of breath and cough otherwise she denies any complaints there is no fever or chills no headache or dizziness, there is no chest pain no nausea or vomiting no abdominal pain no diarrhea and no urinary symptoms, patient denies any pain at this time, her major complaint is shortness of breath, computed tomography scan of the chest was done yesterday and reviewed, pulmonary and oncology are following. Objective - Vital Signs Vital signs: Vital Signs Temp 97.8 F 09/12/21 04:00 Pulse 86 09/12/21 04:00 Resp 20 09/12/21 04:00 BP 137/92 09/12/21 04:00 Pulse Ox 99 09/12/21 04:00 FiO2 Intake & Output 09/11/21 09/12/21 09/12/21 18:59 06:59 18:59 Intake Total 238 Balance 238 Weight 49.3 kg Intake: Oral 238 Other: Voiding Method Bedside Commode Bedside Commode - Exam In general patient is alert and oriented x 3 in no distress HEENT head normocephalic and atraumatic Neck is supple no JVD no goiter no lymphadenopathy no carotid bruit Chest examination is clear to auscultation no crackles no wheezing Cardiac exam reveals regular heart sounds S1 and S2 no gallops no murmurs Abdomen is soft nontender no organomegaly with normal bowel sounds Extremity exam reveals no edema no cyanosis or clubbing Neurological examination reveals no gross focal deficits - Labs CBC & Chem 7: 09/12/21 06:16 09/12/21 06:16 Labs: Abnormal Lab Results - Last 24 Hours (Table) 09/12/21 09/12/21 09/12/21 Range/Units 06:16 06:16 06:16 WBC 27.5 H (3.8-10.6) k/uL RBC 2.86 L (3.80-5.40) m/uL Hgb 8.9 L (11.4-16.0) gm/dL Hct 26.6 L (34.0-46.0) % RDW 15.6 H (11.5-15.5) % Plt Count 18 L* (150-450) k/uL Neutrophils # 25.4 H (1.3-7.7) k/uL Lymphocytes # 0.9 L (1.0-4.8) k/uL Potassium 3.4 L (3.5-5.1) mmol/L BUN 25 H (7-17) mg/dL Glucose 185 H (74-99) mg/dL Magnesium 1.1 L (1.6-2.3) mg/dL Alkaline Phosphatase 129 H (38-126) U/L Total Protein 5.1 L (6.3-8.2) g/dL Albumin 2.9 L (3.5-5.0) g/dL Microbiology - Last 24 Hours (Table) 09/07/21 18:00 Blood Culture - Preliminary Blood No Growth after 96 hours 09/07/21 18:11 Blood Culture - Preliminary Blood No Growth after 96 hours Assessment and Plan Plan: Severe anemia with a hemoglobin of 3.8, 2 units of red blood cell transfusion was given in the emergency room, will monitor closely Atrial fibrillation with rapid ventricular response started on IV Cardizem in the emergency room. Resolved Underlying history of lung cancer with recent chemotherapy about 2 weeks ago Underlying history of hypothyroidism maintained on Synthroid Underlying history of COPD Underlying history of esophageal stricture requiring dilation in the past Underlying history of atrial fibrillation At this time patient is admitted to telemetry floor Home medications reviewed and reordered Cardiology and oncology service is following Status post transfusion of 4 units of PRBCs and 1 unit of platelets Continue to monitor patient closely and transfuse as needed
--- NOTE | 2021-09-12 12:44 | P.PN ---
Subjective Progress Note Date: 09/12/21 Principal diagnosis: COPD exacerbation, lung cancer. Pulmonary consult dated 09/10/2021. This is a 71-year-old female with a history of small cell lung cancer. The patient presented to the emergency department on September 07, complaining of shortness of breath. She apparently had shortness of breath, progressive, for the last 2 or 3 days prior to her admission. The shortness of breath was progressive in nature, and that is why she came in to be evaluated. The patient recently completed chemotherapy for her lung cancer. The patient also has a cough, mostly nonproductive. She denies any fever or chills. There is no chest pain or chest discomfort. No nausea, vomiting, or diarrhea. Currently, she is a DO NOT RESUSCITATE patient. She is receiving a blood transfusion. She is on 2 L nasal cannula. No IV fluids. She has a history of atrial fibrillation, lung cancer, hypothyroidism, and has a prior history of tobacco use. White count 10.3, hemoglobin down to 6.7, hematocrit 19.4, platelet count 24,000. Sodium 139, potassium 3, chlorides 111, CO2 24, BUN 29 and creatinine 0.58. Blood cultures are thus far negative. Chest x-rays consistent with hyperinflation and underlying COPD. There is also a chronic cavitation in the right lung apex. Progress note dated 09/11/2021. 71-year-old female with a history of small cell lung cancer. The patient was seen in consultation yesterday. The patient was complaining of shortness of breath. We placed her on DuoNeb nebs, corticosteroids, as well as long-acting beta agonist and inhaled corticosteroids. The patient's feeling much better. She's currently on a couple liters. White count 12.2, hemoglobin 8.8, hematocrit 26.1, and platelet count 14,000. Sodium 141, potassium 4.2, chlorides 111, CO2 25, BUN 23, and creatinine 0.55. Albumin is 2.6. Progress note dated 09/12/2021. 72-year-old female with history of small cell lung cancer. The patient was seen in consultation 2 days ago. Currently, the patient's doing much better. The patient is currently on a couple liters of oxygen. The patient's breathing is much improved although she still has some chest congestion, and cough. She also has shortness of breath on exertion. White count 27.5, hemoglobin 8.9, hematocrit 26.6, and platelet count 18,000. Sodium 138, potassium 3.4, chlorides 107, CO2 27, BUN 25, creatinine 0.64. Computed tomography scan of the chest shows cavitation in the right upper lobe with spiculation a masslike densi ty in the right pulmonary hilum and linear infiltrate extending into the right upper lobe. There is a regular pleural thickening on the right lateral chest wall. There is new mild to moderate bilateral pleural effusions compared to old exam and consistent with progression of disease. Objective - Vital Signs Vital signs: Vital Signs Temp 97.5 F L 09/12/21 11:58 Pulse 89 09/12/21 11:58 Resp 20 09/12/21 08:00 BP 134/69 09/12/21 11:58 Pulse Ox 99 09/12/21 11:58 FiO2 Intake & Output 09/11/21 09/12/21 09/12/21 18:59 06:59 18:59 Intake Total 238 Output Total 400 Balance 238 -400 Weight 49.3 kg Intake: Oral 238 Output: Urine 400 Other: Voiding Method Bedside Commode Bedside Commode Bedside Commode - Exam No acute distress, oriented 3. No conversational dyspnea or use of accessory muscles. Currently on 2 L nasal O2. HEENT examination is grossly unremarkable. Neck supple. Full range of motion. No adenopathy thyromegaly or neck vein distention. Cardiovascular examination reveals regular rhythm rate. S1-S2 normal. No S3 or S4. No discernible murmur noted. Heart rate 89 bpm. Lungs reveal improved bilateral breath sounds. Scattered mild rhonchi. No wheezes or crackles. Breath sounds equal bilaterally but diminished throughout. 2 L saturation is 99%. Abdomen soft bowel sounds are heard. No masses or tenderness. Extremities are intact. No cyanosis clubbing or edema. Skin is without rash or lesion. Neurologic examination is brief but nonfocal. - Labs CBC & Chem 7: 09/12/21 06:16 09/12/21 06:16 Labs: Abnormal Lab Results - Last 24 Hours (Table) 09/12/21 09/12/21 09/12/21 Range/Units 06:16 06:16 06:16 WBC 27.5 H (3.8-10.6) k/uL RBC 2.86 L (3.80-5.40) m/uL Hgb 8.9 L (11.4-16.0) gm/dL Hct 26.6 L (34.0-46.0) % RDW 15.6 H (11.5-15.5) % Plt Count 18 L* (150-450) k/uL Neutrophils # 25.4 H (1.3-7.7) k/uL Lymphocytes # 0.9 L (1.0-4.8) k/uL Potassium 3.4 L (3.5-5.1) mmol/L BUN 25 H (7-17) mg/dL Glucose 185 H (74-99) mg/dL Magnesium 1.1 L (1.6-2.3) mg/dL Alkaline Phosphatase 129 H (38-126) U/L Total Protein 5.1 L (6.3-8.2) g/dL Albumin 2.9 L (3.5-5.0) g/dL Microbiology - Last 24 Hours (Table) 09/07/21 18:00 Blood Culture - Preliminary Blood No Growth after 96 hours 09/07/21 18:11 Blood Culture - Preliminary Blood No Growth after 96 hours Assessment and Plan Assessment: Shortness of breath, multifactorial, in part related to COPD exacerbation, mild tracheobronchitis, and anemia, improved. Small cell lung cancer, status post chemotherapy. Acute anemia, status post 5 units of blood. Bicytopenia. History of atrial fibrillation. Hypothyroidism. 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 Plan: Plan dated 09/10/2021. The patient will get a few doses of corticosteroids. In addition, we'll give he r DuoNeb, and Symbicort. Additional recommendations and suggestions are forthcoming. Prognosis is certainly guarded. The patient can also get a short course of antibiotic. We will continue to follow. Prognosis is certainly very guarded. Plan dated 09/11/2021. The patient is improved. The patient was placed on Symbicort, DuoNeb nebs, and corticosteroids. The patient's also getting a couple doses of azithromycin. Additional recommendations and suggestions are forthcoming. Prognosis is g uarded. We will continue to follow. No additional recommendations at this time. Plan dated 09/12/2021. The patient's labs, x-rays, and medications are all reviewed. Clinically, from the pulmonary standpoint, the patient's doing better. 2 L saturation is 99 %. The patient's on Symbicort, DuoNeb nebs, and corticosteroids. We will continue to follow make recommendations along the way. Prognosis is certainly guarded. No additional recommendations are made at this time. Time with Patient: Less than 30
[2021-09-12] MEDS: AZITHROMYCIN 500 MG TAB PO SCH (12:45)
[2021-09-12] MEDS: POTASSIUM CHLORIDE ER 20 MEQ TAB.ER PO SCH ×2 (12:46→13:52)
[2021-09-12] MEDS: MAGNESIUM SULFATE-D5W PMX 1 GM in DEXTROSE/WATER 1 100ML.BAG IVPB SCH ×3 (12:46→15:51)
[2021-09-12] MEDS ORDERED: ACETAMINOPHEN TAB 500 MG TAB PO PRN (17:59)
[2021-09-12 19:19] LABS: Magnesium 2.2 mg/dL (1.6-2.3); Potassium 4.3 mmol/L (3.5-5.1)
[2021-09-13] MEDS: LEVOTHYROXINE 25 MCG TAB PO SCH (06:16)
[2021-09-13] MEDS: PANTOPRAZOLE 40 MG TABLET PO SCH (06:16)
[2021-09-13] MEDS: methylPREDNISolone SOD SUCCI 40 MG/ML 1 ML VIAL IV SCH (09:26)
[2021-09-13] MEDS: METOPROLOL TARTRATE 25 MG TAB PO SCH ×3 (09:26→20:24)
[2021-09-13 09:32] LABS: Basophils # (A) 0.1 k/uL (0-0.2); Basophils % (A) 0 %; Eosinophils % (A) 0 %; HCT 28.2 % (34.0-46.0); HGB 9.2 gm/dL (11.4-16.0); Hypochromasia Slight; Lymphocytes # (A) 0.8 k/uL (1.0-4.8); Lymphocytes % (A) 2 %; MCH 31.3 pg (25.0-35.0); MCHC 32.7 g/dL (31.0-37.0); MCV 95.8 fL (80.0-100.0); Mean Platelet Volume 12.7; Monocytes # (A) 1.2 k/uL (0-1.0); Monocytes % (A) 3 %; Neutrophils % (A) 94 %; RBC 2.95 m/uL (3.80-5.40); RDW 15.5 % (11.5-15.5); WBC 42.4 k/uL (3.8-10.6)
[2021-09-13 09:35] LABS: ALT 11 U/L (4-34); AST 15 U/L (14-36); African American GFR (CKD) >90 (>60 ml/min/1.73 sqM); Albumin 2.9 g/dL (3.5-5.0); Alkaline Phosphatase 152 U/L (38-126); Anion Gap 3 mmol/L; Blood Urea Nitrogen 23 mg/dL (7-17); Calcium 9.4 mg/dL (8.4-10.2); Carbon Dioxide 29 mmol/L (22-30); Chloride 107 mmol/L (98-107); Glucose 169 mg/dL (74-99); Non-African American GFR(CKD) >90 (>60 ml/min/1.73 sqM); Platelet Count 28 k/uL (150-450); Potassium 4.6 mmol/L (3.5-5.1); Sodium 139 mmol/L (137-145); Total Bilirubin 0.5 mg/dL (0.2-1.3); Total Protein 5.3 g/dL (6.3-8.2)
--- NOTE | 2021-09-13 09:53 | P.PN ---
Subjective Progress Note Date: 09/13/21 Gayla Hernandez, is a 71-year-old female who presented to [facility] emergency room with a chief complaint of shortness of breath that has been worsening over the last 2 weeks but worse the last 2 days. She was evaluated in the emergency room vital examination on presentation reve aled a temperature of 97.6 pulse 104 respiration 18 blood pressure 96/63 pulse ox 96% on room air Laboratory data revealed a white blood count of 2.9 hemoglobin 3.8 platelet count of 2 sodium 136 potassium 3.9 chloride 108 CO2 20 BUN 52 creatinine 0.73 glucose level 182 Testing in the emergency room revealed EKG done in the emergency room revealed evidence of atrial fibrillation with rapid ventricular response, chest x-ray done in the emergency room revealed evidence of COPD and improved right upper lobe density. Patient was given 2 units of red blood cells in the emergency room, she was star sean on IV Cardizem. Patient was admitted to medical floor for further evaluation and treatment. Past medical history is significant for atrial fibrillation, history of lung cancer with previous history of chemotherapy and radiation therapy followed by Dr. Church, history of COPD, history of hypothyroidism, history of esophageal stricture requiring previous dilatation. On 09/08/2021 patient is alert and oriented 3 status post blood transfusion. Hemoglobin continued to be low at 5.5. Blood product ordered per oncology. Oncology and cardiology services following On 09/09/2021 patient is alert and oriented 3. At this time patient having some nausea and dry heaves. Zofran has been ordered. Awaiting blood recheck. Patient had potential reaction to amiodarone throughout night with tachycardia and low oxygen. At that time hemoglobin was checked hemoglobin low at 5.7 1 unit PRBCs was ordered. Current vitals temp 98.2, heart rate 99, respiratory rate 22 with a blood pressure 105/59. Patient satting 99% on 3 L On 09/11/2021 patient is alert and oriented 3. Nausea has improved. Hemoglobin today 8.8. Platelets low at 14 awaiting hematology input in regards to further transfusion. Current vital signs temp 98.2. Pulse rate 85, respiratory rate 16 with a blood pressure of 119/52 pulse ox 100% on 2 L On 09/12/2021 patient was seen and examined on the medical floor she is alert and oriented 3 in no apparent distress, she is complaining of worsening shortness of breath and cough otherwise she denies any complaints there is no fever or chills no headache or dizziness, there is no chest pain no nausea or vomiting no abdominal pain no diarrhea and no urinary symptoms, patient denies any pain at this time, her major complaint is shortness of breath, computed tomography scan of the chest was done yesterday and reviewed, pulmonary and oncology are following. On 09/13/2021 patient is alert and oriented 3 resting comfortably in bed. Hemoglobin today 9.2. Patient remains on IV steroids. At this time patient denies chest pain or shortness breath. Patient denies nausea vomiting or diarrhea. Patient denies any urinary burning or frequency Objective - Vital Signs Vital signs: Vital Signs Temp 97.5 F L 09/13/21 08:00 Pulse 88 09/13/21 08:00 Resp 16 09/13/21 08:00 BP 116/57 09/13/21 08:00 Pulse Ox 100 09/13/21 08:00 FiO2 Intake & Output 09/12/21 09/13/21 09/13/21 18:59 06:59 18:59 Intake Total 418 100 Output Total 400 Balance 18 100 Intake: Intake, IV Titration 300 Amount Magnesium Sulfate-D5w Pmx 300 1 gm In Dextrose/Water 1 100ml.bag @ 100 mls/hr IVPB Q[facility]H [facility] Rx#: [id number] Oral 118 100 Output: Urine 400 Other: Voiding Method Bedside Commode Bedside Commode Bedside Commode - Exam In general patient is alert and oriented x 3 in no distress HEENT head normocephalic and atraumatic Neck is supple no JVD no goiter no lymphadenopathy no carotid bruit Chest examination is clear to auscultation no crackles no wheezing Cardiac exam reveals regular heart sounds S1 and S2 no gallops no murmurs Abdomen is soft nontender no organomegaly with normal bowel sounds Extremity exam reveals no edema no cyanosis or clubbing Neurological examination reveals no gross focal deficits - Labs CBC & Chem 7: 09/13/21 05:18 09/13/21 05:18 Labs: Abnormal Lab Results - Last 24 Hours (Table) 09/13/21 09/13/21 Range/Units 05:18 05:18 WBC 42.4 H (3.8-10.6) k/uL RBC 2.95 L (3.80-5.40) m/uL Hgb 9.2 L (11.4-16.0) gm/dL Hct 28.2 L (34.0-46.0) % Plt Count 28 L D (150-450) k/uL BUN 23 H (7-17) mg/dL Glucose 169 H (74-99) mg/dL Alkaline Phosphatase 152 H (38-126) U/L Total Protein 5.3 L (6.3-8.2) g/dL Albumin 2.9 L (3.5-5.0) g/dL Microbiology - Last 24 Hours (Table) 09/07/21 18:00 Blood Culture - Preliminary Blood No Growth after 120 hours 09/07/21 18:11 Blood Culture - Preliminary Blood No Growth after 120 hours Assessment and Plan Plan: Severe anemia with a hemoglobin of 3.8, 2 units of red blood cell transfusion was given in the emergency room, will monitor closely Atrial fibrillation with rapid ventricular response started on IV Cardizem in the emergency room. Resolved Underlying history of lung cancer with recent chemotherapy about 2 weeks ago Underlying history of hypothyroidism maintained on Synthroid Underlying history of COPD Underlying history of esophageal stricture requiring dilation in the past Underlying history of atrial fibrillation At this time patient is admitted to telemetry floor Home medications reviewed and reordered Cardiology, pulmonary and oncology service is following Status post transfusion of 5 units of PRBCs and 1 unit of platelets Continue to monitor patient closely and transfuse as needed
--- NOTE | 2021-09-13 11:05 | P.PN ---
Subjective Progress Note Date: 09/13/21 Principal diagnosis: COPD exacerbation, lung cancer. Pulmonary consult dated 09/10/2021. This is a 71-year-old female with a history of small cell lung cancer. The patient presented to the emergency department on September 07, complaining of shortness of breath. She apparently had shortness of breath, progressive, for the last 2 or 3 days prior to her admission. The shortness of breath was progressive in nature, and that is why she came in to be evaluated. The patient recently completed chemotherapy for her lung cancer. The patient also has a cough, mostly nonproductive. She denies any fever or chills. There is no chest pain or chest discomfort. No nausea, vomiting, or diarrhea. Currently, she is a DO NOT RESUSCITATE patient. She is receiving a blood transfusion. She is on 2 L nasal cannula. No IV fluids. She has a history of atrial fibrillation, lung cancer, hypothyroidism, and has a prior history of tobacco use. White count 10.3, hemoglobin down to 6.7, hematocrit 19.4, platelet count 24,000. Sodium 139, potassium 3, chlorides 111, CO2 24, BUN 29 and creatinine 0.58. Blood cultures are thus far negative. Chest x-rays consistent with hyperinflation and underlying COPD. There is also a chronic cavitation in the right lung apex. Progress note dated 09/11/2021. 71-year-old female with a history of small cell lung cancer. The patient was seen in consultation yesterday. The patient was complaining of shortness of breath. We placed her on DuoNeb nebs, corticosteroids, as well as long-acting beta agonist and inhaled corticosteroids. The patient's feeling much better. She's currently on a couple liters. White count 12.2, hemoglobin 8.8, hematocrit 26.1, and platelet count 14,000. Sodium 141, potassium 4.2, chlorides 111, CO2 25, BUN 23, and creatinine 0.55. Albumin is 2.6. Progress note dated 09/12/2021. 72-year-old female with history of small cell lung cancer. The patient was seen in consultation 2 days ago. Currently, the patient's doing much better. The patient is currently on a couple liters of oxygen. The patient's breathing is much improved although she still has some chest congestion, and cough. She also has shortness of breath on exertion. White count 27.5, hemoglobin 8.9, hematocrit 26.6, and platelet count 18,000. Sodium 138, potassium 3.4, chlorides 107, CO2 27, BUN 25, creatinine 0.64. Computed tomography scan of the chest shows cavitation in the right upper lobe with spiculation a masslike densi ty in the right pulmonary hilum and linear infiltrate extending into the right upper lobe. There is a regular pleural thickening on the right lateral chest wall. There is new mild to moderate bilateral pleural effusions compared to old exam and consistent with progression of disease. Progress note dated 09/13/2021. 71-year-old female with a history of small cell lung cancer. We saw the patient in consultation 3 days ago. She remains on nasal O2 at between 3-4 L. Clinically, she's doing better. Today, we discontinue her corticosteroids. She remains on Symbicort, and DuoNeb. We did ask her to use her incentive spirometer every hour while awake, and also provide her with a flutter valve. White count 42.4, hemoglobin 9.2, hematocrit 28.2, and platelet count 28,000. Sodium 139, potassium 4.6, [place] 107, CO2 29, BUN 23, and creatinine 0.62. Albumin is 2.9. Chest CT from yesterday, is reviewed, and suggests disease progression. Objective - Vital Signs Vital signs: Vital Signs Temp 97.5 F L 09/13/21 08:00 Pulse 88 09/13/21 08:00 Resp 16 09/13/21 08:00 BP 116/57 09/13/21 08:00 Pulse Ox 100 09/13/21 08:00 FiO2 Intake & Output 09/12/21 09/13/21 09/13/21 18:59 06:59 18:59 Intake Total 418 100 Output Total 400 Balance 18 100 Intake: Intake, IV Titration 300 Amount Magnesium Sulfate-D5w Pmx 300 1 gm In Dextrose/Water 1 100ml.bag @ 100 mls/hr IVPB Q1H [facility] Rx#: [id number] Oral 118 100 Output: Urine 400 Other: Voiding Method Bedside Commode Bedside Commode Bedside Commode - Exam No acute distress, oriented 3. No conversational dyspnea or use of accessory muscles. Currently on 2 L nasal O2. HEENT examination is grossly unremarkable. Neck supple. Full range of motion. No adenopathy thyromegaly or neck vein distention. Cardiovascular examination reveals regular rhythm rate. S1-S2 normal. No S3 or S4. No discernible murmur noted. Heart rate 83 bpm. Lungs reveal improved bilateral breath sounds. Scattered mild rhonchi. No wheezes or crackles. Breath sounds equal bilaterally but diminished throughout. 2 L saturation is 100%. Abdomen soft bowel sounds are heard. No masses or tenderness. Extremities are intact. No cyanosis clubbing or edema. Skin is without rash or lesion. Neurologic examination is brief but nonfocal. - Labs CBC & Chem 7: 09/13/21 05:18 09/13/21 05:18 Labs: Abnormal Lab Results - Last 24 Hours (Table) 09/13/21 09/13/21 Range/Units 05:18 05:18 WBC 42.4 H (3.8-10.6) k/uL RBC 2.95 L (3.80-5.40) m/uL Hgb 9.2 L (11.4-16.0) gm/dL Hct 28.2 L (34.0-46.0) % Plt Count 28 L D (150-450) k/uL Neutrophils # 40.0 H (1.3-7.7) k/uL Lymphocytes # 0.8 L (1.0-4.8) k/uL Monocytes # 1.2 H (0-1.0) k/uL BUN 23 H (7-17) mg/dL Glucose 169 H (74-99) mg/dL Alkaline Phosphatase 152 H (38-126) U/L Total Protein 5.3 L (6.3-8.2) g/dL Albumin 2.9 L (3.5-5.0) g/dL Microbiology - Last 24 Hours (Table) 09/07/21 18:00 Blood Culture - Preliminary Blood No Growth after 120 hours 09/07/21 18:11 Blood Culture - Preliminary Blood No Growth after 120 hours Assessment and Plan Assessment: Shortness of breath, multifactorial, in part related to COPD exacerbation, mild tracheobronchitis, and anemia, improved. Small cell lung cancer, status post chemotherapy, with most recent computed tomography scan of her chest suggesting disease progression. Acute anemia, status post 5 units of blood. Bicytopenia. History of atrial fibrillation. Hypothyroidism. 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 Plan: Plan dated 09/10/2021. The patient will get a few doses of corticosteroids. In addition, we'll give her DuoNeb, and Symbicort. Additional recommendations and suggestions are fo rthcoming. Prognosis is certainly guarded. The patient can also get a short course of antibiotic. We will continue to follow. Prognosis is certainly very guarded. Plan dated 09/11/2021. The patient is improved. The patient was placed on Symbicort, DuoNeb nebs, and corticosteroids. The patient's also getting a couple doses of azithromycin. Additional recommendations and suggestions are forthcoming. Prognosis is guarded. We will continue to follow. No additional recommendations at this time. Plan dated 09/12/2021. The patient's labs, x-rays, and medications are all reviewed. Clinically, from the pulmonary standpoint, the patient's doing better. 2 L saturation is 99 %. The patient's on Symbicort, DuoNeb nebs, and corticosteroids. We will continue to follow make recommendations along the way. Prognosis is certainly guarded. No additional recommendations are made at this time. Plan dated 09/13/2021. The patient remains on breathing treatments. They have seemed to help. We do recommend continued use of the incentive spirometer. In addition, we recommended a flutter valve. The patient's corticosteroids be discontinued. No additional recommendations are made. Prognosis is guarded. We will continue to follow and make recommendations where needed. Time with Patient: Less than 30
[2021-09-13] MEDS: IPRATROPIUM-ALBUTEROL 3 ML NEB INHALATION SCH ×3 (15:31→19:12)
[2021-09-13] MEDS: SYMBICORT 160-4.5 MCG INHALER INHALATION SCH ×2 (15:31→19:12)
[2021-09-14] MEDS: LEVOTHYROXINE 25 MCG TAB PO SCH (06:13)
[2021-09-14] MEDS: PANTOPRAZOLE 40 MG TABLET PO SCH (06:13)
[2021-09-14 07:44] LABS: Basophils # (A) 0.1 k/uL (0-0.2); Basophils % (A) 0 %; Eosinophils % (A) 0 %; HCT 26.3 % (34.0-46.0); HGB 8.5 gm/dL (11.4-16.0); Hypochromasia Slight; Lymphocytes # (A) 1.7 k/uL (1.0-4.8); Lymphocytes % (A) 5 %; MCH 31.1 pg (25.0-35.0); MCHC 32.4 g/dL (31.0-37.0); MCV 96.1 fL (80.0-100.0); Mean Platelet Volume 10.3; Monocytes # (A) 1.6 k/uL (0-1.0); Monocytes % (A) 5 %; Neutrophils # (A) 31.9 k/uL (1.3-7.7); Neutrophils % (A) 89 %; RBC 2.73 m/uL (3.80-5.40); RDW 15.7 % (11.5-15.5); WBC 35.7 k/uL (3.8-10.6)
[2021-09-14 07:52] LABS: Platelet Count 39 k/uL (150-450)
[2021-09-14] MEDS: IPRATROPIUM-ALBUTEROL 3 ML NEB INHALATION SCH ×4 (07:53→20:00)
[2021-09-14] MEDS: SYMBICORT 160-4.5 MCG INHALER INHALATION SCH ×2 (07:53→20:01)
[2021-09-14 08:16] LABS: ALT 11 U/L (4-34); AST 17 U/L (14-36); African American GFR (CKD) >90 (>60 ml/min/1.73 sqM); Albumin 2.6 g/dL (3.5-5.0); Alkaline Phosphatase 123 U/L (38-126); Anion Gap 1 mmol/L; Blood Urea Nitrogen 26 mg/dL (7-17); Calcium 9.3 mg/dL (8.4-10.2); Carbon Dioxide 30 mmol/L (22-30); Chloride 108 mmol/L (98-107); Glucose 147 mg/dL (74-99); Non-African American GFR(CKD) 87 (>60 ml/min/1.73 sqM); Potassium 4.6 mmol/L (3.5-5.1); Sodium 139 mmol/L (137-145); Total Bilirubin 0.4 mg/dL (0.2-1.3); Total Protein 4.9 g/dL (6.3-8.2)
[2021-09-14] MEDS: METOPROLOL TARTRATE 25 MG TAB PO SCH ×3 (08:30→20:54)
[2021-09-14 09:05] LABS: Polychromasia Present
--- NOTE | 2021-09-14 10:57 | US ---
EXAMINATION TYPE: US chest DATE OF EXAM: 09/14/2021 COMPARISON: NONE CLINICAL HISTORY: Markings for thoracentesis by pulmonary staff. TECHNIQUE: Targeted ultrasound of the posterior lower bilateral hemithoraces EXAM MEASUREMENTS: Right Pleural Effusion pocket size: 7.6 cm Right skin surface to fluid distance: 1.6 cm Left Pleural Effusion pocket size: 8.2 cm Left skin surface to fluid distance: 1.1 cm Right side marked for possible thoracentesis outside the dept. Left side marked for possible thoracentesis outside the dept. Pulmonologists are able to review the images in the patient?s EMR. IMPRESSIONS: 1. Bilateral pleural effusions
[2021-09-14 11:57] VITALS: BMI 16.5
[2021-09-14] MEDS: FLUCONAZOLE 100 MG TAB PO SCH (12:09)
[2021-09-14] MEDS: NYSTATIN 100,000 UNIT/ML SUSP 500,000 UNIT/5 ML CUP PO SCH ×4 (12:09→19:35)
--- NOTE | 2021-09-14 13:14 | P.PN ---
Subjective Progress Note Date: 09/14/21 Principal diagnosis: bicytopenia, completed chemotherapy/IO, small cell lung cancer. In follow-up today patient reports improvements in SOB-can sit without O2, no fever, vomiting, cough remains congested sounding and voice hoarseness persists but feels that it is better. She took a shower today and walked to bathroom. Objective - Vital Signs Vital signs: Vital Signs Temp 97.8 F 09/14/21 12:15 Pulse 59 L 09/14/21 12:15 Resp 18 09/14/21 12:15 BP 133/77 09/14/21 12:15 Pulse Ox 97 09/14/21 12:15 FiO2 Intake & Output 09/13/21 09/14/21 09/14/21 18:59 06:59 18:59 Intake Total 200 240 Balance 200 240 Weight 49.3 kg Intake: Oral 200 240 Other: Voiding Method Bedside Commode Bedside Commode Bedside Commode # Voids 1 1 - Constitutional General appearance: Present: cooperative, no acute distress, thin - EENT Eyes: Present: anicteric sclerae, EOMI ENT: Present: hearing grossly normal - Respiratory Respiratory: right: rhonchi (inspiratory but, much improved, more air movement), left: CTA - Cardiovascular Rhythm: regular Heart sounds: normal: S1, S2 Abnormal Heart Sounds: Absent: systolic murmur, diastolic murmur, rub, S3 Gallop, S4 Gallop, click, other - Peripheral edema leg Peripheral Edema: bilateral: None - Gastrointestinal General gastrointestinal: Present: normal bowel sounds, soft - Integumentary Integumentary: Present: normal - Neurologic Neurologic: Present: CNII-XII intact - Musculoskeletal Musculoskeletal: Present: strength equal bilaterally - Psychiatric Psychiatric: Present: A&O x's 3, appropriate affect, intact judgment & insight - Labs CBC & Chem 7: 09/14/21 06:20 09/14/21 06:20 Labs: Abnormal Lab Results - Last 24 Hours (Table) 09/14/21 09/14/21 Range/Units 06:20 06:20 WBC 35.7 H (3.8-10.6) k/uL RBC 2.73 L (3.80-5.40) m/uL Hgb 8.5 L (11.4-16.0) gm/dL Hct 26.3 L (34.0-46.0) % RDW 15.7 H (11.5-15.5) % Plt Count 39 L (150-450) k/uL Neutrophils # 31.9 H (1.3-7.7) k/uL Monocytes # 1.6 H (0-1.0) k/uL Chloride 108 H (98-107) mmol/L BUN 26 H (7-17) mg/dL Glucose 147 H (74-99) mg/dL Total Protein 4.9 L (6.3-8.2) g/dL Albumin 2.6 L (3.5-5.0) g/dL Microbiology - Last 24 Hours (Table) 09/07/21 18:11 Blood Culture - Final Blood No Growth after 144 hours 09/07/21 18:00 Blood Culture - Final Blood No Growth after 144 hours - Imaging and Cardiology CT scan - abdomen: report reviewed CT scan - chest: report reviewed CT scan - pelvis: report reviewed US chest reviewed briefly with Pulmonary Assessment and Plan (1) Anemia Current Visit: Yes Status: Acute Priority: High Code(s): D64.9 - ANEMIA, UNSPECIFIED SNOMED Code(s): 526069175 (2) Thrombocytopenia Current Visit: Yes Status: Acute Priority: High Code(s): D69.6 - THROMBOCYTOPENIA, UNSPECIFIED SNOMED Code(s): 858307389 (3) Vomiting Current Visit: Yes Status: Acute Priority: High Code(s): R11.10 - VOMITING, UNSPECIFIED SNOMED Code(s): 465886628 (4) Small cell lung carcinoma Current Visit: Yes Status: Chronic Priority: Medium Code(s): C34.90 - MALIGNANT NEOPLASM OF UNSP PART OF UNSP BRONCHUS OR LUNG SNOMED Code(s): 921802338 Plan: 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 WBC elevated from GCSF but, cont to decrease. Hgb stable after transfusions, no transfusion today. Plt at 39,000, stable, cont to hold anticoagulation, antiplatelet agents, SCDs DVT prophylaxis. Previously coags near normal, fibrinogen normal. No labs suggestive of hemolysis. Patient has been treated by Pulmonary with improvement in her resp symptoms. Did review CT CAP with Rad Oncologist. Not convinced that there is disease progression-pt is improving with Pulmo mgmt. Based on CT chest findings of new lt pleural effusion, did speak to Junior [employer] Administrator who reviewed chest US, they will perform diagnostic thoracentesis with cytology. Discussed with pt and , concerns for progression but, need cytology/pathology confirmation. They verbalized understanding the plan and agree. Pt inquired about O2 at home, order for O2 evaluation. Follow up with primary Oncologist for further plans regarding treatment of lung cancer. Time with Patient: Greater than 30
--- NOTE | 2021-09-14 14:26 | P.PN ---
Subjective Progress Note Date: 09/14/21 I am seeing this patient in follow-up on 09/14/2021. As mentioned earlier, this is a case of small cell lung cancer that was diagnosed back in 2016. The patient was treated with chemoradiation therapy and her treatment was successful and the patient was in remission for several years. Most recent PET/CT done in May 2021 showing evidence of recurrence in the left lung as the patient is has demonstrated mediastinal masses are quite active and consistent with disease recurrence. There is also some activity in the right upper lobe around the pulmonary embolus. The patient was restarted on systemic chemotherapy utilizing carboplatin and [employer]ER-16. The patient was hospitalized for shortness of breath. Her last systemic chemotherapy was around 3 weeks ago. She is currently on room air oxygen pH is afebrile. I reviewed the most recent CAT scan and there is a large cavity in the right upper lobe. Nevertheless, there is also a small left- sided pleural effusion along with some compressive atelectasis left lung base. I discussed with the patient the possibility of doing a thoracentesis for di agnostic reasons.her white cell count is improving is currently down to 35.7 with a hemoglobin of 8.5. All of the cultures are negative and the patient has been afebrile.the patient was having some difficulties with swallowing and irritation the back of her throat and eye examination, the patient was found to have extensive oropharyngeal candidiasis. Objective - Vital Signs Vital signs: Vital Signs Temp 98.0 F 09/14/21 08:24 Pulse 86 09/14/21 08:24 Resp 18 09/14/21 08:24 BP 124/86 09/14/21 08:24 Pulse Ox 99 09/14/21 08:24 FiO2 Intake & Output 09/13/21 09/14/21 09/14/21 18:59 06:59 18:59 Intake Total 200 240 Balance 200 240 Intake: Oral 200 240 Other: Voiding Method Bedside Commode Bedside Commode Bedside Commode # Voids 1 - Exam No acute distress, oriented 3. No conversational dyspnea or use of accessory muscles. Currently onroom air oxygen, breathing is nonlabored HEENT examination is grossly unremarkable. there is extensive oropharyngeal candidiasis noted and the patient was in the posterior oropharynx. Neck supple. Full range of motion. No adenopathy thyromegaly or neck vein dist ention. Cardiovascular examination reveals regular rhythm rate. S1-S2 normal. No S3 or S4. No discernible murmur noted. Heart rate 83 bpm. Lungs reveal improved bilateral breath sounds. Scattered mild rhonchi. No wheezes or crackles. Breath sounds equal bilaterally but diminished throughout. 2 L saturation is 100%. Abdomen soft bowel sounds are heard. No masses or tenderness. Extremities are intact. No cyanosis clubbing or edema. Skin is without rash or lesion. Neurologic examination is brief but nonfocal. - Labs CBC & Chem 7: 09/14/21 06:20 09/14/21 06:20 Labs: Abnormal Lab Results - Last 24 Hours (Table) 09/13/21 09/13/21 09/14/21 Range/Units 05:18 05:18 06:20 WBC 42.4 H 35.7 H (3.8-10.6) k/uL RBC 2.95 L 2.73 L (3.80-5.40) m/uL Hgb 9.2 L 8.5 L (11.4-16.0) gm/dL Hct 28.2 L 26.3 L (34.0-46.0) % RDW 15.7 H (11.5-15.5) % Plt Count 28 L D 39 L (150-450) k/uL Neutrophils # 40.0 H 31.9 H (1.3-7.7) k/uL Lymphocytes # 0.8 L (1.0-4.8) k/uL Monocytes # 1.2 H 1.6 H (0-1.0) k/uL Chloride (98-107) mmol/L BUN 23 H (7-17) mg/dL Glucose 169 H (74-99) mg/dL Alkaline Phosphatase 152 H (38-126) U/L Total Protein 5.3 L (6.3-8.2) g/dL Albumin 2.9 L (3.5-5.0) g/dL 09/14/21 Range/Units 06:20 WBC (3.8-10.6) k/uL RBC (3.80-5.40) m/uL Hgb (11.4-16.0) gm/dL Hct (34.0-46.0) % RDW (11.5-15.5) % Plt Count (150-450) k/uL Neutrophils # (1.3-7.7) k/uL Lymphocytes # (1.0-4.8) k/uL Monocytes # (0-1.0) k/uL Chloride 108 H (98-107) mmol/L BUN 26 H (7-17) mg/dL Glucose 147 H (74-99) mg/dL Alkaline Phosphatase (38-126) U/L Total Protein 4.9 L (6.3-8.2) g/dL Albumin 2.6 L (3.5-5.0) g/dL Microbiology - Last 24 Hours (Table) 09/07/21 18:11 Blood Culture - Final Blood No Growth after 144 hours 09/07/21 18:00 Blood Culture - Final Blood No Growth after 144 hours Assessment and Plan Plan: Shortness of breath, multifactorial, in part related to COPD exacerbation, mild tracheobronchitis, and anemia, improved.the patient also has a new onset left- sided pleural effusion as noted on CAT scan of the chest along with compressive atelectasis in left lung base. Rule out parapneumonic effusion. Rule out malignant pleural effusion Small cell lung cancer, status post chemotherapy, with most recent computed tomography scan of her chest suggesting disease progression.the patient has mediastinal masses on the left which has shown increased activity on a recent PET scan and based on that the patient was restarted on systemic chemotherapy, last treatment was approximately 3 weeks ago Acute anemia, status post 5 units of blood.the patient's hemoglobin stable at 8.5 Bicytopenia.the leukopenia improves and the patient is currently developed leukocytosis History of atrial fibrillation. Hypothyroidism. 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 Oropharyngeal candidiasis Plan proceed with Diflucan 100 mg by mouth on a daily basis along with nystatin to swish and swallow ultrasound of the chest to [place] to left-sided pleural effusion Monitor the white cell count and check a pro-calcitonin level we'll continue to follow.
--- NOTE | 2021-09-14 18:25 | P.PN ---
Subjective Progress Note Date: 09/10/21 Gayla Hernandez, is a 71-year-old female who presented to [facility] emergency room with a chief complaint of shortness of breath that has been worsening over the last 2 weeks but worse the last 2 days. She was evaluated in the emergency room vital examination on presentation reve aled a temperature of 97.6 pulse 104 respiration 18 blood pressure 96/63 pulse ox 96% on room air Laboratory data revealed a white blood count of 2.9 hemoglobin 3.8 platelet count of 2 sodium 136 potassium 3.9 chloride 108 CO2 20 BUN 52 creatinine 0.73 glucose level 182 Testing in the emergency room revealed EKG done in the emergency room revealed evidence of atrial fibrillation with rapid ventricular response, chest x-ray done in the emergency room revealed evidence of COPD and improved right upper lobe density. Patient was given 2 units of red blood cells in the emergency room, she was star sean on IV Cardizem. Patient was admitted to medical floor for further evaluation and treatment. Past medical history is significant for atrial fibrillation, history of lung cancer with previous history of chemotherapy and radiation therapy followed by Dr. Church, history of COPD, history of hypothyroidism, history of esophageal stricture requiring previous dilatation. On 09/08/2021 patient is alert and oriented 3 status post blood transfusion. Hemoglobin continued to be low at 5.5. Blood product ordered per oncology. Oncology and cardiology services following On 09/09/2021 patient is alert and oriented 3. At this time patient having some nausea and dry heaves. Zofran has been ordered. Awaiting blood recheck. Patient had potential reaction to amiodarone throughout night with tachycardia and low oxygen. At that time hemoglobin was checked hemoglobin low at 5.7 1 unit PRBCs was ordered. Current vitals temp 98.2, heart rate 99, respiratory rate 22 with a blood pressure 105/59. Patient satting 99% on 3 L On 09/10/2021 patient was seen and examined on the medical floor she is alert and oriented in no distress she is complaining of shortness of breath and is maintained on oxygen otherwise she denies any complaints there is no fever or chills no headache or dizziness no chest pain no nausea or vomiting no abdominal pain no diarrhea and no urinary symptoms Objective - Vital Signs Vital signs: Vital Signs Temp 98.9 F 09/10/21 12:41 Pulse 87 09/10/21 12:41 Resp 28 H 09/10/21 12:41 BP 106/57 09/10/21 12:41 Pulse Ox 100 09/10/21 12:41 FiO2 Intake & Output 09/09/21 09/10/21 09/10/21 18:59 06:59 18:59 Intake Total 618 310 Balance 618 310 Weight 47.627 kg Intake: Oral 618 0 Blood Product 310 Rc As-1 Unit 310 [id number] Other: Voiding Method Bedside Commode # Voids 1 1 # Bowel Movements 1 - Exam In general patient is alert and oriented x 3 in no distress HEENT head normocephalic and atraumatic Neck is supple no JVD no goiter no lymphadenopathy no carotid bruit Chest examination is clear to auscultation no crackles no wheezing Cardiac exam reveals regular heart sounds S1 and S2 no gallops no murmurs Abdomen is soft nontender no organomegaly with normal bowel sounds Extremity exam reveals no edema no cyanosis or clubbing Neurological examination reveals no gross focal deficits - Labs CBC & Chem 7: 09/14/21 06:20 09/14/21 06:20 Labs: Abnormal Lab Results - Last 24 Hours (Table) 09/07/21 09/08/21 09/09/21 Range/Units 08:05 08:43 16:59 WBC 14.2 H (3.8-10.6) k/uL RBC 2.46 L (3.80-5.40) m/uL Hgb 7.9 L (11.4-16.0) gm/dL Hct 22.6 L (34.0-46.0) % Plt Count 39 L (150-450) k/uL Neutrophils # (1.3-7.7) k/uL PT (9.0-12.0) sec INR (<1.2) Potassium (3.5-5.1) mmol/L Chloride (98-107) mmol/L BUN (7-17) mg/dL Total Protein (6.3-8.2) g/dL Albumin (3.5-5.0) g/dL Methylmalonic Acid 0.49 H (<0.40) umol/L Crossmatch See Detail 09/09/21 09/10/21 09/10/21 Range/Units 16:59 06:43 06:43 WBC (3.8-10.6) k/uL RBC 2.10 L (3.80-5.40) m/uL Hgb 6.7 L* (11.4-16.0) gm/dL Hct 19.4 L* (34.0-46.0) % Plt Count 24 L (150-450) k/uL Neutrophils # 8.0 H (1.3-7.7) k/uL PT 12.5 H (9.0-12.0) sec INR 1.2 H (<1.2) Potassium 3.0 L (3.5-5.1) mmol/L Chloride 111 H (98-107) mmol/L BUN 29 H (7-17) mg/dL Total Protein 4.2 L (6.3-8.2) g/dL Albumin 2.2 L (3.5-5.0) g/dL Methylmalonic Acid (<0.40) umol/L Crossmatch Microbiology - Last 24 Hours (Table) 09/07/21 18:11 Blood Culture - Preliminary Blood No Growth after 48 hours 09/07/21 18:00 Blood Culture - Preliminary Blood No Growth after 48 hours Assessment and Plan Plan: Severe anemia with a hemoglobin of 3.8, 2 units of red blood cell transfusion was given in the emergency room, will monitor closely Atrial fibrillation with rapid ventricular response started on IV Cardizem in the emergency room. Resolved Underlying history of lung cancer with recent chemotherapy about 2 weeks ago Underlying history of hypothyroidism maintained on Synthroid Underlying history of COPD Underlying history of esophageal stricture requiring dilation in the past Underlying history of atrial fibrillation At this time patient is admitted to telemetry floor Home medications reviewed and reordered Cardiology and oncology service is following Status post transfusion of 4 units of PRBCs and 1 unit of platelets Continue to monitor patient closely and transfuse as needed
--- NOTE | 2021-09-14 18:25 | P.PN ---
Subjective Progress Note Date: 09/14/21 Gayla Hernandez, is a 71-year-old female who presented to [facility] emergency room with a chief complaint of shortness of breath that has been worsening over the last 2 weeks but worse the last 2 days. She was evaluated in the emergency room vital examination on presentation reve aled a temperature of 97.6 pulse 104 respiration 18 blood pressure 96/63 pulse ox 96% on room air Laboratory data revealed a white blood count of 2.9 hemoglobin 3.8 platelet count of 2 sodium 136 potassium 3.9 chloride 108 CO2 20 BUN 52 creatinine 0.73 glucose level 182 Testing in the emergency room revealed EKG done in the emergency room revealed evidence of atrial fibrillation with rapid ventricular response, chest x-ray done in the emergency room revealed evidence of COPD and improved right upper lobe density. Patient was given 2 units of red blood cells in the emergency room, she was star sean on IV Cardizem. Patient was admitted to medical floor for further evaluation and treatment. Past medical history is significant for atrial fibrillation, history of lung cancer with previous history of chemotherapy and radiation therapy followed by Dr. Church, history of COPD, history of hypothyroidism, history of esophageal stricture requiring previous dilatation. On 09/08/2021 patient is alert and oriented 3 status post blood transfusion. Hemoglobin continued to be low at 5.5. Blood product ordered per oncology. Oncology and cardiology services following On 09/09/2021 patient is alert and oriented 3. At this time patient having some nausea and dry heaves. Zofran has been ordered. Awaiting blood recheck. Patient had potential reaction to amiodarone throughout night with tachycardia and low oxygen. At that time hemoglobin was checked hemoglobin low at 5.7 1 unit PRBCs was ordered. Current vitals temp 98.2, heart rate 99, respiratory rate 22 with a blood pressure 105/59. Patient satting 99% on 3 L On 09/11/2021 patient is alert and oriented 3. Nausea has improved. Hemoglobin today 8.8. Platelets low at 14 awaiting hematology input in regards to further transfusion. Current vital signs temp 98.2. Pulse rate 85, respiratory rate 16 with a blood pressure of 119/52 pulse ox 100% on 2 L On 09/12/2021 patient was seen and examined on the medical floor she is alert and oriented 3 in no apparent distress, she is complaining of worsening shortness of breath and cough otherwise she denies any complaints there is no fever or chills no headache or dizziness, there is no chest pain no nausea or vomiting no abdominal pain no diarrhea and no urinary symptoms, patient denies any pain at this time, her major complaint is shortness of breath, computed tomography scan of the chest was done yesterday and reviewed, pulmonary and oncology are following. On 09/13/2021 patient is alert and oriented 3 resting comfortably in bed. Hemoglobin today 9.2. Patient remains on IV steroids. At this time patient denies chest pain or shortness breath. Patient denies nausea vomiting or diarrhea. Patient denies any urinary burning or frequency On 09/14/2021 patient was seen and examined on the medical floor she is alert and oriented 3 in no apparent distress there is no fever or chills no headache or dizziness no chest pain no shortness of breath no cough no nausea or vomiting no abdominal pain no diarrhea and no urinary symptoms Objective - Vital Signs Vital signs: Vital Signs Temp 97.8 F 09/14/21 16:21 Pulse 87 09/14/21 16:21 Resp 18 09/14/21 16:21 BP 145/70 09/14/21 16:21 Pulse Ox 100 09/14/21 16:21 FiO2 Intake & Output 09/13/21 09/14/21 09/14/21 18:59 06:59 18:59 Intake Total 200 240 Balance 200 240 Weight 49.3 kg Intake: Oral 200 240 Other: Voiding Method Bedside Commode Bedside Commode Bedside Commode # Voids 1 1 - Exam In general patient is alert and oriented x 3 in no distress HEENT head normocephalic and atraumatic Neck is supple no JVD no goiter no lymphadenopathy no carotid bruit Chest examination is clear to auscultation no crackles no wheezing Cardiac exam reveals regular heart sounds S1 and S2 no gallops no murmurs Abdomen is soft nontender no organomegaly with normal bowel sounds Extremity exam reveals no edema no cyanosis or clubbing Neurological examination reveals no gross focal deficits - Labs CBC & Chem 7: 09/14/21 06:20 09/14/21 06:20 Labs: Abnormal Lab Results - Last 24 Hours (Table) 09/14/21 09/14/21 Range/Units 06:20 06:20 WBC 35.7 H (3.8-10.6) k/uL RBC 2.73 L (3.80-5.40) m/uL Hgb 8.5 L (11.4-16.0) gm/dL Hct 26.3 L (34.0-46.0) % RDW 15.7 H (11.5-15.5) % Plt Count 39 L (150-450) k/uL Neutrophils # 31.9 H (1.3-7.7) k/uL Monocytes # 1.6 H (0-1.0) k/uL Chloride 108 H (98-107) mmol/L BUN 26 H (7-17) mg/dL Glucose 147 H (74-99) mg/dL Total Protein 4.9 L (6.3-8.2) g/dL Albumin 2.6 L (3.5-5.0) g/dL Microbiology - Last 24 Hours (Table) 09/07/21 18:11 Blood Culture - Final Blood No Growth after 144 hours 09/07/21 18:00 Blood Culture - Final Blood No Growth after 144 hours Assessment and Plan Plan: Severe anemia with a hemoglobin of 3.8, 2 units of red blood cell transfusion was given in the emergency room, will monitor closely Atrial fibrillation with rapid ventricular response started on IV Cardizem in the emergency room. Resolved Underlying history of lung cancer with recent chemotherapy about 2 weeks ago Underlying history of hypothyroidism maintained on Synthroid Underlying history of COPD Underlying history of esophageal stricture requiring dilation in the past Underlying history of atrial fibrillation At this time patient is admitted to telemetry floor Home medications reviewed and reordered Cardiology, pulmonary and oncology service is following Status post transfusion of 5 units of PRBCs and 1 unit of platelets Continue to monitor patient closely and transfuse as needed
[2021-09-15] MEDS: LEVOTHYROXINE 25 MCG TAB PO SCH (06:19)
[2021-09-15] MEDS: PANTOPRAZOLE 40 MG TABLET PO SCH (06:20)
[2021-09-15 08:04] LABS: Anisocytosis Slight; Basophils % (A) 0 %; Eosinophils % (A) 0 %; HCT 27.8 % (34.0-46.0); HGB 9.1 gm/dL (11.4-16.0); Hypochromasia Slight; Lymphocytes # (A) 1.6 k/uL (1.0-4.8); Lymphocytes % (A) 7 %; MCH 31.4 pg (25.0-35.0); MCHC 32.6 g/dL (31.0-37.0); MCV 96.4 fL (80.0-100.0); Macrocytosis Slight; Mean Platelet Volume 8.6; Monocytes # (A) 0.9 k/uL (0-1.0); Monocytes % (A) 4 %; Neutrophils # (A) 19.6 k/uL (1.3-7.7); Neutrophils % (A) 87 %; RBC 2.88 m/uL (3.80-5.40); RDW 16.8 % (11.5-15.5); WBC 22.4 k/uL (3.8-10.6)
[2021-09-15 08:11] LABS: Platelet Count 60 k/uL (150-450)
[2021-09-15] MEDS: FLUCONAZOLE 100 MG TAB PO SCH (08:21)
[2021-09-15] MEDS: METOPROLOL TARTRATE 25 MG TAB PO SCH ×3 (08:21→21:02)
[2021-09-15] MEDS: NYSTATIN 100,000 UNIT/ML SUSP 500,000 UNIT/5 ML CUP PO SCH ×4 (08:21→21:02)
[2021-09-15] MEDS: SYMBICORT 160-4.5 MCG INHALER INHALATION SCH ×2 (08:26→20:02)
[2021-09-15] MEDS: IPRATROPIUM-ALBUTEROL 3 ML NEB INHALATION SCH ×4 (08:26→20:02)
--- NOTE | 2021-09-15 09:20 | P.PN ---
Subjective Progress Note Date: 09/15/21 I am seeing this patient in follow-up on 09/14/2021. As mentioned earlier, this is a case of small cell lung cancer that was diagnosed back in 2017. The patient was treated with chemoradiation therapy and her treatment was successful and the patient was in remission for several years. Most recent PET/CT done in May 2021 showing evidence of recurrence in the left lung as the patient is has demonstrated mediastinal masses are quite active and consistent with disease recurrence. There is also some activity in the right upper lobe around the pulmonary embolus. The patient was restarted on systemic chemotherapy utilizing carboplatin and [employer]-16. The patient was hospitalized for shortness of breath. Her last systemic chemotherapy was around 3 weeks ago. She is currently on room air oxygen pH is afebrile. I reviewed the most recent CAT scan and there is a large cavity in the right upper lobe. Nevertheless, there is also a small left- sided pleural effusion along with some compressive atelectasis left lung base. I discussed with the patient the possibility of doing a thoracentesis for di agnostic reasons.her white cell count is improving is currently down to 35.7 with a hemoglobin of 8.5. All of the cultures are negative and the patient has been afebrile.the patient was having some difficulties with swallowing and irritation the back of her throat and eye examination, the patient was found to have extensive oropharyngeal candidiasis. On today's evaluation of 09/15/2021, I'm seeing the patient for a follow-up H is doing much better compared to yesterday. Her throat irritation the swallowing is improved considerably and the patient was started on Diflucan and nystatin. No fever. No chills. Her white cell count is improving. Her pro-calcitonin level is low. She is afebrile. Meanwhile, as mentioned earlier, the patient had developed bilateral pleural effusion and was larger on the left and we have made a commitment to drain the fluid and analyze the fluid for infections and malignancy. The patient is currently on systemic chemotherapy regarding recurrent small cell lung cancer. On today's evaluation, she is on room air oxygen.She does have a congested cough. Nevertheless, the white cell count is down to 22.4 with a hemoglobin of 9.1. Electrolytes are still pending for now. She is not on any form of anticoagulation. The ultrasound of the chest showed a 8.2 cm pocket of fluid in the left lung and was marked for drainage. Objective - Vital Signs Vital signs: Vital Signs Temp 98.1 F 09/15/21 04:00 Pulse 68 09/15/21 04:00 Resp 16 09/15/21 04:00 BP 131/59 09/15/21 04:00 Pulse Ox 94 L 09/15/21 04:00 FiO2 Intake & Output 09/14/21 09/15/21 09/15/21 18:59 06:59 18:59 Intake Total 240 118 Balance 240 118 Weight 49.3 kg Intake: Oral 240 118 Other: Voiding Method Bedside Commode Bedside Commode # Voids 1 1 - Exam No acute distress, oriented 3. No conversational dyspnea or use of accessory muscles. Currently onroom air oxygen, breathing is nonlabored HEENT examination is grossly unremarkable. there is extensive oropharyngeal candidiasis noted and the patient was in the posterior oropharynx. Neck supple. Full range of motion. No adenopathy thyromegaly or neck vein distention. Cardiovascular examination reveals regular rhythm rate. S1-S2 normal. No S3 or S4. No discernible murmur noted. Heart rate 83 bpm. Lungs reveal improved bilateral breath sounds. Scattered mild rhonchi. No wheezes or crackles. Breath sounds equal bilaterally but diminished throughout. 2 L saturation is 100%. Abdomen soft bowel sounds are heard. No masses or tenderness. Extremities are intact. No cyanosis clubbing or edema. Skin is without rash or lesion. Neurologic examination is brief but nonfocal. - Labs CBC & Chem 7: 09/15/21 07:02 09/14/21 06:20 Labs: Abnormal Lab Results - Last 24 Hours (Table) 09/15/21 Range/Units 07:02 WBC 22.4 H (3.8-10.6) k/uL RBC 2.88 L (3.80-5.40) m/uL Hgb 9.1 L (11.4-16.0) gm/dL Hct 27.8 L (34.0-46.0) % RDW 16.8 H (11.5-15.5) % Plt Count 60 L D (150-450) k/uL Neutrophils # 19.6 H (1.3-7.7) k/uL Assessment and Plan Plan: Shortness of breath, multifactorial, in part related to COPD exacerbation, mild tracheobronchitis, and anemia, improved.the patient also has a new onset left- sided pleural effusion as noted on CAT scan of the chest along with compressive atelectasis in left lung base. Rule out parapneumonic effusion. Rule out malignant pleural effusion. Ultrasound the chest confirmed the presence of a left-sided pleural effusion, a pocket of 8.2 cm and the patient will need a diagnostic and therapeutic thoracentesis. This was also requested by medical oncology. Her shortness of breath has improved. She is currently on room air oxygen. Small cell lung cancer, status post chemotherapy, with most recent computed t omography scan of her chest suggesting disease progression.the patient has mediastinal masses on the left which has shown increased activity on a recent PET scan and based on that the patient was restarted on systemic chemotherapy, last treatment was approximately 3 weeks ago Acute anemia, status post 5 units of blood.the patient's hemoglobin stable Bicytopenia.the leukopenia improves and the patient is currently developed leukocytosis, leukocytosis improving and the patient's pro-calcitonin level is low. History of atrial fibrillation. Hypothyroidism. 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 Oropharyngeal candidiasis Plan Continue Diflucan Oropharyngeal candidiasis improving We'll proceed with a left-sided thoracentesis Continue using incentive spirometer Increase mobility Monitor white count
[2021-09-15 10:08] VITALS: RESP 18
--- NOTE | 2021-09-15 10:34 | XR ---
EXAMINATION TYPE: XR chest 1V DATE OF EXAM: 09/15/2021 COMPARISON: 09/09/2021 HISTORY: 71-year-old female status post attempted thoracentesis on the left. TECHNIQUE: Single frontal view of the chest is obtained. FINDINGS: Heart normal size. Hyperinflation. Continued small left pleural effusion. There is a small left apica l pneumothorax measuring 1 cm. Unchanged focal pleural parenchymal opacity at the right apex. IMPRESSION: 1. Continued small left pleural effusion but now with a new small, 1 cm left apical pneumothorax afte r attempt at thoracentesis. 2. COPD and unchanged right apical pleural-parenchymal opacity.
--- NOTE | 2021-09-15 17:36 | P.PN ---
Subjective Progress Note Date: 09/15/21 Principal diagnosis: bicytopenia, completed chemotherapy/IO, small cell lung cancer. In follow-up today patient reports stable breathing, her cough remains congested, no purulent sputum production. She did have diagnostic thoracentesis today. she denies any fevers or pain. Objective - Vital Signs Vital signs: Vital Signs Temp 97.8 F 09/15/21 16:11 Pulse 70 09/15/21 16:11 Resp 18 09/15/21 16:11 BP 118/62 09/15/21 16:11 Pulse Ox 97 09/15/21 16:11 FiO2 Intake & Output 09/14/21 09/15/21 09/15/21 18:59 06:59 18:59 Intake Total 240 236 Balance 240 236 Weight 49.3 kg Intake: Oral 240 236 Other: Voiding Method Bedside Commode Bedside Commode Bedside Commode # Voids 1 1 1 - Constitutional General appearance: Present: average body habitus, cooperative, no acute distress - EENT EENT Comment(s): voice is hoarse, stable Eyes: Present: anicteric sclerae, EOMI ENT: Present: hearing grossly normal - Respiratory Respiratory: bilateral: CTA - Cardiovascular Rhythm: regular Heart sounds: normal: S1, S2 - Peripheral edema leg Peripheral Edema: bilateral: None - Gastrointestinal General gastrointestinal: Present: normal bowel sounds, soft - Neurologic Neurologic: Present: CNII-XII intact - Musculoskeletal Musculoskeletal: Present: strength equal bilaterally - Psychiatric Psychiatric: Present: A&O x's 3, appropriate affect, intact judgment & insight - Labs CBC & Chem 7: 09/15/21 07:02 09/14/21 06:20 Labs: Abnormal Lab Results - Last 24 Hours (Table) 09/15/21 Range/Units 07:02 WBC 22.4 H (3.8-10.6) k/uL RBC 2.88 L (3.80-5.40) m/uL Hgb 9.1 L (11.4-16.0) gm/dL Hct 27.8 L (34.0-46.0) % RDW 16.8 H (11.5-15.5) % Plt Count 60 L D (150-450) k/uL Neutrophils # 19.6 H (1.3-7.7) k/uL - Imaging and Cardiology Chest x-ray: report reviewed Assessment and Plan (1) Anemia Current Visit: Yes Status: Acute Priority: High Code(s): D64.9 - ANEMIA, UNSPECIFIED SNOMED Code(s): 980906231 (2) Thrombocytopenia Current Visit: Yes Status: Acute Priority: High Code(s): D69.6 - THROMBOCYTOPENIA, UNSPECIFIED SNOMED Code(s): 716253736 (3) Vomiting Current Visit: Yes Status: Acute Priority: High Code(s): R11.10 - VOMITING, UNSPECIFIED SNOMED Code(s): 637817747 (4) Small cell lung carcinoma Current Visit: Yes Status: Chronic Priority: Medium Code(s): C34.90 - MALIGNANT NEOPLASM OF UNSP PART OF UNSP BRONCHUS OR LUNG SNOMED Code(s): 162273372 Plan: 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 WBC elevated from GCSF but, cont to decrease. Hgb stable after transfusions, no transfusion today. Plt recovering, up to 60,000 today. DVT prophylaxis ordered Previously coags near normal, fibrinogen normal. No labs suggestive of hemolysis. Patient has been treated by Pulmonary with improvement in her resp symptoms. Not convincing evidence of disease progression on CT. Pt has improving with Pulmo mgmt. Pulm did perfomr diagnostic thoracentesis on the left today, cytology pending. Pt inquired about O2 at home, order for O2 evaluation. Follow up with Primary Oncologist for further plans regarding treatment of lung cancer. Patient okay from a Heme/Onc standpoint to be discharged to home what she is cleared by [facility]
[2021-09-16] MEDS: LEVOTHYROXINE 25 MCG TAB PO SCH (06:04)
[2021-09-16] MEDS: PANTOPRAZOLE 40 MG TABLET PO SCH (06:04)
--- NOTE | 2021-09-16 06:11 | XR ---
EXAM: XR Chest, 1 View CLINICAL HISTORY: ITS.REASON XR Reason: Post Thoracentesis TECHNIQUE: Frontal view of the chest. COMPARISON: 09/15/2021 FINDINGS: Lungs: Unremarkable. No consolidation. Pleural space: Small left apical pneumothorax or pleural line measuring approximately 1.2 cm inferior to the left apex. Small left pleural effusion. Heart: Unremarkable. No cardiomegaly. Mediastinum: Unremarkable. Bones/joints: Unremarkable. IMPRESSION: 1. Small left apical pneumothorax, unchanged from prior study. 2. Small left pleural effusion.
[2021-09-16] MEDS: SYMBICORT 160-4.5 MCG INHALER INHALATION SCH (07:24)
[2021-09-16] MEDS: IPRATROPIUM-ALBUTEROL 3 ML NEB INHALATION SCH ×3 (07:24→15:36)
[2021-09-16] MEDS ORDERED: ENOXAPARIN 40 MG/0.4 ML SYRINGE SQ SCH (09:00)
[2021-09-16] MEDS: FLUCONAZOLE 100 MG TAB PO SCH (09:20)
[2021-09-16] MEDS: METOPROLOL TARTRATE 25 MG TAB PO SCH ×2 (09:20→17:25)
[2021-09-16] MEDS: HYDROcodone/APAP 5-325MG 1 EACH TAB PO PRN ×2 (09:21→17:28)
[2021-09-16] MEDS: NYSTATIN 100,000 UNIT/ML SUSP 500,000 UNIT/5 ML CUP PO SCH ×3 (09:21→17:25)
--- NOTE | 2021-09-16 09:55 | P.PN ---
Subjective Progress Note Date: 09/16/21 I am seeing this patient in follow-up on 09/14/2021. As mentioned earlier, this is a case of small cell lung cancer that was diagnosed back in 2017. The patient was treated with chemoradiation therapy and her treatment was successful and the patient was in remission for several years. Most recent PET/CT done in May 2021 showing evidence of recurrence in the left lung as the patient is has demonstrated mediastinal masses are quite active and consistent with disease recurrence. There is also some activity in the right upper lobe around the pulmonary embolus. The patient was restarted on systemic chemotherapy utilizing carboplatin and [employer]-16. The patient was hospitalized for shortness of breath. Her last systemic chemotherapy was around 3 weeks ago. She is currently on room air oxygen pH is afebrile. I reviewed the most recent CAT scan and there is a large cavity in the right upper lobe. Nevertheless, there is also a small left- sided pleural effusion along with some compressive atelectasis left lung base. I discussed with the patient the possibility of doing a thoracentesis for di agnostic reasons.her white cell count is improving is currently down to 35.7 with a hemoglobin of 8.5. All of the cultures are negative and the patient has been afebrile.the patient was having some difficulties with swallowing and irritation the back of her throat and eye examination, the patient was found to have extensive oropharyngeal candidiasis. On today's evaluation of 09/15/2021, I'm seeing the patient for a follow-up H is doing much better compared to yesterday. Her throat irritation the swallowing is improved considerably and the patient was started on Diflucan and nystatin. No fever. No chills. Her white cell count is improving. Her pro-calcitonin level is low. She is afebrile. Meanwhile, as mentioned earlier, the patient had developed bilateral pleural effusion and was larger on the left and we have made a commitment to drain the fluid and analyze the fluid for infections and malignancy. The patient is currently on systemic chemotherapy regarding recurrent small cell lung cancer. On today's evaluation, she is on room air oxygen.She does have a congested cough. Nevertheless, the white cell count is down to 22.4 with a hemoglobin of 9.1. Electrolytes are still pending for now. She is not on any form of anticoagulation. The ultrasound of the chest showed a 8.2 cm pocket of fluid in the left lung and was marked for drainage. 2021, the patient has no complaints. She is on room air oxygen. Attempted a thoracentesis yesterday, the procedure failed and a repeat chest x-ray was done and the amount of fluid is extremely small at this point in time, not worthwhile to do any further thoracentesis. She is on room air oxygen. Her oropharyngeal candidiasis improving. Tolerating her diet. No nausea or vomiting. Awaiting follow-up labs from today knowing that her white cell count was improving. She has been receiving systemic chemotherapy regarding recurrent small cell lung cancer. Afebrile, currently on room air oxygen, pulse ox is in the order of 96% Objective - Vital Signs Vital signs: Vital Signs Temp 98.1 F 09/16/21 09:11 Pulse 79 09/16/21 09:11 Resp 18 09/16/21 09:11 BP 109/58 09/16/21 09:11 Pulse Ox 96 09/16/21 09:11 FiO2 Intake & Output 09/15/21 09/16/21 09/16/21 18:59 06:59 18:59 Intake Total 236 10 250 Balance 236 10 250 Intake: IV 10 10 0.9 10 Invasive Line 3 10 Oral 236 240 Other: Voiding Method Bedside Commode Toilet Bedside Commode # Voids 1 3 - Exam No acute distress, oriented 3. No conversational dyspnea or use of accessory muscles. Currently onroom air oxygen, breathing is nonlabored HEENT examination is grossly unremarkable. there is extensive oropharyngeal candidiasis noted and the patient was in the posterior oropharynx. Neck supple. Full range of motion. No adenopathy thyromegaly or neck vein distention. Cardiovascular examination reveals regular rhythm rate. S1-S2 normal. No S3 or S4. No discernible murmur noted. Heart rate 83 bpm. Lungs reveal improved bilateral breath sounds. Scattered mild rhonchi. No wheezes or crackles. Breath sounds equal bilaterally but diminished throughout. 2 L saturation is 100%. Abdomen soft bowel sounds are heard. No masses or tenderness. Extremities are intact. No cyanosis clubbing or edema. Skin is without rash or lesion. Neurologic examination is brief but nonfocal. - Labs CBC & Chem 7: 09/15/21 07:02 09/14/21 06:20 Assessment and Plan Plan: Shortness of breath, multifactorial, in part related to COPD exacerbation, mild tracheobronchitis, and anemia, improved.the patient also has a new onset left- sided pleural effusion as noted on CAT scan of the chest along with compressive atelectasis in left lung base. Rule out parapneumonic effusion. Rule out malignant pleural effusion. Ultrasound the chest confirmed the presence of a left-sided pleural effusion, a pocket of 8.2 cm and I attended to do a thoracentesis on this patient and I felt to drain any fluid as amount of fluid on subsequent chest x-ray was quite small. Based on that, the procedure was aborted. Her shortness of breath improved and the patient is currently on room air oxygen with a pulse ox of 96%. Small cell lung cancer, status post chemotherapy, with most recent computed tomography scan of her chest suggesting disease progression.the patient has mediastinal masses on the left which has shown increased activity on a recent PET scan and based on that the patient was restarted on systemic chemotherapy, last treatment was approximately 3 weeks ago Acute anemia, status post 5 units of blood.the patient's hemoglobin stable Bicytopenia.the leukopenia improves and the patient is currently developed leukocytosis, leukocytosis improving and the patient's pro-calcitonin level is low. History of atrial fibrillation. Hypothyroidism. 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 Oropharyngeal candidiasis Plan clinically stable on room air oxygen Noted for thoracentesis, the procedure failed to produce any fluid yesterday and the repeat chest x-ray shows a very tiny left-sided pleural effusion. The procedure was aborted accordingly. Continue Diflucan Oropharyngeal candidiasis improving Continue using incentive spirometer Increase mobility Monitor white count
--- NOTE | 2021-09-16 14:30 | P.PN ---
Subjective Progress Note Date: 09/15/21 Gayla Hernandez, is a 71-year-old female who presented to [facility] emergency room with a chief complaint of shortness of breath that has been worsening over the last 2 weeks but worse the last 2 days. She was evaluated in the emergency room vital examination on presentation reve aled a temperature of 97.6 pulse 104 respiration 18 blood pressure 96/63 pulse ox 96% on room air Laboratory data revealed a white blood count of 2.9 hemoglobin 3.8 platelet count of 2 sodium 136 potassium 3.9 chloride 108 CO2 20 BUN 52 creatinine 0.73 glucose level 182 Testing in the emergency room revealed EKG done in the emergency room revealed evidence of atrial fibrillation with rapid ventricular response, chest x-ray done in the emergency room revealed evidence of COPD and improved right upper lobe density. Patient was given 2 units of red blood cells in the emergency room, she was star sean on IV Cardizem. Patient was admitted to medical floor for further evaluation and treatment. Past medical history is significant for atrial fibrillation, history of lung cancer with previous history of chemotherapy and radiation therapy followed by Dr. Church, history of COPD, history of hypothyroidism, history of esophageal stricture requiring previous dilatation. On 09/08/2021 patient is alert and oriented 3 status post blood transfusion. Hemoglobin continued to be low at 5.5. Blood product ordered per oncology. Oncology and cardiology services following On 09/09/2021 patient is alert and oriented 3. At this time patient having some nausea and dry heaves. Zofran has been ordered. Awaiting blood recheck. Patient had potential reaction to amiodarone throughout night with tachycardia and low oxygen. At that time hemoglobin was checked hemoglobin low at 5.7 1 unit PRBCs was ordered. Current vitals temp 98.2, heart rate 99, respiratory rate 22 with a blood pressure 105/59. Patient satting 99% on 3 L On 09/10/2021 patient was seen and examined on the medical floor she is alert and oriented in no distress she is complaining of shortness of breath and is maintained on oxygen otherwise she denies any complaints there is no fever or chills no headache or dizziness no chest pain no nausea or vomiting no abdominal pain no diarrhea and no urinary symptoms On 09/11/2021 patient is alert and oriented 3. Nausea has improved. Hemoglobin today 8.8. Platelets low at 14 awaiting hematology input in regards to further transfusion. Current vital signs temp 98.2. Pulse rate 85, respiratory rate 16 with a blood pressure of 119/52 pulse ox 100% on 2 L On 09/12/2021 patient was seen and examined on the medical floor she is alert and oriented 3 in no apparent distress, she is complaining of worsening shortness of breath and cough otherwise she denies any complaints there is no fever or chills no headache or dizziness, there is no chest pain no nausea or vomiting no abdominal pain no diarrhea and no urinary symptoms, patient denies any pain at this time, her major complaint is shortness of breath, computed tomography scan of the chest was done yesterday and reviewed, pulmonary and oncology are following. On 09/13/2021 patient is alert and oriented 3 resting comfortably in bed. Hemoglobin today 9.2. Patient remains on IV steroids. At this time patient denies chest pain or shortness breath. Patient denies nausea vomiting or diarrhea. Patient denies any urinary burning or frequency On 09/14/2021 patient was seen and examined on the medical floor she is alert and oriented 3 in no apparent distress there is no fever or chills no headache or dizziness no chest pain no shortness of breath no cough no nausea or vomiting no abdominal pain no diarrhea and no urinary symptoms On 09/15/2021 patient is alert and oriented 3 resting comfortably in bed. Hemoglobin today 9.1. At this time patient denies chest pain or shortness breath. Patient denies nausea vomiting or diarrhea. Patient denies any urinary burning or frequency. She is scheduled for thoracentesis today. Objective - Vital Signs Vital signs: Vital Signs Temp 97.8 F 09/15/21 16:11 Pulse 70 09/15/21 16:11 Resp 18 09/15/21 16:11 BP 118/62 09/15/21 16:11 Pulse Ox 97 09/15/21 16:11 FiO2 Intake & Output 09/14/21 09/15/21 09/15/21 18:59 06:59 18:59 Intake Total 240 236 Balance 240 236 Weight 49.3 kg Intake: Oral 240 236 Other: Voiding Method Bedside Commode Bedside Commode Bedside Commode # Voids 1 1 1 - Exam In general patient is alert and oriented x 3 in no distress HEENT head normocephalic and atraumatic Neck is supple no JVD no goiter no lymphadenopathy no carotid bruit Chest examination is clear to auscultation no crackles no wheezing Cardiac exam reveals regular heart sounds S1 and S2 no gallops no murmurs Abdomen is soft nontender no organomegaly with normal bowel sounds Extremity exam reveals no edema no cyanosis or clubbing Neurological examination reveals no gross focal deficits - Labs CBC & Chem 7: 09/15/21 07:02 09/14/21 06:20 Labs: Abnormal Lab Results - Last 24 Hours (Table) 09/15/21 Range/Units 07:02 WBC 22.4 H (3.8-10.6) k/uL RBC 2.88 L (3.80-5.40) m/uL Hgb 9.1 L (11.4-16.0) gm/dL Hct 27.8 L (34.0-46.0) % RDW 16.8 H (11.5-15.5) % Plt Count 60 L D (150-450) k/uL Neutrophils # 19.6 H (1.3-7.7) k/uL Assessment and Plan Plan: Severe anemia with a hemoglobin of 3.8, 2 units of red blood cell transfusion was given in the emergency room, will monitor closely Atrial fibrillation with rapid ventricular response started on IV Cardizem in the emergency room. Resolved Underlying history of lung cancer with recent chemotherapy about 2 weeks ago Underlying history of hypothyroidism maintained on Synthroid Underlying history of COPD Underlying history of esophageal stricture requiring dilation in the past Underlying history of atrial fibrillation At this time patient is admitted to telemetry floor Home medications reviewed and reordered Cardiology and oncology service is following Status post transfusion of 4 units of PRBCs and 1 unit of platelets Continue to monitor patient closely and transfuse as needed
--- NOTE | 2021-09-16 17:11 | P.DS ---
Providers Date of admission: 09/07/21 09:14 Expected date of discharge: 09/16/21 Attending physician: Richard Edwards Consults: 09/07/21 09:14 Consult Physician Urgent Consulting Provider: Jean Church Consult Reason/Comments: Pancytopenia Do you want consulting provider notified?: Yes 09/09/21 16:43 Consult Physician Routine Consulting Provider: Virgen Leahy Consult Reason/Comments: shortness of breath Do you want consulting provider notified?: Yes Primary care physician: [facility] Course: Diagnosis on discharge: Severe anemia with a hemoglobin of 3.8, 2 units of red blood cell transfusion was given in the emergency room, will monitor closely Atrial fibrillation with rapid ventricular response started on IV Cardizem in the emergency room. Resolved Underlying history of lung cancer with recent chemotherapy about 2 weeks ago Underlying history of hypothyroidism maintained on Synthroid Underlying history of COPD Underlying history of esophageal stricture requiring dilation in the past Underlying history of atrial fibrillation Hospital course: Gayla Hernandez, is a 71-year-old female who presented to [facility] emergency room with a chief complaint of shortness of breath that has been worsening over the last 2 weeks but worse the last 2 days. She was evaluated in the emergency room vital examination on presentation revealed a temperature of 97.6 pulse 104 respiration 18 blood pressure 96/63 pulse ox 96% on room air Laboratory data revealed a white blood count of 2.9 hemoglobin 3.8 platelet count of 2 sodium 136 potassium 3.9 chloride 108 CO2 20 BUN 52 creatinine 0.73 glucose level 182 Testing in the emergency room revealed EKG done in the emergency room revealed evidence of atrial fibrillation with rapid ventricular response, chest x-ray done in the emergency room revealed evidence of COPD and improved right upper lobe density. Patient was given 2 units of red blood cells in the emergency room, she was started on IV Cardizem. Patient was admitted to medical floor for further evaluation and treatment. Past medical history is significant for atrial fibrillation, history of lung cancer with previous history of chemotherapy and radiation therapy followed by Dr. Church, history of COPD, history of hypothyroidism, history of esophageal stricture requiring previous dilatation. On 09/08/2021 patient is alert and oriented 3 status post blood transfusion. Hemoglobin continued to be low at 5.5. Blood product ordered per oncology. Oncology and cardiology services following On 09/09/2021 patient is alert and oriented 3. At this time patient having some nausea and dry heaves. Zofran has been ordered. Awaiting blood recheck. Patient had potential reaction to amiodarone throughout night with tachycardia and low oxygen. At that time hemoglobin was checked hemoglobin low at 5.7 1 unit PRBCs was ordered. Current vitals temp 98.2, heart rate 99, respiratory rate 22 with a blood pressure 105/59. Patient satting 99% on 3 L On 09/10/2021 patient was seen and examined on the medical floor she is alert and oriented in no distress she is complaining of shortness of breath and is maintained on oxygen otherwise she denies any complaints there is no fever or chills no headache or dizziness no chest pain no nausea or vomiting no abdominal pain no diarrhea and no urinary symptoms On 09/11/2021 patient is alert and oriented 3. Nausea has improved. Hemoglobin today 8.8. Platelets low at 14 awaiting hematology input in regards to further transfusion. Current vital signs temp 98.2. Pulse rate 85, respiratory rate 16 with a blood pressure of 119/52 pulse ox 100% on 2 L On 09/12/2021 patient was seen and examined on the medical floor she is alert and oriented 3 in no apparent distress, she is complaining of worsening shortness of breath and cough otherwise she denies any complaints there is no fever or chills no headache or dizziness, there is no chest pain no nausea or vomiting no abdominal pain no diarrhea and no urinary symptoms, patient denies any pain at this time, her major complaint is shortness of breath, computed tomography scan of the chest was done yesterday and reviewed, pulmonary and oncology are following. On 09/13/2021 patient is alert and oriented 3 resting comfortably in bed. Hemoglobin today 9.2. Patient remains on IV steroids. At this time patient denies chest pain or shortness breath. Patient denies nausea vomiting or diarrhea. Patient denies any urinary burning or frequency On 09/14/2021 patient was seen and examined on the medical floor she is alert and oriented 3 in no apparent distress there is no fever or chills no headache or dizziness no chest pain no shortness of breath no cough no nausea or vomiting no abdominal pain no diarrhea and no urinary symptoms On 09/15/2021 patient is alert and oriented 3 resting comfortably in bed. Hemoglobin today 9.1. At this time patient denies chest pain or shortness breath. Patient denies nausea vomiting or diarrhea. Patient denies any urinary burning or frequency. She is scheduled for thoracentesis today. On 09/16/2021 patient was seen and examined on the medical floor she is alert and oriented 3 in no apparent distress there is no fever or chills no headache or dizziness no chest pain, shortness of breath with activity is improving, there is occasional cough no nausea or vomiting no abdominal pain no diarrhea no blood in the stools no burning with urination no frequency or urgency and no hematuria. Case was discussed with Dr. Leahy over the phone, patient was cleared by him to be discharged home, she was tested with ambulation on room air and her oxygen saturation was above 96% patient at this time does not need any home oxygen She was given a prescription for Diflucan, nystatin mouthwash, [place], and Symbicort inhaler. Follow up by Dr. Warner within 1 week Patient Condition at Discharge: Serious Plan - Discharge Summary Discharge Rx Participant: No New Discharge Prescriptions: New Fluconazole [Diflucan] 100 mg PO DAILY 7 Days #7 tab HYDROcodone/APAP 5-325MG [[place] 5-325] 1 each PO Q6HR PRN tab PRN Reason: Pain Metoprolol Tartrate [Lopressor] 25 mg PO TID tab Nystatin 100,000 Unit/ml Susp [Mycostatin Oral Susp] 500,000 unit PO QID ml Budesonide-Formot 160-4.5 Mcg [Symbicort 160-4.5 Mcg Inhaler] 2 puff INHALATION RT-BID each Continue Levothyroxine Sodium [Synthroid] 25 mcg PO DAILY Levalbuterol Tartrate [Levalbuterol Tartrate 45 MCG Hfa] 1 puff INHALATION RT-DAILY PRN PRN Reason: Shortness Of Breath Discontinued Metoprolol Tartrate [Lopressor] 25 mg PO BID Discharge Medication List Levothyroxine Sodium [Synthroid] 25 mcg PO DAILY 11/19/19 [History] Levalbuterol Tartrate [Levalbuterol Tartrate 45 MCG Hfa] 1 puff INHALATION RT- DAILY PRN 09/07/21 [History] Budesonide-Formot 160-4.5 Mcg [Symbicort 160-4.5 Mcg Inhaler] 2 puff INHALATION RT-BID each 09/16/21 [Rx] Fluconazole [Diflucan] 100 mg PO DAILY 7 Days #7 tab 09/16/21 [Rx] HYDROcodone/APAP 5-325MG [[place] 5-325] 1 each PO Q6HR PRN tab 09/16/21 [Rx] Metoprolol Tartrate [Lopressor] 25 mg PO TID tab 09/16/21 [Rx] Nystatin 100,000 Unit/ml Susp [Mycostatin Oral Susp] 500,000 unit PO QID ml 09/16/21 [Rx] Follow up Appointment(s)/Referral(s): Digna De Los Santos NPC [Nurse Practitioner] - 2 Weeks None,Stated [REFERRING] - 1-2 days Jean Church MD [STAFF PHYSICIAN] - 09/29/21 4:15 pm Patient Instructions/Handouts: A-fib (Atrial Fibrillation) (ED), Dehydration (ED), Iron Rich Diet (ED), Anemia (ED), Pancytopenia (DC)
[2021-09-16 17:25] VITALS: BP 130/60; PULSE 84; TEMP 98.3
== END 2021-09-16 17:49 | disposition home or self-care (01) | DRG 808 ==
LOC: EC 06:50 → 3SCARD 09:14
PROVIDERS: ADMIT Internal Medicine; ATTEND Internal Medicine
PROC: 30233N1 Transfusion of Nonautologous Red Blood Cells into Peripheral Vein, Percutaneous Approach (ICD-10-PCS; principal; 2021-09-07)
PROC: 30233R1 Transfusion of Nonautologous Platelets into Peripheral Vein, Percutaneous Approach (ICD-10-PCS; 2021-09-08)
DX: D61.810 Antineoplastic chemotherapy induced pancytopenia (principal); J96.01 Acute respiratory failure with hypoxia; I26.99 Other pulmonary embolism without acute cor pulmonale; J44.1 Chronic obstructive pulmonary disease with (acute) exacerbation; C34.11 Malignant neoplasm of upper lobe, right bronchus or lung; E44.0 Moderate protein-calorie malnutrition; Z68.1 Body mass index [BMI] 19.9 or less, adult; J98.11 Atelectasis; I48.3 Typical atrial flutter; B37.0 Candidal stomatitis; E87.2 Acidosis; J91.8 Pleural effusion in other conditions classified elsewhere; E03.9 Hypothyroidism, unspecified; D63.0 Anemia in neoplastic disease; Z66 Do not resuscitate; K22.2 Esophageal obstruction; I49.1 Atrial premature depolarization; E83.42 Hypomagnesemia; I48.0 Paroxysmal atrial fibrillation; E86.1 Hypovolemia; T45.1X5A Adverse effect of antineoplastic and immunosuppressive drugs, initial encounter; T46.2X5A Adverse effect of other antidysrhythmic drugs, initial encounter; F17.210 Nicotine dependence, cigarettes, uncomplicated; E86.0 Dehydration; I34.0 Nonrheumatic mitral (valve) insufficiency; R13.10 Dysphagia, unspecified; R11.2 Nausea with vomiting, unspecified; H40.9 Unspecified glaucoma; J30.2 Other seasonal allergic rhinitis; D53.9 Nutritional anemia, unspecified; H91.90 Unspecified hearing loss, unspecified ear; R53.1 Weakness; D72.829 Elevated white blood cell count, unspecified; Z92.21 Personal history of antineoplastic chemotherapy; Z79.890 Hormone replacement therapy; Z98.890 Other specified postprocedural states; Z92.3 Personal history of irradiation; Z88.8 Allergy status to other drugs, medicaments and biological substances; Z79.899 Other long term (current) drug therapy; Z88.2 Allergy status to sulfonamides; Z80.3 Family history of malignant neoplasm of breast; Z80.7 Family history of other malignant neoplasms of lymphoid, hematopoietic and related tissues; Z80.49 Family history of malignant neoplasm of other genital organs; Z85.118 Personal history of other malignant neoplasm of bronchus and lung
CPT/HCPCS: 36410; 36415; 71045; 71046; 71260; 74177; 76604; 76937; 80053; 81003; 82533; 82607; 82728; 82747; 82784; 83540; 83550; 83605; 83615; 83735; 83880; 83921; 84100; 84132; 84145; 84439; 84443; 84481; 84484; 85025; 85027; 85384; 85610; 85730; 86850; 86900; 86901; 86920; 87040; 93005; 93306; 94667

== ENCOUNTER → 2021-10-23 | Outpatient (CLI) | payer MEDICARE, OTHER ==
--- NOTE | 2021-10-24 11:49 | PE ---
EXAMINATION TYPE: PET CT fusion skull to thigh DATE OF EXAM: 10/23/2021 CLINICAL INDICATION:Female, 71 years old with history of C3492; lung cancer, subsequent. TECHNIQUE: Following the intravenous administration of 10.87 mCi of F-18 FDG, whole body images are performed from the skull base to the midthigh. Images are reviewed on the computer in the coronal, axial, and sagittal planes. Reconstructed rotating images are created on independent workstation and reviewed on the computer. A non-contrast CT is performed in conjunction with the PET scan. COMPARISON: CT chest abdomen pelvis 09/11/2021. PET scan 05/22/2021.. FINDINGS: SKULL BASE AND NECK: No suspicious FDG activity. CHEST, MEDIASTINUM, AND HILAR REGION: Background activity mean SUV 1.6. The lung demonstrate a large cavitation within the right upper lobe which is not significantly different than prior. Consolidation extends towards the pulmonary hilum which also appears stable to prior. Overall the cavity demonstra geovanna increased FDG activity along the inferior lateral aspect with max SUV of 7, previously max SUV of 9.1 05/22/2021 , Additionally increased FDG activity seen within the mediastinum prevascular space presumed which are ill-defined without IV contrast lymph nodes with maximum SUV of 2.8, previously this was a larger are a of FDG activity with a maximum SUV of 8.4 No new suspicious pulmonary nodules are identified. ABDOMEN AND PELVIS: No suspicious FDG activity. OSSEOUS STRUCTURES: No suspicious FDG activity. OTHER CT: The lenses are removed from the globes. There is mild coronary artery atherosclerosis. Ther e is atherosclerosis of the arterial vasculature. Stable left upper lobe 5 mm pulmonary nodule. IMPRESSION: 1. Partial response to therapy with decrease in metabolic activity of the soft tissue involving the inferior lateral aspect of the right upper lobe cavity wall and mediastinal soft tissue/ lymph nodes in the prevascular space. 2. No evidence of suspicious FDG activity within the skull, neck, abdomen, pelvis or osseous structu res
== END | disposition home or self-care (01) ==
LOC: RADPETMAIN 12:34
PROVIDERS: ATTEND Internal Medicine Hematology & Oncology
DX: C34.11 Malignant neoplasm of upper lobe, right bronchus or lung (principal)
CPT/HCPCS: 78815; A9552

== ENCOUNTER 2021-11-17 12:14 | Day surgery (SDC) | payer MEDICARE, OTHER ==
[~2021-11-17 12:14] MED LIST changes: +ACETAMINOPHEN TAB 500 MG TAB PO PRN; -ALBUTEROL NEB (CONC) 2.5 MG/0.5 ML INHALATION ONE; +DEXAMETHASONE SOD PHOSPHATE 4 MG/ML 1 ML VIAL IV ONE; +HEPARIN SODIUM,PORCINE/PF 5,000 UNIT/0.5 ML SYRINGE SQ PRN; +HYDROmorphone 0.5 MG/0.5 ML SYRINGE IVP PRN; -LIDOCAINE 2% (PF) 20 MG/ML 5 ML VIAL INHALATION ONE; -LIDOCAINE VISCOUS 300 MG/15 ML CUP MUCOUS MEM ONE; +MIDAZOLAM 2 MG/2 ML VIAL IV PRN; +ONDANSETRON 4 MG/2 ML VIAL IVP ONE; +Pre Op ABX Message 1 EACH MISC MISCELLANE ONE; -SODIUM CHLORIDE 0.9% 1,000 ML IV SCH
[2021-11-17 12:59] VITALS: RESP 16; TEMP 97
[2021-11-17] MEDS ORDERED: HEPARIN SODIUM,PORCINE 100 UNIT/ML 5 ML VIAL IV ONE (12:59)
[2021-11-17] MEDS ORDERED: LIDOCAINE (PF) 10 MG/ML 2 ML VIAL SQ ONE ×3 (12:59→13:39)
[2021-11-17] MEDS ORDERED: ONDANSETRON 4 MG/2 ML VIAL IVP ONE (13:09)
[2021-11-17] MEDS ORDERED: MIDAZOLAM 2 MG/2 ML VIAL ONE (13:15)
[2021-11-17] MEDS ORDERED: PROPOFOL 10 MG/ML 20 ML VIAL IV ONE (13:15)
[2021-11-17] MEDS ORDERED: fentaNYL (PF) 50 MCG/ML 2 ML AMP ONE (13:15)
[2021-11-17] MEDS ORDERED: KETAMINE 10 MG/ML 20 ML VIAL ONE (13:15)
--- NOTE | 2021-11-17 13:25 | P.GSHP ---
History of Present Illness H&P Date: 11/17/21 Chief Complaint: Recurrent lung cancer 71-year-old female here today for Port-A-Cath placement. Patient had a previous port 4 years ago. Unfortunately had recent diagnosis of recurrent lung cancer. Patient has very poor IV access. Undergoing palliative chemotherapy. Past Medical History Past Medical History: Atrial Fibrillation, Cancer, Eye Disorder, Thyroid Disorder Additional Past Medical History / Comment(s): "FROZEN RIGHT SHOULDER" LUNG CANCER WITH CHEMO (LAST TX 08/2016), AND RADIATION (LAST TX 07/29/16), DYSPHAGIA DUE TO SCAR TISSUE FROM RADIATION TX.- IS ON SOFT DIET, STATES "MY THROAT IS THE SIZE OF A STRAW" GLAUCOMA LEFT EYE, seasonal allergies History of Any Multi-Drug Resistant Organisms: None Reported Past Surgical History: No Surgical Hx Reported Additional Past Surgical History / Comment(s): Bronchoscopy, insertion of a Mediport, mediport removed, EGD WITH DILATION X2 Past Anesthesia/Blood Transfusion Reactions: No Reported Reaction Additional Past Anesthesia/Blood Transfusion Reaction / Comment(s): STATES HX OF BLOOD TRANSFUSION- NO REACTION. "my throat is the size of a straw" Smoking Status: Current every day smoker - Past Family History Mother Family Medical History: Cancer Additional Family Medical History / Comment(s): uterine,breast cancer Father Family Medical History: Cancer Additional Family Medical History / Comment(s): hodgkins Sister(s) Family Medical History: No Reported History Medications and Allergies Home Medications Medication Instructions Recorded Confirmed Type Levothyroxine Sodium [Synthroid] 50 mcg PO DAILY 11/19/19 11/17/21 History Levalbuterol Tartrate 1 puff INHALATION RT-DAILY PRN 09/07/21 11/17/21 History [Levalbuterol Tartrate 45 MCG Hfa] Metoprolol Tartrate [Lopressor] 25 mg PO TID tab 09/16/21 11/17/21 Rx Allergies Allergy/AdvReac Type Severity Reaction Status Date / Time Sulfa (Sulfonamide Allergy Anaphylaxis Verified 11/17/21 13:00 Antibiotics) albuterol AdvReac Anaphylaxis Verified 11/17/21 13:00 amiodarone AdvReac Dyspnea Verified 11/17/21 13:00 Surgical - Exam Vital Signs Temp Pulse Resp BP Pulse Ox 97 F L 86 16 133/64 96 11/17/21 12:58 11/17/21 12:58 11/17/21 12:58 11/17/21 12:58 11/17/21 12:58 Physical exam: General: Well-developed, malnourished appearing HEENT: Normocephalic, sclerae nonicteric Abdomen: Nontender, nondistended Extremities: No edema Neuro: Alert and oriented Assessment and Plan (1) Lung cancer Narrative/Plan: Will proceed with Port-A-Cath placement at this time. Risks of bleeding, infection, DVT, pneumothorax, catheter malfunction, erosion through skin, anesthesia related complications were discussed. The patient understands and wishes to proceed. Current Visit: No Status: Acute Code(s): C34.90 - MALIGNANT NEOPLASM OF UNSP PART OF UNSP BRONCHUS OR LUNG SNOMED Code(s): 508737310
[2021-11-17] MEDS ORDERED: SODIUM CHLORIDE 0.9% 100 ML with ceFAZolin 2,000 MG IV ONE ×2 (13:30)
--- NOTE | 2021-11-17 14:05 | FL ---
Intraoperative/procedural fluoroscopic services were provided for Port-A-Cath insertion. The tip appe ars to be in the region of the superior cavoatrial junction. Total fluoroscopy time is 5 seconds with a total of 1 submitted image to PACS. Please see the operative note for further details.
[2021-11-17] MEDS ORDERED: NALOXONE 0.4 MG/ML 1 ML VIAL IV PRN (14:14)
[2021-11-17] MEDS ORDERED: HYDROcodone/APAP 5-325MG 1 EACH TAB PO PRN (14:14)
--- NOTE | 2021-11-17 14:19 | P.PCN ---
Date of Procedure: 11/17/21 Procedure(s) Performed: PREOPERATIVE DIAGNOSIS: Recurrent lung cancer POSTOPERATIVE DIAGNOSIS: Same PROCEDURE: Port-A-Cath placement with fluoroscopic and ultrasound guidance SURGEON: Diane EBL: Minimal ANESTHESIA: Sedation COMPLICATIONS: None OPERATIVE PROCEDURE: Patient was brought and placed on the operative table in the supine position. The patient was sedated per anesthesia that time. The chest and neck were prepped and draped in usual sterile fashion. The ultrasound probe was used to identify the location of the right internal jugular vein. The skin was localized with lidocaine. The Seldinger needle was advanced into the IJ under ultrasound guidance. The wire was advanced through the needle under fluoroscopic guidance into the superior vena cava. A port pocket was created in the right infraclavicular location through the previous scar site. The catheter was tunneled from the wire entrance site to the port pocket. The port was then connected to the catheter. The dilator introducer was threaded over the guidewire. The guidewire and dilator were then removed. The catheter was advanced through the introducer and introducer was then removed. The tip was seen to be in the right atrial junction via fluoroscopy. A picture of the radiograph showing the tip at the radial digital junction was taken. Port was flushed with both saline and a Hep-Lock solution. There was good flow both in and out of the port. The port was sutured in underlying tissues using 3-0 silk sutures. The subcutaneous tissues were reapproximated using 3-0 Vicryl sutures and the skin at both locations using 4-0 Monocryl sutures. Skin glue and sterile dressings then applied. DISPOSITION: Stable to recovery room
--- NOTE | 2021-11-17 14:41 | XR ---
EXAMINATION TYPE: XR chest 1V confirm line plcmt DATE OF EXAM: 11/17/2021 2:33 PM COMPARISON: Chest radiographs from 09/16/2021, PET/CT 10/23/2021. TECHNIQUE: XR chest 1V confirm line plcmt . CLINICAL INDICATION:Female, 71 years old with history of Check line; FINDINGS: Lungs/Pleura: There is flattening of the diaphragm with increased lucency of the lungs. No evidence o f pneumothorax or pleural effusion. Cavitation within the right upper lobe with adjacent pleural thic kening. Pulmonary vascularity: Unremarkable. Heart/mediastinum: Cardiomediastinal silhouette is unremarkable. Atherosclerotic calcifications are seen in the aorta. Musculoskeletal: No acute osseous pathology. Other findings: None Lines/Tubes: [id number] projecting over the right hemithorax with distal tip projecting over the low superior v jordin cava. IMPRESSION: 1. Interval placement of right [id number]-l-[id number] with tip in the mid low SVC. No pneumothorax. 2. Similar right apical cavitary lesion with surrounding pleural thickening. 3. COPD changes.
[2021-11-17 14:42] VITALS: BP 172/72; PULSE 69
== END 2021-11-17 14:55 | disposition home or self-care (01) ==
LOC: OR 12:14
PROVIDERS: ATTEND Surgery
DX: C34.92 Malignant neoplasm of unspecified part of left bronchus or lung (principal); I48.91 Unspecified atrial fibrillation; H57.9 Unspecified disorder of eye and adnexa; E07.9 Disorder of thyroid, unspecified; H40.9 Unspecified glaucoma; E78.5 Hyperlipidemia, unspecified; I10 Essential (primary) hypertension; Z46.82 Encounter for fitting and adjustment of non-vascular catheter; J45.909 Unspecified asthma, uncomplicated; R13.10 Dysphagia, unspecified; F17.200 Nicotine dependence, unspecified, uncomplicated; Z80.3 Family history of malignant neoplasm of breast; Z80.49 Family history of malignant neoplasm of other genital organs; Z85.71 Personal history of Hodgkin lymphoma; Z88.2 Allergy status to sulfonamides; Z88.9 Allergy status to unspecified drugs, medicaments and biological substances; Z88.8 Allergy status to other drugs, medicaments and biological substances
CPT/HCPCS: 36561; 77001; C1788; J2250; J2001; J1642; J2405; J0690; J3010; J2704; J1644

== ENCOUNTER → 2022-01-29 | Outpatient (CLI) | payer MEDICARE, OTHER ==
--- NOTE | 2022-01-30 10:14 | PE ---
EXAMINATION TYPE: PET CT fusion skull to thigh DATE OF EXAM: 01/29/2022 CLINICAL INDICATION:Female, 71 years old with history of C34.92 lung ca; TECHNIQUE: Following the intravenous administration of 11.6 mCi of F-18 FDG, whole body images are performed from the skull base to the midthigh. Images are reviewed on the computer in the coronal, a xial, and sagittal planes. Reconstructed rotating images are created on independent workstation and reviewed on the computer. A non-contrast CT is performed in conjunction with the PET scan. Glucose level 160 mg/dL COMPARISON: CT 09/11/2021, PET/CT 10/23/2021, FINDINGS: Mediastinal SUV mean is 1.5. Hepatic parenchyma SUV mean is 2.0. SKULL BASE AND NECK: No suspicious FDG activity. CHEST, MEDIASTINUM, AND HILAR REGION: * Prevascular space soft tissue on the left with max SUV 8.9 previously 5.9. Overall the size of thi s soft tissue area appears grossly similar to minimally increased in size. There is increased metabol ic activity within this area compared to prior lobe volume within the soft tissue and intensity and m easures roughly 5.2 x 2.9 x 2.6 cm on today's exam. * FDG activity in the right lateral inferior aspect of the cavitation near the pleura with max SUV 6 .4, previously 7.1. * Consolidation changes have increased on the inferior aspect of the right upper lobe large cavitati on with mild FDG activity max SUV 3.4. * Increased FDG activity within the left adnexa the aorta on the left near the diaphragm max SUV 3.4 , previously 1.6, measuring 8 mm. * Consolidation changes in the medial aspect of the right middle lobe and lingula mildly elevated ac tivity could be due to atelectasis. Dexter II be on the right 2.2 and the left 2.4. ABDOMEN AND PELVIS: No suspicious FDG activity. OSSEOUS STRUCTURES: No suspicious FDG activity. OTHER CT: Bilateral aphakia. Right chest wall [id number] with distal tip at the superior vena cava . Atherosclerosis of the arterial vasculature including the carotid bifurcations and coronary arterie s. Moderate stool burden throughout the colon. Multilevel disc degeneration changes are seen througho ut the spine. There is narrowing of the right main bronchus which may be 1 to 2 mm increased from leonie or. IMPRESSION: 1. Mixed response to therapy with increased prevascular space FDG activity within a similarly to min imally enlarged sized soft tissue area. There is decrease in FDG activity along the right lateral inf erior cavitation. Additionally, there is new FDG activity within the mediastinal periaortic lymph nod e near the diaphragm. 2. Mild FDG activity medially in the lingula and middle lobe inferiorly are felt to be related to at electasis. 3. Narrowing of the right main bronchus which may be minimally increased from prior and may be contri buting to the increased consolidation changes inferiorly to the cavitation on today's exam.
== END | disposition home or self-care (01) ==
LOC: RADPETMAIN 09:05
PROVIDERS: ATTEND Internal Medicine Hematology & Oncology
DX: C34.92 Malignant neoplasm of unspecified part of left bronchus or lung (principal); R59.0 Localized enlarged lymph nodes
CPT/HCPCS: 78815; A9552